=== PATIENT | male | born 1940 | race Caucasian/White ===

== ENCOUNTER 2017-12-05 13:15 | Inpatient (IN) | payer MEDICARE, SELFPAY ==
[2017-01-28 08:52] VITALS: BMI 18.7
[2017-12-05] VITALS (7 sets, daily range): BP systolic 113–159; BP diastolic 52–99; PULSE 77–111; RESP 16–20; TEMP 36.4–36.9; O2SAT 94–97; BMI 19.6; BMI 19.7; BMI 17.1
--- NOTE | 2017-12-05 14:01 | EKG12_ITS ---
Test Reason : Blood Pressure : / mmHG Vent. Rate : 090 BPM Atrial Rate : 090 BPM P-R Int : 130 ms QRS Dur : 104 ms QT Int : 394 ms P-R-T Axes : 081 083 084 degrees QTc Int : 481 ms Normal sinus rhythm ST & T wave abnormality, consider lateral ischemia Abnormal ECG Confirmed by INGA JOSHI, AARTI ([id number]), international editorial producer GINGER LINTON ([id number]) on 12/07/2017 3:29:33 PM Referred By: JASON Confirmed By:AARTI XIONG MD
--- NOTE | 2017-12-05 14:01 | RAD_ITS ---
STUDY: X-RAY CHEST REASON FOR EXAM: Male, 77 years old. Chest pain. TECHNIQUE: Single AP portable view of the chest. COMPARISON: Comparison is made with prior study dated January 26, 2017. FINDINGS: Hyperinflation. Decreased bilateral bronchovascular markings suggestive of emphysematous changes. There is no demonstrated pleural abnormality. Normal size heart. Normal mediastinum and esme. Normal visualized pulmonary arteries. There is atherosclerotic calcification of the aortic arch with tortuosity. There are diffuse degenerative changes of the visualized thoracic spine. Normal visualized ribs, clavicles, and shoulders. Hiatal hernia. RAD/Chest 1 View (Portable) IMPRESSION: Hyperinflation. Electronically Signed: Checo Shah MD at 14:26 EDT Tel [phone], Service support ,
--- NOTE | 2017-12-05 14:02 | CT_ITS ---
STUDY: CT ABDOMEN AND PELVIS WITHOUT CONTRAST REASON FOR EXAM: Male, 77 years old. Left flank pain. RADIATION DOSAGE (If Supplied By Facility): CTDIvol = ( 7.90 ) mGy, DLP = ( 340.20 ) mGycm TECHNIQUE: Transaxial images were obtained from the dome of the diaphragm to the symphysis pubis without oral contrast, and without intravenous contrast. Sagittal and coronal images were reconstructed. Individualized dose optimization techniques were used for this CT. COMPARISON: None. FINDINGS: Minimal linear scarring in the right middle lobe. Minimal increased markings in the posterior segment of the right lower lobe suggestive of a scarring. Coronary artery calcification. Normal liver. Normal gallbladder and extrahepatic biliary system. Normal spleen. Normal pancreas. Normal bilateral adrenal glands. Normal right kidney. Normal left kidney. There is a marked degree of fluid distention of the stomach. There is also evidence of fluid distention of the second and third portions of the duodenum. The transition point is seen in the third portion of duodenum as it crosses the superior mesenteric artery. Normal small intestine. Moderate amount of fecal material is seen in the colon. The appendix is visualized and appears normal. Normal abdominal aorta. Normal inferior vena cava. Normal retroperitoneum. Distended urinary bladder. There is enlargement of the prostate gland. It measures 5.2 cm x 3.8 cm. Right inguinal hernia containing a nondilated ileal bowel loop. There are diffuse degenerative changes of the visualized lumbar spine. CT/Abdomen/Pelvis without Cont IMPRESSION: Marked degree of fluid distention of the stomach as well as the second and third portion of the duodenum as it crosses the aorta and the superior mesenteric artery. Distended urinary bladder. Small right inguinal hernia containing a nondilated small bowel loop. Electronically Signed: Checo Shah MD at 15:10 EDT Tel [phone], Service support ,
[2017-12-05 14:15] LABS: Absolute Neutrophil Count 3.6 X10^3/uL (2.0-7.7); Basophil# 0.02 X10^3/uL; Basophil% 0.4 % (0-1); Eosinophil# 0.37 X10^3/uL; Hematocrit 44.4 % (40-54); Hemoglobin 14.6 g/dl (13.0-16.5); Mean Corp Hgb Conc 32.9 g/gl (32-36); Mean Corpuscular Hgb 30.7 pg (27.0-32.0); Mean Corpuscular Volume 93.3 fL (80-94); Mean Platelet Vol. 9.3 fl (6.2-12.0); Monocyte# 0.42 X10^3/uL; Monocyte% 7.9 % (0-10); Neutrophil # 3.58 X10^3/uL (2.7-7.7); Neutrophil % 67.5 % (47-70); POSITIVE COUNT NO; POSITIVE DIFFERENTIAL NO; POSITIVE MORPHOLOGY NO; Platelet Count 193 K/mm3 (150-450); RBC Distribution Width CV 13.5 % (11.6-14.6); RBC Distribution Width SD 46.1 fl (35.1-43.9); Red Blood Count 4.76 M/mm3 (4.6-6.2); White Blood Count 5.3 K/mm3 (4.4-11.0)
[2017-12-05] MEDS: Aspirin 81 MG TAB.CHEW 324 MG PO (14:22)
[2017-12-05] MEDS: Ondansetron 4 MG/2 ML Vial IV (14:22)
[2017-12-05] MEDS: 0.9% Normal Saline 1,000 ML 150 ML IV (14:22)
[2017-12-05 14:25] LABS: Bacteria 0 SEEN /hpf (None Seen); Mucous, Urine 0 SEEN /hpf (<or=2+); Red Blood Cells-Urine 0 SEEN /hpf (0-5)
[2017-12-05 14:29] LABS: Color, Urine Yellow (Yellow); Glucose, Dipstick Normal (Normal); Ketone-Dipstick 5 mg/dl (Negative); Leukocyte Esterase-Dipstick 25 /ul (Negative); Nitrite-Dipstick Negative (Negative); Occult Blood-Urine Negative /ul (Negative); Protein-Dipstick 30 mg/dl (Negative); Specific Gravity, Urine 1.015 (1.002-1.030); Urine Bilirubin Dipstick Negative (Negative); Urine Clarity Sl. Cloudy (Clear); Urine Urobilinogen Normal (Normal)
[2017-12-05 14:31] LABS: Anion Gap 6 (5-15); BUN 14 mg/dL (7-18); BUN/Creat Ratio 18.5 RATIO (10-20); Chloride 101 mmol/L (98-107); Creatinine, Serum 0.76 mg/dL (0.70-1.30); EST Glomerular Filtration Rate 106 mL/min (>60); Est Glom Filt Rate - Afr Amer 128 mL/min (>60); Estimated Creatinine Clearance 57.55 ml/min; Glucose 125 mg/dL (74-106); Potassium 3.7 mmol/L (3.5-5.1); Sodium Level 140 mmol/L (136-145)
[2017-12-05 14:36] LABS: White Blood Cells 0-5 SEEN /hpf (0-5)
[2017-12-05 14:37] LABS: Squamous Epithelial Cells - UA 0-5 SEEN /hpf (0-5)
[2017-12-05] MEDS: Lidocaine 4% 50 ML Bottle TOPICAL (16:23)
--- NOTE | 2017-12-05 17:25 | RAD_ITS ---
STUDY: X-RAY - ABDOMEN/PELVIS REASON FOR EXAM: Male, 77 years old. NG tube placement. TECHNIQUE: Single AP portable view of the abdomen / pelvis. COMPARISON: CT abdomen and pelvis 1436 hours frontal chest x-rays 1417 hours. FINDINGS: The lung bases are hyperexpanded, consistent with COPD. Nasogastric tube passes beneath the diaphragm and through the stomach, its tip projecting just beyond the pylorus in the bulb of the duodenum. There is an unremarkable bowel gas pattern. There is no demonstrated free abdominal air. The visualized liver, spleen and kidneys are grossly normal in size and morphology. There are calcified phleboliths in the pelvis. There are diffuse degenerative changes of the visualized lumbar spine. There is a compression fracture deformity of the T12 vertebra. Mild degenerative arthrosis of the bilateral sacroiliac joints. Sclerotic density in the third sacral segment is unchanged. RAD/Abdomen Single View (Portable) IMPRESSION: 1. Is gas tube appears to pass through the stomach with its tip just above the pylorus to the bulb of the duodenum. 2. Nonspecific bowel gas pattern with stool and numerous nondistended segments of colon. 3. Hyperexpansion of lungs, consistent with COPD. 4. Compression fracture deformity of the T12 vertebra. Electronically Signed: Cain Clinton MD at 18:02 EDT , Service support ,
--- NOTE | 2017-12-05 17:33 | ED.DCSUM_ITS ---
- ER Visit Summary Date of Service: 12/05/17 Chief Complaint: Abdominal pain History of Present Illness: The patient is a 77 M who states he has seen Dr. Fallon once in the past. He is a poor informant. He complains of left flank and abdominal pain that began at 10:00 this morning. Is an aching severe pain. He has had nausea without vomiting. His last bowel movement was yesterday. He has had no melena or hematochezia. No dysuria or frequency. On further questioning of the patient he reports that he has had similar pain since last April. He complains of early satiety and weight loss. States that he has severe reflux after he eats. This is much worse if he lays down. Physical Examination: Vitals: Stable. Afebrile. General: Cachectic, but well-developed. Head: Normocephalic atraumatic. Neck: Supple, no lymphadenopathy. No JVD. Nontender. Cardiovascular: Regular rate and rhythm. No murmurs. Respiratory: No respiratory distress. Clear to auscultation bilaterally. Abdominal: Soft, moderate tenderness palpation the epigastrium in the left upper quadrant, nondistended, normal bowel sounds. No guarding, rebound, or peritoneal signs. Back: Nontender. Extremities: Nontender, no edema. Skin: Normal color, no rash. Neurologic: Alert and oriented ?3. Cranial nerves II through XII are intact. Normal strength and sensation. Psych: Normal affect. Test Results: CBC is remarkable for lymphocytes of 17 eosinophils of 7. Chem-7 is more for CO2 33 and glucose 125. UA is negative. Troponin is negative. EKG is sinus at [address] changes. Chest x-ray shows chronic changes. CT flank shows marked fluid distention of the stomach as well as the second and third portion of the duodenum as it crosses the aorta and the SMA. Distended urinary bladder with small right inguinal hernia with a non-dilated small bowel loop. Emergency Department Course and Treatment: Patient was treated with morphine and Zofran IV. He had an NG tube placed. He feels much improved. Treatment Plan: The patient was discussed with Dr. Shah, Dr. Sorensen, and Dr. Harvey. At this time it appears only conservative measures are indicated. Patient will be admitted to the hospital for further relation and treatment. He was discussed with Dr. Marroquin. Disposition: Admitted in improved condition. Impression: 1. SMA syndrome. This note was generated with [employer] dictation software. It may contain incorrect words, spelling, and punctuation that were not noted in review of the chart prior to signing ED Disposition - Plan for ED Patient: Chief Complaint: Flank Pain Referrals: John Fallon DO [Primary Care Provider] -
--- NOTE | 2017-12-05 17:36 | PCM.HP.STD ---
Problem List (1) H/O heart artery stent Status: Chronic Comment: PCI-RICO-LAD and RICO-D1 (2) Atherosclerotic heart disease of [place] coronary artery without angina pectoris Status: Chronic (3) Dysphagia Status: Acute History of Present Illness Date of Admission: 12/05/17 Chief Complaint: Abdominal pain, flank pain. The patient is a 77 year old M with past medical history as mentioned above presented to the emergency room because of abdominal pain and flank pain. The patient was not good informant but he was able to give a reasonable history. His main presenting complaint today was abdominal pain, mainly on both flanks, more on the right flank, dull aching pain, 6 out of 10 in severity, sometimes radiates to left inguinal region, associated also with mild abdominal distention and fullness for stomach and without aggravating or relieving factors. He mentioned that those symptoms been going on for some time. Also, he complained of difficulty swallowing and mentioned that food stuck in the middle part of his throat and this has been going on for few months. This is associated with poor appetite as well as loss of weight. He mentioned that he has not been able to eat or drink properly for the last few months because of this problem in addition to occasional nausea and abdominal distention. He did mention that he lost about 20 pounds over the last few months. In the emergency room, he was afebrile, blood pressure was slightly elevated, other vital signs were stable. Routine blood work was unremarkable. Troponin was negative. EKG revealed normal sinus rhythm without acute ischemic changes. Urinalysis was negative. Chest x-ray showed signs of hyperinflation, no acute findings. CT abdomen and pelvis without contrast revealed marked degree of gastric and second anterior portion of the duodenum fluid distention as it crosses the aorta and the superior mesenteric artery. 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 Past Medical History Past Medical History (Chronic Problems): Chronic Problems (Last Updated 09/08/17 @ 10:09 by Adwoa Cyr) H/O heart artery stent (Chronic 01/27/17) PCI-RICO-LAD and RICO-D1 Atherosclerotic heart disease of [place] coronary artery without angina pectoris (Chronic) High risk medication use (Chronic) Allergies No Known Allergies Allergy (Verified 09/08/17 10:00) Home Medications: Ambulatory Orders Medication Instructions Recorded clopidogrel 75 mg tablet 75 mg PO DAILY 09/08/17 Aspirin E.C. [Ecotrin] 81 mg PO DAILY@0800 12/05/17 Surgical History: noncontributory Smoking Status: Former smoker Alcohol: Rare Drugs: None - *Family History Maternal History Items: - - mother lived to 84 pancreatic cancer Paternal History Items: - - young due to intestinal surgery, Review of Systems Constitutional: Reports: Anorexia, Weakness, Weight Change, Fatigue. Denies: Chills, Fever Eyes: Denies: Blurred vision, Double vision, Drainage, Vision Change HEENT: Denies: Difficulty Hearing, Ear Pain, Eye Pain, Nasal Congestion, Sore Throat Cardiovascular: Denies: Chest Pain, Chest Pressure, Chest Tightness, Heaviness, Light Headedness, Palpitations, Syncope Respiratory: Denies: Cough, Pleuritic Pain, Shortness of Breath, Sputum production, Wheezing Gastrointestinal: Reports: Abdominal Pain, Constipation, Nausea. Denies: Diarrhea, Vomiting Genitourinary: Denies: Dysuria, Frequency, Hematuria Musculoskeletal: Denies: Arm Pain, Back Pain, Foot Pain Skin: Denies: Dryness, Rash Neurological: Denies: Balance problems, Double vision, Change in Speech, Slurred speech, Confusion, Focal weakness, Headaches, Incoordination Psychiatric: Denies: Anxiety, Depression Endocrine: Denies: Change in Body Habitus, Polydipsia VTE Information - Inpt Only VTE Present on Admission: No VTE Mechan Device Prophylaxis: SCD's VTE Pharm Prophylaxis ordered?: No - Physical Exam General: Alert, Oriented x3, Cooperative, No apparent distress HEENT: Atraumatic, PERRLA, EOMI Oral: Moist Mucosa, No Gingival or Mucosal Lesions/ Ulcerations Neck: Supple, No JVD, Negative Carotid Bruits, Trachea Midline, Thyroid Normal Size and Texture Lungs: Clear to auscultation, No rhonchi, No wheeze, No rales, Diminished Cardiovascular: Regular rate, Regular Rhythm, Normal S1, Normal S2, PMI Normal Abdomen: Bowel Sounds Present, Soft, Non Tender, Non-Distended, No Hepato-splenomegaly, Obese Extremities: No clubbing, No cyanosis, No edema Skin: No rashes, No breakdown Lymphatic: No Cervical, Supraclavicular, or Inguinal Adenopathy Neurological: Cranial nerves II-XII grossly intact, Motor Exam 5/5 strength throughout Psych/Mental Status: Normal Affect, Appropriate, Alert and oriented to time, place, person, mood and affect Vital Signs Temp Pulse Resp BP Pulse Ox 98 F 87 16 136/74 H 94 12/05/17 13:15 12/05/17 17:10 12/05/17 17:10 12/05/17 17:10 12/05/17 17:10 Oxygen Flow Rate (L/min) 2 Oxygen Delivery Method Nasal Cannula Weight: 145 lb Body Mass Index (BMI) 19.6 Laboratory Tests Past 24 Hrs 12/05/17 12/05/17 12/05/17 14:06 14:06 14:20 WBC 5.3 RBC 4.76 Hgb 14.6 Hct 44.4 MCV 93.3 MCH 30.7 MCHC 32.9 RDW 13.5 RDW Differential 46.1 H Plt Count 193 MPV 9.3 Immature Gran % (Auto) 0.200 Neut % (Auto) 67.5 Lymph % (Auto) 17.0 L Mccreary % (Auto) 7.9 Eos % (Auto) 7.0 H Baso % (Auto) 0.4 Absolute Neuts (auto) 3.6 Absolute Lymphs (auto) 0.90 Total Counted Not Reportable Sodium 140 Potassium 3.7 Chloride 101 Carbon Dioxide 33.0 H Anion Gap 6 BUN 14 Creatinine 0.76 Estim Creat Clear Calc 57.55 Est GFR (MDRD) Af Amer 128 Est GFR (MDRD) Non-Af 106 BUN/Creatinine Ratio 18.5 Glucose 125 H Calcium 9.0 Troponin I < 0.02 Urine Color Yellow Urine Clarity Sl. Cloudy Urine pH 8.0 Ur Specific [place] 1.015 Urine Protein 30 H Urine Glucose (UA) Normal Urine Ketones 5 H Urine Occult Blood Negative Urine Nitrite Negative Urine Bilirubin Negative Urine Urobilinogen Normal Ur Leukocyte Esterase 25 H Urine RBC 0 SEEN Urine WBC 0-5 SEEN Ur Squamous Epith Cells 0-5 SEEN Urine Bacteria 0 SEEN Urine Mucus 0 SEEN Clinical Impression(s) from Imaging Studies Chest X-Ray 12/05/17 14:01 IMPRESSION: Hyperinflation. Electronically Signed: Checo Shah MD at 14:26 EDT Tel [phone], Service support , Abdomen/Pelvis CT 12/05/17 14:02 IMPRESSION: Marked degree of fluid distention of the stomach as well as the second and third portion of the duodenum as it crosses the aorta and the superior mesenteric artery. Distended urinary bladder. Small right inguinal hernia containing a nondilated small bowel loop. Electronically Signed: Checo Shah MD at 15:10 EDT Tel [phone], Service support , Assessment/Plan This is a 77 years old male patient presented to the medicine because of vague abdominal pain, bilateral flank pain more on the right side as well as nausea and dysphagia, found to have findings consistent with possible superior mesenteric artery syndrome on CT scan abdomen and pelvis without contrast. #1 abdominal pain/flank pain/suspected superior mesenteric artery syndrome: This is an incidental CT scan abdomen and pelvis finding. It does show stomach and second and third part of duodenum marker distention. Both kidneys are normal without stones or hydronephrosis, normal bilateral adrenal glands, normal abdominal aorta, normal retroperitoneum. Plan: Admit to MedSurg floor, cardiac monitoring, keep on clear liquids, IV fluids, continue NG tube, IV morphine as needed for pain, IV antiemetics, general surgery consult, repeat CBC and BMP tomorrow morning, PT OT evaluation and treatment. #2 dysphagia: It is painless dysphagia, it is significant because it is associated with weight loss. Malignancy of the upper GI tract is in the differential diagnosis. Plan: IV Pepcid twice daily, IV fluids, general surgery consult for possible upper EGD. #3 epistaxis: This is started after NG tube insertion. Hemoglobin and hematocrit are stable. Plan to check pro time and INR, repeat CBC tomorrow morning #4 protein calorie malnutrition: This is because of poor oral intake and poor appetite. Patient lost about 20 pounds over the last few months. Plan: Prealbumin, nutrition consult. #5 CAD: EKG reviewed, no acute ischemic changes. Troponin is negative. Continue aspirin and Plavix. #6 DVT prophylaxis: SCDs. No chemical prophylaxis because of epistaxis. This note was generated with [employer]ation software. It may contain incorrect words, spelling, and punctuation that were not noted in checking the note before signing. Code Visit Inpatient E&M: 16269 Init Hosp L3
--- NOTE | 2017-12-05 17:48 | HP.PCM_ITS ---
Problem List (1) H/O heart artery stent Status: Chronic Comment: PCI-RICO-LAD and RICO-D1 (2) Atherosclerotic heart disease of [place] coronary artery without angina pectoris Status: Chronic (3) Dysphagia Status: Acute History of Present Illness Date of Admission: 12/05/17 Chief Complaint: Abdominal pain, flank pain. The patient is a 77 year old M with past medical history as mentioned above presented to the emergency room because of abdominal pain and flank pain. The patient was not good informant but he was able to give a reasonable history. His main presenting complaint today was abdominal pain, mainly on both flanks, more on the right flank, dull aching pain, 6 out of 10 in severity, sometimes radiates to left inguinal region, associated also with mild abdominal distention and fullness for stomach and without aggravating or relieving factors. He mentioned that those symptoms been going on for some time. Also, he complained of difficulty swallowing and mentioned that food stuck in the middle part of his throat and this has been going on for few months. This is associated with poor appetite as well as loss of weight. He mentioned that he has not been able to eat or drink properly for the last few months because of this problem in addition to occasional nausea and abdominal distention. He did mention that he lost about 20 pounds over the last few months. In the emergency room, he was afebrile, blood pressure was slightly elevated, other vital signs were stable. Routine blood work was unremarkable. Troponin was negative. EKG revealed normal sinus rhythm without acute ischemic changes. Urinalysis was negative. Chest x-ray showed signs of hyperinflation, no acute findings. CT abdomen and pelvis without contrast revealed marked degree of gastric and second anterior portion of the duodenum fluid distention as it crosses the aorta and the superior mesenteric artery. 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 Past Medical History Past Medical History (Chronic Problems): Chronic Problems (Last Updated 09/08/17 @ 10:09 by Adwoa Cyr) H/O heart artery stent (Chronic 01/27/17) PCI-RICO-LAD and RICO-D1 Atherosclerotic heart disease of [place] coronary artery without angina pectoris (Chronic) High risk medication use (Chronic) Allergies No Known Allergies Allergy (Verified 09/08/17 10:00) Home Medications: Ambulatory Orders Medication Instructions Recorded clopidogrel 75 mg tablet 75 mg PO DAILY 09/08/17 Aspirin E.C. [Ecotrin] 81 mg PO DAILY@0800 12/05/17 Surgical History: noncontributory Smoking Status: Former smoker Alcohol: Rare Drugs: None - *Family History Maternal History Items: - - mother lived to 84 pancreatic cancer Paternal History Items: - - young due to intestinal surgery, Review of Systems Constitutional: Reports: Anorexia, Weakness, Weight Change, Fatigue. Denies: Chills, Fever Eyes: Denies: Blurred vision, Double vision, Drainage, Vision Change HEENT: Denies: Difficulty Hearing, Ear Pain, Eye Pain, Nasal Congestion, Sore Throat Cardiovascular: Denies: Chest Pain, Chest Pressure, Chest Tightness, Heaviness, Light Headedness, Palpitations, Syncope Respiratory: Denies: Cough, Pleuritic Pain, Shortness of Breath, Sputum production, Wheezing Gastrointestinal: Reports: Abdominal Pain, Constipation, Nausea. Denies: Diarrhea, Vomiting Genitourinary: Denies: Dysuria, Frequency, Hematuria Musculoskeletal: Denies: Arm Pain, Back Pain, Foot Pain Skin: Denies: Dryness, Rash Neurological: Denies: Balance problems, Double vision, Change in Speech, Slurred speech, Confusion, Focal weakness, Headaches, Incoordination Psychiatric: Denies: Anxiety, Depression Endocrine: Denies: Change in Body Habitus, Polydipsia VTE Information - Inpt Only VTE Present on Admission: No VTE Mechan Device Prophylaxis: SCD's VTE Pharm Prophylaxis ordered?: No - Physical Exam General: Alert, Oriented x3, Cooperative, No apparent distress HEENT: Atraumatic, PERRLA, EOMI Oral: Moist Mucosa, No Gingival or Mucosal Lesions/ Ulcerations Neck: Supple, No JVD, Negative Carotid Bruits, Trachea Midline, Thyroid Normal Size and Texture Lungs: Clear to auscultation, No rhonchi, No wheeze, No rales, Diminished Cardiovascular: Regular rate, Regular Rhythm, Normal S1, Normal S2, PMI Normal Abdomen: Bowel Sounds Present, Soft, Non Tender, Non-Distended, No Hepato- splenomegaly, Obese Extremities: No clubbing, No cyanosis, No edema Skin: No rashes, No breakdown Lymphatic: No Cervical, Supraclavicular, or Inguinal Adenopathy Neurological: Cranial nerves II-XII grossly intact, Motor Exam 5/5 strength throughout Psych/Mental Status: Normal Affect, Appropriate, Alert and oriented to time, place, person, mood and affect Vital Signs Temp Pulse Resp BP Pulse Ox 98 F 87 16 136/74 H 94 12/05/17 13:15 12/05/17 17:10 12/05/17 17:10 12/05/17 17:10 12/05/17 17:10 Oxygen Flow Rate (L/min) 2 Oxygen Delivery Method Nasal Cannula Weight: 145 lb Body Mass Index (BMI) 19.6 Laboratory Tests Past 24 Hrs 12/05/17 12/05/17 12/05/17 14:06 14:06 14:20 WBC 5.3 RBC 4.76 Hgb 14.6 Hct 44.4 MCV 93.3 MCH 30.7 MCHC 32.9 RDW 13.5 RDW Differential 46.1 H Plt Count 193 MPV 9.3 Immature Gran % (Auto) 0.200 Neut % (Auto) 67.5 Lymph % (Auto) 17.0 L [place] % (Auto) 7.9 Eos % (Auto) 7.0 H Baso % (Auto) 0.4 Absolute Neuts (auto) 3.6 Absolute Lymphs (auto) 0.90 Total Counted Not Reportable Sodium 140 Potassium 3.7 Chloride 101 Carbon Dioxide 33.0 H Anion Gap 6 BUN 14 Creatinine 0.76 Estim Creat Clear Calc 57.55 Est GFR (MDRD) Af Amer 128 Est GFR (MDRD) Non-Af 106 BUN/Creatinine Ratio 18.5 Glucose 125 H Calcium 9.0 Troponin I < 0.02 Urine Color Yellow Urine Clarity Sl. Cloudy Urine pH 8.0 Ur Specific [place] 1.015 Urine Protein 30 H Urine Glucose (UA) Normal Urine Ketones 5 H Urine Occult Blood Negative Urine Nitrite Negative Urine Bilirubin Negative Urine Urobilinogen Normal Ur Leukocyte Esterase 25 H Urine RBC 0 SEEN Urine WBC 0-5 SEEN Ur Squamous Epith Cells 0-5 SEEN Urine Bacteria 0 SEEN Urine Mucus 0 SEEN Clinical Impression(s) from Imaging Studies Chest X-Ray 12/05/17 14:01 IMPRESSION: Hyperinflation. Electronically Signed: Checo Shah MD at 14:26 EDT Tel [phone], Service support , Abdomen/Pelvis CT 12/05/17 14:02 IMPRESSION: Marked degree of fluid distention of the stomach as well as the second and third portion of the duodenum as it crosses the aorta and the superior mesenteric artery. Distended urinary bladder. Small right inguinal hernia containing a nondilated small bowel loop. Electronically Signed: Checo Shah MD at 15:10 EDT Tel [phone], Service support , Assessment/Plan This is a 77 years old male patient presented to the medicine because of vague abdominal pain, bilateral flank pain more on the right side as well as nausea and dysphagia, found to have findings consistent with possible superior mesenteric artery syndrome on CT scan abdomen and pelvis without contrast. #1 abdominal pain/flank pain/suspected superior mesenteric artery syndrome: This is an incidental CT scan abdomen and pelvis finding. It does show stomach and second and third part of duodenum marker distention. Both kidneys are normal without stones or hydronephrosis, normal bilateral adrenal glands, normal abdominal aorta, normal retroperitoneum. Plan: Admit to MedSurg floor, cardiac monitoring, keep on clear liquids, IV fluids, continue NG tube, IV morphine as needed for pain, IV antiemetics, general surgery consult, repeat CBC and BMP tomorrow morning, PT OT evaluation and treatment. #2 dysphagia: It is painless dysphagia, it is significant because it is associated with weight loss. Malignancy of the upper GI tract is in the differential diagnosis. Plan: IV Pepcid twice daily, IV fluids, general surgery consult for possible upper EGD. #3 epistaxis: This is started after NG tube insertion. Hemoglobin and hematocrit are stable. Plan to check pro time and INR, repeat CBC tomorrow morning #4 protein calorie malnutrition: This is because of poor oral intake and poor appetite. Patient lost about 20 pounds over the last few months. Plan: Prealbumin, nutrition consult. #5 CAD: EKG reviewed, no acute ischemic changes. Troponin is negative. Continue aspirin and Plavix. #6 DVT prophylaxis: SCDs. No chemical prophylaxis because of epistaxis. This note was generated with [employer]Q™ Medical[employer] software. It may contain incorrect words, spelling, and punctuation that were not noted in checking the note before signing. Code Visit Inpatient E&M: 51980 Init Hosp L3
[2017-12-05 20:02] LABS: International Normalized Ratio 1.1; Prothrombin Time (Protime)PT. 13.9 SECONDS (11.7-14.9)
[2017-12-05 20:57] LABS: Prealbumin 27.1 mg/dL (20.0-40.0)
[2017-12-05] MEDS: 0.9% Normal Saline 1,000 ML 100 ML IV ×2 (22:42→23:07)
[2017-12-06] VITALS (16 sets, daily range): BP systolic 97–133; BP diastolic 45–83; PULSE 61–88; RESP 16–18; TEMP 36.4–37.1; O2SAT 93–99; BMI 17.1
--- NOTE | 2017-12-06 | EGD_PTH ---
PATIENT: RENETTA HOBSON LOC: MS2 U#:[id number] AGE/SX: 77/M ROOM: [facility] [place] RE12/05/[address]: Dr. Ras Ziegler MD : 1940 BED: 1 DIS: 12/07/2017 SPEC #: [id number] RECD: 12/06/17 13:08 STATUS: [place] REQ #: [id number] RONALDO: 12/06/17 00:[address]: Matteo Winters DEPT: SURGICAL PATHOLOGY RECD BY: Herman Archer ENTERED: 12/06/17 14:20 SP TYPE: EGD BIOPSY OTHR DR: MD Dr. Mario Black MD Dr. Mark Stutzman, Tissues: Gastric mucous membrane Procedures: Surgery Specimen Level IV Comments: @ Ordering doctor for SUIV edited from to @ by TAISHA at 12/07/17 0843 @ Submitting doctor edited from to @ by RGOOD at 12/07/17 0843 HEADER OPERATION: EGD PRE-OP DIAGNOSIS: Weight loss, ? SMA syndrome TISSUE SUBMITTED: Gastric biopsy MICROSCOPIC DIAGNOSIS Gastric mucosa, biopsy: Mild chronic gastritis. AM:jarrett 12/07/17 COMMENT The results of immunohistochemistry for Helicobacter pylori will be reported separately ([id number]). MICROSCOPIC DESCRIPTION Slides are reviewed. GROSS DESCRIPTION Received in fixative is one container labeled with the patient's name and designated gastric biopsy. The specimen consists of one irregular fragment of light gregg soft tissue that measures 0.7 x 0.2 x 0.1 cm. The specimen is totally submitted in one cassette. / AM:jarrett 12/06/17 TC:3 CPT: 13434
--- NOTE | 2017-12-06 | IMM_PTH ---
PATIENT: RENETTA HOBSON LOC: MS2 U#:[id number] AGE/SX: 77/M ROOM: [facility] [id number] RE12/05/[address]: Dr. Ras Ziegler MD : 1940 BED: 1 DIS: 12/07/2017 SPEC #: [id number] RECD: 12/07/17 11:40 STATUS: SOUT REQ #: [id number] RONALDO: 12/06/17 00:[address]: Matteo Winters DEPT: IMMUNOHISTOCHEMISTRY RECD BY: Melvina Dumont ENTERED: 12/07/17 11:41 SP TYPE: IMMUNO OTHR DR: MD Dr. Mario Black MD Dr. Mark Stutzman, DO Tissues: Stomach, NOS Procedures: H Pylori (initial) Comments: @ Ordering doctor for H.PYLORI edited from to @ by TAISHA at 12/07/17 1150 @ Submitting doctor edited from to @ by RGOOD at 12/07/17 1150 PHYSICIAN & [place] [phone] SPECIMEN INFORMATION: Tissue Source: Gastric biopsy Clinical Info: Weight loss, ? SMA syndrome Specimen Number: [id number] CPT code: 84505 METHODOLOGY: Deparaffinized sections of prefer/formalin-fixed tissue or PAP/DQ stained slides are incubated with monoclonal/polyclonal antibodies/oligonucleotide probes. Localization is made via biotin free immunoperoxidase method. Appropriate controls are performed and reacted as expected. Results on target cell population are indicated in the following table: RESULTS: ANTIBODY / CLONE RESULT H Pylori (polyclonal) negative These tests were developed and their performance characteristics determined by [facility]. They may not have been cleared or approved by the U.S. Food and Drug Administration. The FDA has determined that such clearance or approval is not necessary. INTERPRETATION: Gastric biopsy: Negative for Helicobacter pylori organisms. ALYSE:jarrett 12/08/17
[2017-12-06 05:18] LABS: Absolute Lymphocyte Count 0.86 X10^3/ul (0.83-4.51); Absolute Neutrophil Count 5.2 X10^3/uL (2.0-7.7); Basophil# 0.02 X10^3/uL; Basophil% 0.3 % (0-1); Eosinophils% 6.9 % (0-5); Hematocrit 40.2 % (40-54); Hemoglobin 13.2 g/dl (13.0-16.5); Lymphocyte # 0.86 X10^3/ul (4.0); Lymphocyte % 11.8 % (19-41); Mean Corp Hgb Conc 32.8 g/gl (32-36); Mean Corpuscular Volume 94.4 fL (80-94); Mean Platelet Vol. 9.5 fl (6.2-12.0); Monocyte# 0.69 X10^3/uL; Monocyte% 9.5 % (0-10); Neutrophil # 5.19 X10^3/uL (2.7-7.7); Neutrophil % 71.4 % (47-70); Platelet Count 206 K/mm3 (150-450); RBC Distribution Width CV 13.4 % (11.6-14.6); RBC Distribution Width SD 44.9 fl (35.1-43.9); Red Blood Count 4.26 M/mm3 (4.6-6.2); White Blood Count 7.3 K/mm3 (4.4-11.0)
[2017-12-06 05:23] LABS: POSITIVE COUNT NO; POSITIVE DIFFERENTIAL NO; POSITIVE MORPHOLOGY NO
[2017-12-06 05:39] LABS: Anion Gap 8 (5-15); BUN 10 mg/dL (7-18); BUN/Creat Ratio 15.9 RATIO (10-20); Calcium,Total 8.2 mg/dL (8.5-10.1); Chloride 107 mmol/L (98-107); Creatinine, Serum 0.63 mg/dL (0.70-1.30); EST Glomerular Filtration Rate 132 mL/min (>60); Est Glom Filt Rate - Afr Amer 160 mL/min (>60); Estimated Creatinine Clearance 50.05 ml/min; Glucose 83 mg/dL (74-106); Sodium Level 141 mmol/L (136-145)
[2017-12-06] MEDS: Clopidogrel Bisulfate 75 MG Tablet PO (08:02)
[2017-12-06] MEDS: Aspirin E.C. 81 MG Tablet PO (08:02)
[2017-12-06] MEDS: 0.9% Normal Saline 1,000 ML 100 ML IV ×2 (08:04→15:38)
--- NOTE | 2017-12-06 09:30 | PCM.CONS.GEN ---
Reason for Consult Date of Consultation: 12/06/17 History of Present Illness: The patient is a 77 year old M who notes postprandial abdominal pain and 20 at 30 pound weight loss. The patient has a history of coronary disease. He had 3 stents placed in January 2017. Since that time. The patient has had progressive postprandial pain which she describes is consistent with these. He thinks his kidney pain. He will eat a meal mostly solids but also more recently liquids and after eating he will note abdominal distention, nausea without vomiting and unable note pain in his bilateral flank areas, more on the left than the right. As a result, the patient's appetite has been lessened. He states he is eating mostly soups and some milkshakes, but now has pain even after liquidy foods. Since last year. His weight has gone from approximately 157 pounds to 120 pounds. he presented to [facility] emergency department yesterday. A KUB followed by a CT scan demonstrated significant gastric distention and distention of the duodenum to the third, fourth portion felt to be consistent with her mesenteric artery syndrome. An nasogastric tube was placed. He was admitted to the medicine service and I was consulted. the patient does not note any improvement in his symptoms with positioning. Following eating, although he does not admit to trying either eating with leaning forward or eating laying on either side. Past Medical History Past Medical History (Chronic Problems): Chronic Problems (Last Updated 09/08/17 @ 10:09 by Adwoa Cyr) H/O heart artery stent (Chronic 01/27/17) PCI-RICO-LAD and RICO-D1 Atherosclerotic heart disease of [place] coronary artery without angina pectoris (Chronic) High risk medication use (Chronic) Allergies No Known Allergies Allergy (Verified 09/08/17 10:00) Home Medications: Ambulatory Orders Medication Instructions Recorded clopidogrel 75 mg tablet 75 mg PO DAILY 09/08/17 Aspirin E.C. [Ecotrin] 81 mg PO DAILY@0800 12/05/17 Surgical History: noncontributory Smoking Status: Former smoker Alcohol: Rare Drugs: None - *Family History Maternal History Items: - - mother lived to 84 pancreatic cancer Paternal History Items: - - young due to intestinal surgery, Review of Systems Constitutional: Reports: Malaise, Weight Change, Fatigue HEENT: Denies: Head Aches, Sinus Congestion, Sinus Drainage Cardiovascular: Denies: Chest Pain, Palpitations Respiratory: Denies: Cough, Shortness of breath at rest, Sputum production Gastrointestinal: Reports: Abdominal Pain, Nausea. Denies: Vomiting Genitourinary: Denies: Dysuria Musculoskeletal: Denies: Joint Pain, Joint Tenderness Skin: Denies: Rash, Wounds Neurological: Denies: Numbness, Tingling, Focal weakness Psychiatric: Denies: Anxiety, Depression, Homicidal Ideations, Suicidal Ideations Hematologic/ Lymphatic: Denies: Easy Bruising, Easy Bleeding - Physical Exam General: Alert, Oriented x3, - - thin and mildly malnourished appearing Lungs: Clear to auscultation, Normal air movement Cardiovascular: Regular rate, Regular Rhythm Abdomen: Bowel Sounds Present, Soft, Non Tender Vital Signs Temp Pulse Resp BP Pulse Ox 98.2 F 67 16 133/59 H 99 12/06/17 07:45 12/06/17 07:45 12/06/17 07:45 12/06/17 07:45 12/06/17 07:45 Oxygen Delivery Method Room Air Weight: 57.2 kg Body Mass Index (BMI) 17.1 Intake and Output for Last 24 Hours 12/04/17 12/05/17 12/06/17 23:59 23:59 23:59 Intake Total 1527 / 1527 Output Total 740 / 740 Balance 787 / 787 Laboratory Tests Past 24 Hrs 12/05/17 12/05/17 12/06/17 19:08 19:08 04:45 WBC 7.3 RBC 4.26 L Hgb 13.2 Hct 40.2 MCV 94.4 H MCH 31.0 MCHC 32.8 RDW 13.4 RDW Differential 44.9 H Plt Count 206 MPV 9.5 Immature Gran % (Auto) 0.100 Neut % (Auto) 71.4 H Lymph % (Auto) 11.8 L [place] % (Auto) 9.5 Eos % (Auto) 6.9 H Baso % (Auto) 0.3 Absolute Neuts (auto) 5.2 Absolute Lymphs (auto) 0.86 Total Counted Not Reportable PT 13.9 INR 1.1 Sodium Potassium Chloride Carbon Dioxide Anion Gap BUN Creatinine Estim Creat Clear Calc Est GFR (MDRD) Af Amer Est GFR (MDRD) Non-Af BUN/Creatinine Ratio Glucose Calcium Prealbumin 27.1 12/06/17 04:45 WBC RBC Hgb Hct MCV MCH MCHC RDW RDW Differential Plt Count MPV Immature Gran % (Auto) Neut % (Auto) Lymph % (Auto) [place] % (Auto) Eos % (Auto) Baso % (Auto) Absolute Neuts (auto) Absolute Lymphs (auto) Total Counted PT INR Sodium 141 Potassium 4.0 Chloride 107 Carbon Dioxide 26.0 Anion Gap 8 BUN 10 Creatinine 0.63 L Estim Creat Clear Calc 50.05 Est GFR (MDRD) Af Amer 160 Est GFR (MDRD) Non-Af 132 BUN/Creatinine Ratio 15.9 Glucose 83 Calcium 8.2 L Prealbumin Assessment/Plan weight loss, postprandial abdominal pain-findings consistent with superior mesenteric artery syndrome I plan to perform upper endoscopy to assure that there is no intrinsic abnormalities which would explain his symptoms. The patient understands the risks, benefits, possible complications and alternatives to upper endoscopy. Consents to the procedure. If this is unremarkable, would then start on a liquid diet versus a small diet/postgastrectomy type diet to see if this improves his symptoms. We can also try different positions following eating such as leaning forward or leaning off to the side. We can also try sips of nutritional supplements between meals. We could also consider getting an upper GI to assess the degree of narrowing, although on noncontrast CT scan. It certainly looks like he has a decreased SMA aortic angle.
--- NOTE | 2017-12-06 10:51 | NURSING ---
Patient being transported to EGD at this time.
--- NOTE | 2017-12-06 10:52 | NURSING ---
Layla here to transport patient to endo. called report to Tish in AC as they will check pt in. pt transported off unit at this time.
--- NOTE | 2017-12-06 11:48 | PCM.PN.HOSP ---
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 Consult was placed to general surgery for endoscopic evaluation in view of patient significant dysphagia and weight loss Objective: GENERAL: cooperative HEENT: Clear conjunctiva, NECK; supple, normal thyroid, . CHEST: Diminished to auscultation bilaterally HEART: Regular S1 S2, no audible murmurs ABDOMEN: soft, non-tender, normoactive bowel sounds, RECTAL: deferred EXTREMITIES: No edema, no clubbing, no cyanosis. PRESSURE DISPATCHER: Awake, no lateralizing signs. SKIN: No lesions no erythema, Vitals/I&O's: Vital Signs Temp Pulse Resp BP Pulse Ox 98.2 F 67 16 133/59 H 99 12/06/17 07:45 12/06/17 07:45 12/06/17 07:45 12/06/17 07:45 12/06/17 07:45 Oxygen Delivery Method Room Air Weight: 57.2 kg Body Mass Index (BMI) 17.1 Intake and Output for Last 24 Hours 12/04/17 12/05/17 12/06/17 23:59 23:59 23:59 Intake Total 1527 / 1527 Output Total 740 / 740 Balance 787 / 787 Laboratory Results 12/05/17 19:08: PT 13.9, INR 1.1 12/05/17 19:08: Prealbumin 27.1 12/06/17 04:45: WBC 7.3, RBC 4.26 L, Hgb 13.2, Hct 40.2, MCV 94.4 H, MCH 31.0, MCHC 32.8, RDW 13.4, RDW Differential 44.9 H, Plt Count 206, MPV 9.5, Immature Gran % (Auto) 0.100, Neut % (Auto) 71.4 H, Lymph % (Auto) 11.8 L, [place] % (Auto) 9.5, Eos % (Auto) 6.9 H, Baso % (Auto) 0.3, Absolute Neuts (auto) 5.2, Absolute Lymphs (auto) 0.86, Total Counted Not Reportable 12/06/17 04:45: Sodium 141, Potassium 4.0, Chloride 107, Carbon Dioxide 26.0, Anion Gap 8, BUN 10, Creatinine 0.63 L, Estim Creat Clear Calc 50.05, Est GFR (MDRD) Af Amer 160, Est GFR (MDRD) Non-Af 132, BUN/Creatinine Ratio 15.9, Glucose 83, Calcium 8.2 L Current Medications Aspirin (Ecotrin) 81 mg PO DAILY@0800 [facility] Last Admin: 12/06/17 08:02 Dose: 81 mg Clopidogrel Bisulfate (Plavix) 75 mg PO DAILY [facility] Last Admin: 12/06/17 08:02 Dose: 75 mg Sodium Chloride () 1,000 mls @ 100 mls/hr IV .Q10H [facility] Last Admin: 12/06/17 08:04 Dose: 100 mls/hr Famotidine (Pepcid 20mg) 20 mg in 50 mls @ 150 mls/hr IV Q12 [facility] Last Admin: 12/06/17 10:17 Dose: 150 mls/hr Morphine Sulfate (Morphine) 1 - 2 mg IV Q4H PRN PRN PRN Reason: SEVERE PAIN (6-10/10) Last Admin: 12/06/17 03:39 Dose: 1 mg Nutritional Formula (Lactose Free) (Ensure Clear) 120 ml PO 4X/DAY [facility] Last Admin: 12/06/17 07:53 Dose: Not Given Ondansetron HCl (Zofran) 4 mg IV Q8H PRN PRN PRN Reason: NAUSEA/VOMITING Sodium Chloride () 5 - 30 ml IV UD PRN PRN Reason: SALINE FLUSH Assessment/Plan Patient is a 77-year-old gentleman with past medical history significant for CAD who presented with vague abdominal symptoms associated with nausea and dysphagia and significant weight loss CT of the abdomen without contrast obtained demonstrated 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 Consult was placed to general surgery for endoscopic evaluation in view of patient significant dysphagia and weight loss 1. Abdominal pain suspected to be secondary to superior mesenteric artery syndrome; patient has been admitted to regular nursing floor for conservative management including NG tube to suction antinausea medication as well as pain management with consultation placed to general surgery 2. Dysphagia with significant weight loss patient scheduled to undergo endoscopic evaluation 3. Severe protein calorie malnutrition as evidenced by significant weight loss decreased energy level and poor oral intake consultation was placed to nutrition service 4. CAD EKG on admission did not reveal any acute changes patient is on dual antiplatelet therapy with aspirin and Plavix did continue 5. DVT prophylaxis SCDs for now Clinical Impression(s) from Imaging Studies Chest X-Ray 12/05/17 14:01 IMPRESSION: Hyperinflation. Electronically Signed: Checo Shah MD at 14:26 EDT Tel [phone], Service support , Abdomen/Pelvis CT 12/05/17 14:02 IMPRESSION: Marked degree of fluid distention of the stomach as well as the second and third portion of the duodenum as it crosses the aorta and the superior mesenteric artery. Distended urinary bladder. Small right inguinal hernia containing a nondilated small bowel loop. Electronically Signed: Checo Shah MD at 15:10 EDT Tel [phone], Service support , KUB X-Ray 12/05/17 17:25 IMPRESSION: 1. Is gas tube appears to pass through the stomach with its tip just above the pylorus to the bulb of the duodenum. 2. Nonspecific bowel gas pattern with stool and numerous nondistended segments of colon. 3. Hyperexpansion of lungs, consistent with COPD. 4. Compression fracture deformity of the T12 vertebra. Electronically Signed: Cain Clinton MD at 18:02 EDT , Service support , Code Visit Inpatient E&M: 77802 Subs Hosp L3
--- NOTE | 2017-12-06 11:55 | PN_ITS ---
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 Consult was placed to general surgery for endoscopic evaluation in view of patient significant dysphagia and weight loss Objective: GENERAL: cooperative HEENT: Clear conjunctiva, NECK; supple, normal thyroid, . CHEST: Diminished to auscultation bilaterally HEART: Regular S1 S2, no audible murmurs ABDOMEN: soft, non-tender, normoactive bowel sounds, RECTAL: deferred EXTREMITIES: No edema, no clubbing, no cyanosis. ANGLESMITH HELPER: Awake, no lateralizing signs. SKIN: No lesions no erythema, Vitals/I&O's: Vital Signs Temp Pulse Resp BP Pulse Ox 98.2 F 67 16 133/59 H 99 12/06/17 07:45 12/06/17 07:45 12/06/17 07:45 12/06/17 07:45 12/06/17 07:45 Oxygen Delivery Method Room Air Weight: 57.2 kg Body Mass Index (BMI) 17.1 Intake and Output for Last 24 Hours 12/04/17 12/05/17 12/06/17 23:59 23:59 23:59 Intake Total 1527 / 1527 Output Total 740 / 740 Balance 787 / 787 Laboratory Results 12/05/17 19:08: PT 13.9, INR 1.1 12/05/17 19:08: Prealbumin 27.1 12/06/17 04:45: WBC 7.3, RBC 4.26 L, Hgb 13.2, Hct 40.2, MCV 94.4 H, MCH 31.0, MCHC 32.8, RDW 13.4, RDW Differential 44.9 H, Plt Count 206, MPV 9.5, Immature Gran % (Auto) 0.100, Neut % (Auto) 71.4 H, Lymph % (Auto) 11.8 L, [place] % (Auto) 9.5, Eos % (Auto) 6.9 H, Baso % (Auto) 0.3, Absolute Neuts (auto) 5.2, Absolute Lymphs (auto) 0.86, Total Counted Not Reportable 12/06/17 04:45: Sodium 141, Potassium 4.0, Chloride 107, Carbon Dioxide 26.0, Anion Gap 8, BUN 10, Creatinine 0.63 L, Estim Creat Clear Calc 50.05, Est GFR ( MDRD) Af Amer 160, Est GFR (MDRD) Non-Af 132, BUN/Creatinine Ratio 15.9, Glucose 83, Calcium 8.2 L Current Medications Aspirin (Ecotrin) 81 mg PO DAILY@0800 [facility] Last Admin: 12/06/17 08:02 Dose: 81 mg Clopidogrel Bisulfate (Plavix) 75 mg PO DAILY [facility] Last Admin: 12/06/17 08:02 Dose: 75 mg Sodium Chloride () 1,000 mls @ 100 mls/hr IV .Q10H [facility] Last Admin: 12/06/17 08:04 Dose: 100 mls/hr Famotidine (Pepcid 20mg) 20 mg in 50 mls @ 150 mls/hr IV Q12 [facility] Last Admin: 12/06/17 10:17 Dose: 150 mls/hr Morphine Sulfate (Morphine) 1 - 2 mg IV Q4H PRN PRN PRN Reason: SEVERE PAIN (6-10/10) Last Admin: 12/06/17 03:39 Dose: 1 mg Nutritional Formula (Lactose Free) (Ensure Clear) 120 ml PO 4X/DAY [facility] Last Admin: 12/06/17 07:53 Dose: Not Given Ondansetron HCl (Zofran) 4 mg IV Q8H PRN PRN PRN Reason: NAUSEA/VOMITING Sodium Chloride () 5 - 30 ml IV UD PRN PRN Reason: SALINE FLUSH Assessment/Plan Patient is a 77-year-old gentleman with past medical history significant for CAD who presented with vague abdominal symptoms associated with nausea and dysphagia and significant weight loss CT of the abdomen without contrast obtained demonstrated 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 Consult was placed to general surgery for endoscopic evaluation in view of patient significant dysphagia and weight loss 1. Abdominal pain suspected to be secondary to superior mesenteric artery syndrome; patient has been admitted to regular nursing floor for conservative management including NG tube to suction antinausea medication as well as pain management with consultation placed to general surgery 2. Dysphagia with significant weight loss patient scheduled to undergo endoscopic evaluation 3. Severe protein calorie malnutrition as evidenced by significant weight loss decreased energy level and poor oral intake consultation was placed to nutrition service 4. CAD EKG on admission did not reveal any acute changes patient is on dual antiplatelet therapy with aspirin and Plavix did continue 5. DVT prophylaxis SCDs for now Clinical Impression(s) from Imaging Studies Chest X-Ray 12/05/17 14:01 IMPRESSION: Hyperinflation. Electronically Signed: Checo Shah MD at 14:26 EDT Tel [phone], Service support , Abdomen/Pelvis CT 12/05/17 14:02 IMPRESSION: Marked degree of fluid distention of the stomach as well as the second and third portion of the duodenum as it crosses the aorta and the superior mesenteric artery. Distended urinary bladder. Small right inguinal hernia containing a nondilated small bowel loop. Electronically Signed: Checo Shah MD at 15:10 EDT Tel [phone], Service support , KUB X-Ray 12/05/17 17:25 IMPRESSION: 1. Is gas tube appears to pass through the stomach with its tip just above the pylorus to the bulb of the duodenum. 2. Nonspecific bowel gas pattern with stool and numerous nondistended segments of colon. 3. Hyperexpansion of lungs, consistent with COPD. 4. Compression fracture deformity of the T12 vertebra. Electronically Signed: Cain Clinton MD at 18:02 EDT , Service support , Code Visit Inpatient E&M: 19137 Subs Hosp L3
--- NOTE | 2017-12-06 13:21 | PCM.OPRPT ---
Report of Operation Date of Procedure: 12/06/17 Pre-Operative Diagnosis: weight loss, ? SMA syndrome, - gastric and duodenal distention Post-Operative Diagnosis: no obvious internal abnormalities, ? external compression 3-4portion of duodenum, NG suction cesar in stomach, otherwise unremarkable, ? large type 1 hiatal hernia. distal esophagitis? from NG tube Surgery/Procedure Performed:: EGD with biopsy agricultural labor camp manager: None Type of Anesthesia:: MAC Anesthesiologist: Leonard Casillas - ASA3 Specimen's removed: gastric Description of Procedure: The patient was brought to the endoscopy suite. Sign in was performed verifying patient, site, planned procedure, critical nursing information, the patient was monitored with cardiac, pulse oximetric, and blood pressure monitoring devices. Monitored anesthetic care was provided for sedation. Following IV sedation and after the oropharynx was sprayed with Cetacaine spray, a video gastroscope was inserted in the oropharynx and advanced down the esophagus without difficulty. The scope was advanced through the stomach, through the pylorus through the duodenum to the proximal jejunum. there were no signs of intrinsic abnormalities. There was a suggestion of external compression in the third to fourth portion of duodenum, but the bowel did expand normally with insufflation. There did seem to be a degree of first through third portion of the duodenum distention with a slightly greater diameter than would normally be expected without other abnormalities. The stomach demonstrated no specific abnormalities other than irritation was felt to be due to nasogastric suctioning. An antral biopsy was obtained. The scope was retroflexed. There was a large hiatal hernia with the proximal half the volume of the stomach felt to be above the diaphragmatic hiatus. There was no marginal ulcerations. The distal esophagus is irritated but this was felt potentially to be due to irritation from the NG tube. As the patient is on Plavix, no esophageal biopsies were performed. The cystoscope was withdrawn, the remainder of the esophagus was unremarkable. plan to obtain an upper GI to assess if there is progression of the hiatal hernia from his previous upper GI and to assess for radiographic proof of SMA syndrome/compression of the third, fourth portions of duodenum The patient tolerated the procedure well and was brought to recovery in stable condition
--- NOTE | 2017-12-06 14:03 | NURSING ---
Ni, RN spoke with Dr. Winters who requested for patient to begin small frequent meals with no gastric stim. This RN called dietary and left message to see about getting 5 small meals a day rather than 3 for this patient. Awaiting return call.
--- NOTE | 2017-12-06 14:04 | CHAPLAIN ---
Type of Pastoral Visit _x__ Initial Visit ___ Follow-up Visit ___ On-call Visit ___ General Patient Visit ___ Spiritual Assessment ___ Family Conference ___ Bereavement ___ Rapid Response ___ Code Blue ___ Other (describe below) Pastoral Care Referral From _x__ Patient ___ Family ___ Nurse ___ Physician ___ Nursing Care Partner ___ Sales And Management Trainee ___ Other (describe below) Sacrament/Intervention _x__ Active listening ___ Anointing ___ Restorationism ___ Bereavement ___ Communion ___ Arlyn exploration ___ _x__ Life review ___ Prayer ___ Reconciliation ___ Sacrament of Sick _x__ Supportive presence ___ Wedding ___ Other (describe below) Pastoral Comments patient has opinions about life and money that he freely shares; pt says that he has not been to denominational for a very long time; pt describes his health situation and says he is just waiting for doctors report on his tests and going home; friends of pt enter room; this pigment and lacquer mixer offered to leave room so visitors could have time with pt; later one of the friends approached this pigment and lacquer mixer in the hallway; friend said that pt has no family but that he (friend) would be able to give pt transportation back home when discharged; friend said he was concerned that pt follows up on doctor order; gave this information (name and phone number) to MICHELLE
[2017-12-07] MEDS: 0.9% Normal Saline 1,000 ML 100 ML IV (02:08)
[2017-12-07 03:05] VITALS: BP 97/59; PULSE 68; RESP 16; TEMP 36.8; O2SAT 94
[2017-12-07 03:59] VITALS: PULSE 65
--- NOTE | 2017-12-07 05:15 | NURSING ---
Pt pacing in room, states he wishes to leave and there's nothing that the doctors can find wrong with him. Pt says he's been here long enough, and he's getting cooped up and restless. Pt comes out to the desk to speak with lópez Whittington RN and again, states that he needs to leave and is just going to walk down to [facility]. Pt states that if he leaves now, it will save his insurance a couple hours on his bill. Dr. Villalobos notified of pt's wishes to leave, and she states that the pt will have to wait until his attending comes in at 0700 to write his discharge order. Explained Dr. Villalobos's response to the pt, letting him know that he would have to leave AMA at this time if he cannot wait until the dayshift hospitalist gets here to see him. Pt frustrated, walks back into his room with a cup of coffee. Pt refusing barium swallow today, stating it's just his allergies and there's no allergy doctor here. Will continue to encourage pt to stay until dayshift arrives to speak with his attending hospitalist.
[2017-12-07 06:40] VITALS: O2SAT 95
--- NOTE | 2017-12-07 07:30 | NURSING ---
PT CONTINUES TO PACE IN FRONT OF NURSING STATION FULLY DRESSED IN STREET CLOTHES W/OUT TELE MONITOR OR IV IN PLACE. THIS NURSE INTRODUCED SELF TO PT DAYSHIFT NURSE. INFORMED PT THAT DAYSDRAKE BRAUN HAS BEEN NOTIFIED PT WOULD LIKE TO LEAVE AND THAT THE DR WILL BE DOWN TO SEE THE PT WHEN HE CAN. PT ASKED TO WAIT IN HIS ROOM FOR DOCTOR FOR PT PRIVACY REASONS. PT ASKING FOR THE PERSON IN CHARGE TO MAKE THE DECISION ABOUT HIS LEAVING. INFORMED THAT WOULD BE THE DAYSHIFT DR AND PREV STATED HE WILL BE HERE WHEN HE CAN. PT DOES RETURN TO HIS ROOM TO WAIT.
--- NOTE | 2017-12-07 07:59 | PCM.DC ---
You will use the following diet at home:: Cardiac Your food should be the consistency of: Soft (bite-sized & easy to chew/swallow) Allergies/Adverse Reactions: Allergies No Known Allergies Allergy (Verified 09/08/17 10:00) Medications to take at Discharge clopidogrel 75 mg tablet 75 mg PO DAILY 09/08/17 Aspirin E.C. [Ecotrin] 81 mg PO DAILY@0800 12/05/17 Ensure Clear 120 ml PO 4X/DAY #0 liquid 12/07/17 Pantoprazole Sodium [Protonix] 40 mg PO DAILY #90 tab 12/07/17 The following prescriptions were given: Pantoprazole Sodium [Protonix] 40 mg PO DAILY #90 tab Primary Care Physician: John Fallon DO [Primary Care Provider] - Please follow up with your Primary Care Physician in: in 1 week Please Follow Up With: Matteo Winters MD When: in 1 week Proposed Discharge Date: 12/07/17
--- NOTE | 2017-12-07 07:59 | NURSING ---
THIS NURSE PRESENT IN ROOM W/DR STONER. DR STONER INFORMED PT HE WILL BE D/C'D THIS AM. REITERATED DR KC'S RECOMMENDATIONS FOR SMALLER MORE FREQ MEALS, LEANING FORWARD WHEN EATING AND ENSURE BETWEEN MEALS. PT AGREEABLE
--- NOTE | 2017-12-07 08:02 | DS.PCM_ITS ---
Discharge Date and Diagnosis - Problem List Patient Problems: Active and Suspected Problems (Last Updated 09/08/17 @ 10:09 by Adwoa Cyr) Hiatal hernia with gastroesophageal reflux disease and esophagitis (Acute) Date of Admission: 12/05/17 Date of Discharge: 12/07/17 - Primary Discharge Diagnosis Active and Suspected Problems (Last Updated 09/08/17 @ 10:09 by Adwoa Cyr) Hiatal hernia with gastroesophageal reflux disease and esophagitis (Acute) - Secondary Discharge Diagnosis Chronic Problems (Last Updated 09/08/17 @ 10:09 by Adwoa Cyr) H/O heart artery stent (Chronic 01/27/17) PCI-RICO-LAD and RICO-D1 Atherosclerotic heart disease of [place] coronary artery without angina pectoris (Chronic) High risk medication use (Chronic) Hospital Course and Treatment Imaging Results: 12/07/17 08:30 Upper GI w/BA Swallow [RAD] Urgent Operations: None Procedures: EGD Summary of Care Provided: Patient is a 77-year-old gentleman with past medical history significant for CAD who presented with vague abdominal symptoms associated with nausea and dysphagia and significant weight loss CT of the abdomen without contrast obtained demonstrated 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 Consult was placed to general surgery for endoscopic evaluation in view of patient significant dysphagia and weight loss 1. Abdominal pain suspected to be secondary to superior mesenteric artery syndrome; patient has been admitted to regular nursing floor for conservative management including NG tube to suction antinausea medication as well as pain management with consultation placed to general surgery department did perform upper EGD on 12/06/2017 findings included large type 1 hiatal hernia with distal esophagitis patient was discharged home the day after his procedure on PPI with instructions to follow-up with Dr. Harvey as well as his PCP. 2. Dysphagia with significant weight loss patient scheduled to undergo endoscopic evaluation. Results as above 3. Severe protein calorie malnutrition as evidenced by significant weight loss decreased energy level and poor oral intake consultation was placed to nutrition service 4. CAD: EKG on admission did not reveal any acute changes patient is on dual antiplatelet therapy with aspirin and Plavix did continue 5. DVT prophylaxis SCDs for now Discharge Diet: Soft diet Home Medications: Medications to take at Discharge clopidogrel 75 mg tablet 75 mg PO DAILY 09/08/17 Aspirin E.C. [Ecotrin] 81 mg PO DAILY@0800 12/05/17 Ensure Clear 120 ml PO 4X/DAY #0 liquid 12/07/17 Pantoprazole Sodium [Protonix] 40 mg PO DAILY #90 tab 12/07/17 Following Prescrptions Were Given to Patient: Pantoprazole Sodium [Protonix] 40 mg PO DAILY #90 tab Primary Care Physician: John Fallon DO [Primary Care Provider] - Please follow up with your Primary Care Physician in: in 1 week Please Follow Up With: Matteo Winters MD When: in 1 week Disposition: Home Minutes spent on discharge:: 35 Patient Condition:: Stable Meaningful Use Info Meaningful Use Diagnoses (Choose all that apply): None applicable Code Visit Inpatient E&M: 74463 Disch Hosp
[2017-12-07 08:10] VITALS: BP 113/65; PULSE 78; RESP 16; TEMP 36.4; O2SAT 95
--- NOTE | 2017-12-07 09:02 | PCM.PN.SRG ---
Patient Problems: Active and Suspected Problems (Last Updated 09/08/17 @ 10:09 by Adwoa Cyr) Hiatal hernia with gastroesophageal reflux disease and esophagitis (Acute) Subjective: want to go home - Physical Exam General: Alert, Oriented x3, Cooperative, No apparent distress Lungs: Clear to auscultation, Normal air movement Cardiovascular: Regular rate, Regular Rhythm Abdomen: Bowel Sounds Present, Soft, Non Tender Vital Signs Temp Pulse Resp BP Pulse Ox 97.5 F L 78 16 113/65 95 12/07/17 08:10 12/07/17 08:10 12/07/17 08:10 12/07/17 08:10 12/07/17 08:10 Oxygen Delivery Method Room Air Weight: 57.2 kg Body Mass Index (BMI) 17.1 Intake and Output for Last 24 Hours 12/05/17 12/06/17 12/07/17 23:59 23:59 23:59 Intake Total 3271 / 3271 1536 / 1536 Output Total 2240 / 2240 575 / 575 Balance 1031 / 1031 961 / 961 Assessment/Plan Active and Suspected Problems (Last Updated 09/08/17 @ 10:09 by Adwoa Cyr) Hiatal hernia with gastroesophageal reflux disease and esophagitis (Acute) weight loss, postprandial abdominal pain-findings consistent with superior mesenteric artery syndrome Upper endoscopy demonstrated a moderately large hiatal hernia, distal esophagitis felt to be secondary to the NG tube and likely external compression at the 3-4 portion of the duodenum without intrinsic masses or abnormalities. I recommended follow up upper GI to demonstrate both the hiatal hernia and to assess the area of suspected SMA compression. The patient would like to be discharged and he is not currently interested in further testing. I recommended he follow up with me as an outpatient to review the EGD biopsies and consider further testing. I recommended smaller meals, between meal intake such as boost and a trail of leaning forward or to the side after eating to see if this improves gastric/duodenal emptying
== END 2017-12-07 08:09 | disposition home or self-care (01) | DRG 393 ==
LOC: ED 15:09 → MS2 18:00
PROVIDERS: Surgery; Admitting Provider Hospitalist; Emergency Provider Emergency Medicine; Family Provider Family Medicine; PCP Family Medicine; Visit Provider Internal Medicine
PROC: 0DJ08ZZ Inspection of Upper Intestinal Tract, Via Natural or Artificial Opening Endoscopic (ICD-10-PCS; CPT 43235; principal; 2017-12-06 11:25)
DX: K55.1 Chronic vascular disorders of intestine (principal); E43 Unspecified severe protein-calorie malnutrition; Z68.1 Body mass index [BMI] 19.9 or less, adult; K21.0 Gastro-esophageal reflux disease with esophagitis; K44.9 Diaphragmatic hernia without obstruction or gangrene; I25.10 Atherosclerotic heart disease of native coronary artery without angina pectoris; Z95.5 Presence of coronary angioplasty implant and graft; Z87.891 Personal history of nicotine dependence; Z79.02 Long term (current) use of antithrombotics/antiplatelets; Z79.82 Long term (current) use of aspirin
CPT/HCPCS: 36415; 71045; 74018; 74176; 80048; 81001; 84134; 84484; 85025; 85610; 88305; 88342; 93005; 97161; 97166; 97802; 99285; J7030; A4216; J2405; J3490

== ENCOUNTER 2017-12-20 11:07 | Inpatient (IN) | payer MEDICARE, SELFPAY ==
[2017-01-28 08:52] VITALS: BMI 18.7
[2017-12-20] VITALS (10 sets, daily range): BP systolic 121–143; BP diastolic 62–81; PULSE 80–120; RESP 16–22; TEMP 36.5–37.2; O2SAT 95–98; BMI 17.3; BMI 17.0
--- NOTE | 2017-12-20 11:28 | EKG12_ITS ---
Test Reason : N/V Blood Pressure : / mmHG Vent. Rate : 103 BPM Atrial Rate : 103 BPM P-R Int : 164 ms QRS Dur : 096 ms QT Int : 380 ms P-R-T Axes : 078 072 -78 degrees QTc Int : 497 ms Sinus tachycardia Nonspecific ST and T wave abnormality Abnormal ECG Confirmed by INGA JOSHI, AARTI ([id number]), clinical editor GINGER LINTON ([id number]) on 12/22/2017 2:56:59 PM Referred By: CANDELARIO Confirmed By:AARTI XIONG MD
--- NOTE | 2017-12-20 11:28 | CT_ITS ---
STUDY: CT ABDOMEN AND PELVIS WITH CONTRAST REASON FOR EXAM: Male, 77 years old. Abdominal and back pain, vomiting RADIATION DOSAGE (If Supplied By Facility): CTDIvol = ( 7.99 ) mGy, DLP = ( 288.68 ) mGycm TECHNIQUE: Transaxial images were obtained from the dome of the diaphragm to the symphysis pubis without oral contrast. 100 ml of Isovue 300 contrast was administered. Sagittal and coronal images were reconstructed. Individualized dose optimization techniques were used for this CT. COMPARISON: 12/05/2017 FINDINGS: The lung bases are hyperinflated. Coronary artery calcifications are present. Normal liver. Normal gallbladder and extrahepatic biliary system. Normal spleen. Normal pancreas. Normal bilateral adrenal glands. There is scarring of the right kidney. Normal left kidney. There is a large fluid-filled hiatal hernia. The stomach is significantly distended. I believe the pylorus is at the diaphragmatic hiatus. Normal small intestine. There is stool throughout the colon, in amounts suggesting constipation in the appropriate clinical setting. The appendix is visualized and appears normal. There is diffuse atherosclerotic calcification of the abdominal aorta, without a demonstrated aneurysm. Normal inferior vena cava. Normal retroperitoneum. The urinary bladder is distended. Normal abdominal wall. Degenerative changes are seen throughout the spine. Compression deformity at T12 is unchanged. CT/Abdomen/Pelvis WITH Contrast IMPRESSION: There is a large hiatal hernia, with significant fluid distention of the stomach. I believe the pylorus is at the level of the diaphragm. This patient may benefit from nasogastric decompression, as well as a contrast study through the gastric tube to better delineate anatomy. Additional nonacute findings, as detailed above. Electronically Signed: Gaston Singh DO at 13:32 EDT Tel , Service support ,
[2017-12-20] MEDS: 0.9% Normal Saline 1,000 ML 1000 ML IV (11:41)
[2017-12-20] MEDS: Ondansetron 4 MG/2 ML Vial IV ×2 (11:41→12:43)
[2017-12-20 12:05] LABS: Absolute Lymphocyte Count 0.28 X10^3/ul (0.83-4.51); Absolute Neutrophil Count 8.8 X10^3/uL (2.0-7.7); Basophil# 0.01 X10^3/uL; Basophil% 0.1 % (0-1); Hematocrit 44.8 % (40-54); Hemoglobin 15.1 g/dl (13.0-16.5); Lymphocyte # 0.28 X10^3/ul (4.0); Mean Corp Hgb Conc 33.7 g/gl (32-36); Mean Corpuscular Hgb 31.2 pg (27.0-32.0); Mean Corpuscular Volume 92.6 fL (80-94); Mean Platelet Vol. 9.8 fl (6.2-12.0); Monocyte% 3.2 % (0-10); Neutrophil # 8.83 X10^3/uL (2.7-7.7); Neutrophil % 93.6 % (47-70); Platelet Count 260 K/mm3 (150-450); RBC Distribution Width CV 13.4 % (11.6-14.6); RBC Distribution Width SD 44.2 fl (35.1-43.9); Red Blood Count 4.84 M/mm3 (4.6-6.2); White Blood Count 9.4 K/mm3 (4.4-11.0)
[2017-12-20 12:07] LABS: POSITIVE COUNT NO; POSITIVE DIFFERENTIAL YES; POSITIVE MORPHOLOGY NO
[2017-12-20 12:22] LABS: ALB/GLOB Ratio 0.9 RATIO (0.9-2.4); AST(SGOT) 19 U/L (15-37); Alanine Aminotransfer ALT/SGPT 16 U/L (16-61); Alkaline Phosphatase 80 U/L (45-117); Anion Gap 11 (5-15); BUN 19 mg/dL (7-18); BUN/Creat Ratio 19.9 RATIO (10-20); Calcium,Total 9.2 mg/dL (8.5-10.1); Chloride 102 mmol/L (98-107); Creatinine, Serum 0.96 mg/dL (0.70-1.30); EST Glomerular Filtration Rate 81 mL/min (>60); Est Glom Filt Rate - Afr Amer 98 mL/min (>60); Estimated Creatinine Clearance 52.92 ml/min; Globulin 4.3 g/dL (2.2-4.2); Glucose 185 mg/dL (74-106); Lipase 427 U/L (73-393); Potassium 3.9 mmol/L (3.5-5.1); Protein, Total 8.3 g/dL (6.4-8.2); Sodium Level 140 mmol/L (136-145)
[2017-12-20 12:31] LABS: Lactic Acid 3.8 mmol/L (0.4-2.0)
[2017-12-20] MEDS: Morphine 4 MG/ML Syringe IV (12:43)
[2017-12-20 12:56] LABS: Differential Indicated SCAN CRITERIA MET
[2017-12-20 13:25] LABS: Mucous, Urine 0 SEEN /hpf (<or=2+); Red Blood Cells-Urine 0 SEEN /hpf (0-5)
[2017-12-20 13:27] LABS: Color, Urine Yellow (Yellow); Glucose, Dipstick Normal (Normal); Ketone-Dipstick 5 mg/dl (Negative); Leukocyte Esterase-Dipstick 25 /ul (Negative); Nitrite-Dipstick Negative (Negative); Occult Blood-Urine Negative /ul (Negative); Protein-Dipstick 30 mg/dl (Negative); Urine Bilirubin Dipstick Negative (Negative); Urine Clarity Cloudy (Clear); Urine Urobilinogen Normal (Normal)
[2017-12-20 13:37] LABS: Amorphous Sediment 1+; Bacteria 1+ /hpf (None Seen); Squamous Epithelial Cells - UA 0-5 SEEN /hpf (0-5); White Blood Cells 0-5 SEEN /hpf (0-5)
--- NOTE | 2017-12-20 14:28 | ED.VISSUMM ---
- ER Visit Summary Date of Service: 12/20/17 Chief Complaint: [Abdominal pain] History of Present Illness: The patient is a 77 M [presents to the emergency department with complaint of abdominal pain that he has had for over a month. Patient describes nausea and inability to eat. Patient states he has been vomiting when trying to eat. Patient is lost about 40 pounds in the last 3-4 months. Patient unable to sleep. Last bowel movement 3 days ago. Patient also complains of pain in his lower back bilaterally. Patient denies any fever. Patient recently admitted to hospital with similar complaints and was seen by Dr. Harvey apparently for possible superior mesenteric syndrome. Patient also had EGD at that time. Patient states that he was told to gain weight but he cannot eat.] Physical Examination: HEENT-PERRLA, EOMI. Cranial nerves II through XII grossly intact. TMs clear. Mucous membranes dry. No adenopathy. Overall patient cachectic. Poor skin turgor. Cardiovascular-regular rate and rhythm without murmur or ectopy Lungs-clear to auscultation, chest wall stable without crepitus or subcu emphysema Abdomen-normoactive bowel sounds, soft. Mild diffuse tenderness. No rebound, rigidity, or perineal signs. Extremities-intact ?4, normal range of motion, normal pulses, atraumatic] Test Results: [CBC with differential showed a white count of 9.4, hemoglobin 15, hematocrit 45, platelets 260. Chemistries unremarkable. LFTs were normal. Lipase was slightly elevated 427. Urinalysis was normal. Troponin was less than 0.02. EKG shows sinus tachycardia with a rate of 103 bpm with some nonspecific ST changes. Lactate was elevated 3.8. CT scan of the abdomen and pelvis showed a distended stomach and large hiatal hernia with large amount of fluid and debris within the stomach. Radiology recommended NG tube and possible Gastrografin through NG to evaluate further. Patient also noted to have constipation with stool throughout the colon.] Emergency Department Course and Treatment: [Patient was medicated with morphine and Zofran. Patient was given normal saline.] Treatment Plan: [Patient to be admitted for further workup and hydration.] Disposition: [Admit] Impression: [Abdominal pain Dehydration] This note was generated with Chuj[employer] dictation software. It may contain incorrect words, spelling, and punctuation that were not noted in review of the chart prior to signing ED Disposition - Plan for ED Patient: Chief Complaint: Abd Pain Referrals: John Fallon DO [Primary Care Provider] -
--- NOTE | 2017-12-20 14:38 | RAD_ITS ---
STUDY: X-RAY - ABDOMEN/PELVIS REASON FOR EXAM: Male, 77 years old. NG PLACEMENT TECHNIQUE: Single AP view of the abdomen / pelvis. COMPARISON: None. FINDINGS: Normal visualized lung bases. There is a feeding tube/ nasogastric tube noted. The tip is in the region of the stomach. There is an unremarkable bowel gas pattern. There is no demonstrated free abdominal air. The visualized liver, spleen and kidneys are grossly normal in size and morphology. Normal soft tissue structures. There are diffuse degenerative changes of the visualized lumbar spine. RAD/Abdomen Single View (Portable) IMPRESSION: There is a feeding tube/ nasogastric tube noted. The tip is in the region of the stomach. Electronically Signed: Macario Gutierrez MD at 16:00 EDT , Service support ,
--- NOTE | 2017-12-20 15:15 | HP.PCM_ITS ---
Problem List (1) SMAS (superior mesenteric artery syndrome) Status: Acute (2) Hiatal hernia with gastroesophageal reflux disease and esophagitis Status: Acute (3) Atherosclerotic heart disease of [place] coronary artery without angina pectoris Status: Chronic Qualifiers: [place] vs. transplanted heart: unspecified whether [place] or transplanted heart Qualified Code(s): I25.10 - Atherosclerotic heart disease of [place] coronary artery without angina pectoris (4) Dysphagia Status: Chronic Qualifiers: Dysphagia type: unspecified Qualified Code(s): R13.10 - Dysphagia, unspecified History of Present Illness Date of Admission: 12/20/17 Chief Complaint: Weight loss, weakness/debility, nausea and emesis. The patient is a 77 y/o M w/ PMHx: GERD, Hiatal Hernia, CAD s/p PCI, Chronic Dysphagia who was recently discharged 12/07/17 secondary to similar presentation w/ evaluation per Surgery with evaluation felt consistent with superior mesenteric artery syndrome who left prior to completion of work-up secondary to feeling that he was not improving; however, he was only inpatient evening and demanded discharge 12/07/17 AM, who now re-presents to the [facility] ED on with recurrent similar symptoms of ongoing weight loss, post-prandial pain and intractable nausea and emesis primarily, event with attempted water intake. In the ED work-up included T 98, HR 107, BP 141/74, RR 16, 98% on RA, CBC w/ WBC 9.4, Hgb 15.1, Plts 260 with L shift, CMP with glucose 185, LA 3.8, lipase 427, UA not marked appearing, KUB not read but appearance notably distended stomach full off contents. Discussed with ED physician and requested placement of NGT in the ED. Past Medical History Past Medical History (Chronic Problems): Chronic Problems (Last Updated 09/08/17 @ 10:09 by Adwoa Cyr) H/O heart artery stent (Chronic 01/27/17) PCI-RICO-LAD and RICO-D1 Atherosclerotic heart disease of [place] coronary artery without angina pectoris (Chronic) High risk medication use (Chronic) Dysphagia (Chronic) Allergies No Known Allergies Allergy (Verified 12/20/17 11:10) Home Medications: Ambulatory Orders Medication Instructions Recorded clopidogrel 75 mg tablet 75 mg PO DAILY 09/08/17 Aspirin E.C. [Ecotrin] 81 mg PO DAILY@0800 12/05/17 Ensure Clear 120 ml PO 4X/DAY #0 liquid 12/07/17 Pantoprazole Sodium [Protonix] 40 mg PO DAILY 12/20/17 Surgical History: - - PCI. Psychiatric History: No pertinent psych hx Lives: Alone Smoking Status: Former smoker Tobacco Use: Non-smoker Alcohol: None Drugs: None - *Family History Maternal History Items: Cancer - Mother passed age 84 y/o secondary to pancreatic cancer. , - Paternal History Items: - - early, unclear specific etiology, noted recent intestinal surgery/intervention. Review of Systems Constitutional: Reports: Malaise, Fatigue. Denies: Chills, Fever, Weight Change HEENT: Reports: Dysphasia. Denies: Head Aches, Sinus Congestion, Sinus Drainage Cardiovascular: Denies: Chest Pain, Palpitations Respiratory: Denies: Cough, Shortness of breath at rest, Sputum production Gastrointestinal: Reports: Abdominal Pain, Constipation, Nausea, Vomiting Genitourinary: Denies: Dysuria Musculoskeletal: Reports: Back Pain. Denies: Joint Pain, Joint Tenderness Skin: Denies: Rash, Wounds Neurological: Denies: Numbness, Tingling, Focal weakness Psychiatric: Denies: Anxiety, Depression, Homicidal Ideations, Suicidal Ideations Hematologic/ Lymphatic: Denies: Easy Bruising, Easy Bleeding VTE Information - Inpt Only VTE Present on Admission: No VTE Mechan Device Prophylaxis: SCD's VTE Pharm Prophylaxis ordered?: Yes Patient Problems: Active and Suspected Problems (Last Updated 09/08/17 @ 10:09 by Adwoa Cyr) SMAS (superior mesenteric artery syndrome) (Acute) Subjective: Seated upright in the ED bed, fatigued appearance. Objective: Physical Examination: General: awake, alert, oriented x 3 and cooperative, seated upright in the ED bed in no apparent distress, fatigued appearance. Skin: mildly connelly hue, decreased skin turgor, no icterus, cyanosis. HEENT: AT/NC, EOMI, PERRLA, dry MM, no carotid bruits or JVD noted. Lungs: CTA bilaterally, moderate effort, moderate decrease BL bases, no rales, ronchi or wheezing. Heart: Tachycardic with regular rhythm; no gallop, rub audible. Abdomen: soft, cachetic appearance, mild TTP epigastrium and BL UQ, no rebound or guarding, ND, hypoactive BS, no HSM. Extremities: no cyanosis, clubbing, or edema, muscle loss evident. Neurological: patient awake, alert, oriented x 3; cognitive function intact; pupils equally reactive to light and accomodation; cranial nerves II-XII grossly normal, moving all 4 extremities, no focal deficits, strength severely globally decreased secondary to acute presentation. Psychiatric: affect appears flat, fatigued, no acute evidence of depressive or anxiety feelings. - Physical Exam Vital Signs Temp Pulse Resp BP Pulse Ox 97.7 F L 106 H 18 143/81 H 97 12/20/17 11:08 12/20/17 11:21 12/20/17 11:21 12/20/17 11:21 12/20/17 11:21 Oxygen Delivery Method Room Air Weight: 128 lb Body Mass Index (BMI) 17.3 Laboratory Tests Past 24 Hrs 12/20/17 12/20/17 12/20/17 11:50 11:50 11:50 WBC 9.4 RBC 4.84 Hgb 15.1 Hct 44.8 MCV 92.6 MCH 31.2 MCHC 33.7 RDW 13.4 RDW Differential 44.2 H Plt Count 260 MPV 9.8 Immature Gran % (Auto) 0.100 Neut % (Auto) 93.6 H Lymph % (Auto) 3.0 L [place] % (Auto) 3.2 Eos % (Auto) 0.0 Baso % (Auto) 0.1 Absolute Neuts (auto) 8.8 H Absolute Lymphs (auto) 0.28 L Total Counted Not Reportable Sodium 140 Potassium 3.9 Chloride 102 Carbon Dioxide 27.0 Anion Gap 11 BUN 19 H Creatinine 0.96 Estim Creat Clear Calc 52.92 Est GFR (MDRD) Af Amer 98 Est GFR (MDRD) Non-Af 81 BUN/Creatinine Ratio 19.9 Glucose 185 H Lactic Acid 3.8 H Calcium 9.2 Total Bilirubin 0.40 AST 19 ALT 16 Alkaline Phosphatase 80 Troponin I < 0.02 Total Protein 8.3 H Albumin 4.0 Globulin 4.3 H Albumin/Globulin Ratio 0.9 Lipase 427 H Urine Color Urine Clarity Urine pH Ur Specific [place] Urine Protein Urine Glucose (UA) Urine Ketones Urine Occult Blood Urine Nitrite Urine Bilirubin Urine Urobilinogen Ur Leukocyte Esterase Urine RBC Urine WBC Ur Squamous Epith Cells Amorphous Sediment Urine Bacteria Urine Mucus 03/27/18 13:20 WBC RBC Hgb Hct MCV MCH MCHC RDW RDW Differential Plt Count MPV Immature Gran % (Auto) Neut % (Auto) Lymph % (Auto) [place] % (Auto) Eos % (Auto) Baso % (Auto) Absolute Neuts (auto) Absolute Lymphs (auto) Total Counted Sodium Potassium Chloride Carbon Dioxide Anion Gap BUN Creatinine Estim Creat Clear Calc Est GFR (MDRD) Af Amer Est GFR (MDRD) Non-Af BUN/Creatinine Ratio Glucose Lactic Acid Calcium Total Bilirubin AST ALT Alkaline Phosphatase Troponin I Total Protein Albumin Globulin Albumin/Globulin Ratio Lipase Urine Color Yellow Urine Clarity Cloudy Urine pH 8.0 Ur Specific [place] 1.010 Urine Protein 30 H Urine Glucose (UA) Normal Urine Ketones 5 H Urine Occult Blood Negative Urine Nitrite Negative Urine Bilirubin Negative Urine Urobilinogen Normal Ur Leukocyte Esterase 25 H Urine RBC 0 SEEN Urine WBC 0-5 SEEN Ur Squamous Epith Cells 0-5 SEEN Amorphous Sediment 1+ Urine Bacteria 1+ Urine Mucus 0 SEEN Assessment/Plan Active and Suspected Problems (Last Updated 09/08/17 @ 10:09 by Adwoa yCr) SMAS (superior mesenteric artery syndrome) (Acute) The patient is a 77 y/o M w/ PMHx: GERD, Hiatal Hernia, CAD s/p PCI, Chronic Dysphagia who re-presents to the [facility] ED on 12/20/17 with recurrent similar symptoms of ongoing weight loss, post-prandial pain and intractable nausea and emesis primarily, event with attempted water intake. (1) Intractable Nausea, Emesis, Chronic OP Dysphagia, Post-prandial Pain, Weight loss, FTT secondary to Suspected Superior Mesenteric Artery Syndrome: Given severity of appearance, will admit to [facility], maintain on IVFs, place NGT in the ED to LIWS, repeat KUB in AM, continue PRN pain, antiemetic agents, discussed TPN start with pharmacy, consultation with Dr. Winters as prior admission w/ upper EGD w/ noted moderately large hiatal hernia, distal esophagitis felt to be secondary to the NG tube and likely external compression at the 3-4 portion of the duodenum without intrinsic masses or abnormalities with plan at that time for follow up upper GI to demonstrate both the hiatal hernia and to assess the area of suspected SMA compression. IV PPI. NPO status. PT, OT, CM consultation. Mag, phos pending. Nutrition consulted also. (2) GERD w/ Hiatal Hernia, Hx Esophagitis: PPI IV. (3) CAD: s/p PCI, 01/2017, continue [place] ASA, holding oral plavix given #1. (4) Severe Protein-Calorie Malnutrition: Secondary to #1, as noted nutrition consulted, plan pharmacy assist with TPN, mag and phos pending. (5) DVT Prophylaxis: SCDs, lovenox. Code Visit Inpatient E&M: 03991 Init Hosp L3
--- NOTE | 2017-12-20 15:24 | NURSING ---
209 FTT, INTRACTABLE N,V, SMA SYNDROME WHITE
[2017-12-20 15:58] LABS: Reflex Lactate? Y
--- NOTE | 2017-12-20 16:19 | RAD_ITS ---
CLINICAL HISTORY: Male, 77 years old. Abdominal and back pain with vomiting. Chest pain and dysphagia. Weight loss. PROCEDURE: Small bowel series, single contrast with Gastrografin technique. FLUOROSCOPY TIME (if supplied): (0) minutes/seconds TECHNIQUE: Personal Lines Advisor abdomen/pelvis KUB images first obtained then after the patient had approximately 50 cc Gastrografin injected via already placed feeding tube. Subsequent KUB abdomen imaging was obtained immediately after Gastrografin injection and 20/40/60/90 minutes postinjection. Findings: Personal Lines Advisor abdomen shows feeding tube with half loop noted at the side port of the superior tip directed superiorly and right laterally above the diaphragm within the previously described hiatal hernia. Personal Lines Advisor image also shows increase diffuse density within the lower pelvis, most likely representing distended bladder with IV contrast from prior CT abdomen/pelvis 12/20/2017. Subsequent Gastrografin immediate post injection shows contrast partially filling the hiatal hernia and contrast within nondilated small bowel loops left upper quadrant abdomen subdiaphragmatic region with small channel of Gastrografin connecting each area with a rounded air collection likely within the stomach. No Gastrografin filling of the subdiaphragmatic stomach or typical C-loop of the duodenum is seen. Subsequent imaging at 20/40/60/90 minutes post injection of Gastrografin via feeding tube shows filling of the small bowel proximal to distal with normal small bowel mucosal pattern, full-thickness and no mucosal lesion such as ulcer/polyp is identified in the small bowel visualized. RAD/Small Bowel Series Only IMPRESSION: Very narrow channel causing partial obstruction between the hiatal hernia and proximal small bowel seen in the left upper quadrant abdomen subdiaphragmatic region. Gastrografin within the stomach and duodenum is not definitively identified with this small bowel series. Cannot exclude gastric volvulus, paraesophageal hernia or intrinsic/extrinsic constricting gastric mass/neoplasm. Gastroenteric (stomach to jejunum) fistula possibility is far less likely. Recommend CT lower chest and abdomen for further evaluation. Findings discussed with patient's referring surgeon Dr. Gunter who acknowledged results 12/21/2017 at approximate 9:30 AM. Electronically Signed: Sunny Manzano, at 18:07 EDT Tel , Service support ,
[2017-12-20 16:55] LABS: Magnesium 2.2 mg/dL (1.6-2.6); Phosphorus 3.5 mg/dL (2.5-4.9)
[2017-12-20] MEDS: 0.9% NaCl Peripheral Flush Adult/Peds IV (17:02)
[2017-12-20] MEDS: 0.9% Normal Saline 1,000 ML 150 ML IV ×2 (17:03→23:21)
[2017-12-20 17:07] LABS: Hemoglobin A1c 5.7 % (4.2-6.3)
[2017-12-20 18:33] LABS: Lactic Acid 2.3 mmol/L (0.4-2.0)
[2017-12-21] VITALS (7 sets, daily range): BP systolic 137–141; BP diastolic 87–94; PULSE 76–83; RESP 16–18; TEMP 36.8–36.9; O2SAT 96–100
[2017-12-21] MEDS: 0.9% Normal Saline 1,000 ML 150 ML IV (05:54)
[2017-12-21 06:21] LABS: Absolute Lymphocyte Count 0.89 X10^3/ul (0.83-4.51); Absolute Neutrophil Count 9.3 X10^3/uL (2.0-7.7); Basophil# 0.01 X10^3/uL; Basophil% 0.1 % (0-1); Eosinophil# 0.07 X10^3/uL; Eosinophils% 0.6 % (0-5); Hematocrit 37.3 % (40-54); Hemoglobin 11.9 g/dl (13.0-16.5); Lymphocyte # 0.89 X10^3/ul (4.0); Lymphocyte % 7.8 % (19-41); Mean Corp Hgb Conc 31.9 g/gl (32-36); Mean Corpuscular Hgb 30.7 pg (27.0-32.0); Mean Corpuscular Volume 96.1 fL (80-94); Mean Platelet Vol. 9.6 fl (6.2-12.0); Monocyte% 9.7 % (0-10); Neutrophil # 9.25 X10^3/uL (2.7-7.7); Neutrophil % 81.6 % (47-70); Platelet Count 223 K/mm3 (150-450); RBC Distribution Width CV 13.6 % (11.6-14.6); Red Blood Count 3.88 M/mm3 (4.6-6.2); White Blood Count 11.3 K/mm3 (4.4-11.0)
[2017-12-21 06:22] LABS: POSITIVE COUNT NO; POSITIVE DIFFERENTIAL NO; POSITIVE MORPHOLOGY NO
[2017-12-21 06:41] LABS: AST(SGOT) 15 U/L (15-37); Alanine Aminotransfer ALT/SGPT 11 U/L (16-61); Alkaline Phosphatase 55 U/L (45-117); Anion Gap 5 (5-15); BUN 23 mg/dL (7-18); BUN/Creat Ratio 33.9 RATIO (10-20); Calcium,Total 8.1 mg/dL (8.5-10.1); Chloride 108 mmol/L (98-107); Creatinine, Serum 0.68 mg/dL (0.70-1.30); EST Glomerular Filtration Rate 120 mL/min (>60); Est Glom Filt Rate - Afr Amer 146 mL/min (>60); Estimated Creatinine Clearance 50.37 ml/min; Globulin 3.1 g/dL (2.2-4.2); Glucose 101 mg/dL (74-106); Potassium 3.9 mmol/L (3.5-5.1); Protein, Total 6.1 g/dL (6.4-8.2); Sodium Level 143 mmol/L (136-145)
--- NOTE | 2017-12-21 10:34 | CT_ITS ---
STUDY: CT ABDOMEN WITHOUT CONTRAST REASON FOR EXAM: Male, 77 years old. Dysphagia and weight loss. Patient complains of lower chest posterior pain extending into the posterior upper abdomen region and vomiting. RADIATION DOSAGE (If Supplied By Facility): CTDIvol = ( 6.04 ) mGy, DLP = ( 264.24 ) mGycm TECHNIQUE: Transaxial images were obtained without intravenous contrast. Gastrografin oral contrast given. Sagittal and coronal images were reconstructed. Individualized dose optimization techniques were used for this CT. COMPARISON: CT abdomen/pelvis with IV contrast 12/20/2017. Correlation small bowel series 12/21/2017. FINDINGS: The visualized lungs show hyperexpansion other findings consistent with centrilobular emphysema predominantly in the visualized upper lobes. Minimal groundglass and thin linear opacities are seen in the right greater left lung base is consistent minimal scarring/atelectasis. Heart size appears within normal limits. Severe triple vessel coronary artery calcifications noted. Upper limits of normal descending thoracic aortic caliber 3 cm diameter noted suggesting borderline aneurysm. No intrathoracic large gross bulky adenopathy identified. Feeding tube is noted within the esophagus whose proximal intrathoracic portion above the aortic arch shows mild dilatation with gaseous distention. More distal esophagus shows NG tube extending anteriorly to the margin of the stomach within the hiatal hernia. Hiatal hernia measures approximately 8.8 x 8.6 cm. Study is limited without IV contrast. GI contrast is seen within the rugal folds of the hiatal hernia. No CT finding of free intraperitoneal air noted. Small curvilinear air collection is seen within the lower hiatal hernia extending anteriorly and slightly medially, nonspecific. No GI contrast is noted within this subdiaphragmatic stomach. Normal appearing noncontrast liver. Gallbladder shows dependent homogeneous increased attenuation indicating vicarious excretion of IV contrast without filling defect identified. Normal appearing noncontrast extrahepatic biliary system. Normal noncontrast spleen. Normal noncontrast pancreas. Normal noncontrast bilateral adrenal glands. Normal right kidney. Nonobstructive left renal mid collecting system 0.3 cm diameter nephrolithiasis noted. Left kidney otherwise appears within normal limits. The subdiaphragmatic stomach is not confidently visualized. Normal visualized small intestine. Normal visualized colon with redundant splenic flexure colon noted. Moderate calcifications noted abdominal aorta without obvious aneurysm identified. Normal inferior vena cava. Normal appearing noncontrast retroperitoneum. Normal abdominal wall. No change anterior wedge compression fracture T12 noted. No change severe thoracic and lumbosacral spine. CT/Abdomen without IV Contrast IMPRESSION: Abnormal unenhanced CT of the abdomen with contrast filling hiatal hernia within the lower thorax right of the midline, cannot exclude paraesophageal hernia. Nonfilling of Gastrografin contrast of the subdiaphragmatic stomach or duodenum, cannot exclude mass or gastrojejunal fistula. Gastrografin is also noted within the abdominal colon. No CT finding of free intraperitoneal air noted. No complete obstruction is noted with Gastrografin noted within the distal esophagus, stomach, jejunum/ileum and visualized colon. Severe triple vessel coronary calcification. Nonobstructive tiny left nephrolithiasis as described. Electronically Signed: Sunny Manzano, at 11:52 EDT Tel , Service support ,
[2017-12-21] MEDS: Enoxaparin 30 MG/0.3 ML Syringe SC (10:58)
[2017-12-21] MEDS: 0.9% NaCl Peripheral Flush Adult/Peds IV ×3 (10:58→11:00)
--- NOTE | 2017-12-21 14:53 | CASEMGMT ---
Readmission Assessment: Prior Admission: 12/05 - 12/07 for suspected SMAS. Current Admission: SMAS, hiatal hernia. Patient was very agitated with case management interview, but did answer questions. PCP: John Fallon. Patient states he went once and will never go again. It was a waste of time. Specialists: Patient Denies. I inquired whether the patient followed up with Dr. Harvey after his last discharge and the patient states he was not able to get in for 10 days. Patient lives in a two story home, alone. Person to notify in EHR is Davian Otoole, who is a neighbor. Patient states he is not interested in living will or POA. Patient denies current use of DME, oxygen, and home health services. Patient states he drives a moped. Patient states these are stupid questions. I thanked the patient for his time. Plan: Transfer to [facility].
--- NOTE | 2017-12-21 19:01 | PCM.CONS.GEN ---
Problem List (1) Hiatal hernia with gastroesophageal reflux disease and esophagitis Status: Acute (2) SMAS (superior mesenteric artery syndrome) Status: Acute Reason for Consult Date of Consultation: 12/21/17 History of Present Illness: The patient is a 77 year old M with past medical history as mentioned above presented to the emergency room because of abdominal pain and flank pain. The patient was not good informant but he was able to give a reasonable history. His main presenting complaint today was abdominal pain, mainly on both flanks, more on the right flank, dull aching pain, 6 out of 10 in severity, sometimes radiates to left inguinal region, associated also with mild abdominal distention and fullness for stomach and without aggravating or relieving factors. He mentioned that those symptoms been going on for some time. Also, he complained of difficulty swallowing and mentioned that food stuck in the middle part of his throat and this has been going on for few months. This is associated with poor appetite as well as loss of weight. He mentioned that he has not been able to eat or drink properly for the last few months because of this problem in addition to occasional nausea and abdominal distention. He did mention that he lost about 20 pounds over the last few months. In the emergency room, he was afebrile, blood pressure was slightly elevated, other vital signs were stable. Routine blood work was unremarkable. Troponin was negative. EKG revealed normal sinus rhythm without acute ischemic changes. Urinalysis was negative. Chest x-ray showed signs of hyperinflation, no acute findings. CT abdomen and pelvis without contrast revealed marked degree of gastric and second anterior portion of the duodenum fluid distention as it crosses the aorta and the superior mesenteric artery. 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 he was admitted to the hospital 2 weeks previously for the above symptomatology. I performed upper endoscopy at that time which demonstrated what was felt to be a type I hiatal hernia with approximately half the stomach over the diaphragmatic hiatus. I was able to advance the scope through the pylorus and through the duodenum without difficulty. There was a question of external compression of the duodenum and the third to fourth portion, but whether that was true versus my impression given the above findings was difficult to prove. Biopsy demonstrated mild gastritis. I had recommended a small bowel follow-through be obtained to assess for extrinsic compression of the third to fourth portion of duodenum, but the patient wished to be discharged from the hospital. Prior to that procedure being completed. The patient states he been doing well for the past 2 weeks but then had some solid food. He came increasing distended and vomited. He presented to [facility] emergency department again, repeat CT scan demonstrated this time, a clearly demonstrated hiatal hernia with a distended stomach above the diaphragmatic hiatus and again a massively distended stomach below the diaphragm. I was again contacted for consultation.given the patient's distended stomach, a NG tube was placed, which demonstrated decent decompression of the stomach and the NG tube was noted to be below the diaphragm. I evaluated the patient this morning on rounds. He was symptomatically stable and had no abdominal peritoneal signs. I have asked that a small bowel series be obtained. I spoke with the radiologist and our plan was to perform Gastrografin study through the NG tube. Gastrografin study demonstrated the NG tube to be above the level of the diaphragm and field. The super diaphragmatic, stomach and what appeared to be a bird beaking type change of the stomach going through the diaphragmatic hiatus. Interestingly, the supradiaphragmatic stomach seemed to be more towards the right chest, then the left, but this had a suggestion of organoaxial rotation. There was poor visualization. The stomach and duodenum, but contrast rapidly seemed progressed to the distal small bowel.. Past Medical History Past Medical History (Chronic Problems): Chronic Problems (Last Updated 09/08/17 @ 10:09 by Adwoa Cyr) H/O heart artery stent (Chronic 01/27/17) PCI-RICO-LAD and RICO-D1 Atherosclerotic heart disease of [place] coronary artery without angina pectoris (Chronic) High risk medication use (Chronic) Dysphagia (Chronic) Allergies No Known Allergies Allergy (Verified 12/20/17 11:10) Home Medications: Ambulatory Orders Medication Instructions Recorded clopidogrel 75 mg tablet 75 mg PO DAILY 09/08/17 Aspirin E.C. [Ecotrin] 81 mg PO DAILY@0800 12/05/17 Ensure Clear 120 ml PO 4X/DAY #0 liquid 12/07/17 Pantoprazole Sodium [Protonix] 40 mg PO DAILY 12/20/17 Surgical History: - - PCI. Psychiatric History: No pertinent psych hx Lives: Alone Smoking Status: Former smoker Tobacco Use: Non-smoker Alcohol: None Drugs: None - *Family History Maternal History Items: Cancer - Mother passed age 84 y/o secondary to pancreatic cancer., - Paternal History Items: - - early, unclear specific etiology, noted recent intestinal surgery/intervention. - Physical Exam General: Alert, Oriented x3 Lungs: Clear to auscultation, Normal air movement Cardiovascular: Regular rate, Regular Rhythm Abdomen: Bowel Sounds Present, Soft, Non Tender Vital Signs Temp Pulse Resp BP Pulse Ox 98.3 F 76 18 141/94 H 96 12/21/17 11:00 12/21/17 13:12 12/21/17 11:00 12/21/17 11:00 12/21/17 11:00 Oxygen Delivery Method Room Air Weight: 57.561 kg Body Mass Index (BMI) 17.0 Intake and Output for Last 24 Hours 12/19/17 12/20/17 12/21/17 23:59 23:59 23:59 Intake Total 502 / 502 3286 / 3286 Output Total 1100 / 1100 2049 / 2049 Balance -598 / -598 1236 / 1236 Laboratory Tests Past 24 Hrs 12/21/17 12/21/17 06:04 06:04 WBC 11.3 H RBC 3.88 L Hgb 11.9 L Hct 37.3 L MCV 96.1 H MCH 30.7 MCHC 31.9 L RDW 13.6 RDW Differential 46.0 H Plt Count 223 MPV 9.6 Immature Gran % (Auto) 0.200 Neut % (Auto) 81.6 H Lymph % (Auto) 7.8 L [facility] % (Auto) 9.7 Eos % (Auto) 0.6 Baso % (Auto) 0.1 Absolute Neuts (auto) 9.3 H Absolute Lymphs (auto) 0.89 Total Counted Not Reportable Sodium 143 Potassium 3.9 Chloride 108 H Carbon Dioxide 30.0 Anion Gap 5 BUN 23 H Creatinine 0.68 L Estim Creat Clear Calc 50.37 Est GFR (MDRD) Af Amer 146 Est GFR (MDRD) Non-Af 120 BUN/Creatinine Ratio 33.9 H Glucose 101 Calcium 8.1 L Total Bilirubin 0.50 AST 15 ALT 11 L Alkaline Phosphatase 55 Total Protein 6.1 L Albumin 3.0 L Globulin 3.1 Albumin/Globulin Ratio 1.0 Assessment/Plan large hiatal hernia, still unable to truly diagnose or prove SMA syndrome. Concern for ORGANOAXIAL ROTATION AND ATYPICAL LOCATION. I spoke with both the radiologist and Dr. Araya. I am still unable to prove whether the patient truly has an SMA syndrome where the SMA. Due to loss of his fat pad is causing occlusion of the third to fourth portion of the duodenum. My upper endoscopy 3 weeks previously demonstrated was felt to be a type I hiatal hernia, but today's contrast imaging is concerning for an atypical type II rotation of his hiatal hernia. my concern is that this needs to be addressed more urgently and recommended transfer to a tertiary care center after discussions with our radiologist and hospitalist.
--- NOTE | 2017-12-24 20:29 | PCM.DC.SUM ---
Discharge Date and Diagnosis Date of Admission: 12/20/17 Date of Discharge: 12/21/17 - Primary Discharge Diagnosis #1 paraesophageal hernia #2 intractable nausea and vomiting secondary to #1 #3 severe protein and caloric malnutrition secondary to #1 #4 coronary artery disease - Secondary Discharge Diagnosis Chronic Problems (Last Updated 09/08/17 @ 10:09 by Adwoa Cyr) H/O heart artery stent (Chronic 01/27/17) PCI-RICO-LAD and RICO-D1 Atherosclerotic heart disease of [place] coronary artery without angina pectoris (Chronic) High risk medication use (Chronic) Dysphagia (Chronic) Hospital Course and Treatment Operations: None Procedures: None Summary of Care Provided: The patient is a 77 year old M who was seen in the emergency room at [facility] with a complaint of abdominal pain, nausea, and inability to eat. Patient had lost approximately 40 pounds of weight in the last 3-4 months. Evaluation in the emergency room included labs which showed an unremarkable CBC, chemistries were also unremarkable, LFTs were normal, lipase was slightly elevated at 427. Lactate was elevated at 3.8, CT scan of the abdomen and pelvis showed a distended stomach and a large hiatal hernia with a large amount of fluid and debris within stomach. Patient was admitted to the hospitalist service for abdominal pain, IV fluids were given, IV pain medicine was administered, patient was seen by general surgery. General surgery felt that the patient had a paraesophageal hernia that warranted surgical intervention at an acute care hospital. Arrangements were made for the patient be transferred to [facility], on 12/21/17, patient was seen and examined felt to be in stable condition for discharge to [facility] Home Medications: Medications to take at Discharge clopidogrel 75 mg tablet 75 mg PO DAILY 09/08/17 Aspirin E.C. [Ecotrin] 81 mg PO DAILY@0800 12/05/17 Ensure Clear 120 ml PO 4X/DAY #0 liquid 12/07/17 Pantoprazole Sodium [Protonix] 40 mg PO DAILY 12/20/17 Primary Care Physician: John Fallon DO [Primary Care Provider] - Disposition: Acute care Hospital Minutes spent on discharge:: 32 Patient Condition:: Stable Medical Necessity - Tobacco Use Smoking Status: Former smoker Tobacco Use: Non-smoker Meaningful Use Info Meaningful Use Diagnoses (Choose all that apply): None applicable Code Visit Inpatient E&M: 57853 Disch Hosp
--- NOTE | 2017-12-24 20:33 | DS.PCM_ITS ---
Discharge Date and Diagnosis Date of Admission: 12/20/17 Date of Discharge: 12/21/17 - Primary Discharge Diagnosis #1 paraesophageal hernia #2 intractable nausea and vomiting secondary to #1 #3 severe protein and caloric malnutrition secondary to #1 #4 coronary artery disease - Secondary Discharge Diagnosis Chronic Problems (Last Updated 09/08/17 @ 10:09 by Adwoa Cyr) H/O heart artery stent (Chronic 01/27/17) PCI-RICO-LAD and RICO-D1 Atherosclerotic heart disease of [place] coronary artery without angina pectoris (Chronic) High risk medication use (Chronic) Dysphagia (Chronic) Hospital Course and Treatment Operations: None Procedures: None Summary of Care Provided: The patient is a 77 year old M who was seen in the emergency room at [facility] with a complaint of abdominal pain, nausea, and inability to eat. Patient had lost approximately 40 pounds of weight in the last 3-4 months. Evaluation in the emergency room included labs which showed an unremarkable CBC, chemistries were also unremarkable, LFTs were normal, lipase was slightly elevated at 427. Lactate was elevated at 3.8, CT scan of the abdomen and pelvis showed a distended stomach and a large hiatal hernia with a large amount of fluid and debris within stomach. Patient was admitted to the hospitalist service for abdominal pain, IV fluids were given, IV pain medicine was administered, patient was seen by general surgery. General surgery felt that the patient had a paraesophageal hernia that warranted surgical intervention at an acute care hospital. Arrangements were made for the patient be transferred to [facility], on 12/21/17, patient was seen and examined felt to be in stable condition for discharge to [facility] Home Medications: Medications to take at Discharge clopidogrel 75 mg tablet 75 mg PO DAILY 09/08/17 Aspirin E.C. [Ecotrin] 81 mg PO DAILY@0800 12/05/17 Ensure Clear 120 ml PO 4X/DAY #0 liquid 12/07/17 Pantoprazole Sodium [Protonix] 40 mg PO DAILY 12/20/17 Primary Care Physician: John Fallon DO [Primary Care Provider] - Disposition: Acute care Hospital Minutes spent on discharge:: 32 Patient Condition:: Stable Medical Necessity - Tobacco Use Smoking Status: Former smoker Tobacco Use: Non-smoker Meaningful Use Info Meaningful Use Diagnoses (Choose all that apply): None applicable Code Visit Inpatient E&M: 92035 Disch Hosp
== END 2017-12-21 18:13 | disposition short-term general hospital (02) | DRG 391 ==
LOC: ED 12:27 → MS2 15:18
PROVIDERS: Admitting Provider Family Medicine; Emergency Provider Emergency Medicine; Family Provider Family Medicine; PCP Family Medicine; Visit Provider Internal Medicine
DX: K44.9 Diaphragmatic hernia without obstruction or gangrene (principal); E43 Unspecified severe protein-calorie malnutrition; Z68.1 Body mass index [BMI] 19.9 or less, adult; R11.2 Nausea with vomiting, unspecified; R13.10 Dysphagia, unspecified; K21.0 Gastro-esophageal reflux disease with esophagitis; I25.10 Atherosclerotic heart disease of native coronary artery without angina pectoris; Z79.02 Long term (current) use of antithrombotics/antiplatelets; Z79.82 Long term (current) use of aspirin; Z79.899 Other long term (current) drug therapy; Z95.5 Presence of coronary angioplasty implant and graft; Z87.891 Personal history of nicotine dependence
CPT/HCPCS: 36415; 74018; 74150; 74177; 74250; 80053; 81001; 83036; 83605; 83690; 83735; 84100; 84484; 85025; 93005; 99285; J7030; Q9967; A4216; J2405

== ENCOUNTER → 2019-03-06 07:12 | Outpatient (CLI) | payer MEDICARE, SELFPAY ==
[2017-01-28 08:52] VITALS: BMI 18.7
[2019-02-27 14:52] VITALS: BMI 15.3
[2019-03-06 08:04] LABS: AST(SGOT) 16 U/L (15-37); Alanine Aminotransfer ALT/SGPT 15 U/L (16-61); Albumin, Serum 3.6 g/dL (3.2-5.0); Alkaline Phosphatase 99 U/L (45-117); Bilirubin, Direct 0.09 mg/dL (0.00-0.30); Cholesterol 163 mg/dL (200); Globulin 4.7 g/dL (2.2-4.2); High Density Lipoprotein 43 mg/dL; Protein, Total 8.3 g/dL (6.4-8.2); Triglycerides 98 mg/dL; Very Low Density Lipoprotein 20 mg/dL (5-40)
== END ==
PROVIDERS: Family Provider Family Medicine; PCP Family Medicine; Referring Provider Internal Medicine Cardiovascular Disease; Visit Provider Internal Medicine Cardiovascular Disease
DX: E78.5 Hyperlipidemia, unspecified (principal); Z95.5 Presence of coronary angioplasty implant and graft
CPT/HCPCS: 36415; 80061; 80076

== ENCOUNTER 2019-03-09 06:50 | Emergency (ER) | payer MEDICARE, SELFPAY ==
[2017-01-28 08:52] VITALS: BMI 18.7
[2019-02-27 14:52] VITALS: BMI 15.3
[2019-03-09 06:51] VITALS: BP 142/83; PULSE 67; RESP 16; TEMP 36.5; O2SAT 96; BMI 14.5
--- NOTE | 2019-03-09 07:14 | EKG12_ITS ---
Test Reason : SOB Blood Pressure : / mmHG Vent. Rate : 069 BPM Atrial Rate : 069 BPM P-R Int : 122 ms QRS Dur : 096 ms QT Int : 438 ms P-R-T Axes : 081 081 072 degrees QTc Int : 469 ms Normal sinus rhythm Nonspecific ST abnormality Abnormal ECG Confirmed by INGA JOSHI, AARTI ([id number]), visual effects editor BRINDA CLAROS ([id number]) on 03/13/2019 9:25:12 AM Referred By: Zaheer Feldman Confirmed By:AARTI XIONG MD
--- NOTE | 2019-03-09 07:20 | CT_ITS ---
STUDY: CT ABDOMEN AND PELVIS WITH CONTRAST REASON FOR EXAM: Male, 78 years old. Weakness, vomiting, weight loss RADIATION DOSAGE (If Supplied By Facility): CTDIvol = ( 12.93 ) mGy, DLP = ( 254 ) mGycm TECHNIQUE: Transaxial images were obtained from the dome of the diaphragm to the symphysis pubis with oral contrast. 100 IV/Oral Isovue 300 was administered. Sagittal and coronal images were reconstructed. Individualized dose optimization techniques were used for this CT. COMPARISON: 12/13/2017 FINDINGS: The visualized lung bases are unremarkable. The visualized portions of the heart are within normal limits. Normal liver. Normal gallbladder and extrahepatic biliary system. Normal spleen. Normal pancreas. Normal bilateral adrenal glands. Normal right kidney. Normal left kidney. Normal visualized stomach. Normal small intestine. Normal colon. The appendix is visualized and appears normal. Normal abdominal aorta. Normal inferior vena cava. Normal retroperitoneum. Normal urinary bladder. There is enlargement of the prostate gland. Normal abdominal wall. There are diffuse degenerative changes of the visualized lumbar spine. CT/Abdomen/Pelvis WITH Contrast IMPRESSION: Normal enhanced CT of the abdomen and pelvis. Electronically Signed: Matteo Solis MD at 9:41 EDT Tel , Service support ,
[2019-03-09] MEDS: Metoclopramide 10 MG/2 ML Vial 5 MG IV (07:31)
[2019-03-09] MEDS: 0.9% Normal Saline 1,000 ML 1000 ML IV (07:31)
[2019-03-09 07:32] LABS: Absolute Lymphocyte Count 1.14 X10^3/ul (0.83-4.51); Absolute Neutrophil Count 6.5 X10^3/uL (2.0-7.7); Basophil# 0.02 X10^3/uL; Basophil% 0.2 % (0-1); Eosinophil# 0.42 X10^3/uL; Eosinophils% 4.8 % (0-5); Hematocrit 43.3 % (40-54); Lymphocyte # 1.14 X10^3/ul (4.0); Lymphocyte % 13.1 % (19-41); Mean Corp Hgb Conc 32.3 g/gl (32-36); Mean Corpuscular Hgb 29.4 pg (27.0-32.0); Mean Corpuscular Volume 90.8 fL (80-94); Mean Platelet Vol. 9.8 fl (6.2-12.0); Monocyte# 0.59 X10^3/uL; Monocyte% 6.8 % (0-10); Neutrophil # 6.51 X10^3/uL (2.7-7.7); Platelet Count 257 K/mm3 (150-450); RBC Distribution Width CV 13.6 % (11.6-14.6); RBC Distribution Width SD 45.1 fl (35.1-43.9); Red Blood Count 4.77 M/mm3 (4.6-6.2); White Blood Count 8.7 K/mm3 (4.4-11.0)
--- NOTE | 2019-03-09 07:35 | RAD_ITS ---
STUDY: X-RAY CHEST REASON FOR EXAM: Male, 78 years old. Nausea vomiting shortness of breath weight loss TECHNIQUE: Single AP portable view of the chest. COMPARISON: 12/05/2017 FINDINGS: The lungs are clear and expanded. There is no demonstrated pleural abnormality. Normal size heart. Normal mediastinum and esme. Normal visualized pulmonary arteries. Normal visualized aortic arch and descending thoracic aorta. Normal visualized thoracic spine. Normal visualized ribs, clavicles, and shoulders. There is no demonstrated abnormality of the visualized soft tissue structures of the upper abdomen. RAD/Chest 1 View (Portable) IMPRESSION: Normal x-ray examination of the chest. Electronically Signed: Matteo Solis MD at 8:20 EDT Tel , Service support ,
[2019-03-09 07:42] LABS: POSITIVE COUNT NO; POSITIVE DIFFERENTIAL NO; POSITIVE MORPHOLOGY NO
[2019-03-09 07:46] LABS: ALB/GLOB Ratio 0.7 RATIO (0.9-2.4); AST(SGOT) 19 U/L (15-37); Alanine Aminotransfer ALT/SGPT 21 U/L (16-61); Albumin, Serum 3.3 g/dL (3.2-5.0); Alkaline Phosphatase 96 U/L (45-117); Anion Gap 4 (5-15); BUN 28 mg/dL (7-18); BUN/Creat Ratio 27.5 RATIO (10-20); Calcium,Total 9.1 mg/dL (8.5-10.1); Chloride 108 mmol/L (98-107); Creatinine, Serum 1.02 mg/dL (0.70-1.30); EST Glomerular Filtration Rate 75 mL/min (>60); Est Glom Filt Rate - Afr Amer 91 mL/min (>60); Estimated Creatinine Clearance 42.13 ml/min; Globulin 4.7 g/dL (2.2-4.2); Glucose 131 mg/dL (74-106); Lipase 55 U/L (73-393); Potassium 3.7 mmol/L (3.5-5.1); Sodium Level 142 mmol/L (136-145)
[2019-03-09 07:53] LABS: Lactic Acid 1.8 mmol/L (0.4-2.0)
[2019-03-09 09:01] VITALS: BP 115/55; PULSE 59; RESP 17; O2SAT 93
--- NOTE | 2019-03-09 10:16 | ED.VISSUMM ---
- ER Visit Summary Date of Service: 03/09/19 Chief Complaint: [Shortness of breath and generalized weakness, difficulty swallowing] History of Present Illness: The patient is a 78 M [resents to the emergency department with multiple complaints this morning. Patient states that he has had worsening symptoms over the last 2 months. Patient states that he has a history of gastric outlet obstruction and SMA syndrome. Patient was seeing a Dr. Winn in [place] who was performing esophageal dilatations. Patient was told he would need multiple dilatations. 2 months ago patient was late for an appointment and was told he could be seen by the retail interior designer any longer. Patient states that he is having a hard time swallowing liquids or solids and is been losing weight. Patient states everything he tries to eat or drink comes back up. Patient also with history of coronary artery disease and GERD. After trying to eat patient states that he does not feel short of breath for an hour or 2. He denies any fever. Denies any cough. He denies any chest pain.] Physical Examination: [HEENT-PERRLA, EOMI. Cranial nerves II through XII grossly intact. TMs clear. Mucous membranes moist. No adenopathy. Cardiovascular-regular rate and rhythm without murmur or ectopy Lungs-clear to auscultation, chest wall stable without crepitus or subcu emphysema Abdomen-normoactive bowel sounds, soft, nontender, no rebound or rigidity, no peritoneal signs. Extremities-intact ?4, normal range of motion, normal pulses, atraumatic] Test Results: [EKG obtained arrival shows sinus rhythm with a ventricular rate of 69 bpm with some nonspecific ST changes. CBC with her showing of 8.7, hemoglobin 14, hematocrit 43, placed 257. Chemistries unremarkable. BUN was 28 g 1.02. LFTs were normal. Lipase was 55. Troponin is less than 0.015. Lactate was normal 1.8. Albumin was 3.3. Chest x-ray showed nothing acute. CT scan of the abdomen pelvis with IV and p.o. contrast was read essentially is unremarkable.] Emergency Department Course and Treatment: [Patient was given Reglan and attempt to allow him to take the p.o. contrast however he continued to gag and spit it up. Given a liter normal same fluid bolus. I did discuss case with Dr. Matteo Winters who does not perform esophageal dilatations and asked that we transfer patient to an appropriate facility. Patient would prefer to go to [facility] in [place].] Case was discussed with [facility] Dr. Jerome who accepted transfer patient. Treatment Plan: [Transfer to [facility]] Disposition: [Transfer] Impression: [Generalized weakness Dysphasia Failure to thrive] This note was generated with Melon #usemelon dictation software. It may contain incorrect words, spelling, and punctuation that were not noted in review of the chart prior to signing ED Disposition - Plan for ED Patient: Referrals: John Fallon DO [Primary Care Provider] -
--- NOTE | 2019-03-09 10:22 | ED.DCSUM_ITS ---
- ER Visit Summary Date of Service: 03/09/19 Chief Complaint: [Shortness of breath and generalized weakness, difficulty swallowing] History of Present Illness: The patient is a 78 M [resents to the emergency department with multiple complaints this morning. Patient states that he has had worsening symptoms over the last 2 months. Patient states that he has a history of gastric outlet obstruction and SMA syndrome. Patient was seeing a Dr. Winn in [place] who was performing esophageal dilatations. Patient was told he would need multiple dilatations. 2 months ago patient was late for an appointment and was told he could be seen by the mixing machine feeder any longer. Patient states that he is having a hard time swallowing liquids or solids and is been losing weight. Patient states everything he tries to eat or drink comes back up. Patient also with history of coronary artery disease and GERD. After trying to eat patient states that he does not feel short of breath for an hour or 2. He denies any fever. Denies any cough. He denies any chest pain.] Physical Examination: [HEENT-PERRLA, EOMI. Cranial nerves II through XII grossly intact. TMs clear. Mucous membranes moist. No adenopathy. Cardiovascular-regular rate and rhythm without murmur or ectopy Lungs-clear to auscultation, chest wall stable without crepitus or subcu emphysema Abdomen-normoactive bowel sounds, soft, nontender, no rebound or rigidity, no peritoneal signs. Extremities-intact ?4, normal range of motion, normal pulses, atraumatic] Test Results: [EKG obtained arrival shows sinus rhythm with a ventricular rate of 69 bpm with some nonspecific ST changes. CBC with her showing of 8.7, hemoglobin 14, hematocrit 43, placed 257. Chemistries unremarkable. BUN was 28 g 1.02. LFTs were normal. Lipase was 55. Troponin is less than 0.015. Lactate was normal 1.8. Albumin was 3.3. Chest x-ray showed nothing acute. CT scan of the abdomen pelvis with IV and p.o. contrast was read essentially is unremarkable.] Emergency Department Course and Treatment: [Patient was given Reglan and attempt to allow him to take the p.o. contrast however he continued to gag and spit it up. Given a liter normal same fluid bolus. I did discuss case with Dr. Matteo Winters who does not perform esophageal dilatations and asked that we transfer patient to an appropriate facility. Patient would prefer to go to [facility] in [place].] Case was discussed with [facility] Dr. Jerome who accepted transfer patient. Treatment Plan: [Transfer to [facility]] Disposition: [Transfer] Impression: [Generalized weakness Dysphasia Failure to thrive] This note was generated with [employer] dictation software. It may contain incorrect words, spelling, and punctuation that were not noted in review of the chart prior to signing ED Disposition - Plan for ED Patient: Referrals: John Fallon DO [Primary Care Provider] -
[2019-03-09 11:04] VITALS: BP 121/68; PULSE 62; RESP 16; TEMP 36.7; O2SAT 95
[2019-03-09 11:05] VITALS: BP 121/68; PULSE 62; RESP 16; O2SAT 95
[2019-03-09] MEDS: 0.9% Normal Saline 1,000 ML 150 ML IV (12:04)
== END 2019-03-09 12:09 | disposition short-term general hospital (02) ==
LOC: ED 07:15
PROVIDERS: Emergency Provider Emergency Medicine; Family Provider Family Medicine; PCP Family Medicine
DX: R53.1 Weakness (principal); R47.02 Dysphasia; R62.7 Adult failure to thrive; I25.10 Atherosclerotic heart disease of native coronary artery without angina pectoris; K21.9 Gastro-esophageal reflux disease without esophagitis; Z79.02 Long term (current) use of antithrombotics/antiplatelets; Z79.82 Long term (current) use of aspirin
CPT/HCPCS: 71045; 74177; 80053; 83605; 83690; 84484; 85025; 93005; 96361; 96374; 99285; J7030; Q9967; A4216

== ENCOUNTER 2019-03-27 06:42 | Emergency (ER) | payer MEDICARE, SELFPAY ==
[2017-01-28 08:52] VITALS: BMI 18.7
[2019-03-23 13:58] VITALS: BMI 14.5
[2019-03-27] VITALS (10 sets, daily range): BP systolic 102–163; BP diastolic 51–75; PULSE 54–82; RESP 16–22; TEMP 36.6; O2SAT 92–98; BMI 14.8
--- NOTE | 2019-03-27 07:12 | EKG12_ITS ---
Test Reason : SOB Blood Pressure : / mmHG Vent. Rate : 073 BPM Atrial Rate : 073 BPM P-R Int : 134 ms QRS Dur : 098 ms QT Int : 410 ms P-R-T Axes : 084 077 -87 degrees QTc Int : 451 ms Normal sinus rhythm ST & T wave abnormality, consider inferior lateral ischemia Abnormal ECG Confirmed by MASOOD JOSHI, HARLEY ([id number]), subeditor NAWAF NIAR ([id number]) on 03/28/2019 12:27:46 PM Referred By: Confirmed By:HARLEY CORREIA MD
--- NOTE | 2019-03-27 07:13 | RAD_ITS ---
STUDY: X-RAY - ACUTE ABDOMINAL SERIES REASON FOR EXAM: Male, 78 years old. Weight loss. Nausea and vomiting. TECHNIQUE: Single view of the chest. Supine, and erect view(s) of the abdomen were obtained. COMPARISON: Comparison is made with prior chest radiograph dated March 09, 2019. FINDINGS: EKG electrodes are seen. There is hyperinflation of the lungs consistent with chronic obstructive lung disease (COPD). Decreased bronchovascular markings in the lower lobes more prominent on the left side suggestive of emphysematous changes. Normal size heart. Normal mediastinum and esme. Normal visualized pulmonary arteries. There is atherosclerotic calcification of the aortic arch with tortuosity. There is a moderate amount of colonic fecal material. Residual barium within sigmoid diverticula. There are diffuse degenerative changes of the visualized lumbar spine. RAD/Acute Abdomen Inc Chest IMPRESSION: Hyperinflation. Findings suggestive of emphysema. Moderate amount of fecal material is seen in the colon. Electronically Signed: Checo Shah, at 8:22 EDT , Service support ,
--- NOTE | 2019-03-27 07:18 | ED.DCSUM_ITS ---
- ER Visit Summary Date of Service: 03/27/19 Chief Complaint: Reflux, shortness of breath History of Present Illness: The patient is a 78 M with several month history of difficulty eating and vomiting. He had a hernia repair at [facility] in November. He had multiple esophageal dilatations. He has been told local physicians as well as physicians in [place] and can have nothing further to offer him. He has been told he needs to be seen at the [facility]. Patient presents today stating he is only able to keep some liquids down. He is losing weight. He woke this morning with reflux and shortness of breath. Dyspnea is currently improving. Physical Examination: Vital signs include blood pressure 163/62. Patient is a cachectic appearing gentleman sitting upright in bed. Heart is regular rate and rhythm. Lung sounds are clear. Abdomen is soft with no focal tenderness. Hypoactive bowel sounds are present. Test Results: EKG is sinus at [address] depression. Acute abdominal series shows hyperinflation with moderate fecal material in the colon. CBC was a white count 11.1 with 85% neutrophils. Chemistry studies reveal glucose of 130 and BUN of 20. Troponin is less than 0.015. Emergency Department Course and Treatment: Patient is given IV fluids. He was noted to have bedbugs while here. His clothes were removed and bag. Patient has been to both [place] and [place] as well as seen by physicians in [place] and told he had nothing else to offer him and that he would require evaluation at [facility]. At this time patient is not able to keep his nutrition status up. I spoke with Dr. Fallon his primary care physician along with [facility]. Patient has been accepted in transfer. Treatment Plan: [] Disposition: Transfer Impression: 1. Esophageal stricture 2. Vomiting 3. Weight loss This note was generated with YoungCurrent dictation software. It may contain incorrect words, spelling, and punctuation that were not noted in review of the chart prior to signing ED Disposition - Plan for ED Patient: Referrals: John Fallon, [Primary Care Provider] -
[2019-03-27] MEDS: 0.9% Normal Saline 1,000 ML 150 ML IV (07:23)
[2019-03-27 07:29] LABS: Absolute Lymphocyte Count 0.88 X10^3/ul (0.83-4.51); Absolute Neutrophil Count 9.5 X10^3/uL (2.0-7.7); Eosinophil# 0.05 X10^3/uL; Eosinophils% 0.5 % (0-5); Hematocrit 45.2 % (40-54); Hemoglobin 14.8 g/dl (13.0-16.5); Lymphocyte # 0.88 X10^3/ul (4.0); Lymphocyte % 7.9 % (19-41); Mean Corp Hgb Conc 32.7 g/gl (32-36); Mean Corpuscular Hgb 29.4 pg (27.0-32.0); Mean Corpuscular Volume 89.9 fL (80-94); Mean Platelet Vol. 9.8 fl (6.2-12.0); Monocyte# 0.63 X10^3/uL; Monocyte% 5.7 % (0-10); Neutrophil % 85.6 % (47-70); Platelet Count 264 K/mm3 (150-450); RBC Distribution Width CV 13.7 % (11.6-14.6); RBC Distribution Width SD 44.6 fl (35.1-43.9); Red Blood Count 5.03 M/mm3 (4.6-6.2); White Blood Count 11.1 K/mm3 (4.4-11.0)
[2019-03-27 07:38] LABS: Anion Gap 9 (5-15); BUN 20 mg/dL (7-18); BUN/Creat Ratio 21.5 RATIO (10-20); Calcium,Total 9.4 mg/dL (8.5-10.1); Chloride 104 mmol/L (98-107); Creatinine, Serum 0.93 mg/dL (0.70-1.30); EST Glomerular Filtration Rate 83 mL/min (>60); Est Glom Filt Rate - Afr Amer 101 mL/min (>60); Estimated Creatinine Clearance 45.93 ml/min; Glucose 130 mg/dL (74-106); Potassium 3.9 mmol/L (3.5-5.1); Sodium Level 142 mmol/L (136-145)
[2019-03-27 07:40] LABS: POSITIVE COUNT NO; POSITIVE DIFFERENTIAL NO; POSITIVE MORPHOLOGY NO
--- NOTE | 2019-03-27 08:25 | ED.RN ---
Addendum entered by Ashley Valentino 03/27/19 17:29: THIS RN AND STUDENT VISUALIZED PT REMOVE LARGE AMOUNT OF FITZPATRICK AND CHANGE FROM POCKETS. BED BUGS NOTED TO BE CRAWLING IN THE BILLS. PT PLACED DIRECTLY IN ZIPLOC BAG. BAG DOUBLED. PT REQUESTS TO KEEP THIS ITEM AT HIS BEDSIDE. SENIOR QA TESTER AWARE. TALKED WITH PT REGARDING IF PT IS ADMITTED BELONGINGS SHOULD BE PLACED IN SAFE. FITZPATRICK WAS NOT PHYSICALLY COUNTED BY THIS RN NOR OTHER STAFF. Original Note: RADIOLOGY NOTIFIED THIS RN ABOUT THE PRESENCE OF BEDBUGS. THIS RN AND STUDENT ARRIVE IN ROOM. BEDBUGS NOTED CRAWLING ON PT AND ON BED. VARIOUS SIZES. ALL CLOTHING GOOSENECK BAGGED. PT STANDS UP BEDBUGS NOTED CRAWLING ON PT, ON PT SHORTS, PT EMPTIES POCKETS. BEDBUGS CRAWLING OUT OF POCKETS. PT HAS LARGE AMOUNT OF FITZPATRICK. STATES PROBABLY OVER A THOUSAND. ALL BAGGED AND REMAIN WITH PT.
--- NOTE | 2019-03-27 14:22 | ED.RN ---
[facility] WILL BE PICKING THE PATIENT UP AT 20:00. WE CANT GET A SQUAD ANY EARLIER
== END 2019-03-27 18:11 | disposition short-term general hospital (02) ==
LOC: ED 07:26
PROVIDERS: Emergency Provider Emergency Medicine; Family Provider Family Medicine; PCP Family Medicine
DX: K22.2 Esophageal obstruction (principal); R11.10 Vomiting, unspecified; R63.4 Abnormal weight loss; I25.10 Atherosclerotic heart disease of native coronary artery without angina pectoris; K21.9 Gastro-esophageal reflux disease without esophagitis; K44.9 Diaphragmatic hernia without obstruction or gangrene; Z95.5 Presence of coronary angioplasty implant and graft; Z79.82 Long term (current) use of aspirin
CPT/HCPCS: 74022; 80048; 84484; 85025; 93005; 96360; 96361; 99285; J7030; A4216

== ENCOUNTER 2019-04-06 16:34 | Emergency (ER) | payer MEDICARE, SELFPAY ==
[2017-01-28 08:52] VITALS: BMI 18.7
[2019-03-27 06:42] VITALS: BMI 14.8
[2019-04-06 16:35] VITALS: BP 100/76; PULSE 97; RESP 16; TEMP 36.7; O2SAT 93; BMI 15.4
--- NOTE | 2019-04-06 16:46 | ED.VISSUMM ---
- ER Visit Summary Date of Service: 04/06/19 Chief Complaint: [Concerned about location of feeding tube] History of Present Illness: The patient is a 78 M [since the emergency department from longterm where he states that they insisted patient come to the emergency department to check the placement of his feeding tube. Patient had a feeding tube placed in the right side of his nose at the [facility] and it has a suture through his nasal septum. Patient states that he does not believe that there is any issue with that as they have fed him through it x3 today already. Patient denies any abdominal pain. Patient denies any vomiting. Patient has esophageal stricture history. Patient states that he is intermittently had some bloody drainage from the right side of the nose where the tube is located but that has been an issue for him for years and believes it is just related to sinus drainage.] Physical Examination: [HEENT-PERRLA, EOMI. Cranial nerves II through XII grossly intact. TMs clear. Mucous membranes moist. No adenopathy. No active bleeding from the right side of the nose noted. There is a feeding tube in the right side of the nose that has a tube tie that wraps around the posterior nasopharynx to the opposite side and is tied to the tube. Cardiovascular-regular rate and rhythm without murmur or ectopy Lungs-clear to auscultation, chest wall stable without crepitus or subcu emphysema Abdomen-normoactive bowel sounds, soft, nontender, no rebound or rigidity, no peritoneal signs. Extremities-intact ?4, normal range of motion, normal pulses, atraumatic] Test Results: [KUB obtained showed the tube to be in good placement into the proximal small bowel on my interpretation.] Emergency Department Course and Treatment: [Patient left prior to treatment completion] Treatment Plan: [Patient left the department prior to x-ray results completed.] Disposition: [Patient left prior to treatment completion] Impression: [Feeding tube check-in good position] This note was generated with AlphaSights dictation software. It may contain incorrect words, spelling, and punctuation that were not noted in review of the chart prior to signing ED Disposition - Plan for ED Patient: Referrals: John Fallon DO [Primary Care Provider] -
--- NOTE | 2019-04-06 16:53 | ED.RN ---
THIS NURSE SPOKE WITH VITALIY HARRISON NP, AT [facility] IN REFERENCE TO PT. PT WAS SENT TO [facility] FOR AN X-RAY OF NG TUBE TO RIGHT NARES, IT WAS PULLED BACK AROUND 4-[address] CENTIMETERS [address] VITALIY HARRISON[address] DR. PALOMINO INFORMED OF SAME. DR. WREN REQUESTED X-RAY PER CHRISTY.
--- NOTE | 2019-04-06 17:06 | RAD_ITS ---
STUDY: X-RAY - ABDOMEN/PELVIS REASON FOR EXAM: Male, 78 years old. Feeding tube placement TECHNIQUE: COMPARISON: None. FINDINGS: NG tube is placed in the elongated stomach with the tip at the distal stomach or proximal duodenum. There is partially visualized moderate stool in the colon. There is postoperative change in the left upper quadrant. There is degenerative change in the thoracolumbar spine. At the level of T12 there is an age indeterminant visualized wedge compression fracture. RAD/Abdomen Single View (Portable) IMPRESSION: Feeding tube tip in the stomach. Age-indeterminate Wedge compression fracture T12. Electronically Signed: Alena Davila MD at 17:53 EDT Tel , Service support ,
--- NOTE | 2019-04-06 17:19 | ED.RN ---
Addendum entered by Swathi Holbrook 04/10/19 19:43: LATE ENTRY, THIS NURSE ALSO EXPLAINED THAT DR. PALOMINO PHYSICALLY EXAMINED PT AND LOOKED INSIDE PT'S NOSE TO FIND THE NG TUBE WAS SECURED WITH A LARGE SUTURE TO SECURE IT INTO PLACE. Addendum entered by Swathi Holbrook 04/10/19 19:05: LATE ENTRY, REPORT ON KUB WAS GIVEN TO VITALIY; FEEDING TUBE WAS INTACT. Original Note: RADIOLOGY DEPARTMENT INFORMED THIS NURSE AND SRINIVAS REYES RN, CHARGE NURSE, PT HAD ACTIVE BED BUGS ON THIS BODY. PT REFUSED TO REMOVE CLOTHING OR TO SHOWER. PT LEFT DEPARTMENT AND WALKED OUT OF [facility]. VITALIY HARRISON NP, WAS NOTIFIED OF PT HAVING ACTIVE BED BUGS AND TO CALL AN [employer] ATTENDANT. VITALIY STATED THAT THE COMPLAINT INVESTIGATOR WAS NOTIFIED AT [facility] OF THE BED BUGS AFTER SRINIVAS REYES RN, CALLED WITH THE SAME INFORMATION.
--- NOTE | 2019-04-06 17:21 | ED.RN ---
PT INFESTED WITH BED BUGS. PT AWARE THAT HE NEEDS A SHOWER AND CHANGE HIS CLOTHES. PT BECAME MAD AND LEFT THE DEPARTMENT. EVS CALLED TO CLEAN ROOM
== END 2019-04-06 17:35 | disposition home or self-care (01) ==
LOC: ED 17:02
PROVIDERS: Emergency Provider Emergency Medicine; Family Provider Family Medicine; PCP Family Medicine
DX: Z43.1 Encounter for attention to gastrostomy (principal); J45.909 Unspecified asthma, uncomplicated
CPT/HCPCS: 74018; 99282

== ENCOUNTER 2019-04-10 14:11 | Emergency (ER) | payer MEDICARE, SELFPAY ==
[2017-01-28 08:52] VITALS: BMI 18.7
[2019-04-10 14:12] VITALS: BP 116/79; PULSE 95; RESP 19; TEMP 36.6; O2SAT 93; BMI 15.5
--- NOTE | 2019-04-10 15:25 | ED.DCSUM_ITS ---
History of Present Illness Chief Complaint: General Illness Detail of Chief Complaint: Weakness, no tube feeds Informant: Patient, Friend Narrative: Patient was discharged from [facility] on the and was admitted to [facility]. While at [facility] he was found to have esophageal stricture and a feeding tube was placed and sutured into his nasal septum. Per patient report, Tomas insisted the patient come to the emergency room to have an x-ray to ensure the tube was a good placement. Patient states he had fed him 3 times that same day and he had no difficulty tolerating the tube feed. Patient came to the emergency room and had an x-ray, but before the x-rays were read the patient had a friend pick him up and taken back to the senior care. Patient states that because senior care did not receive a copy of the x-ray reports they would not feed him and kicked him out. Patient now has had no tube feeds for the last 2 days. He has tried going to a few local restaurants to eat soft food, but states is not going down. - Past Medical History (1) Esophageal stricture Status: Acute (2) Hiatal hernia with gastroesophageal reflux disease and esophagitis Status: Acute (3) Hyperlipidemia Status: Acute (4) Atherosclerotic heart disease of [place] coronary artery without angina pectoris Status: Chronic Comment: PCI-RICO-LAD (3.0 X 12 Promus) and RICO-D1 (2.25 X 12 Promus) 01/27/2017 (5) Dysphagia Status: Chronic (6) Stented coronary artery Status: Chronic Comment: PCI-RICO-LAD (3.0 X 12 Promus) and RICO-D1 (2.25 X 12 Promus) 01/27/2017 Past Medical History - Allergies and Home Meds Allergies/Adverse Reactions: Allergies No Known Allergies Allergy (Verified 04/10/19 14:15) Primary Care Physician: John Fallon DO [Primary Care Provider] - Prior records reviewed: Yes Past Medical History: - - Reviewed Surgical History: - - PCI. Smoking Status: Unknown if ever smoked - Family History Maternal Family History: Family History (Last Reviewed 03/23/19 @ 13:49 by Tere Paulino) Mother Cancer Family History: Reports: Cancer - Mother passed age 84 y/o secondary to pancreatic cancer., - Paternal Family History: Family History (Last Reviewed 03/23/19 @ 13:49 by Tere Paulino) Mother Cancer Family History: Reports: - - early, unclear specific etiology, noted recent intestinal surgery/intervention. Review of Systems General: Denies: Chills, Fever Cardiovascular: Denies: Chest pain Respiratory: Denies: Dyspnea, Cough Gastrointestinal: Reports: Nausea, Vomiting. Denies: Abdominal pain Physical Exam Vital Signs/Narrative: Vital Signs Temp Pulse Resp BP Pulse Ox 04/10/19 14:12 97.9 F 95 19 H 116/79 93 General: Cachectic ENT: Moist mucous membranes, - - Feeding tube sutured through right nare. Cardiovascular: Regular rate, Regular rhythm Respiratory: No distress, CTA bilaterally Abdomen: Soft, Nontender, Hypoactive bowel sounds Neurological: Alert, Oriented x3 Diagnostic/Tx/Re-eval 04/10/19 15:50 Abdomen Single View [RAD] Stat Laboratory Results 04/10/19 04/10/19 15:35 15:35 WBC 4.9 RBC 4.53 L Hgb 13.3 Hct 41.0 MCV 90.5 MCH 29.4 MCHC 32.4 RDW Std Deviation 44.3 H RDW Coeff of [place] 13.5 Plt Count 306 MPV 8.9 Immature Gran % (Auto) 0.200 Neut % (Auto) 64.4 Lymph % (Auto) 22.1 Ray % (Auto) 8.2 Eos % (Auto) 4.5 Baso % (Auto) 0.6 Absolute Neuts (auto) 3.2 Absolute Lymphs (auto) 1.08 Absolute Nucleated RBC 0.00 Nucleated RBC % 0 Sodium 139 Potassium 3.9 Chloride 104 Carbon Dioxide 31.0 Anion Gap 4 L BUN 20 H Creatinine 0.75 Estim Creat Clear Calc 44.92 Est GFR (MDRD) Af Amer 129 Est GFR (MDRD) Non-Af 106 BUN/Creatinine Ratio 26.6 H Glucose 111 H Calcium 9.3 Total Bilirubin 0.30 Direct Bilirubin 0.09 AST 24 ALT 31 Alkaline Phosphatase 84 Total Protein 7.9 Albumin 3.3 Globulin 4.6 H Lipase 67 L - Medical Decision Making Official report from [facility] x-ray has not yet done. Per my review NG tube in good position and not significantly changed when compared to prior study from April 06. Patient was seen by social work. Patient is willing to go back to [facility] and they are willing to accept him at this time. Friend at bedside will drive him back to the facility. Blood work is reviewed and does not indicate significant dehydration at this time. ED Disposition - Plan for ED Patient: Disposition: Home or Assisted Living Diagnosis: Esophageal stricture Referrals: John Fallon DO [Primary Care Provider] - Additional Instructions: Return to [facility] where your tube feeds can be resumed. You have an appointment with a director talent on . Your XRAY reveals good position of your NG tube.
[2019-04-10 15:43] LABS: Absolute Lymphocyte Count 1.08 X10^3/uL (0.83-4.51); Absolute Neutrophil Count 3.2 X10^3/uL (2.0-7.7); Basophil# 0.03 X10^3/uL; Basophil% 0.6 % (0-1); Eosinophil# 0.22 X10^3/uL; Eosinophils% 4.5 % (0-5); Hemoglobin 13.3 g/dL (13.0-16.5); Lymphocyte # 1.08 X10^3/ul (4.0); Lymphocyte % 22.1 % (19-41); Mean Corp Hgb Conc 32.4 g/dL (32-36); Mean Corpuscular Hgb 29.4 pg (27.0-32.0); Mean Corpuscular Volume 90.5 fL (80-94); Mean Platelet Vol. 8.9 fl (6.2-12.0); Monocyte% 8.2 % (0-10); NRBC Flagged by Analyzer 0 % (0-5); Neutrophil # 3.15 X10^3/uL (2.7-7.7); Neutrophil % 64.4 % (47-70); Platelet Count 306 K/mm3 (150-450); RBC Distribution Width CV 13.5 % (11.6-14.6); RBC Distribution Width SD 44.3 fl (35.1-43.9); Red Blood Count 4.53 M/mm3 (4.6-6.2); White Blood Count 4.9 K/mm3 (4.4-11.0)
[2019-04-10] MEDS: 0.9% Normal Saline 1,000 ML 150 ML IV (15:45)
--- NOTE | 2019-04-10 15:50 | RAD_ITS ---
STUDY: X-RAY - ABDOMEN/PELVIS REASON FOR EXAM: Male, 78 years old. Feeding tube TECHNIQUE: Single AP view of the abdomen / pelvis. COMPARISON: 04/06/2019 FINDINGS: Feeding tube with the tip in the right upper quadrant likely in the second portion the duodenum. There is an unremarkable bowel gas pattern. The visualized liver, spleen and kidneys are grossly normal in size and morphology. Normal soft tissue structures. Normal visualized osseous structures. RAD/Abdomen Single View IMPRESSION: Feeding tube in the right upper quadrant likely in the second portion the duodenum. Electronically Signed: Matteo Solis MD at 16:08 EDT Tel , Service support ,
[2019-04-10 16:02] LABS: AST(SGOT) 24 U/L (15-37); Alanine Aminotransfer ALT/SGPT 31 U/L (16-61); Albumin, Serum 3.3 g/dL (3.2-5.0); Alkaline Phosphatase 84 U/L (45-117); Anion Gap 4 (5-15); BUN 20 mg/dL (7-18); BUN/Creat Ratio 26.6 RATIO (10-20); Bilirubin, Direct 0.09 mg/dL (0.00-0.30); Calcium,Total 9.3 mg/dL (8.5-10.1); Chloride 104 mmol/L (98-107); Creatinine, Serum 0.75 mg/dL (0.70-1.30); EST Glomerular Filtration Rate 106 mL/min (>60); Est Glom Filt Rate - Afr Amer 129 mL/min (>60); Estimated Creatinine Clearance 44.92 ml/min; Globulin 4.6 g/dL (2.2-4.2); Glucose 111 mg/dL (74-106); Lipase 67 U/L (73-393); Potassium 3.9 mmol/L (3.5-5.1); Protein, Total 7.9 g/dL (6.4-8.2); Sodium Level 139 mmol/L (136-145)
--- NOTE | 2019-04-10 16:08 | CM.ED ---
Addendum entered by Belinda Gamez 04/10/19 19:39: Adult protective services, [place] called in to report that patient currently has an active case. This vp digital marketing social media and crm updated [place] on below information. Original Note: Social Work Consult: Discharge Planning Informant: Dr. Tamez Met with patient in room. Patient reporting to have left [facility] on 04/06/19 due to [facility] refusing to feed me. This vp digital marketing social media and crm noted that patient did leave prior to discharge from the emergency department on 04/06/19 and that could have lead to a break in communication with patient care as patient was coming into the ED to be checked for NG tube placement. Patient voicing understanding but frustrated that [facility] did not call into the emergency department to speak with staff. Again this vp digital marketing social media and crm reporting that a discharge report would have been sent with patient if patient would have been willing to stay the full course of treatment in the ED. Patient now wanting to return to [facility] and receive needed care. Telephone call to Dena [facility]. Dena reporting to be able to accept patient back on this day. Dena did state that patient discharged AMA from [facility] on 04/06/19. Patient friend reporting to be able to transport patient back to [facility]. This vp digital marketing social media and crm inquiring about care that patient is receiving at [facility]. Patient stating to be getting good care at [facility] other then mentioned above complaint. Patient has now been cleared for feedings through NG tube and this has been communicated to [facility] per Dr. quiles and this vp digital marketing social media and crm faxing documentation. Support provided. Vinicius Gamez MSW, JAYSON
[2019-04-10 16:42] VITALS: BP 137/76; PULSE 74; RESP 16; O2SAT 99
== END 2019-04-10 16:42 | disposition home or self-care (01) ==
PROVIDERS: Emergency Provider Emergency Medicine; Family Provider Family Medicine; PCP Family Medicine
DX: K22.2 Esophageal obstruction (principal); R13.10 Dysphagia, unspecified; R11.2 Nausea with vomiting, unspecified; K21.9 Gastro-esophageal reflux disease without esophagitis; K44.9 Diaphragmatic hernia without obstruction or gangrene; I25.10 Atherosclerotic heart disease of native coronary artery without angina pectoris; E78.5 Hyperlipidemia, unspecified; Z79.82 Long term (current) use of aspirin; Z79.899 Other long term (current) drug therapy; Z95.5 Presence of coronary angioplasty implant and graft
CPT/HCPCS: 74018; 80048; 80076; 83690; 85025; 99283; A4216

== ENCOUNTER 2019-04-22 20:02 | Emergency (ER) | payer MEDICARE, SELFPAY ==
[2017-01-28 08:52] VITALS: BMI 18.7
--- NOTE | 2019-04-22 20:05 | ED.DCSUM_ITS ---
History of Present Illness Chief Complaint: Other, Pain/Inj Informant: Patient Onset: Today Context: Gradual Onset Timing: Continuous Current Severity: Moderate Maximum Severity: Moderate Narrative: The patient presents to the emergency department due to concern for a clogged feeding tube. The patient had this placed at [facility]. The patient does have esophageal strictures that have not been amenable to dilation or stenting. He is now getting all of his nutrition through the tube. Apparently today, they were unable to flush it. He denies any pain. He denies any nausea or vomiting. He denies any recent manipulation of the tube. Prior similar symptoms: No Recent Illness/Hospitalization: No Past Medical History - Allergies and Home Meds Allergies/Adverse Reactions: Allergies No Known Allergies Allergy (Verified 04/10/19 14:15) Primary Care Physician: John Fallon DO [Primary Care Provider] - Prior records reviewed: Yes Past Medical History: - - Reviewed Surgical History: - - PCI. Smoking Status: Unknown if ever smoked - Family History Maternal Family History: Family History (Last Reviewed 03/23/19 @ 13:49 by Tere Paulino) Mother Cancer Family History: Reports: Cancer - Mother passed age 84 y/o secondary to pancreatic cancer., - Paternal Family History: Family History (Last Reviewed 03/23/19 @ 13:49 by Tere Paulino) Mother Cancer Family History: Reports: - - early, unclear specific etiology, noted recent intestinal surgery/intervention. Review of Systems General: Denies: Chills, Fever, Sweats Eyes: Denies: Visual changes - bilaterally, Diplopia ENT: Denies: Rhinorrhea, Sore throat Cardiovascular: Denies: Chest pain, Palpitations Respiratory: Denies: Dyspnea, Cough, Dyspnea on exertion Gastrointestinal: Denies: Abdominal pain, Nausea, Vomiting, Diarrhea, Melena, Hematochezia Genitourinary: Denies: Dysuria, Hematuria, Frequency Musculoskeletal: Denies: Back pain, Extremity Pain Skin: Denies: Rash, Wounds Neurological: Denies: Headache, Weakness, Numbness Physical Exam Inital Vital Signs reviewed: Yes General: Well nourished, Well developed, No Acute Distress Head: Normocephalic, Atraumatic Eyes: Perrl, EOMI ENT: Moist mucous membranes, No rhinorrhea Neck: Supple, Nontender Cardiovascular: Regular rate, Regular rhythm, No murmurs Respiratory: No distress, CTA bilaterally, Chest nontender Abdomen: Soft, Nontender, Nondistended, Normal bowel sounds Back: Nontender, Normal Inspection Extremities: Nontender, No edema Skin: Normal color, No rash Neurological: Alert, Oriented x3, Cranial nerves II-XII grossly intact, Normal Strength, Normal Sensation Psychological: Normal affect, Normal Mood Diagnostic/Tx/Re-eval - Medical Decision Making The patient presents with a clogged feeding tube. Soda was able to be flushed through the tube. There was no evidence of clogged. The patient has no pain. His abdomen is soft. At this point, he will be discharged back to his nursing facility. Impression 1. The clogged Dobbhoff tube-resolved ED Disposition - Plan for ED Patient: Instructions: Caring for Your Nasogastric Tube (NG Tube) Referrals: John Fallon DO [Primary Care Provider] -
[2019-04-22 20:07] VITALS: BP 130/71; PULSE 67; RESP 18; TEMP 36.8; O2SAT 95; BMI 16.0
[2019-04-22 20:18] VITALS: PULSE 81; RESP 22; O2SAT 97
--- NOTE | 2019-04-22 20:20 | ED.RN ---
PER DR VALENTIN, NG FLUSHED WITH 10 MG COKE. ALLOWED TO SIT FOR 5 MIN THEN FLUSHED WITH 30 ML WATER. NG FLUSHES EASILY WITH NO RESISTANCE. REPORT CALLED BACK TO [facility]. REPORT GIVEN TO [facility]. D/C PAPERS SENT WITH EMS CREW
== END 2019-04-22 20:21 | disposition home or self-care (01) ==
PROVIDERS: Emergency Provider Emergency Medicine; Family Provider Family Medicine; PCP Family Medicine
DX: K94.23 Gastrostomy malfunction (principal); K22.2 Esophageal obstruction; Z79.82 Long term (current) use of aspirin; Z79.899 Other long term (current) drug therapy
CPT/HCPCS: 99284

== ENCOUNTER 2019-05-11 10:54 | Emergency (ER) | payer MEDICARE, SELFPAY ==
[2017-01-28 08:52] VITALS: BMI 18.7
[2019-05-11 10:56] VITALS: BP 117/88; PULSE 83; RESP 16; TEMP 37.1; O2SAT 93; BMI 15.8
--- NOTE | 2019-05-11 11:34 | NURSING ---
PATIENT'S DOBHOFF FLUSHED WITH SPRITE AND NOW ABLE TO FLUSH WITHOUT ISSUE.
--- NOTE | 2019-05-11 11:39 | ED.DCSUM_ITS ---
- ER Visit Summary Date of Service: 05/11/19 Chief Complaint: Feeding tube clogged History of Present Illness: The patient is a 78 M who has a right nares Dobbhoff tube in place secondary to esophageal strictures. He sees [facility]. This particular Dobbhoff was placed 1 week ago. He states he is on a continuous tube feed all night did not have any malfunction. This morning staff was unable to get the flush and he was sent to the emergency room. Patient is not very pleased with this. Physical Examination: Afebrile vital signs are stable Gen: Well-nourished well-developed Head: Normocephalic atraumatic Eyes: Perrl EOMI ENT: TMs clear no rhinorrhea moist mucous membranes there is a tube in the right nares Neck: Supple no lymphadenopathy no JVD nontender CVS: Regular rate rhythm no murmurs normal S1-S2 Respiratory: No distress clear to auscultation bilaterally chest nontender Abdomen: Soft nontender nondistended normal bowel sounds no masses Back: Nontender Extremity: Nontender no edema Skin: Normal color no rash Neuro: alert orientated ?3 CN II-XII intact normal strength sensation Psych: Normal affect normal mood Emergency Department Course and Treatment: The Dobbhoff tube was flushed and is now open. He will be discharged back to [place]. Impression: 1. Dobbhoff tube malfunction This note was generated with [employer] dictation software. It may contain incorrect words, spelling, and punctuation that were not noted in review of the chart prior to signing ED Disposition - Plan for ED Patient: Disposition: Home or Assisted Living Diagnosis: Feeding tube blocked Referrals: John Fallon DO [Primary Care Provider] - As Needed
[2019-05-11 11:58] VITALS: BP 122/70; PULSE 80; RESP 14; O2SAT 98
== END 2019-05-11 11:59 | disposition home or self-care (01) ==
PROVIDERS: Emergency Provider Emergency Medicine; Family Provider Family Medicine; PCP Family Medicine
DX: K94.23 Gastrostomy malfunction (principal); K22.2 Esophageal obstruction; I25.10 Atherosclerotic heart disease of native coronary artery without angina pectoris; K21.9 Gastro-esophageal reflux disease without esophagitis; Z79.82 Long term (current) use of aspirin; Z79.899 Other long term (current) drug therapy
CPT/HCPCS: 99282

== ENCOUNTER 2019-05-17 09:50 | Emergency (ER) | payer MEDICARE, SELFPAY ==
[2017-01-28 08:52] VITALS: BMI 18.7
[2019-05-17 09:51] VITALS: BP 136/102; PULSE 77; RESP 18; TEMP 36.9; O2SAT 97; BMI 16.9
--- NOTE | 2019-05-17 10:01 | ED.VIS.GEN ---
History of Present Illness Chief Complaint: General Illness Detail of Chief Complaint: feeding tube problem Informant: Patient Onset: Today Narrative: Patient has an esophageal stricture for which he has a weighted Dobbhoff more swollen today that was placed in [facility]. He states this is the second one. He wants it out in general, but he was sent here from nursing facility because an adapter patient broke, and the tube seems clogged. Patient and they were not able to get tube feeds through it today even though the patient confirms it was working earlier this morning about 4 hours ago. He denies any physical symptoms right now. - Past Medical History (1) Esophageal stricture Status: Chronic (2) Hiatal hernia with gastroesophageal reflux disease and esophagitis Status: Chronic (3) Hyperlipidemia Status: Chronic (4) SMAS (superior mesenteric artery syndrome) Status: Chronic (5) Atherosclerotic heart disease of [place] coronary artery without angina pectoris Status: Chronic Comment: PCI-RICO-LAD (3.0 X 12 Promus) and RICO-D1 (2.25 X 12 Promus) 01/27/2017 Past Medical History - Allergies and Home Meds Allergies/Adverse Reactions: Allergies No Known Allergies Allergy (Verified 05/17/19 09:54) Primary Care Physician: John Fallon DO [STAFF PHYSICIAN] - Surgical History: - - PCI. Lives: [facility] Smoking Status: Former smoker - Family History Maternal Family History: Family History (Last Reviewed 03/23/19 @ 13:49 by Tere Paulino) Mother Cancer Family History: Reports: Cancer - Mother passed age 84 y/o secondary to pancreatic cancer., - Paternal Family History: Family History (Last Reviewed 03/23/19 @ 13:49 by Tere Paulino) Mother Cancer Family History: Reports: - - early, unclear specific etiology, noted recent intestinal surgery/intervention. Review of Systems General: Denies: Chills, Fever Cardiovascular: Denies: Chest pain, Palpitations Respiratory: Denies: Dyspnea, Cough Gastrointestinal: Denies: Abdominal pain, Nausea, Vomiting Physical Exam Vital Signs/Narrative: Vital Signs Temp Pulse Resp BP Pulse Ox 05/17/19 09:51 98.5 F 77 18 136/102 H 97 Inital Vital Signs reviewed: Yes General: Well nourished, Well developed, No Acute Distress - well-appearing, conversive Head: Normocephalic, Atraumatic ENT: - - dobhoff in place right naris, no bleeding/discharge from nose Cardiovascular: Regular rate, Regular rhythm, No murmurs Respiratory: No distress, CTA bilaterally, Chest nontender Abdomen: Soft, Nontender, Nondistended, Normal bowel sounds Skin: Normal color, No rash Neurological: Alert, Oriented x3, Cranial nerves II-XII grossly intact, Normal Strength, Normal Sensation Psychological: Normal affect, Normal Mood Diagnostic/Tx/Re-eval - Medical Decision Making We attempted to flush the feeding tube with carbonated beverage but it did not work and seemed occluded/clogged. We discussed with radiology to see if someone could replace it, however they do not have any of that equipment here. We attempted to get a wire to see if we could unclog it and the hospital does not have any of that equipment either. I discussed with Dr. Matos, the physician of record at the group home, who confirms that the patient does need a feeding tube and would likely not be able to take anything by mouth without one, so should be transferred to a facility where he could get a new Dobbhoff placed. Prior to transferring, we discussed with Dr. Winters who is on for surgery with [facility] here at the hospital, he came in using a syringe and some Coca[employer], was able to unclog the tube. It now works okay and therefore transferring is unnecessary. Will be discharged back to [facility]. ED Disposition - Plan for ED Patient: Disposition: Home or Assisted Living Diagnosis: Impaired nasogastric feeding tube Instructions: Flushing Your Feeding Tube Referrals: Angel Matos MD [STAFF PHYSICIAN] - As Needed
--- NOTE | 2019-05-17 12:30 | ED.RN ---
again tried to flush dubhoff but with no sucess. unable to get any amt of flush past flange. attempted to strip and milk tubing but still blocked. pt upset over cost of having to get a ride to [place] again. stated, this cant be happening over and over. why dont they put in a stomach tube here? they sent me over here ffor nothing.
--- NOTE | 2019-05-17 13:33 | ED.RN ---
1300-dr miller at bedside and able to get dobhoff flushed. pt happy over not having to be tranferred.
--- NOTE | 2019-05-17 13:34 | ED.RN ---
report called to yannick and packet sent with pt. pt set up to go via hospital van.
== END 2019-05-17 13:51 | disposition home or self-care (01) ==
PROVIDERS: Emergency Provider Emergency Medicine
DX: Z46.59 Encounter for fitting and adjustment of other gastrointestinal appliance and device (principal); K22.2 Esophageal obstruction; K21.0 Gastro-esophageal reflux disease with esophagitis; K44.9 Diaphragmatic hernia without obstruction or gangrene; I25.10 Atherosclerotic heart disease of native coronary artery without angina pectoris; K55.1 Chronic vascular disorders of intestine; E78.5 Hyperlipidemia, unspecified; Z87.891 Personal history of nicotine dependence
CPT/HCPCS: 99284

== ENCOUNTER 2019-06-07 05:21 | Day surgery (SDC) | payer MEDICARE, SELFPAY ==
[2017-01-28 08:52] VITALS: BMI 18.7
--- NOTE | 2019-06-06 18:25 | HP.PCM_ITS ---
History and Physical Date of Admission: 06/07/19 HISTORY AND PHYSICAL ? Tadeo Shelton 1940 ? REFERRING PHYSICIAN: ??John Fallon, DO ? CHIEF COMPLAINT: ??No chief complaint on file. ? HPI: The patient is a 78 year old male referred for endoscopy. ?Tadeo has a complex past medical history. ? I did initially see this?gentleman on February 05, 2018.??That time the patient presented with complaints of postprandial abdominal pain and 20-30 pound weight loss. ?Had a history of coronary disease and had 3 stents placed in January 2017. ?Following that time he noted pain after eating usually minutes to an hour following eating. ?He had become somewhat reverse. ?He was mostly taking soups and hope shake tasks but even noted liquid foods were a challenge. 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 ?The patient was admitted to the medicine service and I was consulted. ? I performed upper endoscopy on December 06, 2017. ?This demonstrated no obvious internal abnormalities. ?The patient had a significant hiatal hernia which is felt to be a large type I hiatal hernia and some mild distal esophagitis was felt to be secondary to the NG tube. ?He had no signs felt to be consistent with a paraesophageal hernia. ?There was a question of external compression third fourth portion of duodenum but was not prove of SMA syndrome.??I had recommended the patient have an upper GI following that study. ? He returned on December 21, 2017 with vomiting and nausea. ?He was seen in her spread and had a CT scan which demonstrated distended stomach above the diaphragmatic hiatus and a massively distended stomach below the diaphragm. ?An NG tube was placed which demonstrated reasonable decompression of the stomach. ?He had a benign abdominal exam on rounds the following morning. ?A small bowel series was obtained and this was felt to demonstrate a degree of bird beaking and a significant amount of the stomach again above the level of the diaphragm. ?Concern for a type II diaphragmatic hernia with organoaxial rotation was suggested. ?Given those findings, the patient was transferred to [facility] for possible urgent repair of potential organoaxial rotation. ? The patient underwent repair of a large paraesophageal hernia with Vinh fundoplication performed on December 23, 2017 the findings demonstrated a large paraesophageal hernia with gastric volvulus and a large hiatal defect. ?Surgidac sutures were used to reapproximate the diaphragmatic crura over a 50 [place]an bougie the wrap was performed and a bio mesh was used to reinforce the hiatal hernia repair. ? A CT scan of the abdomen and pelvis with contrast was obtained at [facility] on March 09, 2019. ? Patient is apparently required esophageal dilatation on 3 occasions since that time. ?He is also had follow-up imaging which demonstrates recurrence of the hiatal hernia. ?Most recently, the patient had upper endoscopy on March 28, 2019 which demonstrates narrowing of the distal esophagus but the scope passing without difficulty and a nasojejunal feeding tube was placed and secured. ?This had to be replaced on April 27, ? The patient has a difficulty with obstruction of the jejunostomy tube which has recurred him to travel up to [place] for replacement on different occasions. ?He presented to [facility] immersed department last week again with an obstructed catheter. ?I was contacted and was able to unclog the catheter with a high-pressure syringe with [employer]. ? The patient returns to my office today noting issues with dysphagia but has been eating some foods around the catheter. ?He is currently in a assisted and wishes to have a PEG tube placed given the challenges with his nasojejunal feeding tube. ? He was seen by Dr. Raji Kendrick at [facility] on March 30, 2019 for evaluation for consideration of reversal of his Vinh fundoplication. ? The patient is supposed to undergo esophageal motility studies to assess if that is partially related to his challenges. ? ? The patient is being seen by me today at the request of Dr.?John Fallon, DO?for my opinion and advice regarding weight loss and Dobbhoff tube malfunction.? ? ? PAST?MEDICAL?HISTORY PAST MEDICAL HISTORY Diagnosis Date ? Anxiety and depression 03/28/2019 ? Coronary artery disease involving [place] coronary artery of [place] heart without angina pectoris 03/28/2019 ? LUBIN (dyspnea on exertion) 03/28/2019 ? -complains of worsening dyspnea on exertion ?-? Orthopnea w/cough/mucus when lying flat-though describes this as reflux -no LE edema -CXR at OSH suggestive of emphysematous changes-denies hx of lung disease -known hx of coronary dz- questionable compliance to medications-denies associated chest pain ???Assessment: -2/2 deconditioning w/malnutrition vs. Untreated COPD vs. Heart failure less likely ? ? Dysphagia 03/28/2019 ? -denies difficulty swallowing but has reflux and regurgitation -known tight GE junction, s/p multiple dilations -does endorse early satiety and SOB after regurgitation in addition to dull abdominal pain with eating ??Assessment: - chronic dysphagia, likely 2/2 known stricture but consider functional component given early satiety and abdominal pain w/eating ?Plan: -EGD -consider Barium swallow ?-con ? Esophageal stricture 03/27/2019 ? -distal narrowing at area of fundoplication noted, s/p dilation X 4 -most recently last week per patient in [place] -Per Javed notes, serial dilations were recommended but patient has not showed up for appointments ?Assessment: - distal esophageal narrowing 2/2 Vinh fundoplication ??Plan: -repeat EGD -NPO after midnight ?-liquid diet as tolerated ? Failure to thrive in adult 03/28/2019 ? GERD without esophagitis 03/28/2019 ? S/p Vinh fundi plication 11/2017 ?Last EGD in system 11/2018 showed mild gastritis ?-on Protonix 40 BID -prescribed sucralfate but unable to take this due to large pill per patient ?Plan: -continue Protonix ?? ? Hypophosphatemia 03/30/2019 ? Infestation by bed bug ? ? Severe protein-calorie malnutrition (HCC) 03/28/2019 ? BMI 15 Per patient has lost over 50 pounds in past 2 years 2/2 inability to eat Cachetic in appearance ?Assessment: -severe malnutrition 2/2 inability to tolerate PO intake ?Plan: -liquid diet for now as tolerated-has trouble with solid food -nutrition consult -may need to consider [place] until able to improve PO intake-will need to monitor for re-feeding likely at that time ? Status post dilation of esophageal narrowing 04/15/2018 ? ? PAST?SURGICAL?HISTORY w PAST SURGICAL HISTORY Procedure Laterality Date ? EGD W/O OR W/BRUSH/WASH ? 12/06/2017 ? EGD w/biopsy [facility] ? PAST SURGICAL HISTORY OF ? ? ? Esophageal dilatation ? ? CURRENT?MEDICATIONS ? Current Outpatient Medications: lactose-reduced food (ISOSOURCE HN FEEDING TUBE) by FEEDING TUBE route. pantoprazole (PROTONIX) 40 mg/20 mL Take 20 mL by mouth twice daily before meals (0600/1600). aspirin 81 mg chewable tablet Take 1 tablet by mouth once daily. folic acid 1 mg tablet 1 tablet by ORAL/FEEDING TUBE route once daily. ipratropium-albuterol (DUONEB) 0.5 mg-3 mg(2.5 mg base)/3 mL nebu Inhale 3 mL as instructed every 4 hours as needed (shortness of breath). mirtazapine (REMERON) 15 mg tablet Take 1 tablet by mouth daily at bedtime. pyridoxine, vitamin B6, (VITAMIN B6) 50 mg tablet Take 1 tablet by mouth twice daily. COMPOUNDED PRESCRIPTION Nutren 1.5 250mL X6 day as tolerated (q3 hrs starting at 6am) Water flush 75mL pre and post bolus ondansetron, PF, (ZOFRAN) 4 mg/2 mL soln Inject 4 mg intravenously every 8 hours as needed (nausea). thiamine (VITAMIN B1) 100 mg tablet 1 tablet by ORAL/FEEDING TUBE route twice daily. zinc sulfate 220 (50) mg capsule Take 1 capsule by mouth once daily. ? No current facility-administered medications for this visit.? ? ALLERGIES:?Patient has no known allergies. ? PERSONAL HISTORY:? SOCIAL?HISTORY Social History ??Socioeconomic History ?Marital status: Single ?Spouse name: Not on file ?Number of children: Not on file ?Years of education: Not on file ?Highest education level: Not on file ??Occupational History ?Not on file ??Social Needs ?Financial resource strain: Not on file ?Food insecurity: ?Worry: Not on file ?Inability: Not on file ?Transportation needs: ?Medical: Not on file ?Non-medical: Not on file ??Tobacco Use ?Smoking status: Former Smoker ?Types: Cigarettes ?Quit date: 09/26/1989 ?Years since quittin.6 ?Smokeless tobacco: Never Used ??Substance and Sexual Activity ?Alcohol use: Never ?Frequency: Never ?Drug use: Never ?Sexual activity: Not Currently ?Partners: Female ??Lifestyle ?Physical activity: ?Days per week: Not on file ?Minutes per session: Not on file ?Stress: Not on file ??Relationships ?Social connections: ?Talks on phone: Not on file ?Gets together: Not on file ?Attends denominational service: Not on file ?Active member of club or organization: Not on file ?Attends meetings of clubs or organizations: Not on file ?Relationship status: Not on file ?Intimate partner violence: ?Fear of current or ex partner: Not on file ?Emotionally abused: Not on file ?Physically abused: Not on file ?Forced sexual activity: Not on file ??Other Topics ?Concerns: ?Not on file ??Social History Narrative ?Not on file ? FAMILY HISTORY:? FAMILY?HISTORY FAMILY HISTORY Problem Relation Age of Onset ? Cancer Mother ?Pancreas ? REVIEW OF SYMPTOMS: ??The review of systems data was entered by the nurse and reviewed by me ? There are no exam notes on file for this visit. ? ? PHYSICAL EXAMINATION: ? General: ?The patient is 78 year old male, poorly nourished, well hydrated in no acute distress. ?The patient is oriented to time, place, and person. ? VITALS:?Blood pressure 124/78, pulse 95, temperature 36.6 ?C (97.9 ?F), height 182.9 cm (6'), weight 57.7 kg (127 lb 3.2 oz), SpO2 94 %.?Body mass index is 17.25 kg/m?.? ? HEENT: ?Normal cephalic, ataumatic, pupils are equally round, sclera are anicteric, mucous membranes are moist, oropharynx is clear. ?Neck has no masses, asymmetry or lymphadenopathy. ?Thyroid is unremarkable. ? Respiratory: ?Clear to auscultation and percussion. ?Normal respiratory excursio n and pattern. ? Cardiac: ?Examination is regular rate and rhythm. ? Abdominal exam: ?Soft, nontender, ?with no palpable masses. ?No hepatosplenomegaly. ?No palpable hernias. ? Rectal exam:?exam deferred ? Extremities: ?no clubbing, cyanosis or edema. ?No adenopathy. ? Other: ? LABORATORY VALUES: As Noted ? RADIOLOGIC STUDIES: ?As Noted ? Assessment ? IMPRESSION:?Some degree of dysphagia following Vinh fundoplication,?challenges with Dobbhoff feeding tube ? PLAN:?? I will communicate to Nikki May and Reginaldo.??The patient?at?this point says he is frustrated by having to travel up to [place] multiple times and does not seem to understand what a future plan would be and is likely not wanting to have any future surgical procedures. ?He does state that he can eat some food and wishes to have the Dobbhoff tube was removed and a PEG tube placed. ? I discussed the logic of getting esophageal manometry to assess whether he has a motility problem that is made worse by the Vinh fundoplication. ?Placement of a PEG tube could complicate reoperative surgery but at this point with the patient's failure to thrive challenges with the Dobbhoff tube I feel that a reasonable alternative. ? I plan to perform?upper?with PEG tube placement. ??We discussed the risks and benefits of the planned endoscopy. ?I have informed the patient that complications can occur including failure to complete the endoscopy and perforation. ?The patient had the opportunity to ask questions concerning the planned endoscopy. ?My staff has also explained the procedure to the patient in understandable terms and has given the patient printed material concerning the procedure. ?The patient freely consents to surgery. ? ? ? The patient has medical comorbidities for which I plan to perform the procedure under monitored anesthetic care. ? Diagnoses:?(T85.598D) Feeding tube dysfunction, subsequent encounter ?(primary encounter diagnosis) (E43) Severe protein-calorie malnutrition (HCC) ? A letter was sent to ?John A Leeanne, DO?indicating the above finding for this patient. ?? Return to Clinic: The patient is instructed to follow-up with me?1 week post operatively. ? Matteo Winters MD
[2019-06-07] VITALS (10 sets, daily range): BP systolic 93–139; BP diastolic 52–70; PULSE 61–96; RESP 16; TEMP 36.4–36.9; O2SAT 93–99; BMI 15.7; BMI 16.0
[2019-06-07] MEDS: Lactated Ringers 1,000 ML 100 ML IV ×2 (06:34→09:52)
--- NOTE | 2019-06-07 07:15 | OP.ENDO_ITS ---
06/07/2019 John Fallon [address] [place] [address] Re : Upper GI endoscopy procedure for Tadeo Shelton Dear Dr. Fallon This procedure was performed on May. My impressions and recommendations are as follows: Impressions : - Normal examined jejunum. - Normal. - Normal gastric body. - A Vinh fundoplication was found. The wrap appears very tight. - Normal esophagus. - Normal gastric body. - An externally removable PEG placement was successfully completed. - No specimens collected. Recommendations : - Admit the patient to [facility] for [facility] care. - G tube feedings. - Continue present medications. My findings are described in the full procedure note, which is enclosed. If I can be of further assistance, please feel free to contact me at Doctor phone number(s): , Work: . Sincerely, Matteo Winters MD 06/07/2019 7:15:37 AM This report has been signed electronically.
[2019-06-07 09:00] LABS: Absolute Lymphocyte Count 1.05 X10^3/uL (0.83-4.51); Absolute Neutrophil Count 4.4 X10^3/uL (2.0-7.7); Basophil# 0.02 X10^3/uL; Basophil% 0.3 % (0-1); Eosinophil# 0.35 X10^3/uL; Eosinophils% 5.4 % (0-5); Hematocrit 39.8 % (40-54); Hemoglobin 12.4 g/dL (13.0-16.5); Lymphocyte # 1.05 X10^3/ul (4.0); Lymphocyte % 16.3 % (19-41); Mean Corp Hgb Conc 31.2 g/dL (32-36); Mean Corpuscular Hgb 29.2 pg (27.0-32.0); Mean Corpuscular Volume 93.9 fL (80-94); Mean Platelet Vol. 9.3 fl (6.2-12.0); Monocyte# 0.57 X10^3/uL; Monocyte% 8.9 % (0-10); NRBC Flagged by Analyzer 0 % (0-5); Neutrophil # 4.44 X10^3/uL (2.7-7.7); Neutrophil % 68.9 % (47-70); Platelet Count 171 K/mm3 (150-450); RBC Distribution Width CV 14.2 % (11.6-14.6); RBC Distribution Width SD 48.6 fl (35.1-43.9); Red Blood Count 4.24 M/mm3 (4.6-6.2); White Blood Count 6.4 K/mm3 (4.4-11.0)
[2019-06-07 09:35] LABS: ALB/GLOB Ratio 0.7 RATIO (0.9-2.4); AST(SGOT) 15 U/L (15-37); Alanine Aminotransfer ALT/SGPT 14 U/L (16-61); Albumin, Serum 2.9 g/dL (3.2-5.0); Alkaline Phosphatase 89 U/L (45-117); Anion Gap 3 (5-15); BUN 15 mg/dL (7-18); BUN/Creat Ratio 20.2 RATIO (10-20); Calcium,Total 8.8 mg/dL (8.5-10.1); Chloride 109 mmol/L (98-107); Creatinine, Serum 0.74 mg/dL (0.70-1.30); EST Glomerular Filtration Rate 108 mL/min (>60); Est Glom Filt Rate - Afr Amer 131 mL/min (>60); Estimated Creatinine Clearance 46.07 ml/min; Glucose 95 mg/dL (74-106); Potassium 4.3 mmol/L (3.5-5.1); Prealbumin 15.1 mg/dL (20.0-40.0); Protein, Total 6.9 g/dL (6.4-8.2); Sodium Level 141 mmol/L (136-145)
[2019-06-07] MEDS: Jevity 1.5 1,000 ML 20 ML GT (10:00)
[2019-06-07] MEDS: Folic Acid 1 MG Tablet PO (10:25)
[2019-06-07] MEDS: Pantoprazole Sodium 40 MG Tablet PO (10:25)
--- NOTE | 2019-06-07 11:09 | NS ---
Recommend provide enteral nutrition support via PEG tube to meet at least 75% of pt's estimated nutritional needs as it does not appear that adequate nutrition can be tolerated via PO diet. Recommend Jevity 1.5 at goal rate of 50 mL/hour to provide 1800 calories, 76 g protein per day. Would increase rate by 20 mL every 6-8 hours as pt tolerates until goal rate achieved. Recommend 150mL H2O flush every 4 hours to provide 1812mL total fluid/day. As pt tolerates continuous feeds, recommend transition to bolus feeds of Jevity 1.5. Recommend bolus feeds of 237mL (1 carton) 5 times per day to provide ~1800 calories, 76 g protein per day. Recommend 90mL H2O flush before and after each bolus to provide 1812mL total fluid/day. Pt would benefit from referral to [facility] outpatient Nutrition Services for ongoing medical nutrition therapy. Please call clinical dietitian w/ questions at [phone]. Mil Rai MS, RDN, LD
--- NOTE | 2019-06-07 11:45 | NURSING ---
PEG tube booklet taken to review with patient. patient currently sleeping. did not awaken at this time. JENNIFER Jaramillo states that patient will be here overnight. will try to review booklet and answer questions with patient prior to discharge home. nursing to assist with education as well.
[2019-06-07] MEDS: Ensure Clear 120 ML Liquid PO (13:22)
--- NOTE | 2019-06-07 14:30 | CASEMGMT ---
RN CM Face to Face with patient for initial transition planning/care coordination assessment. RN CM introduced self and role at [facility]. Patient lying in bed, alert and oriented. Patient willing to participate in assessment and is able to answer all questions appropriately. Care providers, pharmacy, and demographics verified. Patient wishes to discharge home, denies need for home health at this time. RN CM discuss need for HHC to follow for teaching and patient is adamant he does not someone coming into his home telling him what he is doing wrong. RN CM educated patient regarding HHC and asked patient to consider thinking about it. RN CM updated patient that she will assist patient with setting up tube feed and supplies. Patient states he has no further needs or concerns at this time. CM to follow for discharge planning needs that may arise. PCP: Leeanne Specialists: Singh Guzman Pharmacy: [facility] Insurance: [facility] Prescription Benefit: NONE Living Will/HPOA: none LNOK: friend Living Arrangements: Patient lives alone in 2 story home, states he has been managing but barely. As friend that helps some. Transportation: self/friend DME/HHC: Patient denies any DME or previous HHC. Patient states he was in [facility] March and April and just got home 05/27/19. Disposition Plan: Patient to discharge home with support from friend and follow-up plans in place. Shirin MCCRARY, RN, CM
[2019-06-07] MEDS: Morphine 2 MG/ML Syringe IV (14:52)
[2019-06-07] MEDS: 0.9% NaCl Peripheral Flush Adult/Peds IV (14:54)
--- NOTE | 2019-06-07 14:59 | NURSING ---
Addendum entered by Ella Ramirez 06/07/19 16:58: pt continued to state that he did not feel any benefit from IV pain meds. Denies needs for anything further at this time. Original Note: tube feeding rate increased to 40cc at 1415 per physician order. Pt tolerated 20cc/hr- however, is very painful to insertion site when moving. Pt becoming more irritable and depressed- requesting prn morphine. 1mg given first- pt reported that he didn't feel anything, remaining 1mg given.
[2019-06-07] MEDS: Mirtazapine 15 MG Tablet PO (22:25)
[2019-06-08 02:34] VITALS: BP 108/62; PULSE 73; RESP 16; TEMP 36.8; O2SAT 94
--- NOTE | 2019-06-08 06:34 | DCINST_ITS ---
You will use the following diet at home:: No restrictions Your food should be the consistency of: Soft (bite-sized & easy to chew/swallow) Discharge Activity: Return to Normal Activity, No Restrictions Call your doctor if your incision/area has: Continuous Slow Oozing, Sudden Increased Bleeding, Increased Redness Call your doctor if you observe: Fever of 101 or Higher Cleanse incision/area with: Soap & Water Additional Instructions: give bolus feedings as directed. Total calories should be 2000 jamari/day. each syringe is approximately 100 calories. If not eating any food, then 20 syringes of feedings per day. Allergies/Adverse Reactions: Allergies No Known Allergies Allergy (Verified 06/05/19 10:31) Medications to take at Discharge pantoprazole 40 mg tablet,delayed release 40 mg PO DAILY 03/23/19 Folic Acid 1 mg PO DAILY 05/17/19 Mirtazapine [Remeron] 15 mg PO QHS 05/17/19 Ondansetron HCl [Zofran] 4 mg PO Q6H PRN PRN 05/17/19 Aspirin 325 mg PO DAILY@0800 06/05/19 Ensure Clear 120 ml PO TIDCM liquid 06/08/19 Hydrocodone/Acetaminophen [Hydrocodone-Acetamin 5-217/10] 10 ml PO Q4H PRN PRN 4 Days #150 solution 06/08/19 Lactose-Reduced Food/Fiber [Jevity 1.5 Jamari Liquid] 200 ml GT Q2H PRN PRN 10 Days #100 liquid 06/08/19 The following prescriptions were given: Hydrocodone/Acetaminophen [Hydrocodone-Acetamin 5-217/10] 10 ml PO Q4H PRN PRN 4 Days #150 solution PRN Reason: Pain Prescription Printed Lactose-Reduced Food/Fiber [Jevity 1.5 Jamari Liquid] 200 ml GT Q2H PRN PRN 10 Days #100 liquid PRN Reason: Not Specified Prescription Printed Primary Care Physician: John Fallon DO [Primary Care Provider] - Test Results: Test results from this visit will be discussed in further detail at your follow- up appointment, if applicable.
--- NOTE | 2019-06-08 08:32 | NURSING ---
In to discuss PEG tube care with patient. patient states he does not plan to have home health to assist patient at home. states they always find a reason to bring me back to the hospital. removed PEG tube dressing. cleansed around tube with soap and water. dried thoroughly. applied a new split gauze dressing and 4x4. made a quarter turn with the tube and instructed pt this should be done daily. pt states understanding and denies further questions. pt states he had done bolus feeds in the past and denies questions about the feedings. reminded patient to flush well before and after.
--- NOTE | 2019-06-08 09:30 | CASEMGMT ---
RN CM received script for bolus tube feed for patient at discharge. RN CM in to discuss bolus feed setup and is agreeable to [facility] for setup. RN CM faxed referral to [facility] and awaiting benefits. RN CM updated patient regarding waiting for confirmation of setup. Patient is upset and want to discharge as soon as possible. Patient states just have them ship it to my house and bill me whatever the cost. RN CM asked patient to stay just a little bit longer to confirm setup. Patient is agreeable.
[2019-06-08] MEDS: Aspirin 325 MG Tablet PO (09:56)
[2019-06-08] MEDS: Pantoprazole Sodium 40 MG Tablet PO (09:57)
[2019-06-08] MEDS: Folic Acid 1 MG Tablet PO (09:57)
--- NOTE | 2019-06-08 11:15 | CASEMGMT ---
JENNIFER MARTINEZ received update from [facility] that they need a updated script. JENNIFER MARTINEZ updated Dr. Winters and new script for Jevity 1.5 cans received and faxed to [facility]. JENNIFER MARTINEZ awaiting confirmation. JENNIFER MARTINEZ updated the patient and he said he is leaving at 12 noon to get his mail and banking done and they can call him when it setup. JENNIFER MARTINEZ updated Elidia at [facility] and she will update patient when finalized.
--- NOTE | 2019-06-08 19:57 | PCM.DC.SUM ---
Discharge Date and Diagnosis Date of Admission: 06/07/19 Date of Discharge: 06/08/19 - Primary Discharge Diagnosis failure to thrive, distal esophageal stenosis, malnutrition, weight loss - Secondary Discharge Diagnosis Chronic Problems (Last Updated 03/23/19 @ 13:53 by Tere Paulino) Esophageal stricture (Chronic) Hyperlipidemia (Chronic) Stented coronary artery (Chronic 01/27/17) PCI-RICO-LAD (3.0 X 12 Promus) and RICO-D1 (2.25 X 12 Promus) 01/27/2017 SMAS (superior mesenteric artery syndrome) (Chronic) Hiatal hernia with gastroesophageal reflux disease and esophagitis (Chronic) Atherosclerotic heart disease of [place] coronary artery without angina pectoris (Chronic) PCI-RICO-LAD (3.0 X 12 Promus) and RICO-D1 (2.25 X 12 Promus) 01/27/2017 High risk medication use (Chronic) Dysphagia (Chronic) Hospital Course and Treatment Consultations 06/07/19 07:17 Consult: Onc/Wound/section gang worker Routine Comment: Reason for Consult:: PEG site care Operations: None Summary of Care Provided: The patient is a 78 year old male referred for endoscopy. ?Tadeo has a complex past medical history. ? I did initially see this?gentleman on February 05, 2018.??That time the patient presented with complaints of postprandial abdominal pain and 20-30 pound weight loss. ?Had a history of coronary disease and had 3 stents placed in January 2017. ?Following that time he noted pain after eating usually minutes to an hour following eating. ?He had become somewhat reverse. ?He was mostly taking soups and hope shake tasks but even noted liquid foods were a challenge. 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 ?The patient was admitted to the medicine service and I was consulted. ? I performed upper endoscopy on December 06, 2017. ?This demonstrated no obvious internal abnormalities. ?The patient had a significant hiatal hernia which is felt to be a large type I hiatal hernia and some mild distal esophagitis was felt to be secondary to the NG tube. ?He had no signs felt to be consistent with a paraesophageal hernia. ?There was a question of external compression third fourth portion of duodenum but was not prove of SMA syndrome.??I had recommended the patient have an upper GI following that study. ? He returned on December 21, 2017 with vomiting and nausea. ?He was seen in her spread and had a CT scan which demonstrated distended stomach above the diaphragmatic hiatus and a massively distended stomach below the diaphragm. ?An NG tube was placed which demonstrated reasonable decompression of the stomach. ?He had a benign abdominal exam on rounds the following morning. ?A small bowel series was obtained and this was felt to demonstrate a degree of bird beaking and a significant amount of the stomach again above the level of the diaphragm. ?Concern for a type II diaphragmatic hernia with organoaxial rotation was suggested. ?Given those findings, the patient was transferred to [facility] for possible urgent repair of potential organoaxial rotation. ? The patient underwent repair of a large paraesophageal hernia with Vinh fundoplication performed on December 23, 2017 the findings demonstrated a large paraesophageal hernia with gastric volvulus and a large hiatal defect. ?Surgidac sutures were used to reapproximate the diaphragmatic crura over a 50 Serbian bougie the wrap was performed and a bio mesh was used to reinforce the hiatal hernia repair. ? A CT scan of the abdomen and pelvis with contrast was obtained at [facility] on March 09, 2019. ? Patient is apparently required esophageal dilatation on 3 occasions since that time. ?He is also had follow-up imaging which demonstrates recurrence of the hiatal hernia. ?Most recently, the patient had upper endoscopy on March 28, 2019 which demonstrates narrowing of the distal esophagus but the scope passing without difficulty and a nasojejunal feeding tube was placed and secured. ?This had to be replaced on April 27, ? The patient has a difficulty with obstruction of the jejunostomy tube which has recurred him to travel up to [place] for replacement on different occasions. ?He presented to [facility] immersed department last week again with an obstructed catheter. ?I was contacted and was able to unclog the catheter with a high-pressure syringe with Coca[employer]. ? The patient returns to my office today noting issues with dysphagia but has been eating some foods around the catheter. ?He is currently in a usp and wishes to have a PEG tube placed given the challenges with his nasojejunal feeding tube. ? He was seen by Dr. Raji Kendrick at [facility] on March 30, 2019 for evaluation for consideration of reversal of his Vinh fundoplication. ? I performed EGD with PEG tube placement on June 07. The patient was started on continuous tube feeds with residuals being checked. He had low residuals with the highest residual being 20 cc. The patient was ready for discharge to home on postoperative day one he plans for bolus feeds at home. - Physical Exam General: Alert, Oriented x3, Cooperative Lungs: Clear to auscultation, Normal air movement Cardiovascular: Regular rate, No murmurs Abdomen: Bowel Sounds Present, Soft, Tender - at incision Vital Signs Temp Pulse Resp BP Pulse Ox 98.3 F 73 16 108/62 94 06/08/19 02:34 06/08/19 02:34 06/08/19 02:34 06/08/19 02:34 06/08/19 02:34 Oxygen Delivery Method Room Air Weight: 53.5 kg Body Mass Index (BMI) 16.0 Intake and Output for Last 24 Hours 06/06/19 06/07/19 06/08/19 23:59 23:59 23:59 Intake Total 2566 / 2566 1145 / 1145 Output Total 325 / 325 1250 / 1250 Balance 2241 / 2241 -105 / -105 Discharge Activity: Return to Normal Activity, No Restrictions Call your doctor if your incision/area has: Continuous Slow Oozing, Sudden Increased Bleeding, Increased Redness Call your doctor if you observe: Fever of 101 or Higher Cleanse incision/area with: Soap & Water Home Medications: Medications to take at Discharge pantoprazole 40 mg tablet,delayed release 40 mg PO DAILY 03/23/19 Folic Acid 1 mg PO DAILY 05/17/19 Mirtazapine [Remeron] 15 mg PO QHS 05/17/19 Ondansetron HCl [Zofran] 4 mg PO Q6H PRN PRN 05/17/19 Aspirin 325 mg PO DAILY@0800 06/05/19 Ensure Clear 120 ml PO TIDCM liquid 06/08/19 Hydrocodone/Acetaminophen [Hydrocodone-Acetamin 5-217/10] 10 ml PO Q4H PRN PRN 4 Days #150 solution 06/08/19 Lactose-Reduced Food/Fiber [Jevity 1.5 Jamari Liquid] 200 ml GT Q2H PRN PRN 10 Days #100 liquid 06/08/19 Following Prescrptions Were Given to Patient: Hydrocodone/Acetaminophen [Hydrocodone-Acetamin 5-217/10] 10 ml PO Q4H PRN PRN 4 Days #150 solution PRN Reason: Pain Prescription Printed Lactose-Reduced Food/Fiber [Jevity 1.5 Jamari Liquid] 200 ml GT Q2H PRN PRN 10 Days #100 liquid PRN Reason: Not Specified Prescription Printed Primary Care Physician: John Fallon DO [Primary Care Provider] - Please Follow Up With: Edvin Chappell MD When: Tuesday Medical Necessity - Tobacco Use Smoking Status: Former smoker Tobacco Use: Non-smoker Meaningful Use Info Meaningful Use Diagnoses (Choose all that apply): None applicable
== END 2019-06-08 12:27 | disposition home or self-care (01) ==
LOC: EN 05:23 → AC 05:23 → MS3 07:37
PROVIDERS: Family Provider Family Medicine; PCP Family Medicine; Referring Provider Surgery; Visit Provider Surgery
PROC: 0DJ08ZZ Inspection of Upper Intestinal Tract, Via Natural or Artificial Opening Endoscopic (ICD-10-PCS; CPT 43235; principal; 2019-06-07 06:25)
DX: T85.598A Other mechanical complication of other gastrointestinal prosthetic devices, implants and grafts, initial encounter (principal); K22.2 Esophageal obstruction; R13.10 Dysphagia, unspecified; R62.7 Adult failure to thrive; K21.0 Gastro-esophageal reflux disease with esophagitis; K44.9 Diaphragmatic hernia without obstruction or gangrene; I25.10 Atherosclerotic heart disease of native coronary artery without angina pectoris; E78.5 Hyperlipidemia, unspecified; F32.9 Major depressive disorder, single episode, unspecified; F41.9 Anxiety disorder, unspecified; E43 Unspecified severe protein-calorie malnutrition; Z68.1 Body mass index [BMI] 19.9 or less, adult; Z79.82 Long term (current) use of aspirin; Z79.899 Other long term (current) drug therapy; Z87.891 Personal history of nicotine dependence; Z95.5 Presence of coronary angioplasty implant and graft
CPT/HCPCS: 43246; 80053; 84134; 85025; 97802; J7120; A4216; J2405

== ENCOUNTER 2020-02-12 14:09 | Emergency (ER) | payer MEDICARE, SELFPAY ==
[2017-01-28 08:52] VITALS: BMI 18.7
[2019-06-07 09:10] VITALS: BMI 16.0
[2020-02-12 14:09] VITALS: BP 156/94; PULSE 87; PULSE 97; RESP 20; RESP 22; TEMP 36.3; O2SAT 91; O2SAT 93; BMI 15.7
--- NOTE | 2020-02-12 14:43 | EKG12_ITS ---
Test Reason : CP Blood Pressure : / mmHG Vent. Rate : 083 BPM Atrial Rate : 083 BPM P-R Int : 132 ms QRS Dur : 100 ms QT Int : 386 ms P-R-T Axes : 053 029 003 degrees QTc Int : 453 ms Normal sinus rhythm Nonspecific ST abnormality Abnormal ECG Confirmed by INGA JOSHI, AARTI ([id number]), cdl bulk driver GINGER LINTON ([id number]) on 02/19/2020 2:45:43 PM Referred By: Confirmed By:AARTI XIONG MD
--- NOTE | 2020-02-12 14:59 | ED.DCSUM_ITS ---
- ER Visit Summary Date of Service: 02/12/20 Chief Complaint: Chest pain History of Present Illness: The patient is a 79 M who presents with chest pain and shortness of breath that began today. Patient states he feels short of breath and this causes some disequilibrium. Patient states he feels like he is off balance. Patient states his breathing is worse with any exertion. Patient states the pain waxes and wanes. Patient states his pain is mild. Patient states he is more short of breath and having any chest pain. Patient does admit to some palpitations and slight cough. Patient denies any fevers or chills. Patient denies any nausea or vomiting. Patient denies any cardiac or PE risk factors. Physical Examination: Vital signs are stable. Patient is afebrile. Patient is in no acute distress. Oral mucosa is pink and moist. Neck is supple. Trachea is midline. There is no JVD. Heart was regular rate and rhythm. Lungs are clear and equal bilaterally. Abdomen is soft. Bowel sounds are normal. There is no tenderness. Cranial nerves II through XII are intact. There are no focal motor or sensory deficits noted. Extremities are intact. There is no calf tenderness or edema. Test Results: EKG shows a normal sinus rhythm with a rate of 83. There is some nonspecific T wave changes in V6 and III. This was unchanged compared to previous EKG dated 03/27/2019. Portable chest x-ray was obtained. There are chronic changes consistent with COPD but no acute cardiopulmonary process. CBC, comprehensive metabolic profile, and troponin were obtained were all within normal limits. Emergency Department Course and Treatment: Patient was given an albuterol inhaler. Patient was given a dose of Valium for his disequilibrium. Patient has a HEART score of 3, 2 for age, and 1 for EKG. Patient has a FABIOLA risk score of 1. Patient was advised that this is low risk for acute cardiac event. Patient will be discharged home. Social service was in to see the patient and will contact Adult Protective Services for follow-up. Patient was also instructed to follow-up with his primary care physician in 5 to 7 days. Patient understood and was agreeable with the plan. All questions were answered. Disposition: Discharge home Impression: Chest pain This note was generated with [employer] dictation software. It may contain incorrect words, spelling, and punctuation that were not noted in review of the chart prior to signing ED Disposition - Plan for ED Patient: Disposition: Home or Assisted Living Diagnosis: Chest pain, Dyspnea Instructions: ED Dyspnea Referrals: John Fallon DO [Primary Care Provider] - 5-7 Days
--- NOTE | 2020-02-12 15:03 | RAD_ITS ---
STUDY: X-RAY CHEST REASON FOR EXAM: Male, 79 years old. C/O CHEST PAIN AND IRREGULAR HEART RATE, C/O ALMOST PASSED OUT WHEN SHAVING, PER PT. TECHNIQUE: 2 AP portable view of the chest. COMPARISON: April 10, 2019 FINDINGS: There is hyperinflation of the lungs consistent with chronic obstructive lung disease (COPD). No consolidation is seen. Chronic interstitial scarring is seen in the bilateral upper lobes. There is no demonstrated pleural abnormality. Normal size heart. Stable visualized osseous and mediastinal structures. RAD/Chest 1 View (Portable) IMPRESSION: COPD Electronically Signed: Tae Duran MD at 15:42 EDT , Service support ,
[2020-02-12 15:18] LABS: Absolute Lymphocyte Count 1.03 X10^3/uL (0.83-4.51); Absolute Neutrophil Count 4.9 X10^3/uL (2.0-7.7); Basophil# 0.03 X10^3/uL; Basophil% 0.5 % (0-1); Hematocrit 44.1 % (40-54); Hemoglobin 14.4 g/dL (13.0-16.5); Lymphocyte # 1.03 X10^3/ul (4.0); Lymphocyte % 15.7 % (19-41); Mean Corp Hgb Conc 32.7 g/dL (32-36); Mean Corpuscular Hgb 30.2 pg (27.0-32.0); Mean Corpuscular Volume 92.5 fL (80-94); Mean Platelet Vol. 9.8 fl (6.2-12.0); Monocyte# 0.56 X10^3/uL; Monocyte% 8.5 % (0-10); NRBC Flagged by Analyzer 0 % (0-5); Neutrophil # 4.92 X10^3/uL (2.7-7.7); Platelet Count 230 K/mm3 (150-450); RBC Distribution Width CV 12.8 % (11.6-14.6); RBC Distribution Width SD 43.7 fl (35.1-43.9); Red Blood Count 4.77 M/mm3 (4.6-6.2); White Blood Count 6.6 K/mm3 (4.4-11.0)
[2020-02-12 15:22] LABS: ALB/GLOB Ratio 0.8 RATIO (0.9-2.4); AST(SGOT) 22 U/L (15-37); Alanine Aminotransfer ALT/SGPT 14 U/L (16-61); Albumin, Serum 3.5 g/dL (3.2-5.0); Alkaline Phosphatase 79 U/L (45-117); Anion Gap 4 (5-15); BUN 10 mg/dL (7-18); BUN/Creat Ratio 13.1 RATIO (10-20); Calcium,Total 9.1 mg/dL (8.5-10.1); Chloride 105 mmol/L (98-107); Creatinine, Serum 0.76 mg/dL (0.70-1.30); EST Glomerular Filtration Rate 104 mL/min (>60); Est Glom Filt Rate - Afr Amer 126 mL/min (>60); Estimated Creatinine Clearance 44.48 ml/min; Globulin 4.4 g/dL (2.2-4.2); Glucose 103 mg/dL (74-106); Potassium 4.4 mmol/L (3.5-5.1); Protein, Total 7.9 g/dL (6.4-8.2); Sodium Level 140 mmol/L (136-145)
--- NOTE | 2020-02-12 15:49 | CM.ED ---
Social Work Consult: Elder neglect/ability to care for self. Informant: Nursing staff Nursing reporting that patient is found to be unkept, appears to not have bathed for some time (medical tape would not stick to patient skin due to residue build up), and to have bed bugs. Met with patient in room. Introduced self as well as social media intern role. Patient is agreeable to speaking with this social media intern. Patient stating to have been hesitant to come to the hospital due to probably nothing they can do. Patient stating that patient equilibrium is off. Patient stating to have almost fallen today while shaving. Patient stating to have fallen twice in the last little while. Patient stating to ambulate without a device and to live in a 2-story private home. Patient bathroom is on the second floor, patient stating to be able to manage stairs on own. Patient stating no concerns with being able to care for self but that sometimes my equilibrium if off. Patient stating to have a neighbor that checks in with patient and no other support. Patient stating to manage own financial needs and grocery shopping. Patient stating that if there is nothing for them to do, I will just go home. Patient with history of SNF stay at [facility], patient is not interested in returning to care home and stating to be able to care for self. Patient continues to bring up patient equilibrium and chest pain concerns and talks in a circular pattern. Patient oriented x3. Patient stating I have been in 4 hospitals no one knows what is wrong with me. Patient denies any PASSPORT services or interest in any home health services. Patient stating I really don't want anyone in my home. Patient stating to have also taken some meds that help in the past but it was a friends and a doctor will not prescribe more for me. Patient educated on concerns and reasons to not take medications that are not prescribed to patient, patient stating oh it was nothing. Active support and listening provided. Patient aware of medical teams concerns of patient being able to care for self. Patient does not express any concern for self or ability to care for self. Updated Dr. Rae on Social Work assessment. Dr. Rae waiting on results to come back in order to make medical decision. Telephone call to [facility]ner provided with above information and concerns of bed bug infestation. Abner taking note of above and will wait to open the case until it is determined if patient is admitted to acute care setting. This social media intern to call Abner back with update. PLAN: Undetermined. Will continue to follow. Vinicius TIRADO, JAYSON
[2020-02-12] MEDS: diazePAM 5 MG Tablet 2.5 MG PO (16:02)
[2020-02-12 16:06] VITALS: BP 152/75; PULSE 79; RESP 17; O2SAT 98
--- NOTE | 2020-02-12 16:23 | CM.ED ---
Social Work Updated by Dr. Rae that plan is for patient to discharge to home. Patient is agreeable this plan and calling neighbor to provide transportation for patient. Patient voicing no concerns with discharge. Telephone call to [facility]. Updated Abner on above. Abner to see patient within 72 hours to see if patient will accept any support/resources in the community. Vinicius Gamez MSW, JAYSON
[2020-02-12] MEDS: Albuterol Sulfate 8 gm Inhaler 2 PUFF INHALATION (16:26)
[2020-02-12 16:30] VITALS: BP 147/80; PULSE 82; RESP 22; O2SAT 96
--- NOTE | 2020-02-12 16:30 | ED.RN ---
THIS NURSE REVIEWED D/C INSTRUCTIONS WITH PT. PT VERBALIZED UNDERSTANDING OF INSTRUCTIONS. IV D/C. IV CATHETER INTACT. PT TOLERATED WELL. PT INFORMED THAT ADULT PROTECTIVE SERVICES WILL BE CONTACTING HIM IN THE NEXT 48 HOURS. PT DENIES FURTHER NEEDS AT THIS TIME.
== END 2020-02-12 16:31 | disposition home or self-care (01) ==
PROVIDERS: Emergency Provider Emergency Medicine; PCP Family Medicine
DX: R07.9 Chest pain, unspecified (principal); R06.00 Dyspnea, unspecified; J44.9 Chronic obstructive pulmonary disease, unspecified; K21.9 Gastro-esophageal reflux disease without esophagitis; Z79.82 Long term (current) use of aspirin
CPT/HCPCS: 71045; 80053; 84484; 85025; 93005; 99285; A4216

== ENCOUNTER 2020-03-25 15:20 | Inpatient (IN) | payer MEDICARE, SELFPAY ==
[2017-01-28 08:52] VITALS: BMI 18.7
[2020-03-11 09:18] VITALS: BMI 15.8
[2020-03-25] VITALS (16 sets, daily range): BP systolic 92–169; BP diastolic 45–90; PULSE 63–117; RESP 15–27; TEMP 36.2–36.8; O2SAT 77–100; BMI 14.2; BMI 14.9
--- NOTE | 2020-03-25 15:24 | EKG12_ITS ---
Test Reason : SOB Blood Pressure : / mmHG Vent. Rate : 113 BPM Atrial Rate : 113 BPM P-R Int : 170 ms QRS Dur : 094 ms QT Int : 338 ms P-R-T Axes : 083 075 -53 degrees QTc Int : 463 ms Sinus tachycardia Right atrial enlargement ST & T wave abnormality, consider inferior ischemia Abnormal ECG Confirmed by OPAL ARCOS ([id number]), editor producer BRINDA CLAROS ([id number]) on 03/27/2020 11:47:11 AM Referred By: BARBIE Confirmed By:OPAL ARCOS
--- NOTE | 2020-03-25 15:29 | ED.DCSUM_ITS ---
History of Present Illness Chief Complaint: Shortness of Breath Informant: Patient, Family Onset: Days Context: Gradual Onset Timing: Continuous Current Severity: Severe Maximum Severity: Severe Narrative: The patient is a 79-year-old male with history of coronary vascular disease, esophageal stricture, hiatal hernia that is been repaired, with swallowing difficulty and PEG tube that presents to the emergency department with shortness of breath. Patient states he is had gradually progressive shortness of breath. He was seen as an outpatient by cardiology about 2 weeks ago. He states over the past 2 days, he is had cough with worsening dyspnea. He said generalized malaise and left-sided chest pain. History is limited because the patient is a poor informant and is rather significantly hypoxic. He is unsure if he is had fever. He has been nauseated, but states that this is chronic for him. Prior similar symptoms: No Recent Illness/Hospitalization: No Past Medical History - Allergies and Home Meds Allergies/Adverse Reactions: Allergies No Known Allergies Allergy (Verified 03/11/20 10:49) Primary Care Physician: John Fallon DO [Primary Care Provider] - Prior records reviewed: Yes Past Medical History: - - Coronary vascular disease, prior MO, esophageal stricture with hiatal hernia, former smoker Surgical History: - - PCI. Smoking Status: Former smoker - Family History Maternal Family History: Family History (Last Reviewed 03/11/20 @ 11:28 by TOMMY Upton) Mother Cancer Family History: Reports: Cancer - Mother passed age 84 y/o secondary to pancreatic cancer., - Paternal Family History: Family History (Last Reviewed 03/11/20 @ 11:28 by TOMMY Upton) Mother Cancer Family History: Reports: - - early, unclear specific etiology, noted recent intestinal surgery/intervention. Review of Systems General: Reports: Chills, Malaise. Denies: Fever, Sweats Eyes: Denies: Visual changes - bilaterally, Diplopia ENT: Denies: Rhinorrhea, Sore throat Cardiovascular: Reports: Chest pain. Denies: Palpitations Respiratory: Reports: Dyspnea, Cough. Denies: Dyspnea on exertion Gastrointestinal: Reports: Nausea. Denies: Abdominal pain, Vomiting, Diarrhea, Melena, Hematochezia Genitourinary: Denies: Dysuria, Hematuria, Frequency Musculoskeletal: Denies: Back pain, Extremity Pain Skin: Denies: Rash, Wounds Neurological: Denies: Headache, Weakness, Numbness Physical Exam Vital Signs/Narrative: Vital Signs Temp Pulse Resp BP Pulse Ox 03/25/20 15:25 115 H 24 H 89 03/25/20 15:21 98.3 F 117 H 27 H 169/85 H 77 Inital Vital Signs reviewed: Yes General: Well nourished, Well developed, No Acute Distress Head: Normocephalic, Atraumatic Eyes: Perrl, EOMI ENT: Moist mucous membranes, No rhinorrhea Neck: Supple, Nontender Cardiovascular: Regular rate, Regular rhythm, No murmurs Respiratory: Chest nontender, Diminished, Decreased Air Movement Abdomen: Soft, Nontender, Nondistended, Normal bowel sounds Back: Nontender, Normal Inspection Extremities: Nontender, No edema Skin: Normal color, No rash Neurological: Alert, Oriented x3, Cranial nerves II-XII grossly intact, Normal Strength, Normal Sensation Psychological: Normal affect, Normal Mood Diagnostic/Tx/Re-eval Clinical Impression(s) from Imaging Studies Chest X-Ray 03/25/20 15:36 IMPRESSION: COPD Electronically Signed: Raji Chapin MD at 16:36 EDT , Service support , Chest CTA 03/25/20 16:16 IMPRESSION: COPD. Possible mild edema or pneumonitis or interstitial lung disease. Coronary artery disease. Compression fracture T12, age indeterminate. Electronically Signed: Raji Chapin MD at 17:34 EDT , Service support , Abnormal Lab Results 03/25/20 03/25/20 03/25/20 15:25 15:25 15:25 WBC 10.2 RBC 4.39 L Hgb 12.8 L Hct 41.2 MCV 93.8 MCH 29.2 MCHC 31.1 L RDW Std Deviation 43.6 RDW Coeff of [place] 12.6 Plt Count 325 MPV 9.4 Immature Gran % (Auto) 0.300 Neut % (Auto) 65.4 Lymph % (Auto) 20.7 [place] % (Auto) 9.6 Eos % (Auto) 3.6 Baso % (Auto) 0.4 Absolute Neuts (auto) 6.7 Absolute Lymphs (auto) 2.11 Nucleated RBC % 0 Sodium 137 Potassium 4.0 Chloride 100 Carbon Dioxide 28.0 Anion Gap 9 BUN 15 Creatinine 0.86 Estim Creat Clear Calc 44.23 Est GFR (MDRD) Af Amer 110 Est GFR (MDRD) Non-Af 91 BUN/Creatinine Ratio 17.5 Glucose 143 H Lactic Acid 2.9 H* Calcium 9.1 Total Bilirubin 0.50 AST 25 ALT 17 Alkaline Phosphatase 84 Troponin I < 0.015 B-Natriuretic Peptide Total Protein 8.6 H Albumin 3.6 Globulin 5.0 H Albumin/Globulin Ratio 0.7 L COVID-19 ([place]) 03/25/20 03/25/20 15:25 15:40 WBC RBC Hgb Hct MCV MCH MCHC RDW Std Deviation RDW Coeff of [place] Plt Count MPV Immature Gran % (Auto) Neut % (Auto) Lymph % (Auto) [place] % (Auto) Eos % (Auto) Baso % (Auto) Absolute Neuts (auto) Absolute Lymphs (auto) Nucleated RBC % Sodium Potassium Chloride Carbon Dioxide Anion Gap BUN Creatinine Estim Creat Clear Calc Est GFR (MDRD) Af Amer Est GFR (MDRD) Non-Af BUN/Creatinine Ratio Glucose Lactic Acid Calcium Total Bilirubin AST ALT Alkaline Phosphatase Troponin I B-Natriuretic Peptide 100.0 Total Protein Albumin Globulin Albumin/Globulin Ratio COVID-19 ([place]) Negative - Rhythm Strip Rhythm Strip: Sinus Tach Rate: 110 Ectopy: None - EKG Initial EKG Interpretation: Sinus Tachycardia, S-T Depression, Non-Specific ST Changes Prior: Unchanged - Medical Decision Making The patient is a 79-year-old male who presents to the emergency department cough, shortness of breath, and hypoxia. He was 77% on room air. He was transitioned to nasal cannula, but did have tachycardia and resting tachypnea. Sepsis work-up was pursued. Patient did have a large mucous producing cough and his oxygen did improve. He has no known exposure to COVID-19. This was obtained was negative. With his tachycardia and dyspnea, CTA was obtained. There is no evidence of acute pulmonary embolus. There was patchy upper lobe infiltrates that were scant and groundglass. His EKG did show some lateral ST depression, unchanged from prior. His lactic acid was elevated, but in light of his global hypoxia I do feel this is likely the cause. Once his COVID was negative, the patient was treated with broad-spectrum antibiotics to cover aspiration as he does have history of GI dysfunction. He was given steroids. He will be admitted. Impression 1. Acute hypoxia with respiratory failure 2. COPD exacerbation 3. Sepsis ED Disposition - Plan for ED Patient: Referrals: John Fallon DO [Primary Care Provider] -
--- NOTE | 2020-03-25 15:36 | RAD_ITS ---
STUDY: X-RAY CHEST REASON FOR EXAM: Male, 79 years old. sob increased today, Hx of CAD, heart cath, COPD TECHNIQUE: Single frontal view of the chest. COMPARISON: February 12, 2020 FINDINGS: Lungs are hyperaerated. The lungs are clear and expanded. There is no demonstrated pleural abnormality. Normal size heart. Normal mediastinum and esme. Normal visualized pulmonary arteries. Normal visualized aortic arch and descending thoracic aorta. Normal visualized thoracic spine. Old rib fractures on the left. There is no demonstrated abnormality of the visualized soft tissue structures of the upper abdomen. RAD/Chest 1 View (Portable) IMPRESSION: COPD Electronically Signed: Raji Chapin MD at 16:36 EDT , Service support ,
[2020-03-25 15:45] LABS: Absolute Lymphocyte Count 2.11 X10^3/uL (0.83-4.51); Absolute Neutrophil Count 6.7 X10^3/uL (2.0-7.7); Basophil# 0.04 X10^3/uL; Basophil% 0.4 % (0-1); Eosinophil# 0.37 X10^3/uL; Eosinophils% 3.6 % (0-5); Hematocrit 41.2 % (40-54); Hemoglobin 12.8 g/dL (13.0-16.5); Lymphocyte # 2.11 X10^3/ul (4.0); Lymphocyte % 20.7 % (19-41); Mean Corp Hgb Conc 31.1 g/dL (32-36); Mean Corpuscular Hgb 29.2 pg (27.0-32.0); Mean Corpuscular Volume 93.8 fL (80-94); Mean Platelet Vol. 9.4 fl (6.2-12.0); Monocyte# 0.98 X10^3/uL; Monocyte% 9.6 % (0-10); NRBC Flagged by Analyzer 0 % (0-5); Neutrophil # 6.68 X10^3/uL (2.7-7.7); Neutrophil % 65.4 % (47-70); Platelet Count 325 K/mm3 (150-450); RBC Distribution Width CV 12.6 % (11.6-14.6); RBC Distribution Width SD 43.6 fl (35.1-43.9); Red Blood Count 4.39 M/mm3 (4.6-6.2); White Blood Count 10.2 K/mm3 (4.4-11.0)
[2020-03-25 16:14] LABS: ALB/GLOB Ratio 0.7 RATIO (0.9-2.4); AST(SGOT) 25 U/L (15-37); Alanine Aminotransfer ALT/SGPT 17 U/L (16-61); Albumin, Serum 3.6 g/dL (3.2-5.0); Alkaline Phosphatase 84 U/L (45-117); Anion Gap 9 (5-15); BUN 15 mg/dL (7-18); BUN/Creat Ratio 17.5 RATIO (10-20); Calcium,Total 9.1 mg/dL (8.5-10.1); Chloride 100 mmol/L (98-107); Creatinine, Serum 0.86 mg/dL (0.70-1.30); EST Glomerular Filtration Rate 91 mL/min (>60); Est Glom Filt Rate - Afr Amer 110 mL/min (>60); Estimated Creatinine Clearance 44.23 ml/min; Glucose 143 mg/dL (74-106); Protein, Total 8.6 g/dL (6.4-8.2); Sodium Level 137 mmol/L (136-145)
--- NOTE | 2020-03-25 16:16 | CT_ITS ---
STUDY: CTA CHEST REASON FOR EXAM: Male, 79 years old. HYPOXIA, INCREASED SOB, HX-COPD, EMPHYSEMA, HLD, CORONARY STENTS RADIATION DOSAGE (If Supplied By Facility): CTDIvol = ( 4.57 ) mGy, DLP = ( 154.44 ) mGycm TECHNIQUE: The examination was performed with the intravenous administration of IV 75mL [id number]-370. Post-processing of the angiographic images was performed, with multiplanar reformation and 3D reconstruction. Individualized dose optimization techniques were used for this CT. COMPARISON: March 25, 2020 chest x-ray FINDINGS: Normal enhancement of the main pulmonary artery and right and left pulmonary arteries. Normal enhancement of the bilateral peripheral pulmonary arteries. There is no demonstrated pulmonary embolism. Normal thoracic aorta and visualized great vessels. There is no demonstrated aortic dissection. Normal heart and pericardium. Calcific coronary artery disease. Normal mediastinum. Normal hilar regions. Normal visualized trachea and bronchi. The lungs are hyperaerated. There is ill-defined patchy increase in groundglass opacities in the upper lung hinds. Normal pulmonary parenchyma. Normal pleura. Normal chest wall structures. Compression fracture T12. PEG tube appears to be within the gastric lumen. CT/CTA Chest W/WO Contrast IMPRESSION: COPD. Possible mild edema or pneumonitis or interstitial lung disease. Coronary artery disease. Compression fracture T12, age indeterminate. Electronically Signed: Raji Chapin MD at 17:34 EDT , Service support ,
[2020-03-25 16:24] LABS: Lactic Acid 2.9 mmol/L (0.4-1.9)
--- NOTE | 2020-03-25 16:25 | NURSING ---
Dr. Duggan notified of Sepsis Alert, feels this is related more to COPD exacerbation w/ mucous plug
[2020-03-25 17:24] LABS: Probe Check PASS; Specimen Processing Control PASS
--- NOTE | 2020-03-25 17:51 | NURSING ---
ICU [facility] ACUTE RESPIRATORY FAILURE, SEPSIS
--- NOTE | 2020-03-25 17:53 | NURSING ---
ICU 5
--- NOTE | 2020-03-25 18:04 | HP.PCM_ITS ---
<Adan Sheppard - Last Filed: 03/25/20 18:32> Problem List (1) Aspiration into airway Status: Acute (2) Severe sepsis Status: Acute (3) CAD (coronary artery disease) Status: Chronic (4) Severe protein-calorie malnutrition Status: Chronic (5) COPD (chronic obstructive pulmonary disease) Status: Chronic (6) Esophageal stricture Status: Chronic (7) Hyperlipidemia Status: Chronic (8) Stented coronary artery Status: Chronic Comment: PCI-RICO-LAD (3.0 X 12 Promus) and RICO-D1 (2.25 X 12 Promus) 01/27/2017 (9) Dysphagia Status: Chronic Qualifiers: Dysphagia type: unspecified Qualified Code(s): R13.10 - Dysphagia, unspecified History of Present Illness Date of Admission: 03/25/20 Chief Complaint: SOB The patient is a 79 year old M with pmhx of severe esophageal strictures and associated dysphagia with a PEG tube in place for tube feedings in place per Dr. Winters, hx CAD with prior stents pt of Dr. Feldman, who presented to the ER with c/o SOB. The patient states that he has been at 6 different hospitals in 6 months and that nobody has helped him at all and he has not gotten any better. All of his symptoms he states are ongoing for six months. He has been cough with mucus in his throat that he cannot clear and severe SOB. He has ongoing intermittent chills. He denies sick contacts. He admits he does not use his PEG tube at all because he thinks it is too burdensome to be required to use every 6 hours, and feels like he can eat so he eats orally instead. He frequently has food stuck in his throat and vomits it back out. He admits his breathing becomes worse after this and he sometimes becomes lightheaded. He does not normally use o2 however was hypoxic in the 70s on room air at one point, notably his oxygenation after he coughed out what appeared to be a mucus plug in the ER. A CTA chest was obtained which showed that he has underlying COPD tho this has not been previously diagnosed and possible bronchiectasis, pneumonitis and interstitial lung dz, as well as a compression fracture. The patient continues to be SOB at the time of exam.[] Past Medical History Past Medical History (Chronic Problems): Chronic Problems (Last Reviewed 03/11/20 @ 11:28 by TOMMY Upton) CAD (coronary artery disease) (Chronic) Severe protein-calorie malnutrition (Chronic) COPD (chronic obstructive pulmonary disease) (Chronic) Esophageal stricture (Chronic) Hyperlipidemia (Chronic) Stented coronary artery (Chronic 01/27/17) PCI-RICO-LAD (3.0 X 12 Promus) and RICO-D1 (2.25 X 12 Promus) 01/27/2017 SMAS (superior mesenteric artery syndrome) (Chronic) Hiatal hernia with gastroesophageal reflux disease and esophagitis (Chronic) Atherosclerotic heart disease of [place] coronary artery without angina pectoris (Chronic) PCI-RICO-LAD (3.0 X 12 Promus) and RICO-D1 (2.25 X 12 Promus) 01/27/2017 High risk medication use (Chronic) Dysphagia (Chronic) Medical History: Medical History (Last Reviewed 03/11/20 @ 11:28 by TOMMY Upton) Esophageal stricture (Chronic) K22.2 Tachycardia (Acute) R00.0 Hyperlipidemia (Chronic) E78.5 SMAS (superior mesenteric artery syndrome) (Chronic) K55.1 Hiatal hernia with gastroesophageal reflux disease and esophagitis (Chronic) K44.9, K21.0 Atherosclerotic heart disease of [place] coronary artery without angina pectoris (Chronic) I25.10 PCI-RICO-LAD (3.0 X 12 Promus) and RICO-D1 (2.25 X 12 Promus) 01/27/2017 High risk medication use (Chronic) Z79.899 Dysphagia (Chronic) R13.10 Asthma J45.909 Depression with anxiety F41.8 Fatigue R53.83 Weight loss R63.4 Allergies No Known Allergies Allergy (Verified 03/11/20 10:49) Home Medications: Ambulatory Orders Medication Instructions Recorded Aspirin 325 mg PO DAILY@0800 06/05/19 Surgical History: Surgical History (Last Reviewed 03/11/20 @ 11:28 by TOMMY Upton) Stented coronary artery (Chronic) Onset Date: 01/27/17 Z95.5 PCI-RICO-LAD (3.0 X 12 Promus) and RICO-D1 (2.25 X 12 Promus) 01/27/2017 history Laparoscopy twisted stomach/bowel History of esophageal dilatation Onset Date: 12/20/18 Z98.890 History of esophagogastroduodenoscopy (EGD) Onset Date: 12/20/18 Z98.890 Surgical History: - - PCI. Psychiatric History: No pertinent psych hx Lives: Alone Smoking Status: Former smoker Tobacco Use: Non-smoker Alcohol: None Drugs: None - *Family History Maternal Family History: Family History (Last Reviewed 03/25/20 @ 18:12 by TOMMY Perez) Mother Cancer History Items: Cancer - Mother passed age 84 y/o secondary to pancreatic cancer., - Paternal Family History: Family History (Last Reviewed 03/25/20 @ 18:12 by TOMMY Perez) Mother Cancer History Items: - - early of bowel obstruction, Review of Systems Constitutional: Reports: Chills, - - frail, cachectic. Denies: Fever, Weakness, Weight Change, Fatigue HEENT: Denies: Head Aches, Sinus Congestion, Sinus Drainage Cardiovascular: Reports: Light Headedness. Denies: Chest Pain, Chest Tightness, Edema, Heaviness, Palpitations Respiratory: Reports: Cough, Shortness of Breath, Shortness of breath at rest, Shortness of breath upon exertion, Sputum production. Denies: Hemoptysis, Pleuritic Pain, Wheezing Gastrointestinal: Reports: Vomiting. Denies: Abdominal Pain, Constipation, Nausea Genitourinary: Denies: Dysuria, Hesitancy, Urgency Musculoskeletal: Denies: Joint Pain, Joint Tenderness Skin: Denies: Rash, Wounds Neurological: Denies: Numbness, Tingling, Focal weakness Psychiatric: Denies: Anxiety, Depression, Homicidal Ideations, Suicidal Ideations Hematologic/ Lymphatic: Denies: Easy Bruising, Easy Bleeding VTE Information - Inpt Only VTE Present on Admission: No VTE Mechan Device Prophylaxis: None VTE Pharm Prophylaxis ordered?: Yes Patient Problems: Active and Suspected Problems (Last Reviewed 03/11/20 @ 11:28 by TOMMY Upton) Aspiration into airway (Acute) Severe sepsis (Acute) - Physical Exam Vitals/I&O's: Vital Signs Temp Pulse Resp BP Pulse Ox 97.5 F L 98 20 H 139/80 H 94 03/25/20 17:00 03/25/20 17:00 03/25/20 17:00 03/25/20 17:00 03/25/20 17:00 Oxygen Flow Rate (L/min) 4 Oxygen Delivery Method Nasal Cannula Weight: 98 lb 15.801 oz Body Mass Index (BMI) 14.2 Intake and Output for Last 24 Hours 03/23/20 03/24/20 03/25/20 23:59 23:59 23:59 Intake Total 500 / 500 Balance 500 / 500 General: Alert, Oriented x3, Cooperative HEENT: Atraumatic, PERRLA, EOMI, Normocephalic Neck: Supple, No JVD, Negative Carotid Bruits Lungs: Clear to auscultation, Normal air movement Cardiovascular: Regular rate, No murmurs Abdomen: Bowel Sounds Present, Soft, Non Tender Extremities: No edema, Capillary Refill Less than 3 Seconds Skin: No rashes, No breakdown Musculoskeletal: No Tenderness to Palpation of Joints or Extremities Neurological: Cranial nerves II-XII grossly intact Psych/Mental Status: Normal Affect, Appropriate, Alert and oriented to time, place, person, mood and affect Laboratory Results 03/25/20 15:25: WBC 10.2, RBC 4.39 L, Hgb 12.8 L, Hct 41.2, MCV 93.8, MCH 29.2, MCHC 31.1 L, RDW Std Deviation 43.6, RDW Coeff of [place] 12.6, Plt Count 325, MPV 9.4, Immature Gran % (Auto) 0.300, Neut % (Auto) 65.4, Lymph % (Auto) 20.7, [place] % (Auto) 9.6, Eos % (Auto) 3.6, Baso % (Auto) 0.4, Absolute Neuts (auto) 6.7, Absolute Lymphs (auto) 2.11, Nucleated RBC % 0 03/25/20 15:25: Sodium 137, Potassium 4.0, Chloride 100, Carbon Dioxide 28.0, Anion Gap 9, BUN 15, Creatinine 0.86, Estim Creat Clear Calc 44.23, Est GFR (MDRD) Af Amer 110, Est GFR (MDRD) Non-Af 91, BUN/Creatinine Ratio 17.5, Glucose 143 H, Calcium 9.1, Total Bilirubin 0.50, AST 25, ALT 17, Alkaline Phosphatase 84, Troponin I < 0.015, Total Protein 8.6 H, Albumin 3.6, Globulin 5.0 H, Albumin/Globulin Ratio 0.7 L 03/25/20 15:25: Lactic Acid 2.9 H* 03/25/20 15:25: B-Natriuretic Peptide 100.0 03/25/20 15:40: COVID-19 ([place]) Negative Current Medications Piperacillin Sod/Tazobactam (Sod 4.5 gm/ Sodium Chloride) 100 mls @ 200 mls/hr IV X1 ONE Stop: 03/25/20 18:12 Azithromycin 500 mg/ Dextrose 255 mls @ 250 mls/hr IV X1 ONE Stop: 03/25/20 18:44 Assessment/Plan All Active Problems (Last Reviewed 03/11/20 @ 11:28 by TOMMY Upton) Aspiration into airway (Acute) Severe sepsis (Acute) Tachycardia (Acute) 1. Acute hypoxic respiratory failure with acute severe sepsis 2/2 recurrent aspiration events, due to esophageal strictures and noncompliance with PEG tube therapy - The patient was hypoxic at 77% on room air and required up to 5 lpm o2 to maintain adequate sats - baseline is no o2. The patient admits that he does not use his PEG tube at all and that he eats normally, however he frequently has food stuck, vomits it back out, and has worsening SOB after these events. He is not running a fever at this time and has a normal WBC count, however he meets severe sepsis criteria with tachycardia, tachypnea, and lactic acidosis with aspiration and acute bronchitis as the source. No obvious infiltrate on CTA however CTA however he has evidence of COPD and bronchiectasis as well as pnuemonitis. He will be treated with Azithromycin and Zosyn, bronchodilators, PEP therapy, and incentive spirometer. He will go to the ICU tonight with critical care consult. Obtain sputum cx, blood cx, urine antigen testing. -trop and bnp neg, EKG with sinus tachy and nonspecific ST changes that do not appear new. 2. Suspected COPD - no formal dx. see CTA. former smoker. Pulm/Crit care to see the patient. Continue bronchodilators. Needs o/p PFTs 3. Dysphagia 2/2 esophageal strictures - frequent aspirations. pt is noncompliant with PEG feedings at home. Pt will be made NPO with speech and nutrition therapy. Suspect chronic aspiration. PEG tube in place per Dr. Winters. 4. Severe protein calorie malnutrition 2/2 #3. nutrition consult 5. Debility with falls - PTOT evals 6. hx CAD - stent. pt of Dr. Feldman. continue home aspirin, no other home meds listed. DVT ppx: lovenox This patient was seen by Adan Sheppard PA-C under the supervision of Dr. Arce. <Linnea Arce - Last Filed: 03/25/20 19:21> History of Present Illness Date of Admission: 03/25/20 I agree with the above base on my own history and physical exam. Additional information below The patient is a 79 year old M Pt was most recently admitted to [facility] about 1 yr ago (pt is poor historian and very angry) and then went to SNF. Was getting feed via NGT and then PEG was placed by Dr. Winters 05/2019. Per his visitor he was getting TF at that time but pt states that it has been too hard for him to give himself TF every 6 hrs at home and doesn't remember the last time he flushed or used his line. He states that since he left the SNF his breathing has been worse and he had been to 6 different ED (with no admissions) since his SOB started and no once can tell me what is wrong. CTA was done and shows COPD changes and mild edema vs pneumonitis of ILD but no infiltrate. His lactate was 2.9 and his sats were 77% on RA but now is at 95% on 4 L. Past Medical History Medical History: Medical History (Last Reviewed 03/25/20 @ 19:[address] Linnea Arce, DO) Esophageal stricture (Chronic) K22.2 Tachycardia (Acute) R00.0 Hyperlipidemia (Chronic) E78.5 SMAS (superior mesenteric artery syndrome) (Chronic) K55.1 Hiatal hernia with gastroesophageal reflux disease and esophagitis (Chronic) K44.9, K21.0 Atherosclerotic heart disease of [place] coronary artery without angina pectoris (Chronic) I25.10 PCI-RICO-LAD (3.0 X 12 Promus) and RICO-D1 (2.25 X 12 Promus) 01/27/2017 High risk medication use (Chronic) Z79.899 Dysphagia (Chronic) R13.10 Asthma J45.909 Depression with anxiety F41.8 Fatigue R53.83 Weight loss R63.4 Allergies No Known Allergies Allergy (Verified 03/11/20 10:49) Surgical History: Surgical History (Last Reviewed 03/25/20 @ 19:[address] Linnea Arce, DO) Stented coronary artery (Chronic) Onset Date: 01/27/17 Z95.5 PCI-RICO-LAD (3.0 X 12 Promus) and RICO-D1 (2.25 X 12 Promus) 01/27/2017 history Laparoscopy twisted stomach/bowel History of esophageal dilatation Onset Date: 12/20/18 Z98.890 History of esophagogastroduodenoscopy (EGD) Onset Date: 12/20/18 Z98.890 - *Family History Maternal Family History: Family History (Last Reviewed 03/25/20 @ 18:12 by TOMMY Perez) Mother Cancer Paternal Family History: Family History (Last Reviewed 03/25/20 @ 18:12 by TOMMY Perez) Mother Cancer Review of Systems Constitutional: Reports: Chills, Malaise, Weight Change - loss, -. Denies: Anorexia, Fever, Night Sweats, Weakness, Fatigue Eyes: Denies: Blurred vision, Conjunctivae Inflammation, Drainage, Pain, Redness HEENT: Reports: Difficulty Swallowing, Dysphasia. Denies: Ear Pain, Eye Pain, Head Aches, Nasal bleeding, Nasal Congestion, Post Nasal Drip, Sinus Congestion, Sinus Drainage, Sore Throat, Visual Changes Cardiovascular: Reports: Light Headedness. Denies: Chest Pain, Chest Pressure, Chest Tightness, Edema, Heaviness, Orthopnea, Palpitations, Paroxysmal Noc. Dyspnea, Syncope Respiratory: Reports: Cough, Shortness of Breath, Shortness of breath at rest, Shortness of breath upon exertion, Sputum production. Denies: Hemoptysis, Pleuritic Pain, Wheezing Gastrointestinal: Denies: Abdominal Pain, Constipation, Diarrhea, Dyspepsia, Hematemesis, Hematochezia, Nausea, Melena, Vomiting Genitourinary: Denies: Dysuria, Frequency, Hematuria, Hesitancy, Incontinence, Nocturia, Retention, Urgency Musculoskeletal: Denies: Back Pain, Joint Pain, Joint stiffness, Joint swelling, Joint Tenderness, Neck Pain Skin: Denies: Dryness, Jaundice, Lesions, Pruritis, Rash, Skin Changes Neurological: Denies: Balance problems, Blurred vision, Double vision, Change in Speech, Slurred speech, Confusion, Difficulty swallowing, Focal weakness, Headaches, Incoordination, Numbness, Tingling, Tremor, Seizures Psychiatric: Denies: Anxiety, Depression Endocrine: Reports: Change in Body Habitus. Denies: Heat/ Cold Intolerance, Polydipsia, Polyuria Hematologic/ Lymphatic: Denies: Adenopathy, Anemia, Petechiae, Purpura - Physical Exam Vitals/I&O's: Vital Signs Temp Pulse Resp BP Pulse Ox 97.2 F L 96 25 H 158/84 H 94 03/25/20 18:00 03/25/20 18:00 03/25/20 18:00 03/25/20 18:00 03/25/20 18:00 Oxygen Flow Rate (L/min) 4 Oxygen Delivery Method Nasal Cannula Weight: 44.9 kg Body Mass Index (BMI) 14.2 Intake and Output for Last 24 Hours 03/23/20 03/24/20 03/25/20 23:59 23:59 23:59 Intake Total 500 / 500 Balance 500 / 500 General: Alert, Oriented x3, Cooperative, No apparent distress, - - cachexia WM, sitting up in bed HEENT: Atraumatic, PERRLA, EOMI, Normocephalic, EAC Clear, - - temporal wasting Oral: Moist Mucosa, No Gingival or Mucosal Lesions/ Ulcerations, - - poor dentition Neck: Supple, No JVD, Negative Carotid Bruits, Negative Hepatojugular Reflux, No Nodes, No Nuchal Rigidity, Trachea Midline, Thyroid Normal Size and Texture Lungs: Clear to auscultation, No rhonchi, No wheeze, No rales, Diminished - diffusely, Short of Breath Cardiovascular: Regular rate, Regular Rhythm, Normal S1, Normal S2, No murmurs, No Ectopic Activity, No rub noted, No Gallop Abdomen: Bowel Sounds Present, Soft, Non Tender, Non-Distended, No Hepato- splenomegaly, Passing Flatus, No hernias noted, - - PEG R UQ tubing appears caked with debris Extremities: No clubbing, No cyanosis, No edema, Capillary Refill Less than 3 Seconds, No Calf Tenderness, Peripheral Pulses Normal Skin: No rashes, No breakdown Musculoskeletal: No Tenderness to Palpation of Joints or Extremities, No Muscle Wasting, Arthritic Changes Lymphatic: No Cervical, Supraclavicular, or Inguinal Adenopathy Neurological: Cranial nerves II-XII grossly intact Psych/Mental Status: Normal Affect, Agitated - very argumentative Laboratory Results 03/25/20 15:25: WBC 10.2, RBC 4.39 L, Hgb 12.8 L, Hct 41.2, MCV 93.8, MCH 29.2, MCHC 31.1 L, RDW Std Deviation 43.6, RDW Coeff of [place] 12.6, Plt Count 325, MPV 9.4, Immature Gran % (Auto) 0.300, Neut % (Auto) 65.4, Lymph % (Auto) 20.7, [place] % (Auto) 9.6, Eos % (Auto) 3.6, Baso % (Auto) 0.4, Absolute Neuts (auto) 6.7, Absolute Lymphs (auto) 2.11, Nucleated RBC % 0 03/25/20 15:25: Sodium 137, Potassium 4.0, Chloride 100, Carbon Dioxide 28.0, Anion Gap 9, BUN 15, Creatinine 0.86, Estim Creat Clear Calc 44.23, Est GFR (MDRD) Af Amer 110, Est GFR (MDRD) Non-Af 91, BUN/Creatinine Ratio 17.5, Glucose 143 H, Calcium 9.1, Total Bilirubin 0.50, AST 25, ALT 17, Alkaline Phosphatase 84, Troponin I < 0.015, Total Protein 8.6 H, Albumin 3.6, Globulin 5.0 H, Albumin/Globulin Ratio 0.7 L 03/25/20 15:25: Lactic Acid 2.9 H* 03/25/20 15:25: B-Natriuretic Peptide 100.0 03/25/20 15:40: COVID-19 ([place]) Negative Assessment/Plan I agree with the above base upon my own history and physical exam see addendum below Severe Sepsis (hypoxia/tachycardia/lactic acidosis) Acute Respiratory Failure 2/2 suspected Aspiration (? chronic) pneumonitis Dysphagia with PEG COPD Severe Malnutrition (based on [facility]EN guidelines) H/O Esophageal Strictures CAD H/O SMAS Hiatal Hernia with GERD HPL -admit to ICU with sepsis criteria -highly suspect chronic aspiration as pt not using PEG at all -Gastrografin with PEG for placement and to see if works - if works would start TF -if not will need surgery to see for replacement -MBS with esophagram--> if esophagram is abnormal will need EGD -cover for CAP with aspiration coverage as well -pulm toilet -NPO -dietitian consultation -TRANSPLANTER [facility]CH[facility] consultation -may need placement at d/c -request records Inpatient E&M: [id number] Init Hosp L3
[2020-03-25] MEDS: MethylPREDNISolone 125 MG/2 ML Vial IV (18:11)
--- NOTE | 2020-03-25 18:45 | RAD_ITS ---
STUDY: X-RAY - ABDOMEN/PELVIS REASON FOR EXAM: Male, 79 years old. Gastrograffin PEG study. 30ml gastrograffin mixed with 30ml water injected into PEG tube. TECHNIQUE: Single AP view of the abdomen / pelvis. COMPARISON: April 10, 2019 FINDINGS: PEG tube projects over the stomach which is opacified partially with oral contrast. There is intravenous contrast in the right renal collecting system which appears dysmorphic and possibly hydronephrotic. This could also represent biliary contrast. No contrast is noted in the left renal collecting system. There is also contrast within the bladder which appears trabeculated. Normal visualized lung bases. There is an unremarkable bowel gas pattern. There is no demonstrated free abdominal air. The visualized liver, spleen and kidneys are grossly normal in size and morphology. Normal soft tissue structures. Normal visualized osseous structures. RAD/Abdomen Single View IMPRESSION: Feeding tube in the stomach. Residual intravenous contrast in the right upper quadrant and bladder makes it difficult to exclude extravasation from the stomach. Biliary contrast or Right hydronephrosis is not excluded. Follow-up abdominal ultrasound or CT abdomen/pelvis would be helpful. Electronically Signed: Raji Chapin MD at 19:38 EDT , Service support ,
[2020-03-25 19:40] LABS: Reflex Lactate? Y
[2020-03-25] MEDS: Ipratropium/Albuterol Sulfate 3 ML AMPUL.NEB INHALATION (20:30)
[2020-03-25 20:47] LABS: Lactic Acid 2.2 mmol/L (0.4-1.9)
[2020-03-26] VITALS (21 sets, daily range): BP systolic 89–137; BP diastolic 41–84; PULSE 62–83; RESP 12–23; TEMP 36.7–37.2; O2SAT 94–100; BMI 15.0
[2020-03-26 03:59] LABS: Bacteria 0 SEEN /hpf (None Seen); Mucous, Urine 0 SEEN /hpf (<or=2+); Red Blood Cells-Urine 0 SEEN /hpf (0-5); Squamous Epithelial Cells - UA 0 SEEN /hpf (0-5); White Blood Cells 0 SEEN /hpf (0-5)
[2020-03-26 04:04] LABS: Color, Urine Yellow (Yellow); Glucose, Dipstick Normal (Normal); Ketone-Dipstick 50 mg/dl (Negative); Leukocyte Esterase-Dipstick Negative /ul (Negative); Nitrite-Dipstick Negative (Negative); Occult Blood-Urine Negative /ul (Negative); Protein-Dipstick 15 mg/dl (Negative); Specific Gravity, Urine 1.015 (1.002-1.030); Urine Bilirubin Dipstick Negative (Negative); Urine Clarity Clear (Clear); Urine Urobilinogen Normal (Normal)
[2020-03-26 04:11] LABS: Absolute Lymphocyte Count 0.36 X10^3/uL (0.83-4.51); Absolute Neutrophil Count 13.4 X10^3/uL (2.0-7.7); Basophil# 0.02 X10^3/uL; Basophil% 0.1 % (0-1); Hemoglobin 11.6 g/dL (13.0-16.5); Lymphocyte # 0.36 X10^3/ul (4.0); Lymphocyte % 2.6 % (19-41); Mean Corp Hgb Conc 31.4 g/dL (32-36); Mean Corpuscular Hgb 29.3 pg (27.0-32.0); Mean Corpuscular Volume 93.4 fL (80-94); Mean Platelet Vol. 9.5 fl (6.2-12.0); Monocyte# 0.29 X10^3/uL; Monocyte% 2.1 % (0-10); NRBC Flagged by Analyzer 0 % (0-5); Neutrophil # 13.37 X10^3/uL (2.7-7.7); Neutrophil % 94.9 % (47-70); POSITIVE DIFFERENTIAL YES; Platelet Count 277 K/mm3 (150-450); RBC Distribution Width CV 12.5 % (11.6-14.6); RBC Distribution Width SD 43.5 fl (35.1-43.9); Red Blood Count 3.96 M/mm3 (4.6-6.2); White Blood Count 14.1 K/mm3 (4.4-11.0)
[2020-03-26 04:20] LABS: Differential Indicated SCAN CRITERIA MET
[2020-03-26 04:24] LABS: Anion Gap 6 (5-15); BUN 17 mg/dL (7-18); BUN/Creat Ratio 20.1 RATIO (10-20); Calcium,Total 8.3 mg/dL (8.5-10.1); Chloride 103 mmol/L (98-107); Creatinine, Serum 0.85 mg/dL (0.70-1.30); EST Glomerular Filtration Rate 93 mL/min (>60); Est Glom Filt Rate - Afr Amer 112 mL/min (>60); Estimated Creatinine Clearance 49.84 ml/min; Glucose 148 mg/dL (74-106); Potassium 4.2 mmol/L (3.5-5.1); Sodium Level 139 mmol/L (136-145); Thyroid Stim Hormone (TSH) 0.15 uIU/mL (0.358-3.74)
[2020-03-26 04:47] LABS: Amorphous Sediment R
[2020-03-26 05:00] LABS: Differential Comment SCANNED; Hypochromasia RARE
[2020-03-26 05:01] LABS: Microcytosis RARE
[2020-03-26] MEDS: Enoxaparin 40 MG/0.4 ML Syringe SC (05:20)
[2020-03-26] MEDS: 0.9% Saline Lock 10 ML Syringe IV (05:22)
--- NOTE | 2020-03-26 06:47 | CON.PCM_ITS ---
Reason for Consult Date of Consultation: 03/26/20 Reason for Consultation: Severe Sepsis History of Present Illness: The patient is a 79-year-old male, with a history as outlined below, who presented to the emergency department on March 25 with complaints of shortness of breath. The patient underwent repair of a large paraesophageal hernia with Vinh fundoplication performed on December 23, 2017. Since that time the patient has required sequential esophageal dilations and now suffers from retained food substances in his esophagus with recurrent aspiration and dysphasia. He was seen by Dr. Raji Kendrick at [facility] on March 30, 2019 for evaluation for consideration of reversal of his Vinh fundoplication. The patient was subsequently evaluated by Dr. Harvey here and underwent EGD with PEG tube placement in May 2019 He also has a known history of coronary artery disease requiring PCI to his LAD and diagonal in 2016. The patient has a longstanding history of noncompliance and routinely does not follow-up with specialist. He takes in his nutrition entirely by mouth. He does not utilize his PEG tube. He states that he frequently has episodes of shortness of breath along with baseline anxiety and frequent panic attacks. Despite all of this, the patient has refused to follow-up with a primary care physician. He is a lifelong non-smoker, but does report having childhood asthma. On presentation to the emergency department, the patient was noted to be afebrile but was tachycardic and tachypneic. He was initially documented to be saturating 77% on room air. Laboratory evaluation revealed a normal white blood cell count. Chemistry profile was unrevealing. Lactate was elevated to 2.9. Troponin was negative. BNP was negative. TSH was low at 0.15. Urine analysis was unremarkable. Coronavirus PCR was negative. CTA chest revealed no evidence for pulmonary emboli. There was some very subtle groundglass changes in the upper lungs. The patient was subsequently placed on antimicrobials and scheduled bronchodilators. He was admitted to the medical intensive care unit for further management. Past Medical History Past Medical History (Chronic Problems): Chronic Problems (Last Reviewed 03/25/20 @ 19:[address] Linnea Arce DO) CAD (coronary artery disease) (Chronic) Severe protein-calorie malnutrition (Chronic) COPD (chronic obstructive pulmonary disease) (Chronic) Esophageal stricture (Chronic) Hyperlipidemia (Chronic) Stented coronary artery (Chronic 01/27/17) PCI-RICO-LAD (3.0 X 12 Promus) and RICO-D1 (2.25 X 12 Promus) 01/27/2017 SMAS (superior mesenteric artery syndrome) (Chronic) Hiatal hernia with gastroesophageal reflux disease and esophagitis (Chronic) Atherosclerotic heart disease of [place] coronary artery without angina pectoris (Chronic) PCI-RICO-LAD (3.0 X 12 Promus) and RICO-D1 (2.25 X 12 Promus) 01/27/2017 High risk medication use (Chronic) Dysphagia (Chronic) Medical History: Medical History (Last Reviewed 03/25/20 @ 19:[address] Linnea Arce DO) Esophageal stricture (Chronic) K22.2 Tachycardia (Acute) R00.0 Hyperlipidemia (Chronic) E78.5 SMAS (superior mesenteric artery syndrome) (Chronic) K55.1 Hiatal hernia with gastroesophageal reflux disease and esophagitis (Chronic) K44.9, K21.0 Atherosclerotic heart disease of [place] coronary artery without angina pectoris (Chronic) I25.10 PCI-RICO-LAD (3.0 X 12 Promus) and RICO-D1 (2.25 X 12 Promus) 01/27/2017 High risk medication use (Chronic) Z79.899 Dysphagia (Chronic) R13.10 Asthma J45.909 Depression with anxiety F41.8 Fatigue R53.83 Weight loss R63.4 Allergies No Known Allergies Allergy (Verified 03/11/20 10:49) Home Medications: Ambulatory Orders Medication Instructions Recorded Aspirin 325 mg PO DAILY@0800 06/05/19 Surgical History: Surgical History (Last Reviewed 03/25/20 @ 19:[address] Linnea Arce DO) Stented coronary artery (Chronic) Onset Date: 01/27/17 Z95.5 PCI-RICO-LAD (3.0 X 12 Promus) and RICO-D1 (2.25 X 12 Promus) 01/27/2017 history Laparoscopy twisted stomach/bowel History of esophageal dilatation Onset Date: 12/20/18 Z98.890 History of esophagogastroduodenoscopy (EGD) Onset Date: 12/20/18 Z98.890 Surgical History: - - PCI. Psychiatric History: No pertinent psych hx Lives: Alone Smoking Status: Former smoker Tobacco Use: Non-smoker Alcohol: None Drugs: None - *Family History Maternal Family History: Family History (Last Reviewed 03/25/20 @ 18:12 by TOMMY Perez) Mother Cancer History Items: Cancer - Mother passed age 84 y/o secondary to pancreatic cancer., - Paternal Family History: Family History (Last Reviewed 03/25/20 @ 18:12 by TOMMY Perez) Mother Cancer History Items: - - early of bowel obstruction, Review of Systems Constitutional: Reports: Weakness, Weight Change, Fatigue. Denies: Chills, Fever Eyes: Denies: Blurred vision, Double vision HEENT: Reports: Difficulty Swallowing, Dysphasia, Post Nasal Drip Cardiovascular: Denies: Chest Pain, Palpitations Respiratory: Denies: Cough, Shortness of breath at rest, Sputum production Gastrointestinal: Reports: Vomiting. Denies: Abdominal Pain, Nausea Genitourinary: Denies: Dysuria Musculoskeletal: Denies: Joint Pain, Joint Tenderness Skin: Denies: Rash, Wounds Neurological: Denies: Numbness, Tingling, Focal weakness Psychiatric: Reports: Anxiety Hematologic/ Lymphatic: Denies: Easy Bruising, Easy Bleeding Patient Problems: Active and Suspected Problems (Last Reviewed 03/25/20 @ 19:[address] Linnea Arce, DO) Aspiration into airway (Acute) Severe sepsis (Acute) Objective: The patient's most recent lab work, culture data and imaging studies have all been personally reviewed. Strep and urine Legionella antigens were negative. Blood cultures are pending. - Physical Exam Vitals/I&O's: Vital Signs Temp Pulse Resp BP Pulse Ox 98.9 F 63 16 92/50 L 99 03/26/20 04:00 03/26/20 06:00 03/26/20 06:00 03/26/20 06:00 03/26/20 06:00 Oxygen Flow Rate (L/min) 2 Oxygen Delivery Method Nasal Cannula Weight: 110 lb 7.225 oz Body Mass Index (BMI) 14.9 Intake and Output for Last 24 Hours 03/24/20 03/25/20 03/26/20 23:59 23:59 23:59 Intake Total 1365 / 1365 50 / 50 Output Total 240 / 240 200 / 200 Balance 1125 / 1125 -150 / -150 General: Alert, Cooperative, No apparent distress HEENT: Atraumatic, Normocephalic Oral: Dry Mucosa Neck: Supple, No Nodes, Trachea Midline Lungs: No rhonchi, No wheeze, No rales Cardiovascular: Regular rate, Regular Rhythm Abdomen: Bowel Sounds Present, Soft, Non Tender, - - + G tube Extremities: No clubbing, No cyanosis, No edema Skin: No breakdown Musculoskeletal: Cachexia, Muscle Wasting Lymphatic: No Cervical, Supraclavicular, or Inguinal Adenopathy Neurological: Neuro grossly intact Psych/Mental Status: - - Argumentative at times. Flat affect. Labs (Last 48 Hours) 03/25/20 03/25/20 03/25/20 15:25 15:25 15:25 WBC 10.2 RBC 4.39 L Hgb 12.8 L Hct 41.2 MCV 93.8 MCH 29.2 MCHC 31.1 L RDW Std Deviation 43.6 RDW Coeff of [place] 12.6 Plt Count 325 MPV 9.4 Immature Gran % (Auto) 0.300 Neut % (Auto) 65.4 Lymph % (Auto) 20.7 Orange % (Auto) 9.6 Eos % (Auto) 3.6 Baso % (Auto) 0.4 Absolute Neuts (auto) 6.7 Absolute Lymphs (auto) 2.11 Nucleated RBC % 0 Differential Comment Hypochromasia Microcytosis Sodium 137 Potassium 4.0 Chloride 100 Carbon Dioxide 28.0 Anion Gap 9 BUN 15 Creatinine 0.86 Estim Creat Clear Calc 44.23 Est GFR (MDRD) Af Amer 110 Est GFR (MDRD) Non-Af 91 BUN/Creatinine Ratio 17.5 Glucose 143 H Lactic Acid 2.9 H* Calcium 9.1 Total Bilirubin 0.50 AST 25 ALT 17 Alkaline Phosphatase 84 Troponin I < 0.015 B-Natriuretic Peptide Total Protein 8.6 H Albumin 3.6 Globulin 5.0 H Albumin/Globulin Ratio 0.7 L Vit D 1,25-Dihydroxy TSH Urine Color Urine Clarity Urine pH Ur Specific Danese Urine Protein Urine Glucose (UA) Urine Ketones Urine Occult Blood Urine Nitrite Urine Bilirubin Urine Urobilinogen Ur Leukocyte Esterase Urine RBC Urine WBC Ur Squamous Epith Cells Amorphous Sediment Urine Bacteria Urine Mucus COVID-19 ([place]) 03/25/20 03/25/20 03/25/20 15:25 15:40 20:05 WBC RBC Hgb Hct MCV MCH MCHC RDW Std Deviation RDW Coeff of [place] Plt Count MPV Immature Gran % (Auto) Neut % (Auto) Lymph % (Auto) Orange % (Auto) Eos % (Auto) Baso % (Auto) Absolute Neuts (auto) Absolute Lymphs (auto) Nucleated RBC % Differential Comment Hypochromasia Microcytosis Sodium Potassium Chloride Carbon Dioxide Anion Gap BUN Creatinine Estim Creat Clear Calc Est GFR (MDRD) Af Amer Est GFR (MDRD) Non-Af BUN/Creatinine Ratio Glucose Lactic Acid 2.2 H* Calcium Total Bilirubin AST ALT Alkaline Phosphatase Troponin I B-Natriuretic Peptide 100.0 Total Protein Albumin Globulin Albumin/Globulin Ratio Vit D 1,25-Dihydroxy TSH Urine Color Urine Clarity Urine pH Ur Specific Danese Urine Protein Urine Glucose (UA) Urine Ketones Urine Occult Blood Urine Nitrite Urine Bilirubin Urine Urobilinogen Ur Leukocyte Esterase Urine RBC Urine WBC Ur Squamous Epith Cells Amorphous Sediment Urine Bacteria Urine Mucus COVID-19 ([place]) Negative 03/26/20 03/26/20 03/26/20 03:30 03:45 03:45 WBC RBC Hgb Hct MCV MCH MCHC RDW Std Deviation RDW Coeff of [place] Plt Count MPV Immature Gran % (Auto) Neut % (Auto) Lymph % (Auto) Orange % (Auto) Eos % (Auto) Baso % (Auto) Absolute Neuts (auto) Absolute Lymphs (auto) Nucleated RBC % Differential Comment Hypochromasia Microcytosis Sodium 139 Potassium 4.2 Chloride 103 Carbon Dioxide 30.0 Anion Gap 6 BUN 17 Creatinine 0.85 Estim Creat Clear Calc 49.84 Est GFR (MDRD) Af Amer 112 Est GFR (MDRD) Non-Af 93 BUN/Creatinine Ratio 20.1 H Glucose 148 H Lactic Acid Calcium 8.3 L Total Bilirubin AST ALT Alkaline Phosphatase Troponin I B-Natriuretic Peptide Total Protein Albumin Globulin Albumin/Globulin Ratio Vit D 1,25-Dihydroxy Pending TSH 0.15 L Urine Color Yellow Urine Clarity Clear Urine pH 6.0 Ur Specific [place] 1.015 Urine Protein 15 H Urine Glucose (UA) Normal Urine Ketones 50 H Urine Occult Blood Negative Urine Nitrite Negative Urine Bilirubin Negative Urine Urobilinogen Normal Ur Leukocyte Esterase Negative Urine RBC 0 SEEN Urine WBC 0 SEEN Ur Squamous Epith Cells 0 SEEN Amorphous Sediment R Urine Bacteria 0 SEEN Urine Mucus 0 SEEN COVID-19 ([place]) 03/26/20 03:45 WBC 14.1 H RBC 3.96 L Hgb 11.6 L Hct 37.0 L MCV 93.4 MCH 29.3 MCHC 31.4 L RDW Std Deviation 43.5 RDW Coeff of [place] 12.5 Plt Count 277 MPV 9.5 Immature Gran % (Auto) 0.300 Neut % (Auto) 94.9 H Lymph % (Auto) 2.6 L Orange % (Auto) 2.1 Eos % (Auto) 0.0 Baso % (Auto) 0.1 Absolute Neuts (auto) 13.4 H Absolute Lymphs (auto) 0.36 L Nucleated RBC % 0 Differential Comment SCANNED Hypochromasia RARE Microcytosis RARE Sodium Potassium Chloride Carbon Dioxide Anion Gap BUN Creatinine Estim Creat Clear Calc Est GFR (MDRD) Af Amer Est GFR (MDRD) Non-Af BUN/Creatinine Ratio Glucose Lactic Acid Calcium Total Bilirubin AST ALT Alkaline Phosphatase Troponin I B-Natriuretic Peptide Total Protein Albumin Globulin Albumin/Globulin Ratio Vit D 1,25-Dihydroxy TSH Urine Color Urine Clarity Urine pH Ur Specific [place] Urine Protein Urine Glucose (UA) Urine Ketones Urine Occult Blood Urine Nitrite Urine Bilirubin Urine Urobilinogen Ur Leukocyte Esterase Urine RBC Urine WBC Ur Squamous Epith Cells Amorphous Sediment Urine Bacteria Urine Mucus COVID-19 ([place]) Microbiology 03/26/20 03:30 Urine, Clean Catch Legionella Antigen - Final 03/26/20 03:30 Urine, Clean Catch Streptococcus pneumoniae Antigen (M - Final Clinical Impression(s) from Imaging Studies Chest X-Ray 03/25/20 15:36 IMPRESSION: COPD Electronically Signed: Raji Chapin MD at 16:36 EDT , Service support , Chest CTA 03/25/20 16:16 IMPRESSION: COPD. Possible mild edema or pneumonitis or interstitial lung disease. Coronary artery disease. Compression fracture T12, age indeterminate. Electronically Signed: Raji Chapin MD at 17:34 EDT , Service support , KUB X-Ray 03/25/20 18:45 IMPRESSION: Feeding tube in the stomach. Residual intravenous contrast in the right upper quadrant and bladder makes it difficult to exclude extravasation from the stomach. Biliary contrast or Right hydronephrosis is not excluded. Follow-up abdominal ultrasound or CT abdomen/pelvis would be helpful. Electronically Signed: Raji Chapin MD at 19:38 EDT , Service support , Current Medications Acetaminophen (Tylenol) 650 mg PO Q6H PRN PRN PRN Reason: Pain 1-10 or Fever Albuterol/Ipratropium (Duoneb) 3 ml INHALATION Q4HWA.RT [facility] Last Admin: 03/25/20 20:30 Dose: 3 ml Documented by: Enoxaparin Sodium (Lovenox) 40 mg SC DAILY@0600 [facility] Last Admin: 03/26/20 05:20 Dose: 40 mg Documented by: Guaifenesin (Mucinex) 1,200 mg PO BID [facility] Last Admin: 03/25/20 21:13 Dose: Not Given Documented by: Azithromycin 500 mg/ Dextrose 255 mls @ 250 mls/hr IV Q24 [facility] Piperacillin Sod/Tazobactam (Sod 3.375 gm/ Sodium Chloride) 50 mls @ 12.5 mls/hr IV Q8 [facility] Last Admin: 03/26/20 05:20 Dose: 12.5 mls/hr Documented by: Sodium Chloride () 250 mls @ 15 mls/hr IV .[id number] PRN PRN Reason: Saline Flush Sodium Chloride () 250 mls @ 15 mls/hr IV .[id number] PRN PRN Reason: Additional IVPB Infusion Ondansetron HCl (Zofran) 4 mg IV Q6H PRN PRN PRN Reason: NAUSEA Sodium Chloride () 10 - 40 ml IV UD PRN PRN Reason: SALINE FLUSH Last Admin: 03/26/20 05:22 Dose: 20 ml Documented by: Assessment/Plan Active and Suspected Problems (Last Reviewed 03/25/20 @ 19:[address] Linnea Arce DO) Aspiration into airway (Acute) Severe sepsis (Acute) RECOMMENDATIONS: 1. Wean supplemental oxygen to maintain saturations at or above 90%. 2. Encourage incentive spirometer use and mobilize patient as tolerated. 3. Okay to discontinue antibiotics from my perspective. 4. Maintain aspiration precautions and n.p.o. status. 5. Swallow function study currently pending. 6. Obtain nutrition and physical therapy evaluations. 7. Recommend that the patient establish with a primary care doctor upon discharge from the hospital to address his underlying anxiety/panic attacks. 8. Given low TSH level, check free T4. 9. Given the patient's lack of ICU needs, will sign off. Please call with any additional questions. IMPRESSIONS: 1. Acute hypoxemic respiratory failure The patient initially presented with symptoms including shortness of breath and hypoxemia noted in the emergency department. The patient reported to me that he is a lifelong non-smoker without significant secondhand exposure. Therefore, I do doubt that he has underlying COPD. However, he does report that he experienced asthma-like symptoms as a child. Despite all of this, the patient has never been seen by a wet process technician in the past. He has a history of recurrent aspiration and continues to take in food by mouth, despite having a PEG tube which was previously placed. The patient's overall CT chest did not reveal evidence for pulmonary embolism, nor did it show any findings concerning for an underlying pulmonary infectious process. Therefore, antibiotics can be discontinued from my perspective. As needed bronchodilators can be offered to the patient. The patient supplemental oxygen has been weaned down to 2 L/min via nasal cannula. Recommend encouraging incentive spirometer use and mobilizing patient as tolerated. Patient is to remain n.p.o. pending further swallow/GI work-up. In addition to the aforementioned, the patient has significant anxiety and self-reported panic attacks, which are likely contributing to his perceived dyspnea. However, the patient has refused to establish with a primary care physician to have these issues further addressed. 2. History of recurrent aspiration/dysphagia/esophageal strictures/significant malnutrition Recommended the patient be maintained n.p.o. with nutrition via PEG tube. Nutrition services to evaluate the patient. Swallow function studies are currently pending. 3. Generalized deconditioning/history of coronary artery disease/CODE STATUS Complicates care, management, recovery and prognosis. CODE status: Discussed CODE status at length including difference between FULL code, DNR-CCA and DNR-CC status. Following discussions about the differences in these status, patient requested full CODE STATUS. Advanced Care Planning Face to Face Time: 12 minutes This note was generated with Shippteration software. It may contain incorrect words, spelling, and punctuation that were not noted in checking the note before signing. Inpatient E&M: 70686 Init Hosp L3 Procedures: 95258 Advncd Care Plan 30 Min
--- NOTE | 2020-03-26 06:53 | ECHOD_ITS ---
Reason For Study: DYSPNEA/SOB Procedure This was a 2D Doppler, Color Flow transthoracic echocardiogram. The study was technically difficult. Due to body habitus and COPD. Exam performed portable in patient room. Left Ventricle Normal size and thickness. The estimated ejection fraction is 75 %. No regional wall motion abnormalities noted. Right Ventricle Normal size and thickness. Normal systolic function. Atria Normal left atrium. Normal right atrium. Normal atrial septum. Mitral Valve Mild diffuse mitral valve thickening. Tricuspid Valve Normal tricuspid valve. Mild (1+) tricuspid valve insufficiency. Right ventricular systolic pressure estimated to be 37 mmHg. Mild pulmonary hypertension. Aortic Valve Trisinus/trileaflet aortic valve. Moderate diffuse aortic valve thickening. Mild restriction of the aortic valve. Pulmonic Valve Normal pulmonic valve. Great Vessels Normal aortic root. Normal arch. The inferior vena cava is dilated. No collapse of the inferior vena cava. Pericardium/Pleural No pericardial effusion. MMode/2D Measurements & Calculations LVIDd: 4.5 cm IVSd: 0.96 cm Ao root diam: 3.7 cm LVIDs: 2.9 cm LVPWd: 0.97 cm RVDd: 3.4 cm FS: 35.4 % LAV(MOD-bp): 44.3 ml LA A4 area: 18.2 cm2 LA dimension(2D): 3.5 cm LAV(MOD-bp) Indexed: 26.8 ml/m2 LAV(MOD-sp2): 28.7 ml LAV(MOD-sp4): 51.3 ml Doppler Measurements & Calculations MV E max rick: 46.5 cm/sec Lat Peak E' Rick: 7.6 cm/sec Med Peak E' Rick: 7.4 cm/sec MV A max rick: 69.7 cm/sec E/E' lat: 6.1 E/E' med: 6.3 MV E/A: 0.67 PA V2 max: 74.9 cm/sec TR max rick: 282.3 cm/sec TR max P.9 mmHg Interpretation Summary The estimated ejection fraction is 75 %. Mild (1+) tricuspid valve insufficiency. Right ventricular systolic pressure estimated to be 37 mmHg. Mild pulmonary hypertension; may be underestimated. The inferior vena cava is dilated Compared to echo report dated 01/27/2017, no appreciable changes noted. Ordering Physician: Regan Barker Referring Physician: John Fallon Performed By: Tere Camacho, NELIDA, RVT
[2020-03-26] MEDS: Ipratropium/Albuterol Sulfate 3 ML AMPUL.NEB INHALATION ×3 (07:20→15:03)
[2020-03-26 10:08] LABS: T4 Free Direct 1.02 ng/dL (0.76-1.46)
--- NOTE | 2020-03-26 11:09 | PCM.NTREPORT ---
Nutrition Therapy Report - History Nutrition Services has been consulted to:: Manage nutrient details of diet order, Manage enteral nutrition, Conduct nutrition education Current diet / nutrition support order:: NPO - Anthropometric Measurements Height:: 6 ft Weight:: 50.1 kg Body Mass Index (BMI):: 15.0 - Relevant Labs Relevant Labs:: WBC 14.1 K/mm3 (4.4-11.0) H 03/26/20 03:45 RBC 3.96 M/mm3 (4.6-6.2) L 03/26/20 03:45 Hgb 11.6 g/dL (13.0-16.5) L 03/26/20 03:45 Hct 37.0 % (40-54) L 03/26/20 03:45 MCHC 31.4 g/dL (32-36) L 03/26/20 03:45 Neut % (Auto) 94.9 % (47-70) H 03/26/20 03:45 Lymph % (Auto) 2.6 % (19-41) L 03/26/20 03:45 Absolute Neuts (auto) 13.4 X10^3/uL (2.0-7.7) H 03/26/20 03:45 Absolute Lymphs (auto) 0.36 X10^3/uL (0.83-4.51) L 03/26/20 03:45 BUN/Creatinine Ratio 20.1 RATIO (10-20) H 03/26/20 03:45 Glucose 148 mg/dL (74-106) H 03/26/20 03:45 Lactic Acid 2.2 mmol/L (0.4-1.9) H* 03/25/20 20:05 Calcium 8.3 mg/dL (8.5-10.1) L 03/26/20 03:45 Total Protein 8.6 g/dL (6.4-8.2) H 03/25/20 15:25 Globulin 5.0 g/dL (2.2-4.2) H 03/25/20 15:25 Albumin/Globulin Ratio 0.7 RATIO (0.9-2.4) L 03/25/20 15:25 TSH 0.15 uIU/mL (0.358-3.74) L 03/26/20 03:45 - Assessment Food / Nutrition-Related History:: Pt familiar to this RDN from PEG tube placement in 2018. After PEG placement, pt returned home but did not want home health services to assist w/ care. Pt states he was hungry and was able to eat by mouth despite chronic inadequate oral intake d/t emesis after eating, likely r/t esophageal stricture. Pt complains of shortness of breath over past 2-3 days; states food is heavy in his chest and just sits there after eating. Pt believes nutritional intake is adequate though, because he is having regular bowel movements. Pt reports that he frequently vomits after eating. Pt states he does not sleep well d/t heaviness in his chest and anxiety r/t shortness of breath. In May, pt was discharged w/ orders for Jevity 1.5. Pt states he has not used PEG recently. Expresses frustration w/ feeding self every 6 hours and feedings via PEG taking too long w/ gravity bags. It is unclear when the last time pt used PEG tube at home was. Pt states his diet mostly consisted of cream of wheat, mashed potatoes, and 1-2 Naked Smoothie drinks per day (~340 calories each per pt). Pt says he does not like Boost or Ensure products. Per EMR, pt weighed 117.9# on 06/07/19, CBW 110.5#- 7.4#/6.2% wt loss x 10 months, not a significant change. However, it is not entirely clear if wt loss occured gradually over last 10 months or sooner. Full NPFA not completed, as pt was less than cooperative w/ interview and current plan of care. But obvious severe muscle wasting/fat loss is evident in upper extremities, clavicle bones, temporalis muscle, and orbital region. Pt admits to weakness and lack of strength. - Nutrition Diagnosis Problem / Etiology / Signs & Symptoms (PES):: Severe, chronic malnutrition related to esophageal dysfunction as evidenced by severe muscle wasting/fat loss is evident in upper extremities, clavicle bones, temporalis muscle, and orbital region; reported PO intake estimated to meet <75% of estimated calorie needs for greater than 3 months; no reported use of PEG tube for enteral nutrition support for greater than 3 months Evidence of Malnutrition Exists:: Yes Severe PCM:: Acute Illness - Nutrition Intervention Nutrition Prescription:: [id number] calories, 70-80 g protein. However, pt has significant risk factors for refeeding syndrome (BMI <16, severe loss of muscle/fat, malnutrition, esophageal dysmotility). As feeding initiated, will provide 15 calories/kg/day (~750 calories) to prevent refeeding. - Food / Nutrient Delivery Interventions Summary of nutrition intervention:: Lengthy discussion w/ pt and RN Balta regarding plan of care. PEG appears to be functional; will start nutrition support as tolerated. Pt expressing desire to eat this AM; explained NPO status. Explained multiple times relationship to emesis and lung problems. Pt expresses frustration w/ care at other hospitals; appears adamant that care at [facility] will not solve my problems. Discussed plans for swallow study/[employer] evaluation today. Pt less than agreeable to plan of care. Discussed w/ pt starting enteral support, also less than agreeable. Nutrition support ordered as / adjusted to:: Recommend the initiation of enteral nutrition support via PEG tube- Jevity 1.5 at 20mL/hour w/ 100mL flush every 4 hours to provide 720 calories, 30.6 g protein, and 964mL total fluid per day. RDN will monitor for electrolyte abnormalities and other clinical symptoms of refeeding syndrome and adjust tube feeds as indicated. Will monitor results of speech therapy assessment and provide oral nutrition supplements if appropriate and if pt accepting of supplements. Nutrition education provided?: Yes - MNT Monitoring Further MNT monitoring and evaluation required?: Yes MNT Follow-up in:: 1-2 days
--- NOTE | 2020-03-26 13:04 | PN_ITS ---
<Adan Sheppard - Last Filed: 03/26/20 13:04> Patient Problems: Active and Suspected Problems (Last Reviewed 03/25/20 @ 19:[address] Linnea Arce DO) Aspiration into airway (Acute) Severe sepsis (Acute) Reason for Visit: SOB Subjective: SOB has resolved. No fever/chills. Minimal cough. No CP. Pt has remained NPO overnight. PEG was successfully accessed. The patient has no interest in only utilizing the PEG and completely discontinuing O2 use. The patient met with myself, speech therapy, nutrition, nursing, and social work to discuss what his goals of care were. After thorough discussion he is interested in continuing pleasure feeds with the understanding that he will continue to aspirate and potentially will , and and is interested in pursuing hospice care. Vitals/I&O's: Vital Signs Temp Pulse Resp BP Pulse Ox 98.0 F 69 16 104/51 L 96 03/26/20 12:00 03/26/20 12:00 03/26/20 12:00 03/26/20 12:00 03/26/20 12:00 Oxygen Flow Rate (L/min) 1 Oxygen Delivery Method Room Air Weight: 110 lb 7.225 oz Body Mass Index (BMI) 15.0 Intake and Output for Last 24 Hours 03/24/20 03/25/20 03/26/20 23:59 23:59 23:59 Intake Total 1365 / 1365 415 / 415 Output Total 240 / 240 200 / 200 Balance 1125 / 1125 215 / 215 General: Alert, Oriented x3, Cooperative HEENT: Atraumatic, PERRLA, EOMI, Normocephalic Neck: Supple, No JVD, Negative Carotid Bruits Lungs: Clear to auscultation, Diminished Cardiovascular: Regular rate, No murmurs Abdomen: Bowel Sounds Present, Soft, Non Tender Extremities: No edema, Capillary Refill Less than 3 Seconds Skin: No rashes, No breakdown Musculoskeletal: No Tenderness to Palpation of Joints or Extremities Neurological: Cranial nerves II-XII grossly intact Psych/Mental Status: Agitated, Anxious, Alert and oriented to time, place, person, mood and affect Microbiology Past 72 Hours 03/26/20 03:30 Urine, Clean Catch Legionella Antigen - Final 03/26/20 03:30 Urine, Clean Catch Streptococcus pneumoniae Antigen (M - Final Laboratory Results 03/25/20 15:25: WBC 10.2, RBC 4.39 L, Hgb 12.8 L, Hct 41.2, MCV 93.8, MCH 29.2, MCHC 31.1 L, RDW Std Deviation 43.6, RDW Coeff of [place] 12.6, Plt Count 325, MPV 9.4, Immature Gran % (Auto) 0.300, Neut % (Auto) 65.4, Lymph % (Auto) 20.7, [place] % (Auto) 9.6, Eos % (Auto) 3.6, Baso % (Auto) 0.4, Absolute Neuts (auto) 6.7, Absolute Lymphs (auto) 2.11, Nucleated RBC % 0 03/25/20 15:25: Sodium 137, Potassium 4.0, Chloride 100, Carbon Dioxide 28.0, Anion Gap 9, BUN 15, Creatinine 0.86, Estim Creat Clear Calc 44.23, Est GFR (MDRD) Af Amer 110, Est GFR (MDRD) Non-Af 91, BUN/Creatinine Ratio 17.5, Glucose 143 H, Calcium 9.1, Total Bilirubin 0.50, AST 25, ALT 17, Alkaline Phosphatase 84, Troponin I < 0.015, Total Protein 8.6 H, Albumin 3.6, Globulin 5.0 H, Albumin/Globulin Ratio 0.7 L 03/25/20 15:25: Lactic Acid 2.9 H* 03/25/20 15:25: B-Natriuretic Peptide 100.0 03/25/20 15:40: COVID-19 ([place]) Negative 03/25/20 20:05: Lactic Acid 2.2 H* 03/26/20 03:30: Urine Color Yellow, Urine Clarity Clear, Urine pH 6.0, Ur Specific [place] 1.015, Urine Protein 15 H, Urine Glucose (UA) Normal, Urine Ketones 50 H, Urine Occult Blood Negative, Urine Nitrite Negative, Urine Bilirubin Negative, Urine Urobilinogen Normal, Ur Leukocyte Esterase Negative, Urine RBC 0 SEEN, Urine WBC 0 SEEN, Ur Squamous Epith Cells 0 SEEN, Amorphous Sediment R, Urine Bacteria 0 SEEN, Urine Mucus 0 SEEN 03/26/20 03:45: Sodium 139, Potassium 4.2, Chloride 103, Carbon Dioxide 30.0, Anion Gap 6, BUN 17, Creatinine 0.85, Estim Creat Clear Calc 49.84, Est GFR (MDRD) Af Amer 112, Est GFR (MDRD) Non-Af 93, BUN/Creatinine Ratio 20.1 H, Glucose 148 H, Calcium 8.3 L, TSH 0.15 L 03/26/20 03:45: Vit D 1,25-Dihydroxy Pending 03/26/20 03:45: WBC 14.1 H, RBC 3.96 L, Hgb 11.6 L, Hct 37.0 L, MCV 93.4, MCH 29.3, MCHC 31.4 L, RDW Std Deviation 43.5, RDW Coeff of [place] 12.5, Plt Count 277, MPV 9.5, Immature Gran % (Auto) 0.300, Neut % (Auto) 94.9 H, Lymph % (Auto) 2.6 L, [place] % (Auto) 2.1, Eos % (Auto) 0.0, Baso % (Auto) 0.1, Absolute Neuts (auto) 13.4 H, Absolute Lymphs (auto) 0.36 L, Nucleated RBC % 0, Differential Comment SCANNED, Hypochromasia RARE, Microcytosis RARE 03/26/20 03:45: Free T4 1.02 Current Medications Acetaminophen (Tylenol) 650 mg PO Q6H PRN PRN PRN Reason: Pain 1-10 or Fever Albuterol/Ipratropium (Duoneb) 3 ml INHALATION Q4HWA.RT [facility] Last Admin: 03/26/20 10:51 Dose: 3 ml Documented by: Enoxaparin Sodium (Lovenox) 40 mg SC DAILY@0600 [facility] Last Admin: 03/26/20 05:20 Dose: 40 mg Documented by: Guaifenesin (Mucinex) 1,200 mg PO BID [facility] Last Admin: 03/26/20 07:39 Dose: Not Given Documented by: Azithromycin 500 mg/ Dextrose 255 mls @ 250 mls/hr IV Q24 [facility] Last Infusion: 03/26/20 10:32 Dose: Infused Documented by: Piperacillin Sod/Tazobactam (Sod 3.375 gm/ Sodium Chloride) 50 mls @ 12.5 mls/hr IV Q8 [facility] Last Infusion: 03/26/20 09:39 Dose: Infused Documented by: Sodium Chloride () 250 mls @ 15 mls/hr IV .[id number] PRN PRN Reason: Saline Flush Sodium Chloride () 250 mls @ 15 mls/hr IV .[id number] PRN PRN Reason: Additional IVPB Infusion Enteral Nutritional Formula (Jevity 1.5) 1,000 mls @ 20 mls/hr GT .Q48H ENE Ondansetron HCl (Zofran) 4 mg IV Q6H PRN PRN PRN Reason: NAUSEA Sodium Chloride () 10 - 40 ml IV UD PRN PRN Reason: SALINE FLUSH Last Admin: 03/26/20 05:22 Dose: 20 ml Documented by: STROKE Vital Signs/Narrative: Vital Signs Temp Pulse Resp BP BP Pulse Ox 03/26/20 12:00 98.0 F 69 16 104/51 L 96 03/26/20 10:51 66 16 03/26/20 10:00 82 20 H 106/53 L 97 Medical Necessity - Tobacco Use Smoking Status: Former smoker Tobacco Use: Non-smoker Assessment/Plan All Active Problems (Last Reviewed 03/25/20 @ 19:[address] Linnea Arce, DO) Aspiration into airway (Acute) Severe sepsis (Acute) Tachycardia (Acute) 1. Acute hypoxic respiratory failure with acute severe sepsis 2/2 recurrent aspiration events, due to esophageal strictures and noncompliance with PEG tube therapy. NPO. Zosyn. Aerosols. Inc WBCs likely 2/2 steroids. Afebrile. Pulm following. 2. Suspected COPD - no formal dx. continue bronchodilators. No acute exacerbation warranting steroids. 3. Dysphagia 2/2 esophageal strictures - frequent aspirations. pt is noncompliant with PEG feedings at home. Continue Speech therapy/Nutrition conult 4. Severe protein calorie malnutrition 2/2 #3. nutrition consult 5. Debility with falls - PTOT evals 6. hx CAD - stent. pt of Dr. Feldman. continue home aspirin, no other home meds listed. DC planning significant time spent as per subjective, pt not interested in NPO/PEG feedings, interested in pleasure feeds and hospice care. Hospice r eferral made. DVT ppx: lovenox This patient was seen by Adan Sheppard PA-C under the supervision of Dr. Acevedo <Owen Acevedo - Last Filed: 03/26/20 15:57> Reason for Visit: Patient has chronic dysphagia for about 5 years and had esophageal dilatation 3 times in different hospitals, [facility] and [facility]. Was admitted with shortness of breath and found lactic acidosis suggestive of severe sepsis in ICU. Vitals/I&O's: Vital Signs Temp Pulse Resp BP Pulse Ox 98.3 F 65 12 99/47 L 94 03/26/20 15:31 03/26/20 15:31 03/26/20 15:31 03/26/20 15:31 03/26/20 15:31 Oxygen Flow Rate (L/min) 1 Oxygen Delivery Method Room Air Weight: 110 lb 7.225 oz Body Mass Index (BMI) 15.0 Intake and Output for Last 24 Hours 03/24/20 03/25/20 03/26/20 23:59 23:59 23:59 Intake Total 1365 / 1365 415 / 415 Output Total 240 / 240 200 / 200 Balance 1125 / 1125 215 / 215 General: Alert, Oriented x3, Cooperative, - - Patient looks cachectic, malnourished HEENT: Atraumatic, PERRLA, EOMI, Normocephalic Neck: Supple, No JVD, Negative Carotid Bruits Lungs: Clear to auscultation, Diminished - Air entry diminished severely in all lung hinds., Rhonchi Cardiovascular: Regular rate, Regular Rhythm, Normal S1, Normal S2, No murmurs Abdomen: Bowel Sounds Present, Soft, Non Tender, Non-Distended Extremities: No edema, Capillary Refill Less than 3 Seconds Skin: No rashes, No breakdown Musculoskeletal: No Tenderness to Palpation of Joints or Extremities, Arthritic Changes, Muscle Wasting Neurological: Cranial nerves II-XII grossly intact, Deep Tendon Reflexes 2+/4 and Symmetrical, Neuro grossly intact Psych/Mental Status: Normal Affect, Appropriate Microbiology Past 72 Hours 03/26/20 03:30 Urine, Clean Catch Legionella Antigen - Final 03/26/20 03:30 Urine, Clean Catch Streptococcus pneumoniae Antigen (M - Final Laboratory Results 03/25/20 15:25: Sodium 137, Potassium 4.0, Chloride 100, Carbon Dioxide 28.0, Anion Gap 9, BUN 15, Creatinine 0.86, Estim Creat Clear Calc 44.23, Est GFR (MDRD) Af Amer 110, Est GFR (MDRD) Non-Af 91, BUN/Creatinine Ratio 17.5, Glucose 143 H, Calcium 9.1, Total Bilirubin 0.50, AST 25, ALT 17, Alkaline Phosphatase 84, Troponin I < 0.015, Total Protein 8.6 H, Albumin 3.6, Globulin 5.0 H, Albumin/Globulin Ratio 0.7 L 03/25/20 15:25: Lactic Acid 2.9 H* 03/25/20 15:25: B-Natriuretic Peptide 100.0 03/25/20 15:40: COVID-19 ([place]) Negative 03/25/20 20:05: Lactic Acid 2.2 H* 03/26/20 03:30: Urine Color Yellow, Urine Clarity Clear, Urine pH 6.0, Ur Specific [place] 1.015, Urine Protein 15 H, Urine Glucose (UA) Normal, Urine Ketones 50 H, Urine Occult Blood Negative, Urine Nitrite Negative, Urine Bilirubin Negative, Urine Urobilinogen Normal, Ur Leukocyte Esterase Negative, Urine RBC 0 SEEN, Urine WBC 0 SEEN, Ur Squamous Epith Cells 0 SEEN, Amorphous Sediment R, Urine Bacteria 0 SEEN, Urine Mucus 0 SEEN 03/26/20 03:45: Sodium 139, Potassium 4.2, Chloride 103, Carbon Dioxide 30.0, Anion Gap 6, BUN 17, Creatinine 0.85, Estim Creat Clear Calc 49.84, Est GFR (MDRD) Af Amer 112, Est GFR (MDRD) Non-Af 93, BUN/Creatinine Ratio 20.1 H, Glucose 148 H, Calcium 8.3 L, TSH 0.15 L 03/26/20 03:45: Vit D 1,25-Dihydroxy Pending 03/26/20 03:45: WBC 14.1 H, RBC 3.96 L, Hgb 11.6 L, Hct 37.0 L, MCV 93.4, MCH 29.3, MCHC 31.4 L, RDW Std Deviation 43.5, RDW Coeff of [place] 12.5, Plt Count 277, MPV 9.5, Immature Gran % (Auto) 0.300, Neut % (Auto) 94.9 H, Lymph % (Auto) 2.6 L, [place] % (Auto) 2.1, Eos % (Auto) 0.0, Baso % (Auto) 0.1, Absolute Neuts (auto) 13.4 H, Absolute Lymphs (auto) 0.36 L, Nucleated RBC % 0, Differential Comment SCANNED, Hypochromasia RARE, Microcytosis RARE 03/26/20 03:45: Free T4 1.02 Current Medications Acetaminophen (Tylenol) 650 mg PO Q6H PRN PRN PRN Reason: Pain 1-10 or Fever Albuterol/Ipratropium (Duoneb) 3 ml INHALATION Q4HWA.RT [facility] Last Admin: 03/26/20 15:03 Dose: 3 ml Documented by: Enoxaparin Sodium (Lovenox) 40 mg SC DAILY@0600 [facility] Last Admin: 03/26/20 05:20 Dose: 40 mg Documented by: Guaifenesin (Mucinex) 1,200 mg PO BID [facility] Last Admin: 03/26/20 07:39 Dose: Not Given Documented by: Azithromycin 500 mg/ Dextrose 255 mls @ 250 mls/hr IV Q24 [facility] Last Infusion: 03/26/20 10:32 Dose: Infused Documented by: Piperacillin Sod/Tazobactam (Sod 3.375 gm/ Sodium Chloride) 50 mls @ 12.5 mls/hr IV Q8 [facility] Last Admin: 03/26/20 14:43 Dose: 12.5 mls/hr Documented by: Sodium Chloride () 250 mls @ 15 mls/hr IV .[id number] PRN PRN Reason: Saline Flush Sodium Chloride () 250 mls @ 15 mls/hr IV .[id number] PRN PRN Reason: Additional IVPB Infusion Enteral Nutritional Formula (Jevity 1.5) 1,000 mls @ 20 mls/hr GT .Q48H [facility] Last Admin: 03/26/20 15:18 Dose: Not Given Documented by: Ondansetron HCl (Zofran) 4 mg IV Q6H PRN PRN PRN Reason: NAUSEA Promethazine HCl (Phenergan) 6.25 mg IV Q6H PRN PRN PRN Reason: NAUSEA/VOMITING Sodium Chloride () 10 - 40 ml IV UD PRN PRN Reason: SALINE FLUSH Last Admin: 03/26/20 05:22 Dose: 20 ml Documented by: STROKE Vital Signs/Narrative: Vital Signs Temp Pulse Resp BP Pulse Ox 03/26/20 15:31 98.3 F 65 12 99/47 L 94 03/26/20 15:04 69 16 03/26/20 15:00 64 07/01/20 12:00 98.0 F 69 16 104/51 L 96 Assessment/Plan This patient was seen in conjunction with Adan SANDERS. I have independently interviewed and examined the patient and reviewed pertinent history, examination findings, laboratory and plan of management. I have reviewed the note and agree with the documented findings with the few additional points. In brief, patient is admitted for acute hypoxic respiratory failure with severe sepsis secondary to possible recurrent aspiration with history of esophageal stricture required multiple esophageal dilatations in the past. Patient has PEG tube. Patient does not follow primary care and goes to ER directly from one hospital to another. Chest x-ray and CT angiogram was done in ER. Lungs are hyperinflated suggestive of COPD. There is ill-defined patchy increase in groundglass opacity in upper lung hinds suggestive of possible mild edema or pneumonitis or interstitial lung disease. Patient has history of smoking but has quit exact time of quitting unclear as patient history is patchy and superficial. Incentive spirometry. Speech therapist evaluation Dysphagia secondary to esophageal stricture with frequent aspiration: With shortness of breath, hypoxia and leukocytosis, patient is on IV Zosyn. Severe protein calorie malnutrition mainly secondary dysphagia. As mentioned above. Senior Clerk consult. Patient has PEG tube but seems noncompliant with tube feed. Patient still needs soft food by mouth. TSH low at 0.15. Free T4 normal. Coronary artery status post stents: Patient follows Dr. Feldman on aspirin. Debility with recurrent fall. I have discussed my assessment with Adan SANDERS and orders have been reviewed. Total time of the visit including total time spent in counseling or coordination of care, (more than 50% of the total time, spent in obtaining medical information from nurses and other ancillary care providers), discussion with application development consultant, review of labs and imaging is 30 minutes Inpatient E&M: [id number] [facility] L3
--- NOTE | 2020-03-26 13:39 | CASEMGMT ---
SW along Speech Therapy, PA, Accountant Helper all spoke with patient about his plan of care. Hospice was explained to patient as an option since he wants to eat by mouth despite being NPO. He agreed to talk with Hospice. SW called Hospice with referral and also faxed information. Jaimee at Hospice said it is highly unlikely they would get to this referral today. Tara TYLER [employer] NUTRITIONIST
--- NOTE | 2020-03-26 15:53 | CASEMGMT ---
AGATA received a message from Natalie at Hospice. She did pre-admit papers for Hospice with patient over the phone. Hospice just asks that [facility] let them know when patient is being discharged, fax d/c summary, and RN call report to texture artist. AGATA notified admission discharge rn of this information via phone. Plan: Home with [facility]. Tara TYLER MSW
[2020-03-27 03:00] VITALS: PULSE 62
[2020-03-27 03:10] VITALS: BP 96/57; PULSE 72; RESP 16; TEMP 36.9; O2SAT 95
[2020-03-27 06:55] LABS: Magnesium 2.2 mg/dL (1.6-2.6); Phosphorus 2.4 mg/dL (2.5-4.9)
[2020-03-27 07:33] VITALS: PULSE 58
[2020-03-27 09:10] VITALS: BP 105/55; PULSE 76; RESP 18; TEMP 36.7; O2SAT 96
--- NOTE | 2020-03-27 11:15 | DCINST_ITS ---
- Discharge Diagnoses Current Active Problems: Current Active and Chronic Problems (Last Reviewed 03/25/20 @ 19:[address] Linnea Arce DO) Aspiration into airway (Acute) Severe sepsis (Acute) CAD (coronary artery disease) (Chronic) Severe protein-calorie malnutrition (Chronic) COPD (chronic obstructive pulmonary disease) (Chronic) You will use the following diet at home:: No restrictions Discharge Activity: Return to Normal Activity Allergies/Adverse Reactions: Allergies No Known Allergies Allergy (Verified 03/11/20 10:49) Medications to take at Discharge Aspirin 325 mg PO DAILY@0800 06/05/19 Amoxicillin/Potassium Clav [Augmentin 250 Suspension] 10 ml GT Q12H 5 Days #100 ml 03/27/20 The following prescriptions were given: Amoxicillin/Potassium Clav [Augmentin 250 Suspension] 10 ml GT Q12H 5 Days #100 ml Transmission Status: Pending to [id number] Primary Care Physician: John Fallon DO [Primary Care Provider] - Test Results: Test results from this visit will be discussed in further detail at your follow- up appointment, if applicable. Please Follow Up With: Ras Feliciano DO When: Home with Hospice at [place] Proposed Discharge Date: 03/27/20
--- NOTE | 2020-03-27 11:19 | PCM.DC.SUM ---
<Veronica Singh - Last Filed: 03/27/20 11:33> Discharge Date and Diagnosis Date of Admission: 03/25/20 Date of Discharge: 03/27/20 - Primary Discharge Diagnosis Acute Problems: Active Problems (Last Reviewed 03/25/20 @ 19:[address] Linnea Arce, ) 1. Acute hypoxic respiratory failure secondary to recurrent aspiration as a result of esophageal strictures, noncompliance with n.p.o./PEG tube 2. Severe sepsis secondary to recurrent aspiration/#1 3. Suspected COPD 4. Chronic dysphagia secondary to esophageal strictures, PEG tube in place with noncompliance 5. Severe protein calorie malnutrition 6. Debility with recurrent falls 7. History of CAD - Secondary Discharge Diagnosis Chronic Problems: Chronic Problems (Last Reviewed 03/25/20 @ 19:[address] Linnea Arce, DO) CAD (coronary artery disease) (Chronic) Severe protein-calorie malnutrition (Chronic) COPD (chronic obstructive pulmonary disease) (Chronic) Esophageal stricture (Chronic) Hyperlipidemia (Chronic) Stented coronary artery (Chronic 01/27/17) PCI-RICO-LAD (3.0 X 12 Promus) and RICO-D1 (2.25 X 12 Promus) 01/27/2017 SMAS (superior mesenteric artery syndrome) (Chronic) Hiatal hernia with gastroesophageal reflux disease and esophagitis (Chronic) Atherosclerotic heart disease of [place] coronary artery without angina pectoris (Chronic) PCI-RICO-LAD (3.0 X 12 Promus) and RICO-D1 (2.25 X 12 Promus) 01/27/2017 High risk medication use (Chronic) Dysphagia (Chronic) Hospital Course and Treatment Imaging Results: Diagnostic Data Chest X-Ray 03/25/20 15:36 IMPRESSION: COPD Electronically Signed: Raji Chapin MD at 16:36 EDT , Service support , Chest CTA 03/25/20 16:16 IMPRESSION: COPD. Possible mild edema or pneumonitis or interstitial lung disease. Coronary artery disease. Compression fracture T12, age indeterminate. Electronically Signed: Raji Chapin MD at 17:34 EDT , Service support , KUB X-Ray 03/25/20 18:45 IMPRESSION: Feeding tube in the stomach. Residual intravenous contrast in the right upper quadrant and bladder makes it difficult to exclude extravasation from the stomach. Biliary contrast or Right hydronephrosis is not excluded. Follow-up abdominal ultrasound or CT abdomen/pelvis would be helpful. Electronically Signed: Raji Chapin MD at 19:38 EDT , Service support , Dr. Barker- Pulmonary Medicine Operations: None Procedures: 2-D Echocardiogram Summary of Care Provided: The patient is a 79 year old M admitted 03/25/2020 due to shortness of breath. 1. Acute hypoxic respiratory failure secondary to recurrent aspiration as a result of esophageal strictures, noncompliance with n.p.o./PEG tube-IV azithromycin and IV Zosyn during admission. Transition to Augmentin via PEG tube at discharge. Oxygen now stable on room air. Following lengthy discussion with patient, he reports no interest in using PEG tube only and would like to continue pleasure feeds. He understands he is at risk for continued aspiration. Patient agreeable to hospice care at discharge and will be discharged home with hospice care. 2. Severe sepsis secondary to recurrent aspiration/#1- Improved. Treatment per above. 3. Suspected COPD 4. Chronic dysphagia secondary to esophageal strictures, PEG tube in place with noncompliance 5. Severe protein calorie malnutrition 6. Debility with recurrent falls 7. History of CAD General: Alert, Oriented x3, Cooperative HEENT: Atraumatic, PERRLA, EOMI, Normocephalic Neck: Supple, No JVD, Negative Carotid Bruits Lungs: Clear to auscultation, Diminished Cardiovascular: Regular rate, No murmurs Abdomen: Bowel Sounds Present, Soft, Non Tender Extremities: No edema, Capillary Refill Less than 3 Seconds Skin: No rashes, No breakdown Musculoskeletal: No Tenderness to Palpation of Joints or Extremities Neurological: Cranial nerves II-XII grossly intact Psych/Mental Status: Appropriate, normal affect Patient seen and examined prior to discharge. Physical assessment as noted above. Patient is stable for discharge with follow up recommendations as noted above. This patient was seen by TESHA Avina under the supervision of Dr. Acevedo. - Physical Exam Vitals/I&O's: Vital Signs Temp Pulse Resp BP Pulse Ox 98.1 F 76 18 105/55 L 96 03/27/20 09:10 03/27/20 09:10 03/27/20 09:10 03/27/20 09:10 03/27/20 09:10 Oxygen Flow Rate (L/min) 1 Oxygen Delivery Method Room Air Weight: 113 lb 5.082 oz Body Mass Index (BMI) 15.0 Intake and Output for Last 24 Hours 03/25/20 03/26/20 03/27/20 23:59 23:59 23:59 Intake Total 1365 / 1365 925 / 1385 850 / 850 Output Total 240 / 240 200 / 200 600 / 600 Balance 1125 / 1125 725 / 1185 250 / 250 Microbiology Past 72 Hours 03/25/20 15:25 Blood Culture (Wb) - Anticubital Left Blood Culture - Preliminary No growth in 48 hours. 03/25/20 15:40 Blood Culture (Wb) - Anticubital Right Blood Culture - Preliminary No growth in 48 hours. 03/26/20 03:30 Urine, Clean Catch Legionella Antigen - Final 03/26/20 03:30 Urine, Clean Catch Streptococcus pneumoniae Antigen (M - Final Laboratory Results 03/27/20 06:10: Phosphorus 2.4 L, Magnesium 2.2 Current Medications Acetaminophen (Tylenol) 650 mg PO Q6H PRN PRN PRN Reason: Pain 1-10 or Fever Albuterol/Ipratropium (Duoneb) 3 ml INHALATION Q4HWA.RT [facility] Last Admin: 03/26/20 20:56 Dose: Not Given Documented by: Enoxaparin Sodium (Lovenox) 40 mg SC DAILY@0600 [facility] Last Admin: 03/27/20 06:13 Dose: Not Given Documented by: Guaifenesin (Mucinex) 1,200 mg PO BID [facility] Last Admin: 03/27/20 09:32 Dose: Not Given Documented by: Azithromycin 500 mg/ Dextrose 255 mls @ 250 mls/hr IV Q24 [facility] Last Admin: 03/27/20 09:45 Dose: 250 mls/hr Documented by: Piperacillin Sod/Tazobactam (Sod 3.375 gm/ Sodium Chloride) 50 mls @ 12.5 mls/hr IV Q8 [facility] Last Admin: 03/27/20 06:13 Dose: 12.5 mls/hr Documented by: Sodium Chloride () 250 mls @ 15 mls/hr IV .[id number] PRN PRN Reason: Saline Flush Sodium Chloride () 250 mls @ 15 mls/hr IV .[id number] PRN PRN Reason: Additional IVPB Infusion Enteral Nutritional Formula (Jevity 1.5) 1,000 mls @ 20 mls/hr GT .Q48H [facility] Last Admin: 03/26/20 15:18 Dose: Not Given Documented by: Ondansetron HCl (Zofran) 4 mg IV Q6H PRN PRN PRN Reason: NAUSEA Promethazine HCl (Phenergan) 6.25 mg IV Q6H PRN PRN PRN Reason: NAUSEA/VOMITING Sodium Chloride () 10 - 40 ml IV UD PRN PRN Reason: SALINE FLUSH Last Admin: 03/26/20 05:22 Dose: 20 ml Documented by: Discharge Diet: No Restrictions Discharge Activity: Return to Normal Activity Home Medications: Medications to take at Discharge Aspirin 325 mg PO DAILY@0800 06/05/19 Amoxicillin/Potassium Clav [Augmentin 250 Suspension] 10 ml GT Q12H 5 Days #100 ml 03/27/20 Following Prescrptions Were Given to Patient: Amoxicillin/Potassium Clav [Augmentin 250 Suspension] 10 ml GT Q12H 5 Days #100 ml Transmission Status: Received by [id number] Primary Care Physician: John Fallon DO [Primary Care Provider] - Please Follow Up With: Ras Feliciano DO When: [facility] Disposition: Home with Hospice Minutes spent on discharge:: 35 Patient Condition:: Fair Medical Necessity - Tobacco Use Smoking Status: Former smoker Tobacco Use: Non-smoker Meaningful Use Info Meaningful Use Diagnoses (Choose all that apply): None applicable <Owen Acevedo - Last Filed: 03/27/20 15:57> Discharge Date and Diagnosis - Secondary Discharge Diagnosis Chronic Problems: Chronic Problems (Last Reviewed 03/25/20 @ 19:[address] Linnea Arce DO) CAD (coronary artery disease) (Chronic) Severe protein-calorie malnutrition (Chronic) COPD (chronic obstructive pulmonary disease) (Chronic) Esophageal stricture (Chronic) Hyperlipidemia (Chronic) Stented coronary artery (Chronic 01/27/17) PCI-RICO-LAD (3.0 X 12 Promus) and RICO-D1 (2.25 X 12 Promus) 01/27/2017 SMAS (superior mesenteric artery syndrome) (Chronic) Hiatal hernia with gastroesophageal reflux disease and esophagitis (Chronic) Atherosclerotic heart disease of [place] coronary artery without angina pectoris (Chronic) PCI-RICO-LAD (3.0 X 12 Promus) and RICO-D1 (2.25 X 12 Promus) 01/27/2017 High risk medication use (Chronic) Dysphagia (Chronic) Hospital Course and Treatment Summary of Care Provided: This patient was seen in conjunction with Veronica MASON. I have independently interviewed and examined the patient and reviewed pertinent history, examination findings, laboratory and plan of management. I have reviewed the note and agree with the documented findings with the few additional points. In brief, patient is admitted for acute hypoxic respiratory failure with severe sepsis secondary to possible recurrent aspiration with history of esophageal stricture required multiple esophageal dilatations in the past. Patient has PEG tube still eats orally. Patient does not follow primary care and goes to ER directly from one hospital to another. Chest x-ray and CT angiogram was done in ER. Lungs are hyperinflated suggestive of COPD. There is ill-defined patchy increase in groundglass opacity in upper lung hinds suggestive of possible mild edema or pneumonitis or interstitial lung disease. Patient has history of smoking but has quit exact time of quitting unclear as patient history is patchy and superficial. Incentive spirometry. Speech therapist evaluation Dysphagia secondary to esophageal stricture with frequent aspiration: With shortness of breath, hypoxia and leukocytosis, patient is on IV Zosyn. Discharged on Augmentin through PEG tube. Severe protein calorie malnutrition mainly secondary dysphagia. As mentioned above. [employer] consult. Patient has PEG tube but seems noncompliant with tube feed. Patient still needs soft food by mouth. TSH low at 0.15. Free T4 normal. Coronary artery status post stents: Patient follows Dr. Feldman on aspirin. Debility with recurrent fall. Patient agreed for hospice care at discharge and will be discharged with home with hospice care. I have discussed my assessment with Veronica MASON and orders have been reviewed. [] Objective: Seen and examined. Patient opted for home with hospice care. Patient is tired of ER and hospital visit. Blood pressure is acceptable. No hypoxia or tachypnea. Patient has significant risk of aspiration but wants pleasure feeding. General: Alert, Oriented x3, Cooperative, - - Patient looks cachectic, malnourished HEENT: Atraumatic, PERRLA, EOMI, Normocephalic Neck: Supple, No JVD, Negative Carotid Bruits Lungs: Air entry diminished severely in all lung hinds, coarse rales and rhonchi Cardiovascular: Regular rate, Regular Rhythm, Normal S1, Normal S2, No murmurs Abdomen: Bowel Sounds Present, Soft, Non Tender, Non-Distended Extremities: No edema, Capillary Refill Less than 3 Seconds Skin: No rashes, No breakdown Musculoskeletal: No Tenderness to Palpation of Joints or Extremities, Arthritic Changes, Muscle Wasting Neurological: Cranial nerves II-XII grossly intact, Deep Tendon Reflexes 2+/4 and Symmetrical, Neuro grossly intact Psych/Mental Status: Normal Affect, Appropriate - Physical Exam Vitals/I&O's: Vital Signs Temp Pulse Resp BP Pulse Ox 98.1 F 77 18 127/56 H 93 03/27/20 13:27 03/27/20 13:27 03/27/20 13:27 03/27/20 13:27 03/27/20 13:27 Oxygen Flow Rate (L/min) 1 Oxygen Delivery Method Room Air Weight: 113 lb 5.082 oz Body Mass Index (BMI) 15.0 Intake and Output for Last 24 Hours 03/25/20 03/26/20 03/27/20 23:59 23:59 23:59 Intake Total 1365 / 1365 925 / 1385 1155 / 1155 Output Total 240 / 240 200 / 200 600 / 600 Balance 1125 / 1125 725 / 1185 555 / 555 Microbiology Past 72 Hours 03/25/20 15:25 Blood Culture (Wb) - Anticubital Left Blood Culture - Preliminary No growth in 48 hours. 03/25/20 15:40 Blood Culture (Wb) - Anticubital Right Blood Culture - Preliminary No growth in 48 hours. 03/26/20 03:30 Urine, Clean Catch Legionella Antigen - Final 03/26/20 03:30 Urine, Clean Catch Streptococcus pneumoniae Antigen (M - Final Laboratory Results 03/27/20 06:10: Phosphorus 2.4 L, Magnesium 2.2 Inpatient E&M: 26122 Disch Hosp
--- NOTE | 2020-03-27 11:24 | PHA.DC.MR ---
Pharmacy Service has performed discharge medication reconciliation for this patient. The patient's discharge medication list was reviewed for discrepancies and discrepancies were resolved. Home Medications Aspirin 325 mg PO DAILY@0800 06/05/19 Amoxicillin/Potassium Clav [Augmentin 250 Suspension] 10 ml GT Q12H 5 Days #100 ml 03/27/20
--- NOTE | 2020-03-27 12:08 | CASEMGMT ---
Pt is ready for discharge home w/hospice. [facility] faxed discharge instructions and summary to [facility]. SW spoke w/pt, he feels he can go home via wheelchair, can get up and into his home. Pt had asked about information regarding bed bugs, SW provided information to pt on local exterminators. [facility] set up 1:30pm ambulette w[facility], SW let pt, Natalie at Hospice and pt's RN know time of pickup. Pt now stating he is nervous to go home and is worried if he can care for himself. SW spoke w/pt about going to a senior care. Pt states spent two months at [facility] but he needed to leave to take care of things at home. Pt states has no family and it's difficult getting older. Supportive listening given. Pt still plans to return home and do the best he can. [facility] called [facility] back and let Natalie know pt will definitely need assist from their social worker palliative care as soon as possible. She will let their social media assistant know. Plan: Home w/hospice today. HEATHER Saldivar
[2020-03-27 13:27] VITALS: BP 127/56; PULSE 77; RESP 18; TEMP 36.7; O2SAT 93
[2020-03-28 14:41] LABS: Vitamin D 1,25-Dihydroxy 40.7 pg/mL (19.9-79.3)
== END 2020-03-27 13:29 | disposition hospice, home (50) | DRG 871 ==
LOC: ED 16:22 → ICU 18:35 → PCU 03-26 11:19
PROVIDERS: Internal Medicine Critical Care Medicine; Physician Assistant; Admitting Provider Internal Medicine; Emergency Provider Emergency Medicine; PCP Family Medicine; Visit Provider Internal Medicine
DX: A41.9 Sepsis, unspecified organism (principal); J96.01 Acute respiratory failure with hypoxia; E43 Unspecified severe protein-calorie malnutrition; J69.0 Pneumonitis due to inhalation of food and vomit; K55.1 Chronic vascular disorders of intestine; E87.2 Acidosis; Z68.1 Body mass index [BMI] 19.9 or less, adult; J44.0 Chronic obstructive pulmonary disease with (acute) lower respiratory infection; J44.1 Chronic obstructive pulmonary disease with (acute) exacerbation; J20.9 Acute bronchitis, unspecified; K21.0 Gastro-esophageal reflux disease with esophagitis; K44.9 Diaphragmatic hernia without obstruction or gangrene; R65.20 Severe sepsis without septic shock; K22.2 Esophageal obstruction; I25.10 Atherosclerotic heart disease of native coronary artery without angina pectoris; F41.0 Panic disorder [episodic paroxysmal anxiety]; E78.5 Hyperlipidemia, unspecified; T17.228A Food in pharynx causing other injury, initial encounter; X58.XXXA Exposure to other specified factors, initial encounter; R29.6 Repeated falls; R53.81 Other malaise; R13.10 Dysphagia, unspecified; I25.2 Old myocardial infarction; Z93.1 Gastrostomy status; Z51.5 Encounter for palliative care; Z91.19 Patient's noncompliance with other medical treatment and regimen; Z95.5 Presence of coronary angioplasty implant and graft; Z79.82 Long term (current) use of aspirin; Z79.899 Other long term (current) drug therapy; Z87.891 Personal history of nicotine dependence
CPT/HCPCS: 36415; 71045; 71275; 74018; 80048; 80053; 81001; 82652; 83605; 83735; 83880; 84100; 84439; 84443; 84484; 85025; 87040; 87449; 87635; 92526; 93005; 93306; 94640; 94667; 94668; 97802; 99251; 99285; G2023; J7040; J7050; Q9967; A4216; G0463; U0003

== ENCOUNTER 2022-01-15 18:59 | Inpatient (IN) | payer MEDICARE, SELFPAY ==
[2017-01-28 08:52] VITALS: BMI 18.7
[2022-01-15] VITALS (8 sets, daily range): BP systolic 127–145; BP diastolic 53–111; PULSE 74–88; RESP 17–18; TEMP 36.3–36.7; O2SAT 92–99; BMI 33.7; BMI 14.5
--- NOTE | 2022-01-15 19:22 | EKG12_ITS ---
Test Reason : FALL Blood Pressure : / mmHG Vent. Rate : 075 BPM Atrial Rate : 075 BPM P-R Int : 134 ms QRS Dur : 100 ms QT Int : 548 ms P-R-T Axes : 088 080 087 degrees QTc Int : 611 ms Normal sinus rhythm Nonspecific T wave abnormality Abnormal ECG Confirmed by MASOOD JOSHI, HARLEY ([id number]), deputy editor in chief BRINDA CLAROS ([id number]) on 01/19/2022 9:08:54 AM Referred By: Confirmed By:HARLEY CORREIA MD
--- NOTE | 2022-01-15 19:23 | RAD_ITS ---
STUDY: X-RAY - PELVIS AND RIGHT HIP REASON FOR EXAM: Male, 81 years old. Injury/Pain TECHNIQUE: 4 views of the pelvis and hip. COMPARISON: None. FINDINGS: There is a fracture of the right femoral neck subcapital with cephalad migration of the distal femur and mild medial rotation of the femoral head. Femoral head is normal contour. No dislocation at the hips. Mild degenerative changes of both hips greater on the left. Stool obscures the sacrum. Bones are osteopenic. RAD/HIP, UNI W/ Pelvis 2-3 Views IMPRESSION: Acute displaced right femoral neck fracture. Electronically Signed: Arlen Castillo MD at 20:21 EDT ,
[2022-01-15 19:40] LABS: Absolute Lymphocyte Count 2.01 X10^3/uL (0.83-4.51); Absolute Neutrophil Count 3.5 X10^3/uL (2.0-7.7); Basophil# 0.03 X10^3/uL; Basophil% 0.5 % (0-1); Eosinophil# 0.17 X10^3/uL; Eosinophils% 2.7 % (0-5); Hematocrit 38.8 % (40-54); Hemoglobin 12.1 g/dL (13.0-16.5); Lymphocyte # 2.01 X10^3/ul (0.83-4.51); Lymphocyte % 31.6 % (19-41); Mean Corp Hgb Conc 31.2 g/dL (32-36); Mean Corpuscular Hgb 29.3 pg (27.0-32.0); Mean Corpuscular Volume 93.9 fL (80-94); Mean Platelet Vol. 9.8 fl (6.2-12.0); Monocyte# 0.63 X10^3/uL; Monocyte% 9.9 % (0-10); NRBC Flagged by Analyzer 0 % (0-5); Neutrophil # 3.51 X10^3/uL (2.7-7.7); Platelet Count 165 K/mm3 (150-450); RBC Distribution Width CV 13.5 % (11.6-14.6); RBC Distribution Width SD 46.7 fl (35.1-43.9); Red Blood Count 4.13 M/mm3 (4.6-6.2); White Blood Count 6.4 K/mm3 (4.4-11.0)
[2022-01-15] MEDS: Morphine 4 MG/ML Syringe IV ×2 (19:41→22:45)
[2022-01-15] MEDS: Diphth,Pertuss(Acell),Tet Vac 0.5 ML Vial IM (19:41)
[2022-01-15] MEDS: Ondansetron 4 MG/2 ML Vial IV (19:41)
[2022-01-15] MEDS: 0.9% Normal Saline 1,000 ML 150 ML IV (19:41)
--- NOTE | 2022-01-15 19:42 | EDS_ITS ---
HPI HPI - Fall History of Present Illness Chief Complaint: Fall Detail of Chief Complaint: Fall because of shortness of breath and unable to ambulate afterwards Informant: patient Occured/Mechanism Occurred: Days Mechanism/Context: Yes same level fall Narrative: Patient fell because he was short of breath Fall from Height (ft): Standing position Usually ambulates: Without assistance Pain/Injury Pain Location: lower extremity (Right hip region) Quality of Pain: Dull and Aching Current Severity: Mild Maximum Severity: Severe Worsened by: Movement Relieved by: Nothing Associated Symptoms Associated Symptoms: Positive for Inability to ambulate; Negative for Parasthesias, Weakness, Loss of function, Loss of consciousness and Amnesia Narrative Narrative: Patient is a 81-year-old male who was walking. Became short of breath. He lives alone. He is on chronic O2 at 3 to 4 L. He states this is his third fall in the past week. He states he was unable to get up and crawle d/[place] himself to the phone to call for help. He complains of pain in the hip area. He denies head trauma. [place] loss of conscious. Denies neck pain. Denies paresthesia, anesthesia motors upper extremity. He denies any symptoms in the left lower extremity. His only complaint in the right lower extremity is pain. He states he is unable to lift the leg. He denies nausea, vomiting diarrhea. He denies black or maroon-colored stool. He denies urologic symptoms. He was noted to have what appeared to be something brown on his foot. He states it is blood. He is uncertain when his last tetanus shot was. Tetanus Immunization: Unknown Prior similar symptoms: No Recent Illness/Hospitalization: No [facility] Medical History (Updated 01/15/22 @ 20:[address] Milad Orellana MD) Asthma Atherosclerotic heart disease of [place] coronary artery without angina pectoris Depression with anxiety Dysphagia Esophageal stricture Fatigue Hiatal hernia with gastroesophageal reflux disease and esophagitis High risk medication use Hyperlipidemia SMAS (superior mesenteric artery syndrome) Tachycardia Weight loss Home Medications haloperidol 1 mg Q4H PRN PRN 01/15/22 [History Last Taken Unknown] lorazepam 0.5 mg PO TID PRN 01/15/22 [History Last Taken Unknown] morphine concentrate 5 mg Q4H PRN PRN 01/15/22 [History Last Taken Unknown] Allergy/AdvReac Type Severity Reaction Status Date / Time No Known Allergies Allergy Verified 01/15/22 19:06 Family History Mother Cancer Surgical History history Laparoscopy twisted stomach/bowel History of esophageal dilatation (12/20/18) History of esophagogastroduodenoscopy (EGD) (12/20/18) Stented coronary artery (01/27/17) Social History (Updated 01/15/22 @ 19:[address] Milad Orellana MD) household members: none Smoking Status: Former smoker alcohol intake: current substance use type: does not use ROS ROS ED Constitutional Constitutional ED: Reports weight loss; Denies chills, fever(s), subjective or sweats Eyes Eyes: Denies blurry vision, change in vision or diplopia ENT ENT ED: Denies ear pain, rhinorrhea or sore throat Cardiovascular Cardiovascular: Denies chest pain, orthopnea, palpitations, paroxysmal nocturnal dyspnea or racing heartbeat Respiratory/Chest Respiratory/Chest: Reports cough, dyspnea, dyspnea on exertion and other Details: Respiratory symptoms are chronic ; Denies orthopnea, paroxysmal nocturnal dyspnea or sputum Gastrointestinal Gastrointestinal: Denies abdominal pain, diarrhea, nausea or vomiting Genitourinary Genitourinary ED: Denies dysuria, hematuria or urinary frequency Musculoskeletal Musculoskeletal: Reports other Details: Right lower extremity/hip pain ; Denies arthralgias, back pain, myalgias or neck pain Integumentary Reports Abrasions Neurologic Neurologic: Reports weakness; Denies headache(s) Hematologic/Lymphatic Hematologic/Lymphatic: Denies easy bleeding or easy bruising EXAM Physical Exam Const Vital Signs: 01/15/22 19:01 01/15/22 19:03 01/15/22 19:08 Temperature 97.3 F L 97.8 F Temperature Source Temporal Oral Pulse Rate 76 Respiratory Rate 17 Respiratory Effort Normal Non-Labored Blood Pressure 134/54 H Blood Pressure Mean 80 Pulse Ox 93 99 Oxygen Delivery Method Nasal Cannula Nasal Cannula Nasal Cannula Oxygen Flow Rate (L/min) 3 3 3 01/15/22 19:34 Temperature Temperature Source Pulse Rate Respiratory Rate Respiratory Effort Blood Pressure Blood Pressure Mean Pulse Ox 99 Oxygen Delivery Method Nasal Cannula Oxygen Flow Rate (L/min) 3 Positive well developed, cachectic and unkempt General Appearance ED: unkempt, well developed and cachectic; Negative for NAD Nutritional Appearance: cachectic HEENT Reports normocephalic and TM's clear HEENT Narrative: Nares patent. Posterior pharynx not erythema exudate. Mucosa is dry. atraumatic Tympanic Membrane ED: Yes TM's clear Eyes PERRL and EOMs intact bilaterally General Eye ED: Negative for pale conjunctiva or scleral icterus Neck full ROM, no lymphadenopathy and supple General: Negative for tenderness Chest Wall inspection of chest normal and palpation of chest normal Resp normal respiratory effort and clear to auscultation bilaterally Auscultation: diminished lung sounds diffuse Cardio regular rate, regular rhythm, S1 normal heart sound, S2 normal heart sound and no murmurs GI non-tender, non-distended and no masses Auscultation: normoactive bowel sounds Palpation: soft Back/Spine no CVA tenderness Cervical Spine: Negative for cervical spine tenderness Thoracic Spine / Upper Back: Negative for thoracic spinal tenderness Lumbar Spine / Lower Back: Negative for lumbar spinal tenderness Extremity normal capillary refill, no joint enlargement, no clubbing, cyanosis or edema, no calf tenderness and no pedal edema; Negative for normal to inspection or full ROM Extremity Narrative: There is pain with logrolling and there is crepitus which is consistent with fracture. Neuro oriented x3, CN's II-XII intact bilaterally and no sensory deficits noted [place] Coma Scale: document GCS findings Spontaneous Obeys Commands Oriented 15 Sensorium / Orientation: alert Psych mental status grossly normal and thought process normal Appearance: unkempt Skin Lesions: no lesions Rashes: no rashes MDM MDM MDM Narrative Medical decision making narrative: Patient with frequent falls most likely due to his COPD. Concerned that he fractured his hip. Baseline blood work was obtained, chest x-ray, hip x-ray. Patient was informed he has a fractured hip. He wishes to have it fixed. He is presently on palliative/hospice care. Since his life expectancy is more than 6 weeks it is not unreasonable to have it fixed. We will contact the hospitalist, orthopedist and hospitalist. Lab Data Attestation: I reviewed the patient's lab results. Labs: Laboratory Results - last 24 hr 01/15/22 01/15/22 01/15/22 19:32 19:32 19:32 WBC 6.4 RBC 4.13 L Hgb 12.1 L Hct 38.8 L MCV 93.9 MCH 29.3 MCHC 31.2 L RDW Std Deviation 46.7 H RDW Coeff of [place] 13.5 Plt Count 165 MPV 9.8 Immature Gran % (Auto) 0.300 Neut % (Auto) 55.0 Lymph % (Auto) 31.6 Mckean % (Auto) 9.9 Eos % (Auto) 2.7 Baso % (Auto) 0.5 Absolute Neuts (auto) 3.5 Absolute Lymphs (auto) 2.01 Nucleated RBC % 0 PT 13.5 INR 1.1 APTT 30.6 Sodium 141 Potassium 4.3 Chloride 107 Carbon Dioxide 34.0 H Anion Gap 0 L BUN 7 Creatinine 0.57 L Estim Creat Clear Calc 61.70 Est GFR (MDRD) Af Amer 177 Est GFR (MDRD) Non-Af 146 BUN/Creatinine Ratio 12.3 Glucose 135 H Calcium 8.6 Total Bilirubin 0.30 AST 24 ALT 29 Alkaline Phosphatase 62 Total Protein 5.7 L Albumin 2.6 L Globulin 3.1 Albumin/Globulin Ratio 0.8 L Radiography Diagnostic Testing: Clinical Impression(s) from Imaging Studies Hip/Pelvis X-Ray 01/15/22 19:23 IMPRESSION: Acute displaced right femoral neck fracture. Electronically Signed: Arlen Castillo MD at 20:21 EDT Reading Location ID and State: [facility] / [place] Tel , Service support , Chest X-Ray 01/15/22 19:50 IMPRESSION: Hyperexpanded lungs probable COPD. No infiltrates. Electronically Signed: Arlen Castillo MD at 20:19 EDT , Single view portable chest x-ray reveals hyperaeration. Cardiac silhouette and size normal. Perihilar regions unremarkable. Osseous structures unremarkable. There is no evidence of infiltrate, hemothorax or pleural effusion. Three-view x-ray of the right hip reveals a impacted femoral neck fracture on the right. The trabecular lines still lined up. EKG Initial EKG: Attestation: I personally reviewed and interpreted this EKG as follows: Interpretation: Sinus Rhythm (Ventricular 5. MO interval 134 ms. QS duration 100 ms. QT duration 548 ms with a QTC of 611 ms. [place] is normal. There is no ossific ST-T wave changes. QT interval is prolonged.) Discharge Plan Dx/Rx/DC Orders Clinical Impression: Fracture of femoral neck, right, closed, High risk medication use, Atherosclerotic heart disease of [place] coronary artery without angina pectoris, Severe protein-calorie malnutrition, End stage COPD Disposition Disposition: Acute Care Hospital [facility]
[2022-01-15 19:49] LABS: International Normalized Ratio 1.1; Prothrombin Time (Protime)PT. 13.5 SECONDS (11.7-14.9)
[2022-01-15 19:50] LABS: Partial Thromboplast Time 30.6 Seconds (24.1-36.2)
--- NOTE | 2022-01-15 19:50 | RAD_ITS ---
STUDY: X-RAY CHEST REASON FOR EXAM: Male, 81 years old. Preop and shortness of breath TECHNIQUE: AP portable. Supine. 2 images. 8:04 PM. COMPARISON: 03/25/2020. FINDINGS: LUNGS: The lungs are hyperexpanded. No consolidation. No pneumothorax. MEDIASTINUM: Aorta tortuous and atherosclerotic. CARDIAC SILHOUETTE: Not enlarged. BONES AND SOFT TISSUES: No acute abnormalities. RAD/Chest 1 View (Portable) IMPRESSION: Hyperexpanded lungs probable COPD. No infiltrates. Electronically Signed: Arlen Castillo MD at 20:19 EDT ,
[2022-01-15 20:00] LABS: BUN 7 mg/dL (7-18); Creatinine, Serum 0.57 mg/dL (0.70-1.30); Glucose 135 mg/dL (74-106)
[2022-01-15 20:01] LABS: ALB/GLOB Ratio 0.8 RATIO (0.9-2.4); AST(SGOT) 24 U/L (15-37); Alanine Aminotransfer ALT/SGPT 29 U/L (16-61); Albumin, Serum 2.6 g/dL (3.2-5.0); Alkaline Phosphatase 62 U/L (45-117); Anion Gap 0 (5-15); BUN/Creat Ratio 12.3 RATIO (10-20); Calcium,Total 8.6 mg/dL (8.5-10.1); Chloride 107 mmol/L (98-107); EST Glomerular Filtration Rate 146 mL/min (>60); Est Glom Filt Rate - Afr Amer 177 mL/min (>60); Globulin 3.1 g/dL (2.2-4.2); Potassium 4.3 mmol/L (3.5-5.1); Protein, Total 5.7 g/dL (6.4-8.2); Sodium Level 141 mmol/L (136-145)
--- NOTE | 2022-01-15 20:30 | ED.RN ---
HOSPICE NURSE PAGED TO CALL SO THEY KNOW PATIENT IS BEING ADMITTED FOR DR TORRES - SURGERY
--- NOTE | 2022-01-15 20:35 | ED.RN ---
HOSPICE IS AWARE OF ADMIT AND BROKEN FEMORAL NECK
--- NOTE | 2022-01-15 20:49 | HP.PCM.HOS_ITS ---
HPI - General General Date of Admission: 01/15/22 HPI Narrative RENETTA HOBSON, is a 81 M who presents to the hospital after a mechanical fall. According to the family and to himself he has been very wobbly, he does have end-stage COPD as well as significant dysphagia with esophageal strictures. He is currently on hospice however given the nature of the hip fracture that was found on the ER, he has revoked hospice to get this repaired. In discussion with hospice once the fractures repair they are able to take him back on hospice and do some therapy at the inpatient unit. [facility] Medical History (Updated 01/15/22 @ 20:[address] Milad Orellana MD) Asthma Atherosclerotic heart disease of [place] coronary artery without angina pectoris Depression with anxiety Dysphagia Esophageal stricture Fatigue Hiatal hernia with gastroesophageal reflux disease and esophagitis High risk medication use Hyperlipidemia SMAS (superior mesenteric artery syndrome) Tachycardia Weight loss Home Medications haloperidol 1 mg Q4H PRN PRN 01/15/22 [History Last Taken Unknown] lorazepam 0.5 mg PO TID PRN 01/15/22 [History Last Taken Unknown] morphine concentrate 5 mg Q4H PRN PRN 01/15/22 [History Last Taken Unknown] Allergy/AdvReac Type Severity Reaction Status Date / Time No Known Allergies Allergy Verified 01/15/22 19:06 Family History Mother Cancer Surgical History history Laparoscopy twisted stomach/bowel History of esophageal dilatation (12/20/18) History of esophagogastroduodenoscopy (EGD) (12/20/18) Stented coronary artery (01/27/17) Social History (Updated 01/15/22 @ 19:[address] Milad Orellana MD) household members: none Smoking Status: Former smoker alcohol intake: current substance use type: does not use ROS Constitutional Constitutional: Denies chills, fatigue, fever(s) or malaise Eyes Eyes: Denies blurry vision ENT HEENT: Denies headache(s) or nasal discharge Cardiovascular Cardiovascular: Denies chest pain, dyspnea on exertion or syncope Respiratory/Chest Respiratory/Chest: Denies cough, shortness of breath at rest or shortness of breath with exertion Gastrointestinal Gastrointestinal: Denies constipation, diarrhea, nausea or vomiting Genitourinary Genitourinary: Denies dysuria Musculoskeletal Musculoskeletal: Reports joint pain Neurologic Neurologic: Denies focal weakness, numbness or tremor(s) Psychiatric Psychiatric: Denies anxiety or depression Vital Signs Vital Signs Vital Signs: 01/15/22 19:01 01/15/22 19:03 01/15/22 19:08 Temperature 97.3 F L 97.8 F Temperature Source Temporal Oral Pulse Rate 76 Respiratory Rate 17 Respiratory Effort Normal Non-Labored Blood Pressure 134/54 H Blood Pressure Mean 80 Pulse Ox 93 99 Oxygen Delivery Method Nasal Cannula Nasal Cannula Nasal Cannula Oxygen Flow Rate (L/min) 3 3 3 01/15/22 19:34 Temperature Temperature Source Pulse Rate Respiratory Rate Respiratory Effort Blood Pressure Blood Pressure Mean Pulse Ox 99 Oxygen Delivery Method Nasal Cannula Oxygen Flow Rate (L/min) 3 Weight Weight: 242 lb 4.608 oz Body Mass Index (BMI) 33.7 Physical Exam Const alert and oriented x3 General Appearance: cooperative HEENT normocephalic and moist oral mucous membranes Eyes PERRL, EOMs intact bilaterally and conjunctivae normal Neck supple and no JVD Resp normal respiratory effort, no retractions and no use of accessory muscles Auscultation: diminished lung sounds; Negative for crackles, rales, rhonchi or wheezes Cardio regular rate, regular rhythm, S1 normal heart sound, S2 normal heart sound and no murmurs GI soft to palpation, non-tender and non-distended; Negative for hepatosplenomegaly Extremity no clubbing, cyanosis or edema Extremity Narrative: Right hip pain to palpation Skin no rashes or lesions noted Neuro no focal motor deficits and no sensory deficits noted Psych affect normal Appearance: appropriate Results Lab / Micro Data Result Diagrams: 01/15/22 19:32 01/15/22 19:32 Labs: Laboratory Results - last 24 hr 01/15/22 19:32: WBC 6.4, RBC 4.13 L, Hgb 12.1 L, Hct 38.8 L, MCV 93.9, MCH 29.3, MCHC 31.2 L, RDW Std Deviation 46.7 H, RDW Coeff of [place] 13.5, Plt Count 165, MPV 9.8, Immature Gran % (Auto) 0.300, Neut % (Auto) 55.0, Lymph % (Auto) 31.6, [place] % (Auto) 9.9, Eos % (Auto) 2.7, Baso % (Auto) 0.5, Absolute Neuts (auto) 3.5, Absolute Lymphs (auto) 2.01, Nucleated RBC % 0 01/15/22 19:32: PT 13.5, INR 1.1, APTT 30.6 01/15/22 19:32: Sodium 141, Potassium 4.3, Chloride 107, Carbon Dioxide 34.0 H, Anion Gap 0 L, BUN 7, Creatinine 0.57 L, Estim Creat Clear Calc 61.70, Est GFR (MDRD) Af Amer 177, Est GFR (MDRD) Non-Af 146, BUN/Creatinine Ratio 12.3, Glucose 135 H, Calcium 8.6, Total Bilirubin 0.30, AST 24, ALT 29, Alkaline Phosphatase 62, Total Protein 5.7 L, Albumin 2.6 L, Globulin 3.1, Albumin/Globulin Ratio 0.8 L Radiology Impression Hip/Pelvis X-Ray 01/15/22 19:23 IMPRESSION: Acute displaced right femoral neck fracture. Electronically Signed: Arlen Castillo MD at 20:21 EDT , Chest X-Ray 01/15/22 19:50 IMPRESSION: Hyperexpanded lungs probable COPD. No infiltrates. Electronically Signed: Arlen Castillo MD at 20:19 EDT , Assessment & Plan Assessment/Plan (1) Fracture of femoral neck, right, closed: PLAN: 1. Right femoral neck fracture ? We will revoke hospice to have this repaired ? We will reinitiate hospice after surgery and hospice has assured me that they can take him to the [facility] for therapy ? Continue with pain medications ? Fall was mechanical 2. End stage COPD/CAD status post stents/HTN/HLD are all chronic medical conditions, he is on hospice secondary to his end-stage COPD as well as his significant dysphagia and esophageal strictures. He is on generally a liquid and pur?ed diet. He does not take any medications for his chronic issues he is on chronic oxygen but otherwise is mostly on comfort care medications which we will continue while here in the hospital as the goal is to resume hospice services after his fracture is repaired. DVT: SCDs Charges/Coding Visit Charges Inpatient E&M: 80206 Init Hosp L2
[2022-01-15] MEDS: 0.9% Saline Lock 10 ML Syringe IV (22:45)
[2022-01-15] MEDS: 0.9% Normal Saline 1,000 ML 75 ML IV (23:26)
[2022-01-16] VITALS (11 sets, daily range): BP systolic 102–151; BP diastolic 51–96; PULSE 79–109; RESP 16–20; TEMP 36.3–37.6; O2SAT 92–100; BMI 14.5
[2022-01-16] MEDS: Morphine 4 MG/ML Syringe IV ×3 (06:11→17:30)
[2022-01-16] MEDS: 0.9% Normal Saline 1,000 ML 75 ML IV (06:11)
[2022-01-16 06:32] LABS: Absolute Lymphocyte Count 0.82 X10^3/uL (0.83-4.51); Absolute Neutrophil Count 7.4 X10^3/uL (2.0-7.7); Basophil# 0.04 X10^3/uL; Basophil% 0.4 % (0-1); Eosinophil# 0.16 X10^3/uL; Eosinophils% 1.8 % (0-5); Hematocrit 38.9 % (40-54); Hemoglobin 12.3 g/dL (13.0-16.5); Lymphocyte # 0.82 X10^3/ul (0.83-4.51); Mean Corp Hgb Conc 31.6 g/dL (32-36); Mean Corpuscular Hgb 29.1 pg (27.0-32.0); Mean Platelet Vol. 9.6 fl (6.2-12.0); Monocyte# 0.68 X10^3/uL; Monocyte% 7.5 % (0-10); NRBC Flagged by Analyzer 0 % (0-5); Neutrophil # 7.37 X10^3/uL (2.7-7.7); Neutrophil % 81.1 % (47-70); Platelet Count 151 K/mm3 (150-450); RBC Distribution Width CV 13.6 % (11.6-14.6); RBC Distribution Width SD 46.1 fl (35.1-43.9); Red Blood Count 4.23 M/mm3 (4.6-6.2); White Blood Count 9.1 K/mm3 (4.4-11.0)
[2022-01-16 07:11] LABS: Anion Gap 3 (5-15); BUN 6 mg/dL (7-18); BUN/Creat Ratio 14.5 RATIO (10-20); Calcium,Total 8.5 mg/dL (8.5-10.1); Chloride 106 mmol/L (98-107); Creatinine, Serum 0.42 mg/dL (0.70-1.30); EST Glomerular Filtration Rate 210 mL/min (>60); Est Glom Filt Rate - Afr Amer 254 mL/min (>60); Glucose 145 mg/dL (74-106); Potassium 3.7 mmol/L (3.5-5.1); Sodium Level 139 mmol/L (136-145)
--- NOTE | 2022-01-16 09:05 | PN.HOSP_ITS ---
Subjective Subjective Patient seen and examined. He was admitted after he sustained a mechanical fall which resulted in a fracture of the left hip. He complains of pain with movement. He is quite frustrated and dejected abou the fall and resultant fracture. He was on hospice but revoked hospice to get care for the left hip fracture. Review of systems otherwise negative. Objective Data Objective Data Vital Signs: Vital Signs Temp Pulse Resp BP Pulse Ox 97.9 F 90 20 H 107/51 L 92 01/16/22 04:40 01/16/22 04:40 01/16/22 04:40 01/16/22 04:40 01/16/22 07:28 Oxygen Flow Rate (L/min) 4 Oxygen Delivery Method Nasal Cannula Weight: 103 lb 13.404 oz Body Mass Index (BMI) 14.5 Intake & Output: Intake and Output for Last 24 Hours 01/14/22 01/15/22 01/16/22 23:59 23:59 23:59 Intake Total 1506.25 / 1506.25 Output Total 400 / 400 Balance 1106.25 / 1106.25 Lab / Micro Data Result Diagrams: 01/16/22 06:10 01/16/22 06:10 Labs: Laboratory Results - last 24 hr 01/15/22 19:32: WBC 6.4, RBC 4.13 L, Hgb 12.1 L, Hct 38.8 L, MCV 93.9, MCH 29.3, MCHC 31.2 L, RDW Std Deviation 46.7 H, RDW Coeff of [place] 13.5, Plt Count 165, MPV 9.8, Immature Gran % (Auto) 0.300, Neut % (Auto) 55.0, Lymph % (Auto) 31.6, [place] % (Auto) 9.9, Eos % (Auto) 2.7, Baso % (Auto) 0.5, Absolute Neuts (auto) 3.5, Absolute Lymphs (auto) 2.01, Nucleated RBC % 0 01/15/22 19:32: PT 13.5, INR 1.1, APTT 30.6 01/15/22 19:32: Sodium 141, Potassium 4.3, Chloride 107, Carbon Dioxide 34.0 H, Anion Gap 0 L, BUN 7, Creatinine 0.57 L, Estim Creat Clear Calc 61.70, Est GFR (MDRD) Af Amer 177, Est GFR (MDRD) Non-Af 146, BUN/Creatinine Ratio 12.3, Glucose 135 H, Calcium 8.6, Total Bilirubin 0.30, AST 24, ALT 29, Alkaline Phosphatase 62, Total Protein 5.7 L, Albumin 2.6 L, Globulin 3.1, Albumin/Globulin Ratio 0.8 L 01/16/22 06:10: WBC 9.1, RBC 4.23 L, Hgb 12.3 L, Hct 38.9 L, MCV 92.0, MCH 29.1, MCHC 31.6 L, RDW Std Deviation 46.1 H, RDW Coeff of [place] 13.6, Plt Count 151, MPV 9.6, Immature Gran % (Auto) 0.200, Neut % (Auto) 81.1 H, Lymph % (Auto) 9.0 L, [place] % (Auto) 7.5, Eos % (Auto) 1.8, Baso % (Auto) 0.4, Absolute Neuts (auto) 7.4, Absolute Lymphs (auto) 0.82 L, Nucleated RBC % 0 01/16/22 06:10: Sodium 139, Potassium 3.7, Chloride 106, Carbon Dioxide 30.0, Anion Gap 3 L, BUN 6 L, Creatinine 0.42 L, Estim Creat Clear Calc 38.60, Est GFR (MDRD) Af Amer 254, Est GFR (MDRD) Non-Af 210, BUN/Creatinine Ratio 14.5, Glucose 145 H, Calcium 8.5 01/16/22 06:10: Blood Type O POSITIVE, Antibody Screen NEGATIVE Micro: Microbiology 01/16/22 06:15 Nasal Secretion SARS-CoV-2 Antigen (Rapid) - Final Radiography Diagnostic Testing: Radiology Impression Hip/Pelvis X-Ray 01/15/22 19:23 IMPRESSION: Acute displaced right femoral neck fracture. Electronically Signed: Arlen Castillo MD at 20:21 EDT , Chest X-Ray 01/15/22 19:50 IMPRESSION: Hyperexpanded lungs probable COPD. No infiltrates. Electronically Signed: Arlen Castillo MD at 20:19 EDT , Physical Exam Const alert and oriented x3 Constitutional Narrative: frail Orientation / Consciousness: lethargic Exam Limitations: no limitations Nutritional Appearance: cachectic HEENT head/scalp atraumatic Head and Scalp: normocephalic Mouth: dry mucous membranes Eyes PERRL, EOMs intact bilaterally and conjunctivae normal Neck no lymphadenopathy and supple Resp normal respiratory effort, no retractions, no use of accessory muscles and clear to auscultation bilaterally Cardio regular rate, regular rhythm, S1 normal heart sound, S2 normal heart sound and no murmurs GI normal to inspection, nondistended, normoactive bowel sounds, soft to palpation, non-tender and non-distended Extremity Extremity Narrative: RLE mildly shortened and externally rotated, left hip tender to touch Peripheral Pulses: Yes pulses 2+ throughout Skin no rashes or lesions noted Neuro oriented x3 and CN's II-XII intact bilaterally Neuro Narrative: frail Sensorium / Orientation: awake and alert Psych affect normal Assessment & Plan Assessment/Plan (1) Fracture of femoral neck, right, closed: PLAN: #Right hip fracture due to mechanical fall * pain not very well controlled * on IV morphine for pain * PT/OT on board. Fall precautions * orthopedic surgery consulted; await rec's * #Chronic hypoxic respiratory failure due to end stage COPD * was on hospice care at home, but revoked this due to the right hip fracture. Plans on going back to hospice once the surgery is over * Titrate oxygen to maintain saturation above 90%. * #Hypertension; * he had not been on any chronic medication for hypertension hyperlipidemia as he was in hospice. Blood pressure fairly well controlled. Will monitor. #Hyperlipidemia: had not been on any meds as he was in hospice. #History of dysphagia due to esophageal strictures * Liquid pur?ed diet. * Currently stable * #CAD s/p stents * Again not on any meds as patient had been in hospice care. Will monitor. * #DVT prophylaxis: Start Lovenox Charges/Coding Visit Charges Inpatient E&M: 17885 Subs Hosp L2
--- NOTE | 2022-01-16 11:20 | FEM_PTH ---
PATIENT: RENETTA HOBSON LOC: [facility] U#:[id number] AGE/SX: 81/M ROOM: [facility] RE01/15/[address]: Dr. Linnea Arce DO : 1940 BED: 1 DIS: 01/18/2022 SPEC #: [id number] RECD: 01/18/22 07:46 STATUS: [place] REQ #: [id number] RONALDO: 01/16/22 11:[address]: Gus Hui DEPT: SURGICAL PATHOLOGY RECD BY: Amparo Roa ENTERED: 01/18/22 08:39 SP TYPE: FEM HEAD OTHR DR: DO Dr. Linnea Turner DO Dr. Mark Stutzman, DO Dr. Bebeto Hebert MD Tissues: Femoral region, NOS Procedures: Decalcification bone/plaque Surgery Specimen Level V Comments: @ Ordering doctor for DEC edited from to DR.JBORRU Deepti SUMNER at 01/18/22 1429 @ Ordering doctor for SUV edited from to DR.JBORRU Tatum by TAISHA at 01/18/22 1429 @ Submitting doctor edited from to DR.JBORRU Deepti SUMNER at 01/18/22 1429 HEADER OPERATION: Right hip hemiarthroplasty PRE-OP DIAGNOSIS: Fracture of right femoral neck, closed TISSUE SUBMITTED: Right femoral head MICROSCOPIC DIAGNOSIS Right femoral head, total hip resection: Consistent with organizing fracture callus. AM/am 01/25/22 MICROSCOPIC DESCRIPTION Slides are reviewed. GROSS DESCRIPTION Received is one container labeled with the patient's name and designated right femoral head. The specimen consists of a gregg femoral head measuring 5 x 5 x 4 cm. The articular surface is smooth. Resection margin is irregular and hemorrhagic. Also present in the specimen container are two detached pieces of bone measuring in aggregate 7 x 5 x 3 cm. One of the pieces is consistent with femora neck. [employer] sections are submitted in two cassettes after decalcification as follows: 1 ? detached pieces of bone, 2 ? femoral head. / ALYSE:jarrett 01/18/2022 TC:5 CPT: 69696, 16723
--- NOTE | 2022-01-16 12:15 | NURSING ---
pt left floor for procedure
--- NOTE | 2022-01-16 13:07 | CON.PCM_ITS ---
Assessment & Plan Assessment/Plan (1) Fracture of femoral neck, right, closed: QUALIFIERS: Encounter type: initial encounter Qualified Code(s): S72.001A - Fracture of unspecified part of neck of right femur, initial encounter for closed fracture PLAN: Patient wishes to proceed with surgical fixation risk-benefit alternatives of the procedure reviewed including risk of bleeding infection nerve artery tissue damage need for further surgery continued pain ligament discrepancy dislocation intraoperative fracture soft tissue injury including nerve vessel and muscle damage anesthesia risks. She does wish to proceed and informed consent was signed we will proceed with right hip hemiarthroplasty medically cleared. Plan for spinal anesthesia. Antibiotics on-call to the OR. HPI Consult Data Date of Consult: 01/16/22 HPI Narrative HPI Narrative: RENETTA HOBSON, is a 81 M who presents after ground-level fall sustaining a right femoral neck displaced fracture patient is on hospice end- stage COPD lives alone denies assistive ambulatory device. Denies any other complaints besides right hip pain PFSH Medical History (Updated 01/16/22 @ 13:[address] Gus Hui DO) Asthma Atherosclerotic heart disease of [place] coronary artery without angina pectoris Depression with anxiety Difficulty chewing Dysphagia Esophageal stricture Fatigue Hiatal hernia with gastroesophageal reflux disease and esophagitis High risk medication use Hyperlipidemia On home oxygen therapy SMAS (superior mesenteric artery syndrome) Tachycardia Weight loss Home Medications haloperidol 1 mg Q4H PRN PRN 01/15/22 [History Last Taken Unknown] lorazepam 0.5 mg PO Q4H PRN 01/15/22 [History Last Taken Unknown] morphine concentrate 5 mg Q4H PRN PRN 01/15/22 [History Last Taken Unknown] sennosides-docusate sodium [Senna Plus] 1 - 2 tab PO DAILY PRN 01/15/22 [History Last Taken Unknown] Allergy/AdvReac Type Severity Reaction Status Date / Time No Known Allergies Allergy Verified 01/15/22 19:06 Family History Mother Cancer Surgical History history Laparoscopy twisted stomach/bowel History of esophageal dilatation (12/20/18) History of esophagogastroduodenoscopy (EGD) (12/20/18) Stented coronary artery (01/27/17) Social History (Updated 01/15/22 @ 19:[address] Milad Orellana MD) household members: none Smoking Status: Former smoker alcohol intake: current substance use type: does not use Physical Exam Narrative Frail thin skin no open wounds right lower extremity shortened and internally rotated palpable but faint symmetrical pedal pulses able to extend toes and dorsiflex ankle compartment soft Medical Records Data Medical Nutrition Assessment Dietitian: Malnutrition Criteria Met Start: 01/16/22 09:46 Freq: Status: Active Protocol: Document 01/16/22 09:46 (Rec: 01/16/22 09:46 [id number]) Nutrition Malnutrition Evidence of Malnutrition Exists Yes Malnutrition (severe): Chronic Evidenced By Suboptimal Energy Intake ( Severe),Physical Changes ( Severe) Clinical Problem Chronic Disease or Condition Related Malnutrition Etiology severe, chronic malnutrition r /t inadequate energy intake d/ t dysphagia, esophageal stricture w/ increased energy needs d/t end-stage COPD Signs/Symptoms as evidenced by estimated PO intake meeting <75% of estimated energy needs >3 months; Severe muscle wasting/ fat loss per physical exam in orbital, temporal areas; promient protusion of acromion , clavices, scapula; noted severe muscle wasting in lower extremities; BMI 14.5 Status Active Problem Recommendation Dietitian Recommendations/Changes recommend regular diet- pureed when PO diet resumed after surgery. Will provide fortified milkshakes TID at meals when diet resumed. Lab / Micro Data Result Diagrams: 01/16/22 06:10 01/16/22 06:10 Labs: Laboratory Results - last 24 hr 01/15/22 19:32: WBC 6.4, RBC 4.13 L, Hgb 12.1 L, Hct 38.8 L, MCV 93.9, MCH 29.3, MCHC 31.2 L, RDW Std Deviation 46.7 H, RDW Coeff of [place] 13.5, Plt Count 165, MPV 9.8, Immature Gran % (Auto) 0.300, Neut % (Auto) 55.0, Lymph % (Auto) 31.6, [place] % (Auto) 9.9, Eos % (Auto) 2.7, Baso % (Auto) 0.5, Absolute Neuts (auto) 3.5, Absolute Lymphs (auto) 2.01, Nucleated RBC % 0 01/15/22 19:32: PT 13.5, INR 1.1, APTT 30.6 01/15/22 19:32: Sodium 141, Potassium 4.3, Chloride 107, Carbon Dioxide 34.0 H, Anion Gap 0 L, BUN 7, Creatinine 0.57 L, Estim Creat Clear Calc 61.70, Est GFR (MDRD) Af Amer 177, Est GFR (MDRD) Non-Af 146, BUN/Creatinine Ratio 12.3, Glucose 135 H, Calcium 8.6, Total Bilirubin 0.30, AST 24, ALT 29, Alkaline Phosphatase 62, Total Protein 5.7 L, Albumin 2.6 L, Globulin 3.1, Albumin/Globulin Ratio 0.8 L 01/16/22 06:10: WBC 9.1, RBC 4.23 L, Hgb 12.3 L, Hct 38.9 L, MCV 92.0, MCH 29.1, MCHC 31.6 L, RDW Std Deviation 46.1 H, RDW Coeff of [place] 13.6, Plt Count 151, MPV 9.6, Immature Gran % (Auto) 0.200, Neut % (Auto) 81.1 H, Lymph % (Auto) 9.0 L, [place] % (Auto) 7.5, Eos % (Auto) 1.8, Baso % (Auto) 0.4, Absolute Neuts (auto) 7 .4, Absolute Lymphs (auto) 0.82 L, Nucleated RBC % 0 01/16/22 06:10: Sodium 139, Potassium 3.7, Chloride 106, Carbon Dioxide 30.0, Anion Gap 3 L, BUN 6 L, Creatinine 0.42 L, Estim Creat Clear Calc 38.60, Est GFR (MDRD) Af Amer 254, Est GFR (MDRD) Non-Af 210, BUN/Creatinine Ratio 14.5, Glucose 145 H, Calcium 8.5 01/16/22 06:10: Blood Type O POSITIVE, Antibody Screen NEGATIVE Micro: Microbiology 01/16/22 06:15 Nasal Secretion SARS-CoV-2 Antigen (Rapid) - Final Radiology Impression Hip/Pelvis X-Ray 01/15/22 19:23 IMPRESSION: Acute displaced right femoral neck fracture. Electronically Signed: Arlen Castillo MD at 20:21 EDT , Chest X-Ray 01/15/22 19:50 IMPRESSION: Hyperexpanded lungs probable COPD. No infiltrates. Electronically Signed: Arlen Castillo MD at 20:19 EDT ,
--- NOTE | 2022-01-16 13:13 | CM.ED ---
Addendum entered by More Tabares 01/16/22 16:17: Before leaving the [facility] Unit outreach and education social worker again went to patient's room to see if he was back. He continued to remain in OR. Original Note: [facility] Note : SW went into patient's room to discuss SNF placement. Patient is in OR. [facility] will follow up later. More WEBBER
[2022-01-16] MEDS: Cefazolin 2 GM in 0.9% Normal Saline 100 ML IV (13:21)
[2022-01-16] MEDS: Lactated Ringers 1,000 ML 125 ML IV ×2 (14:00→17:09)
--- NOTE | 2022-01-16 14:37 | RAD_ITS ---
STUDY: X-RAY - PELVIS AND RIGHT HIP REASON FOR EXAM: Male, 81 years old. Post Op -- AP both hips on single keagan/lateral of op hip PACU TECHNIQUE: 2 views of the pelvis and hip. COMPARISON: 01/15/2022 FINDINGS: There is a non-specific bowel gas pattern. Normal visualized soft tissue structures. Normal bilateral iliac wings, sacroiliac joints and visualized sacrum. Normal bilateral superior and inferior pubic rami. Normal pubic symphysis. Normal bilateral ischial tuberosities. Hip replacement in radiographic alignment with surgical jaspreet and soft tissue swelling/air compatible with recent surgery. RAD/Hip 1 view with Pelvis IMPRESSION: Radiographic alignment of right hip replacement Electronically Signed: Piyush Melvin MD ([place]) at 15:10 EDT ,
--- NOTE | 2022-01-16 14:42 | OP.PCM_ITS ---
Report of Operation Date of Procedure: 01/16/22 Description of Surgical Findings:: Preoperative diagnosis: Right hip femoral neck fracture displaced Postoperative diagnosis: Same Procedure: Right hip hemiarthroplasty Implants: Catia Accolade II stem size 6 127 degree neck angle 0 neck length 52 mm outer diameter bipolar head Anesthesia: Spinal EBL: 75 cc Complications: None Condition: Stable to PACU Indication for procedure: This is a 81-year-old male patient status post ground- level fall at home sustaining displaced right hip femoral neck fracture patient was ambulatory without assistive device prior to fall. plans for definitive hemiarthroplasty were discussed including risks benefits and alternatives of the procedure were reviewed with the patient including risk of bleeding infection nerve artery tissue damage need for further surgery continue pain postoperative hip precaution restrictions leg length discrepancy and dislocation. Upon transferring the patient to the operating table it was noticed that he had already sustained devious injury to his right lower leg superficial skin wound approximately 4 inches x 2 inches this was dressed at the end of the case with Xeroform and a Curlex no alcohol was used over the open wound instead Betadine scrub and paint was used for prep. Procedure: Patient was met in the preoperative holding area once again the operative extremity was identified by both patient and physician and was marked. Patient was met by anesthesia and brought to the operating room where anesthesia was started . The patient was then positioned in the lateral decubitus position on a well-padded pegboard with an axillary roll. All bony prominences were checked and padded. The patient was prepped and draped in the usual sterile fashion. A timeout was called to ensure the proper patient procedure and extremity were being contemplated. Anatomic landmarks were palpated and marked for a standard posterior lateral approach. A timeout was called to ensure the proper patient procedure and extremity were being contemplated. A 10 blade scalpel was used to make a posterior incision through the skin and subcutaneous tissue. In retractors were used and electrocautery was used to maintain meticulous hemostasis and dissect full-thickness flaps until the gluteal fascia was reached. The gluteal fascia was incised in line with the gluteal fibers. The bursal tissue was then freed from the underside and a Charnley retractor was placed. The fatpad was elevated off of the external rotators with electrocautery and the external rotators were dissected off of the greater trochanter including the piriformis and were tagged with #1 Ethibond for later repair. The joint capsule opened with posterior trapdoor technique. A femoral neck cutting guide was used to teri the neck with a Bovie and an oscillating saw was used to complete the femoral neck cut. the fracture was visualized and with the use of a corkscrew and a skid the femoral head was removed and sized. We then trialed with the matching sizes . Hohmann was placed around the lesser trochanter. A femoral elevator was used. As well as a pointed wide Hohmann around the lesser trochanter and a Hohmann to help retract the gluteus medius. A box chisel was used to remove excess lateral neck followed by a canal finder and a lateralizing reamer. This was followed by sequential broaches. Attention was made of the version within the canal. Once the final broach was seated we then trialed and reduced the hip it was determined that a 127 degree neck angle with a 0 neck length was the appropriate size. We then checked stability with shuck testing as well as flexion and interminal rotation then proceeded with hip extension and checked leg lengths at the knees and heels. At this point trials were removed. The femoral stem was inserted. We re-trialed and then proceeded to impact the femoral head onto the [place] taper. We then surgically reduce the hip check stability again and leg lengths and were satisfied. irricept rinse was allowed to sit for 1 minutes while everyone changed their gloves. Thorough irrigation was performed. Followed by closure of the external rotators with #2 FiberWire followed by closure of gluteal fascia with #1 Ethibond. 0 Vicryl fat stitches and 2-0 Vicryl subcutaneous stitches and jaspreet in the skin. Dressing was applied in the form of Mepilex dressing and an abduction pillow was placed. Patient tolerated the procedure well there was no intraoperative complications all counts were correct and the patient was brought back to the PACU in stable condition
--- NOTE | 2022-01-16 16:18 | CM.ED ---
Addendum entered by More Tabares 01/16/22 18:28: Patient's POA is Geo Otoole and Abena Hay. Geo cares for patient at night and Abena during the day. The POA paperwork was copied and put on the chart. Original Note: AGATA Note SW met with patient's POA, Geo Otoole. He reports that he is a business management manager, at night, for patient. Patient has another business management manager, Abena. Geo said that patient has been at [facility] in the past and did not enjoy it. Patient said that he and the other POA Abena have discussed it and feel like patient would do better in [facility] at [facility]. Geo said ultimately it will be his decision and this business writer agreed in referencing patient's decision regarding rehab facility. Patient was asleep and unable to answer questions when this business writer met with POA, Geo. AGATA also provided Geo with list of [facility]. Since Geo and the other POHolly Kraft have indicated an interest in patient going to TCU at discharge this business writer will make referral to TCU at [facility]. AGATA sent email to [facility] in TCU inquiring about patient being appropriate for admission to TCU and requesting his chart be reviewed for admission. Plan: [facility] TCU More WEBBER
[2022-01-16] MEDS: oxyCODONE 5 MG Tablet PO (20:04)
[2022-01-16] MEDS: Cefazolin 1 GM/50 ML BAG IV (21:35)
[2022-01-16] MEDS: Acetaminophen 500 MG Tablet 1000 MG PO (21:37)
[2022-01-16] MEDS: Senna/Docusate Sodium 1 Tablet 2 TABLET PO (21:37)
[2022-01-16] MEDS: MELATONIN 3 MG TABLET PO (21:38)
[2022-01-17 00:03] VITALS: BP 145/78; PULSE 91; RESP 20; TEMP 36.9; O2SAT 94
[2022-01-17] MEDS: oxyCODONE 5 MG Tablet PO ×2 (05:55→21:52)
[2022-01-17] MEDS: Acetaminophen 500 MG Tablet 1000 MG PO ×2 (05:55→14:21)
[2022-01-17] MEDS: Cefazolin 1 GM/50 ML BAG IV ×3 (05:56→21:48)
[2022-01-17 06:01] VITALS: BP 103/83; PULSE 90; RESP 18; TEMP 36.7; O2SAT 95
[2022-01-17 06:16] LABS: Absolute Lymphocyte Count 0.84 X10^3/uL (0.83-4.51); Absolute Neutrophil Count 10.6 X10^3/uL (2.0-7.7); Basophil# 0.03 X10^3/uL; Basophil% 0.2 % (0-1); Eosinophil# 0.04 X10^3/uL; Eosinophils% 0.3 % (0-5); Hematocrit 37.8 % (40-54); Hemoglobin 11.9 g/dL (13.0-16.5); Lymphocyte # 0.84 X10^3/ul (0.83-4.51); Lymphocyte % 6.8 % (19-41); Mean Corp Hgb Conc 31.5 g/dL (32-36); Mean Corpuscular Volume 92.2 fL (80-94); Mean Platelet Vol. 10.2 fl (6.2-12.0); Monocyte% 7.3 % (0-10); NRBC Flagged by Analyzer 0 % (0-5); Neutrophil # 10.55 X10^3/uL (2.7-7.7); Neutrophil % 85.1 % (47-70); Platelet Count 156 K/mm3 (150-450); RBC Distribution Width CV 13.5 % (11.6-14.6); RBC Distribution Width SD 46.2 fl (35.1-43.9); White Blood Count 12.4 K/mm3 (4.4-11.0)
[2022-01-17 06:43] LABS: Anion Gap 5 (5-15); BUN 7 mg/dL (7-18); BUN/Creat Ratio 16.2 RATIO (10-20); Calcium,Total 8.3 mg/dL (8.5-10.1); Chloride 103 mmol/L (98-107); Creatinine, Serum 0.43 mg/dL (0.70-1.30); EST Glomerular Filtration Rate 201 mL/min (>60); Est Glom Filt Rate - Afr Amer 243 mL/min (>60); Glucose 111 mg/dL (74-106); Potassium 4.3 mmol/L (3.5-5.1); Sodium Level 138 mmol/L (136-145)
[2022-01-17] MEDS: APIXABAN 2.5 MG TABLET PO (07:47)
[2022-01-17 08:14] VITALS: O2SAT 94
--- NOTE | 2022-01-17 09:41 | PN.HOSP_ITS ---
Subjective Subjective Patient seen and examined. He is postop day 1 for right hip hemiarthroplasty on account of right hip fracture due to mechanical fall. Pain is well controlled and he has no active complaints. Review of systems otherwise negative. Objective Data Objective Data Vital Signs: Vital Signs Temp Pulse Resp BP Pulse Ox 98.1 F 90 18 103/83 H 94 01/17/22 06:01 01/17/22 06:01 01/17/22 06:01 01/17/22 06:01 01/17/22 08:14 Oxygen Flow Rate (L/min) 2 Oxygen Delivery Method Nasal Cannula Weight: 103 lb 13.404 oz Body Mass Index (BMI) 14.5 Intake & Output: Intake and Output for Last 24 Hours 01/15/22 01/16/22 01/17/22 23:59 23:59 23:59 Intake Total 3784.17 / 3784.17 613.33 / 613.33 Output Total 400 / 400 1500 / 1500 Balance 3384.17 / 3384.17 -886.67 / -886.67 Medical Nutrition Assessment Dietitian: Malnutrition Criteria Met Start: 01/16/22 09:46 Freq: Status: Active Protocol: Document 01/16/22 09:46 AG (Rec: 01/16/22 09:46 AG [id number]) Nutrition Malnutrition Evidence of Malnutrition Exists Yes Malnutrition (severe): Chronic Evidenced By Suboptimal Energy Intake ( Severe),Physical Changes ( Severe) Clinical Problem Chronic Disease or Condition Related Malnutrition Etiology severe, chronic malnutrition r /t inadequate energy intake d/ t dysphagia, esophageal stricture w/ increased energy needs d/t end-stage COPD Signs/Symptoms as evidenced by estimated PO intake meeting <75% of estimated energy needs >3 months; Severe muscle wasting/ fat loss per physical exam in orbital, temporal areas; promient protusion of acromion , clavices, scapula; noted severe muscle wasting in lower extremities; BMI 14.5 Status Active Problem Recommendation Dietitian Recommendations/Changes recommend regular diet- pureed when PO diet resumed after surgery. Will provide fortified milkshakes TID at meals when diet resumed. Lab / Micro Data Result Diagrams: 01/17/22 05:00 01/17/22 05:00 Labs: Laboratory Results - last 24 hr 01/17/22 05:00: WBC 12.4 H, RBC 4.10 L, Hgb 11.9 L, Hct 37.8 L, MCV 92.2, MCH 29.0, MCHC 31.5 L, RDW Std Deviation 46.2 H, RDW Coeff of Edelmira 13.5, Plt Count 1 56, MPV 10.2, Immature Gran % (Auto) 0.300, Neut % (Auto) 85.1 H, Lymph % (Auto) 6.8 L, [place] % (Auto) 7.3, Eos % (Auto) 0.3, Baso % (Auto) 0.2, Absolute Neuts (auto) 10.6 H, Absolute Lymphs (auto) 0.84, Nucleated RBC % 0 01/17/22 05:00: Sodium 138, Potassium 4.3, Chloride 103, Carbon Dioxide 30.0, Anion Gap 5, BUN 7, Creatinine 0.43 L, Estim Creat Clear Calc 38.60, Est GFR (MDRD) Af Amer 243, Est GFR (MDRD) Non-Af 201, BUN/Creatinine Ratio 16.2, Glucose 111 H, Calcium 8.3 L Micro: Microbiology 01/16/22 06:15 Nasal Secretion SARS-CoV-2 Antigen (Rapid) - Final Radiography Diagnostic Testing: Radiology Impression Hip/Pelvis X-Ray 01/16/22 14:37 IMPRESSION: Radiographic alignment of right hip replacement Electronically Signed: Piyush Melvin MD ([facility]) at 15:10 EDT Reading Location ID and State: [address] [place] [address] , Service support , Physical Exam Const alert, oriented x3 and no apparent distress Constitutional Narrative: frail General Appearance: cooperative Exam Limitations: no limitations Nutritional Appearance: cachectic HEENT normocephalic, head/scalp atraumatic, moist oral mucous membranes and oropharynx normal Head and Scalp: normocephalic Eyes PERRL, EOMs intact bilaterally and conjunctivae normal Neck no lymphadenopathy, supple and no JVD Resp normal respiratory effort, no retractions, no use of accessory muscles and clear to auscultation bilaterally Auscultation: diminished lung sounds; Negative for crackles, rales, rhonchi or wheezes Cardio regular rate, regular rhythm, S1 normal heart sound, S2 normal heart sound and no murmurs GI normal to inspection, nondistended, normoactive bowel sounds, soft to palpation, non-tender and non-distended; Negative for hepatosplenomegaly Extremity no clubbing, cyanosis or edema Extremity Narrative: intact dressing over right hip Peripheral Pulses: Yes pulses 2+ throughout Skin no rashes or lesions noted Neuro oriented x3, CN's II-XII intact bilaterally, no focal motor deficits and no sensory deficits noted Neuro Narrative: frail Sensorium / Orientation: awake and alert Psych affect normal Appearance: appropriate Assessment & Plan Assessment/Plan (1) Fracture of femoral neck, right, closed: QUALIFIERS: Encounter type: initial encounter Qualified Code(s): S72.001A - Fracture of unspecified part of neck of right femur, initial encounter for closed fracture PLAN: #Right hip fracture due to mechanical fall * s/p right hemiarthroplasty * on IV morphine, PO oxycodone and PO tylenol for pain * PT/OT On board. * Fall precautions * #Chronic hypoxic respiratory failure due to end stage COPD * was on hospice care at home, but revoked this due to the right hip fracture. Plans on going back to hospice once the surgery is over * Titrate oxygen to maintain saturation above 90%. * #Hypertension; * he had not been on any chronic medication for hypertension hyperlipidemia as he was in hospice. Blood pressure fairly well controlled. Will monitor. #Hyperlipidemia: had not been on any meds as he was in hospice. #History of dysphagia due to esophageal strictures * Liquid pur?ed diet. * Currently stable * #CAD s/p stents * Again not on any meds as patient had been in hospice care. Will monitor. * #DVT prophylaxis: eliquis 2.5mg bid Disposition: to be evaluated by PT/OT today to help with discharge planning. Charges/Coding Visit Charges Inpatient E&M: 27642 Subs Hosp L2
[2022-01-17 10:00] VITALS: BP 121/57; PULSE 75; RESP 18; TEMP 36.7; O2SAT 97
[2022-01-17] MEDS: Senna/Docusate Sodium 1 Tablet 2 TABLET PO (10:14)
--- NOTE | 2022-01-17 11:26 | NURSING ---
Pt had not voided since he was last straight cath in pm. Bladder scanned him for 536. Pt refused to be straight cath or even try to stand up and void in urinal. He said to try again late and maybe he will try and void for the RN.
[2022-01-17 14:50] VITALS: BP 104/60; PULSE 80; RESP 18; TEMP 36.7; O2SAT 95
[2022-01-17 21:44] VITALS: BP 117/58; PULSE 100; RESP 18; TEMP 37.1; O2SAT 97
[2022-01-17] MEDS: 0.9% Saline Lock 10 ML Syringe IV (21:47)
[2022-01-17] MEDS: MELATONIN 3 MG TABLET PO (21:52)
[2022-01-18 05:32] VITALS: BP 134/62; PULSE 82; RESP 18; TEMP 36.4; O2SAT 96
[2022-01-18] MEDS: Cefazolin 1 GM/50 ML BAG IV (05:34)
[2022-01-18] MEDS: 0.9% Saline Lock 10 ML Syringe IV (05:34)
[2022-01-18] MEDS: Acetaminophen 500 MG Tablet 1000 MG PO ×2 (05:36→14:31)
[2022-01-18 05:53] LABS: Absolute Lymphocyte Count 0.82 X10^3/uL (0.83-4.51); Absolute Neutrophil Count 9.4 X10^3/uL (2.0-7.7); Basophil# 0.02 X10^3/uL; Basophil% 0.2 % (0-1); Hematocrit 34.4 % (40-54); Hemoglobin 10.8 g/dL (13.0-16.5); Lymphocyte # 0.82 X10^3/ul (0.83-4.51); Lymphocyte % 7.3 % (19-41); Mean Corp Hgb Conc 31.4 g/dL (32-36); Mean Corpuscular Volume 92.5 fL (80-94); Mean Platelet Vol. 9.7 fl (6.2-12.0); Monocyte# 0.88 X10^3/uL; Monocyte% 7.9 % (0-10); NRBC Flagged by Analyzer 0 % (0-5); Neutrophil # 9.38 X10^3/uL (2.7-7.7); Neutrophil % 84.1 % (47-70); Platelet Count 162 K/mm3 (150-450); RBC Distribution Width CV 13.8 % (11.6-14.6); RBC Distribution Width SD 47.1 fl (35.1-43.9); Red Blood Count 3.72 M/mm3 (4.6-6.2); White Blood Count 11.2 K/mm3 (4.4-11.0)
[2022-01-18 06:18] LABS: Anion Gap 2 (5-15); BUN 13 mg/dL (7-18); BUN/Creat Ratio 28.6 RATIO (10-20); Calcium,Total 8.5 mg/dL (8.5-10.1); Chloride 102 mmol/L (98-107); Creatinine, Serum 0.46 mg/dL (0.70-1.30); EST Glomerular Filtration Rate 189 mL/min (>60); Est Glom Filt Rate - Afr Amer 229 mL/min (>60); Glucose 96 mg/dL (74-106); Potassium 3.6 mmol/L (3.5-5.1); Sodium Level 136 mmol/L (136-145)
--- NOTE | 2022-01-18 07:25 | PN.ORTHO_ITS ---
Subjective Subjective Patient seen and examined. Patient seems comfortable in bed. Says he has pain in hip when attempts to ambulate. No other complaints. Objective Data Objective Data Vital Signs: Vital Signs Temp Pulse Resp BP Pulse Ox 97.5 F L 82 18 134/62 H 96 01/18/22 05:32 01/18/22 05:32 01/18/22 05:32 01/18/22 05:32 01/18/22 05:32 Oxygen Flow Rate (L/min) 2 Oxygen Delivery Method Nasal Cannula Weight: 103 lb 13.404 oz Body Mass Index (BMI) 14.5 Intake & Output: Intake and Output for Last 24 Hours 01/16/22 01/17/22 01/18/22 23:59 23:59 23:59 Intake Total 3784.17 / 3784.17 883.33 / 883.33 50 / 50 Output Total 400 / 400 2400 / 2400 Balance 3384.17 / 3384.17 -1516.67 / -1516.67 50 / 50 Medical Nutrition Assessment Dietitian: Malnutrition Criteria Met Start: 01/16/22 09:46 Freq: Status: Active Protocol: Document 01/16/22 09:46 AG (Rec: 01/16/22 09:46 [id number]) Nutrition Malnutrition Evidence of Malnutrition Exists Yes Malnutrition (severe): Chronic Evidenced By Suboptimal Energy Intake ( Severe),Physical Changes ( Severe) Clinical Problem Chronic Disease or Condition Related Malnutrition Etiology severe, chronic malnutrition r /t inadequate energy intake d/ t dysphagia, esophageal stricture w/ increased energy needs d/t end-stage COPD Signs/Symptoms as evidenced by estimated PO intake meeting <75% of estimated energy needs >3 months; Severe muscle wasting/ fat loss per physical exam in orbital, temporal areas; promient protusion of acromion , clavices, scapula; noted severe muscle wasting in lower extremities; BMI 14.5 Status Active Problem Recommendation Dietitian Recommendations/Changes recommend regular diet- pureed when PO diet resumed after surgery. Will provide fortified milkshakes TID at meals when diet resumed. Lab / Micro Data Result Diagrams: 01/18/22 05:44 01/18/22 05:44 Labs: Laboratory Results - last 24 hr 01/18/22 05:44: WBC 11.2 H, RBC 3.72 L, Hgb 10.8 L, Hct 34.4 L, MCV 92.5, MCH 29.0, MCHC 31.4 L, RDW Std Deviation 47.1 H, RDW Coeff of Edelmira 13.8, Plt Count 162, MPV 9.7, Immature Gran % (Auto) 0.500, Neut % (Auto) 84.1 H, Lymph % (Auto) 7.3 L, [place] % (Auto) 7.9, Eos % (Auto) 0.0, Baso % (Auto) 0.2, Absolute Neuts (auto) 9.4 H, Absolute Lymphs (auto) 0.82 L, Nucleated RBC % 0 01/18/22 05:44: Sodium 136, Potassium 3.6, Chloride 102, Carbon Dioxide 32.0, Anion Gap 2 L, BUN 13, Creatinine 0.46 L, Estim Creat Clear Calc 38.60, Est GFR (MDRD) Af Amer 229, Est GFR (MDRD) Non-Af 189, BUN/Creatinine Ratio 28.6 H, Glucose 96, Calcium 8.5 Micro: Microbiology 01/16/22 06:15 Nasal Secretion SARS-CoV-2 Antigen (Rapid) - Final Physical Exam Const no apparent distress General Appearance: cooperative Extremity Extremity Narrative: Right hip dressing clean dry and intact compartments soft neurovascular intact EHL tibialis anterior gastrocsoleus intact pedal pulses. Right leg dressing clean dry and intact Assessment & Plan Assessment/Plan (1) Fracture of femoral neck, right, closed: QUALIFIERS: Encounter type: initial encounter Qualified Code(s): S72.001A - Fracture of unspecified part of neck of right femur, initial encounter for closed fracture PLAN: Postop day #2 right hip hemiarthroplasty for fracture. PT OT weightbearing as tolerated with postoperative hip precautions. Eliquis 2.5 mg twice daily for 3 weeks postoperatively. Right hip dressing leave in place for 1 week then remove and clean daily with antibacterial soap and water and replace with dry dressing. Right leg dressing from preoperative skin tear, leave on 72 hours then remove and clean daily with antibacterial soap and warm water and change dressing daily at that point. Eliu should be removed around 14 to 17 days postoperatively at which time he can follow-up with me or if he is still in a rehab or transitional care unit at the hospital I can see him there. Call with any questions or concerns
[2022-01-18 08:23] VITALS: BP 131/60; PULSE 87; RESP 18; TEMP 36.6; O2SAT 98
[2022-01-18] MEDS: APIXABAN 2.5 MG TABLET PO (08:38)
[2022-01-18] MEDS: Senna/Docusate Sodium 1 Tablet 2 TABLET PO (08:38)
[2022-01-18 10:53] VITALS: O2SAT 95
--- NOTE | 2022-01-18 11:09 | CASEMGMT ---
Social Work Per physician note, pt to discharge to [facility] and will receive therapy. Phone call placed to Gaston at [facility] who states that pt Cannot go to [facility] AND receive therapy while there. AGATA met with pt and HCPOA Abena Murray in room and introduced self and role of SW. Pt lives at home alone in a two story home with 2 steps to enter. Pt has services through [facility] since 2019. Abena reports that someone from hospice visits pt twice daily, once in the morning and once in the evening. Both Abena and Geo Otoole (co HCPOA) visit pt once a day to assist. Pt has been staying alone during the night and when one of the four caregivers are not present during the day. Pt goes to the [facility] for 5 days each month for respite stay. Abena states pt has been in SNF's previously but has left and refuses to return. Abena feels pt may be agreeable to go to TCU for short term rehab prior to returning home with hospice services. AGATA spoke with pt regarding discharge options including TCU, SNF, Home with hospice. Pt expresses understanding but is deferring decision making to Abena. Abena requesting pt go to TCU for rehab to regain strength and then will return home to prior level of functioning with hospice services in place. Referral to [facility] in TCU. AGATA will await determination of acceptance. MARJORIE Santacruz
[2022-01-18 11:44] VITALS: O2SAT 95
--- NOTE | 2022-01-18 12:34 | PCM.DC.SUM ---
Providers Date of Admission: 01/15/22 Date of Discharge: 01/18/22 Primary Care Physician: Dr. John Fallon, Consultations 01/15/22 22:16 Consult: Orthopedics Routine Consulting Provider: Gus Hui Reason for Consult: Hip fracture EMERGENT Consult: No MD Notified: Yes Date Notified: 01/15/22 Time Notified: 20:48 Method of Notification: Verbal Reason For Visit: HIP FRACTURE Diagnosis Discharge Diagnosis (1) Fracture of femoral neck, right, closed: Status: Acute Code(s): S72.001A - Fracture of unspecified part of neck of right femur, initial encounter for closed fracture Qualifiers: Encounter type: initial encounter Qualified Code(s): S72.001A - Fracture of unspecified part of neck of right femur, initial encounter for closed fracture Medications at Discharge Home Medications haloperidol 1 mg Q4H PRN PRN 01/15/22 lorazepam 0.5 mg PO Q4H PRN 01/15/22 sennosides-docusate sodium [Senna Plus] 1 - 2 tab PO DAILY PRN 01/15/22 apixaban [Eliquis] 2.5 mg PO BID #42 tab 01/18/22 oxycodone 5 - 10 mg PO Q6H PRN 1 Days #8 tab 01/18/22 sennosides-docusate sodium [Stool Softener-Stimulant Laxat] 2 tab PO BID #0 tab 01/18/22 Hospital Course Operations total hip replacement (Right hemiarthroplasty) Procedures None Summary of Care Provided Minutes Spent on Discharge: 42 Hospital Course: Mr. Shelton is an 81-year-old white male who presented to the emergency department at [facility] on 01/15/2022 after suffering a mechanical fall and complaining of right hip pain. In the emergency department he was found to have an acute displaced right femoral neck fracture. According to his caregiver and to himself he had been suffering from some lightheadedness and had been very wobbly at home with transfers and ambulation. He has a history of end-stage COPD as well as significant dysphagia with esophageal strictures and has been enrolled in hospice since 2019 however he revoked hospice in order to get his hip repaired for palliative purposes. He was evaluated by orthopedic surgery on 01/16/2022 and taken for a right total hip arthroplasty on 01/17/2022. It was initially thought that he would be able to be admitted to the inpatient unit hospice however the this was an error interpretation and the patient decided to enroll in 2 TCU for continued rehab and try to get him to his functional baseline. After he is discharged in TCU the intent is for him to reenter on hospice. Postoperative instructions from orthopedic surgery include continued physical and occupational therapy with weightbearing as tolerated on his right lower extremity, Postoperative hip precautions, Eliquis 2.5 mg twice daily for 3 weeks postoperatively, removal of hip dressing in 1 week to clean daily with antibacterial soap and water and replace with a dry dressing, staple removal around 14 to 17 days postoperatively with postoperative follow-up with Dr. Hui at that time either in the TCU or as an outpatient. He was discharged with a prescription for 24 hours worth of pain medication if needed as well as instructed to continue his Eliquis as noted above. His laboratory data after surgery has remained stable and clinically he remained stable for discharge on 01/18/2022 at which time he was discharged to the TCU again with intent to follow-up with hospice after discharge. Discharge diagnoses: Mechanical fall Right femoral neck fracture Right total hip arthroplasty Chronic hypoxic respiratory failure End-stage COPD Hypertension Hyperlipidemia Dysphagia Esophageal strictures CAD Anxiety Physical Exam Const alert and oriented x3 Constitutional Narrative: Cachectic, older white male who appears much older than stated age sitting up in bed, watching television, appears comfortable however very grumpy and argumentative at this time General Appearance: appears older than stated age Orientation / Consciousness: awake Exam Limitations: other limitations Nutritional Appearance: cachectic HEENT normocephalic, head/scalp atraumatic and moist oral mucous membranes HEENT Narrative: Moderately hard of hearing, dentition is poor, Mallampati is 1-2 Eyes PERRL and EOMs intact bilaterally Eyes Narrative: Mildly pale conjunctiva bilaterally, no scleral icterus Neck no lymphadenopathy, supple and no JVD Neck Narrative: Trachea midline, no thyroid enlargement Resp normal respiratory effort, no retractions and no use of accessory muscles Resp Narrative: Markedly diminished diffusely with no adventitious sounds Cardio regular rate, regular rhythm, S1 normal heart sound, S2 normal heart sound, no murmurs, no rub, no gallops, no clicks and no JVD GI normal to inspection, nondistended, normoactive bowel sounds, soft to palpation, non-tender and non-distended; Negative for hepatosplenomegaly GI Narrative: Scaphoid abdomen Extremity no clubbing, cyanosis or edema Extremity Narrative: MARIANELA hose bilateral lower extremity, polar ice in place right hip, right hip dressing intact without any significant drainage, mild surrounding tenderness Skin no rashes or lesions noted, skin turgor normal and no jaundice Neuro oriented x3, CN's II-XII intact bilaterally, moves all extremities and no focal motor deficits Neuro Narrative: Significant generalized weakness with decreased strength in the right lower extremity secondary to pain Sensorium / Orientation: awake and alert Speech: speech normal Psych Psych Narrative: Agitated and argumentative Medical Records Data Medical Nutrition Assessment Dietitian: Malnutrition Criteria Met Start: 01/16/22 09:46 Freq: Status: Active Protocol: Document 01/18/22 10:23 RMA (Rec: 01/18/22 10:24 RMA [id number]) Nutrition Malnutrition Evidence of Malnutrition Exists Yes Malnutrition (severe): Chronic Evidenced By Suboptimal Energy Intake ( Severe),Physical Changes ( Severe) Clinical Problem Chronic Disease or Condition Related Malnutrition Etiology severe, chronic malnutrition r /t inadequate energy intake d/ t dysphagia, esophageal stricture w/ increased energy needs d/t end-stage COPD Signs/Symptoms as evidenced by estimated PO intake meeting <75% of estimated energy needs >3 months; Severe muscle wasting/ fat loss per physical exam in orbital, temporal areas; promient protusion of acromion , clavices, scapula; noted severe muscle wasting in lower extremities; BMI 14.5 Status Active Problem Recommendation Dietitian Recommendations/Changes Continue regular diet/pureed food as ordered with fortified /whole-milk shakes + 1 scoop beneprotein TID at meals. Pt dislikes ensure and other commercial medical-nutrition supplements, will continue fortified shakes for now. Will add mash pot with gravy and butter at lunch and dinner per pt preference at home and caregivers request. Weight / BMI Weight Weight: 47.1 kg Body Mass Index (BMI) 14.5 ABG / Lab / Microbiology Data Result Diagrams: 01/18/22 05:44 01/18/22 05:44 Laboratory: Laboratory Results - last 24 hr 01/18/22 05:44: WBC 11.2 H, RBC 3.72 L, Hgb 10.8 L, Hct 34.4 L, MCV 92.5, MCH 29.0, MCHC 31.4 L, RDW Std Deviation 47.1 H, RDW Coeff of [place] 13.8, Plt Count 162, MPV 9.7, Immature Gran % (Auto) 0.500, Neut % (Auto) 84.1 H, Lymph % (Auto) 7.3 L, [place] % (Auto) 7.9, Eos % (Auto) 0.0, Baso % (Auto) 0.2, Absolute Neuts (auto) 9.4 H, Absolute Lymphs (auto) 0.82 L, Nucleated RBC % 0 01/18/22 05:44: Sodium 136, Potassium 3.6, Chloride 102, Carbon Dioxide 32.0, Anion Gap 2 L, BUN 13, Creatinine 0.46 L, Estim Creat Clear Calc 38.60, Est GFR (MDRD) Af Amer 229, Est GFR (MDRD) Non-Af 189, BUN/Creatinine Ratio 28.6 H, Glucose 96, Calcium 8.5 Microbiology: Microbiology 01/16/22 06:15 Nasal Secretion SARS-CoV-2 Antigen (Rapid) - Final Meaningful Use Info Meaningful Use Diagnoses (Choose all that apply): None applicable Discharge Plan Admission Admit Date/Time: 01/15/22 20:46 Primary Reason for Your Visit: Fall with R Hip fracture Attending Provider: Linnea Arce Primary Care Provider: John Fallon Consulting Providers: Gus Hui Discharge Orders/Prescriptions Prescriptions: New sennosides-docusate sodium [Stool Softener-Stimulant Laxat] 8.6-50 mg Tablet 2 tab PO BID Qty: 0 RF: 0 oxycodone 5 mg Tablet 5 - 10 mg PO Q6H PRN (Reason: pain) 1 Days Qty: 8 RF: 0 Eliquis 2.5 mg Tablet 2.5 mg PO BID Qty: 42 RF: 0 Continued haloperidol 1 mg tablet 1 mg Q4H PRN PRN (Reason: Nausea) RF: 0 lorazepam 0.5 mg Tablet 0.5 mg PO Q4H PRN (Reason: Anxiety) RF: 0 sennosides-docusate sodium [Senna Plus] 8.6-50 mg Tablet 1 - 2 tab PO DAILY PRN (Reason: Constipation) RF: 0 Discontinued morphine concentrate 100 mg/5 mL (20 mg/mL) solution 5 mg Q4H PRN PRN (Reason: Pain) RF: 0 Referrals / Follow Up: John Fallon DO [Primary Care Provider] - Disposition Disposition (needs filled in before D/C Order can be placed): Care Home Facility Charges/Coding Visit Charges Inpatient E&M: 37703 SNF Disch >30 Min
--- NOTE | 2022-01-18 12:41 | TREXTCAR_ITS ---
Diet 01/17/22 07:44 Diet: Regular - General Food consistency:: Pureed Is pt able to select menu?: Yes Diet Comments: 12oz milkshake:whole milk+1sc benepro TID;mash pot w/gravy&butter Q L/D Routine Orders/Code Status O2 Frequency: PRN Keep PO Greater than or Equal to (%): 92 Routine Lab Work: CBC (weekly) and BMP (weekly) Code Status: DNRCC-A Wound(s) RIGHT HIP: Wound Type: Surgical Incision RIGHT LEG: Wound Type: Surgical Incision Therapies Weight Bearing: Weight bearing as tolerated Extremity Affected:: Right Lower Physical Therapy: Eval and Treat Occupational Therapy: Eval and Treat Problem/Diagnosis (1) Fracture of femoral neck, right, closed: Status: Acute Allergies/Procedures Done in Hospital Allergies No Known Allergies Allergy (Verified 01/15/22 19:06) Procedures: None Type of Care/Length of Stay Estimated LOS: Convalescent Care Less Than 30 days Type of Care Needed: Skilled Rehab Potential: Fair Prognosis: Poor Additional Orders/Day of Discharge Additional Orders: will need hospice upon discharge Day of Discharge: 01/18/22 Dietary and Speech Recommendations Dietitian Recommendations/Changes: Continue regular diet/pureed food as ordered with fortified/whole-milk shakes + 1 scoop beneprotein TID at meals. Pt dislikes ensure and other commercial medical-nutrition supplements, will continue fortified shakes for now. Will add mash pot with gravy and butter at lunch and dinner per pt preference at home and caregivers request. Discharge Plan Admission Admit Date/Time: 01/15/22 20:46 Primary Reason for Your Visit: Fall with R Hip fracture Attending Provider: Linnea Arce Primary Care Provider: John Fallon Consulting Providers: Gus Hui Discharge Orders/Prescriptions Prescriptions: New sennosides-docusate sodium [Stool Softener-Stimulant Laxat] 8.6-50 mg Tablet 2 tab PO BID Qty: 0 RF: 0 oxycodone 5 mg Tablet 5 - 10 mg PO Q6H PRN (Reason: pain) 1 Days Qty: 8 RF: 0 Eliquis 2.5 mg Tablet 2.5 mg PO BID Qty: 42 RF: 0 Continued haloperidol 1 mg tablet 1 mg Q4H PRN PRN (Reason: Nausea) RF: 0 lorazepam 0.5 mg Tablet 0.5 mg PO Q4H PRN (Reason: Anxiety) RF: 0 sennosides-docusate sodium [Senna Plus] 8.6-50 mg Tablet 1 - 2 tab PO DAILY PRN (Reason: Constipation) RF: 0 Discontinued morphine concentrate 100 mg/5 mL (20 mg/mL) solution 5 mg Q4H PRN PRN (Reason: Pain) RF: 0 Referrals / Follow Up: John Fallon DO [Primary Care Provider] - Disposition Disposition (needs filled in before D/C Order can be placed): Penitentiary Facility
--- NOTE | 2022-01-18 13:01 | CASEMGMT ---
Social work Return call from [facility] in TCU and they are able to accept pt today. Physician notified and plans to discharge pt today. Phone call to pt HCPOA Abena and updated and she is appreciative of d/c plan. SW attempted to tell pt but he is sleeping soundly at this time. Nursing aware pt will need a negative covid test prior to discharge. SW will fax orders once obtained. Plan: TCU skilled level of care. MARJORIE Santacruz
--- NOTE | 2022-01-18 14:06 | CHAPLAIN ---
Type of Pastoral Visit _x__ Initial Visit ___ Follow-up Visit ___ On-call Visit ___ General Patient Visit ___ Spiritual Assessment ___ Family Conference ___ Bereavement ___ Rapid Response ___ Code Blue ___ Other (describe below) Pastoral Care Referral From _x__ Patient ___ Family ___ Nurse ___ Physician ___ Gastroenterology Manager ___ Sales Representative [employer] ___ Other (describe below) Sacrament/Intervention _x__ Active listening ___ Anointing ___ Scientology ___ Bereavement ___ Communion ___ Arlyn exploration ___ ___ Life review _x__ Prayer ___ Reconciliation ___ Sacrament of Sick _x__ Supportive presence ___ Wedding ___ Other (describe below) Pastoral Comments patient was awake but kept his eyes closed almost the entire visit; pt admits to not feeling well and I have no appetite; pt has been in several different churches over the years; pt states people have been trying to help me but they just can't do what I need;
[2022-01-18 14:25] VITALS: BP 111/87; PULSE 93; RESP 16; TEMP 36.7; O2SAT 97
--- NOTE | 2022-01-18 15:04 | PHA.DC.MR ---
Pharmacy Service has performed discharge medication reconciliation for this patient. The patient's discharge medication list was reviewed for discrepancies and discrepancies were resolved. Home Medications haloperidol 1 mg Q4H PRN PRN 01/15/22 lorazepam 0.5 mg PO Q4H PRN 01/15/22 sennosides-docusate sodium [Senna Plus] 1 - 2 tab PO DAILY PRN 01/15/22 apixaban [Eliquis] 2.5 mg PO BID #42 tab 01/18/22 oxycodone 5 - 10 mg PO Q6H PRN 1 Days #8 tab 01/18/22 sennosides-docusate sodium [Stool Softener-Stimulant Laxat] 2 tab PO BID #0 tab 01/18/22
--- NOTE | 2022-01-22 11:01 | NURSING ---
FAMILY, MERYL MARTINE PICKED UP HOME MEDS & SIGNED VALUABLE ENVELOPE FORM. FORM SENT TO MEDICAL RECORDS,
== END 2022-01-18 15:08 | DRG 521 ==
LOC: ED 20:20 → MS3 20:50
PROVIDERS: Orthopaedic Surgery; Student in an Organized Health Care Education/Training Program; Admitting Provider Family Medicine; Emergency Provider Emergency Medicine; PCP Family Medicine; Visit Provider Internal Medicine
PROC: (CPT 27125; principal; 2022-01-16 11:00)
DX: S72.001A Fracture of unspecified part of neck of right femur, initial encounter for closed fracture (principal); E43 Unspecified severe protein-calorie malnutrition; J96.11 Chronic respiratory failure with hypoxia; Z68.1 Body mass index [BMI] 19.9 or less, adult; I27.20 Pulmonary hypertension, unspecified; Z99.81 Dependence on supplemental oxygen; J44.9 Chronic obstructive pulmonary disease, unspecified; K22.2 Esophageal obstruction; I25.10 Atherosclerotic heart disease of native coronary artery without angina pectoris; I10 Essential (primary) hypertension; W18.30XA Fall on same level, unspecified, initial encounter; E87.5 Hyperkalemia; R29.6 Repeated falls; Z95.5 Presence of coronary angioplasty implant and graft; Z66 Do not resuscitate; Z51.5 Encounter for palliative care; Z79.899 Other long term (current) drug therapy; Z28.310 Unvaccinated for COVID-19; Z28.9 Immunization not carried out for unspecified reason; Z87.891 Personal history of nicotine dependence; Z23 Encounter for immunization
CPT/HCPCS: 36415; 71045; 73501; 73502; 80048; 80053; 85025; 85610; 85730; 86850; 86900; 86901; 87426; 88307; 88311; 90471; 90715; 93005; 97110; 97116; 97162; 97166; 97530; 97535; 97802; 99285; C1776; J7030; J7120; A4216; J2405

== ENCOUNTER 2022-01-18 15:19 | Inpatient (IN) | payer MEDICARE, SELFPAY ==
[2017-01-28 08:52] VITALS: BMI 18.7
[2022-01-18 15:35] VITALS: BMI 13.9
[2022-01-18 15:38] VITALS: PULSE 93; RESP 16
--- NOTE | 2022-01-18 15:53 | NURSING ---
Addendum entered by Swathi Ozuna 01/18/22 17:27: Dr. Faye updated on pt's intentions of killing himself and has plan. Nursing mains and service supervisor updated and dry dip worker up to see pt. Sitter in room at this time. Original Note: When asking pt admission questions, pt was asked if he had any thoughts of killing himself, he stated yes. When asked if he feels like harming himself right now he states yes he does. When asked if he had a plan to harm himself he said yes, I would take a bunch of pills. Staff stayed with pt and Charge nurse immediately notified. Staff remains with patient at this time.
[2022-01-18 16:01] VITALS: BP 131/63; PULSE 92; RESP 16; TEMP 36.5; O2SAT 95
[2022-01-18] MEDS: Senna/Docusate Sodium 1 Tablet 2 TABLET PO (18:09)
--- NOTE | 2022-01-18 18:41 | CASEMGMT ---
Addendum entered by More Tabares 01/18/22 18:41: Plan: Continue on TCU for rehab Original Note: Social Work Psychiatric Assessment: Patient: aTdeo Shelton Reason for Consult: Mental Health Chief Complaint: SW met with patient in his room on TCU. Patient said that he is not feeling ?any success here... it is getting worse... not better and there is nothing anything to do? pain and nothing seems to get it down.? Patient said ?it?s gonna get worse not better.? SW asked patient if he wanted to hurt himself and he said ?yes.? SW asked patient if he wanted to , and he said ?yes? and then continued ?we all got to go sometime.? Patient said that his plan regarding suicide is to ?OD on something and just fall asleep.? Marital History- Single Identified Gender: Male Living Situation: Patient lives by himself in a house. He has two caregivers. Support: Davian and Abena his caretakers History: None Education and Employment History: Patient reports that he graduated high school. 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 Mental Health Treatment: Patient reports no previous psych hospitalization or mental health treatment. Patient said that he has never attempted suicide in the past. SW asked patient how long he has been thinking of suicide. Patient said ?well, when I got here, they are asking me the same thing over and over? it is like time and temperature? ? it?s not getting better, so I have to get out of it.? Triggers/Stressors: Patient said ?no.? Coping Skills: Patient said, ?I can cope on the outside world but not since I got sick.? Abuse Issues: Denied Substance Abuse Issues: Denied Risk to Others: Suicidal: - Patient reports current SI with plans to overdose. SW asked about intent and stated that on scale of 1-10 ?I would have access. I would be careful about how I do it. it makes a lot of sense now.? SW asked patient if he has a reason to live and he said, ?nothing I know of? and ?I don?t know what it is now.? Patient said, ?I would feel better if I had progress.? SW asked patient if he would act on his thoughts regarding suicide and he said ?hard to answer? I have no idea.? SW asked patient if he is safe in the hospital and patient said, ?apparently not because you?re in here? it?s not your fault.? SW asked patient about his donita views about suicide and patient said his donita says that suicide is wrong. SW asked patient what would happen if he committed suicide and patient said, ?it?s too much pain which I can?t cope with.? Patient said, ?I thought my pain would help me out of this.? Patient then stated, ?I am not getting better.? Homicidal: Denied Violence: Denied Orientation: x4 Memory: Good Appearance: Wearing Hospital Gown Mood and Affect: Depressed and Flat affect Communication Pattern: Responds to Questions Thought Process: Logical and Linear, focused on pain General Intellectual Functioning: Average Judgement: Impaired Insight: Impaired AGATA updated MD Faye as patient is on the TCU Unit. MD Faye indicated he does not feel that patient meets criteria Application for Emergency Hospital Admission (pink slip). MD spoke to patient, and he reported that he wants to remain in TCU for rehab and is not suicidal now. AGATA updated Delbert Draper regard this case. AGATA also left voice mail for Ana Luisa Moise on her voice mail. RN for patient was present when this medical writer spoke to MD Faye, so she was updated. More WEBBER
--- NOTE | 2022-01-18 20:34 | HP.PCM_ITS ---
HPI - General General Date of Admission: 01/18/22 HPI Narrative 01/15/2022 RENETTA HOBSON, is a 81 Male who presents to [facility] Emergency Department with fall. Walking, short of breath, fell, chronic oxygen 3 to 4 liters per nasal cannula. 3 falls in 1 week, unable to get up, crawled to phone. Right hip pain, unable to lift right leg. X-ray showed right hip fracture, hold hospice to have right hip fracture fixed. 01/15/2022 Admit to Hospital. Revoke hospice. Prepare for surgery. 01/16/2022 Right hip pain. Morphine IV for pain. PT/OT for nursing home facility. Liquid pureed diet for dysphagia. 01/16/2022 Dr. Hui performed right hip hemiarthroplasty. 01/17/2022 Pain well controlled. Morphine IV, Oxycodone PO, Tylenol for pain. Eliquis 2.5mg bid for DVT prophylaxis. 01/18/2022 Admit to TCU with debility, here for rehabilitation, strengthening, prior to discharge home alone with hospice. Upon arrival, resident told nursing staff he had suicidal thoughts with plan. When I asked him again, he stated he is not suicidal at this minute, and wou ld like to do therapy prior to going home with hospice. [facility] Medical History Asthma Atherosclerotic heart disease of [place] coronary artery without angina pectoris Depression with anxiety Difficulty chewing Dysphagia Esophageal stricture Fatigue Hiatal hernia with gastroesophageal reflux disease and esophagitis High risk medication use Hyperlipidemia On home oxygen therapy SMAS (superior mesenteric artery syndrome) Tachycardia Weight loss Home Medications haloperidol 1 mg Q4H PRN PRN 01/15/22 [History Last Taken Unknown] lorazepam 0.5 mg PO Q4H PRN 01/15/22 [History Last Taken Unknown] sennosides-docusate sodium [Senna Plus] 1 - 2 tab PO DAILY PRN 01/15/22 [History Last Taken Unknown] apixaban [Eliquis] 2.5 mg PO BID 01/18/22 [History Last Taken Unknown] oxycodone 5 - 10 mg PO Q6H PRN 1 Days #8 tab 01/18/22 [Rx Last Taken Unknown] sennosides-docusate sodium [Stool Softener-Stimulant Laxat] 2 tab PO BID 01/18/22 [History Last Taken Unknown] Allergy/AdvReac Type Severity Reaction Status Date / Time No Known Allergies Allergy Verified 01/15/22 19:06 Family History Mother Cancer Surgical History history Laparoscopy twisted stomach/bowel History of esophageal dilatation (12/20/18) History of esophagogastroduodenoscopy (EGD) (12/20/18) Stented coronary artery (01/27/17) Social History household members: none Smoking Status: Former smoker alcohol intake: current substance use type: does not use ROS Constitutional Constitutional: Denies chills, fever(s) or weight gain ENT HEENT: Denies headache(s), nasal congestion or nasal discharge Cardiovascular Cardiovascular: Denies chest pain or palpitations Respiratory/Chest Respiratory/Chest: Denies cough, excessive phlegm production or shortness of breath with exertion Gastrointestinal Gastrointestinal: Denies abdominal pain, nausea or vomiting Genitourinary Genitourinary: Denies dysuria Musculoskeletal Musculoskeletal: Denies joint pain or joint swelling Integumentary Integumentary: Denies rash or wounds Neurologic Neurologic: Denies focal weakness, numbness or tingling Psychiatric Psychiatric: Denies anxiety, auditory hallucinations, depression, homicidal ideation or suicidal ideation Vital Signs Vital Signs Vital Signs: 01/18/22 15:38 01/18/22 16:01 01/18/22 17:55 Temperature 97.7 F L Temperature Source Temporal Pulse Rate 93 92 Pulse Rhythm Regular Pulse Strength Normal (2+) Respiratory Rate 16 16 Respiratory Effort Normal Respiratory Depth Normal Respiratory Pattern Normal Blood Pressure 131/63 H Blood Pressure Mean 85 Blood Pressure Source Monitor Pulse Ox 95 Oxygen Delivery Method Nasal Cannula Nasal Cannula Nasal Cannula Oxygen Flow Rate (L/min) 2 2 2 Weight Weight: 47.99 kg Body Mass Index (BMI) 13.9 Physical Exam Const alert General Appearance: cooperative HEENT normocephalic Eyes PERRL and EOMs intact bilaterally Neck supple, no JVD and no carotid bruits Resp normal respiratory effort, normal air movement and clear to auscultation bilaterally Cardio regular rate and regular rhythm GI normal to inspection, nondistended, normoactive bowel sounds, non-tender and non-distended Extremity normal capillary refill General Extremity: Negative for edema Skin no rashes or lesions noted General Skin Exam: no breakdown Psych affect normal Appearance: appropriate Assessment & Plan Assessment/Plan (1) Debility: (2) Fall: (3) Closed right hip fracture: (4) Coronary artery disease: (5) Chronic obstructive pulmonary disease: (6) Dysphagia: (7) Esophageal stricture: PLAN: 81 year old male with below past medical history hospitalized for right hip fracture, underwent right hip hemiarthroplasty 01/16/[address] Hui, admitted to TCU with debility, here for rehabilitation, strengtening, prior to discharge home with hospice. * Debility - PT/OT. * Dysphagia - ST. * Pain - Oxycodone 5-10mg q6h prn pain. * Bowel - Miralax 17gm daily, senna/colace 2 tablets bid, Dulcolax 10mg daily prn. * Adult immunization - Administer pneumonia vaccine, flu vaccine, covid19 vaccine as appropriate. * DVT prophylaxis - Eliquis 2.5mg bid thru 02/20/2022. * Nausea - Haldol 1mg q4h prn, stable chronic assisted use by hospice, GDR not recommended. * Anxiety - Ativan 0.5mg q4h prn. * Suicidal ideation - Sitter overnight, resident not suicidal when I interviewed him, stated he wanted to do rehab.
[2022-01-18] MEDS: APIXABAN 2.5 MG TABLET PO (21:04)
[2022-01-19] MEDS: Polyethylene Glycol 3350 17 GM PACKET PO (05:03)
[2022-01-19] MEDS: Senna/Docusate Sodium 1 Tablet 2 TABLET PO ×2 (05:04→17:07)
[2022-01-19] MEDS: APIXABAN 2.5 MG TABLET PO ×2 (05:04→17:07)
[2022-01-19 05:41] LABS: Absolute Lymphocyte Count 0.94 X10^3/uL (0.83-4.51); Basophil# 0.01 X10^3/uL; Basophil% 0.1 % (0-1); Hematocrit 30.8 % (40-54); Lymphocyte # 0.94 X10^3/ul (0.83-4.51); Lymphocyte % 9.6 % (19-41); Mean Corp Hgb Conc 32.5 g/dL (32-36); Mean Corpuscular Hgb 29.1 pg (27.0-32.0); Mean Corpuscular Volume 89.5 fL (80-94); Mean Platelet Vol. 9.9 fl (6.2-12.0); Monocyte# 0.78 X10^3/uL; NRBC Flagged by Analyzer 0 % (0-5); Neutrophil # 8.04 X10^3/uL (2.7-7.7); Neutrophil % 81.9 % (47-70); Platelet Count 204 K/mm3 (150-450); RBC Distribution Width SD 45.8 fl (35.1-43.9); Red Blood Count 3.44 M/mm3 (4.6-6.2); White Blood Count 9.8 K/mm3 (4.4-11.0)
[2022-01-19 06:24] LABS: Anion Gap 5 (5-15); BUN 16 mg/dL (7-18); BUN/Creat Ratio 43.4 RATIO (10-20); Calcium,Total 8.5 mg/dL (8.5-10.1); Chloride 102 mmol/L (98-107); Creatinine, Serum 0.37 mg/dL (0.70-1.30); EST Glomerular Filtration Rate 241 mL/min (>60); Est Glom Filt Rate - Afr Amer 291 mL/min (>60); Estimated Creatinine Clearance 39.33 ml/min; Glucose 96 mg/dL (74-106); Potassium 3.5 mmol/L (3.5-5.1); Sodium Level 139 mmol/L (136-145)
[2022-01-19 06:34] VITALS: O2SAT 100
[2022-01-19] MEDS: Haloperidol 1 MG Tablet PO (07:29)
--- NOTE | 2022-01-19 07:44 | NURSING ---
dr song made decision to dc sitter for pt. pt was not pink slipped and will let unit manager rn know
[2022-01-19] MEDS: Tuberculin,Purif.prot.deriv. 50 TU/ML Vial 0.1 ML ID (10:00)
--- NOTE | 2022-01-19 12:27 | CHAPLAIN ---
Type of Pastoral Visit ___ Initial Visit _x__ Follow-up Visit ___ On-call Visit ___ General Patient Visit ___ Spiritual Assessment ___ Family Conference ___ Bereavement ___ Rapid Response ___ Code Blue ___ Other (describe below) Pastoral Care Referral From _x__ Patient ___ Family ___ Nurse ___ Physician ___ Slicing Machine Feeder ___ Chlorine Cells Operator ___ Other (describe below) Sacrament/Intervention x Active listening ___ Anointing ___ Adventism ___ Bereavement ___ Communion ___ Arlyn exploration ___ _x__ Life review _x__ Prayer ___ Reconciliation ___ Sacrament of Sick _x__ Supportive presence ___ Wedding ___ Other (describe below) Pastoral Comments introduced self to patient who was seen previously in [facility] by this air brake adjuster; pt starts by saying I want to have nice weather for even though Easter is past by 9 days; pt has TV on and he complains about the speaker who is a senator and doesn't know what he is talking about although the person on TV was the [place] [employer] that was answering questions about war in [facility]; patient makes comments about the people in [facility] who are working so hard for the [employer] but getting no money for their work because their currency means nothing; patient spoke about needing the barf bag because everything comes up and that I got a catheter now because I can't urinate; pt admits that he wonders if he can get better although the people here are nice and doing a good job; asked about his life when he was younger the 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
--- NOTE | 2022-01-19 14:55 | CASEMGMT ---
Social Work Met with patient to complete initial assessment. Introduced self and role. Pt has two HCPOA that work jointly, Davian and Abena, are both listed as contacts. The goal is for pt to return home alone, with caregivers and POA assistance, readmitting to [facility]. requesting Palliative referral to manage during pt stay. Referral sent via email. Discussed code status and MOLST form. Pt confirmed DNR-CC and no artificial nutrition. MOLST communicated to , placed in chart. Nursing notified. SW to continue to follow for DC planning. Ana Luisa Castro, GRANT MANAGER CLIENT SOLUTIONS MANAGER
--- NOTE | 2022-01-19 15:23 | PCM.PN.RX ---
Progress Note - Pharmacy Subjective: TCU ADMISSION Objective: Allergies No Known Allergies Allergy (Verified 01/15/22 19:06) Current Medications Generic Name Dose Route Start Last Admin Trade Name Freq PRN Reason Stop Dose Admin Apixaban 2.5 mg 01/18/22 18:00 01/19/22 05:04 Apixaban 2.5 Mg Tablet PO 02/20/22 23:55 2.5 mg BID ENE Administration Bisacodyl 10 mg 01/18/22 20:48 Bisacodyl 5 Mg Tablet PO DAILY PRN Constipation Haloperidol 1 mg 01/18/22 15:44 01/19/22 07:29 Haloperidol 1 Mg Tablet PO 1 mg Q4H PRN PRN Administration Nausea Lorazepam 0.5 mg 01/18/22 15:44 Lorazepam 0.5 Mg Tablet PO Q4H PRN ANXIETY Oxycodone HCl 5 - 10 mg 01/18/22 15:44 Oxycodone 5 Mg Tablet PO Q6H PRN pain 1-10 Polyethylene Glycol 17 gm 01/19/22 06:00 01/19/22 05:03 Polyethylene Glycol 3350 17 Gm Packet PO 17 gm DAILY ENE Administration Senna/Docusate Sodium 2 tablet 01/18/22 18:00 01/19/22 05:04 Senna/Docusate Sodium 1 Tablet PO 2 tablet BID ENE Administration Tuberculin PPD 0.1 ml 01/26/22 10:00 Tuberculin,Purif.Prot.Deriv. 50 Tu/Ml Vial ID 01/26/22 10:01 X1 ONE Problem List (Last Reviewed 01/18/22 @ 20:[address] Albert Faye MD) Esophageal stricture (Acute) Dysphagia (Acute) Chronic obstructive pulmonary disease (Chronic) Coronary artery disease (Acute) Closed right hip fracture (Acute) Fall (Acute) Debility (Acute) Vital Signs Temp Pulse Resp BP Pulse Ox 97.7 F L 92 16 131/63 H 100 01/18/22 16:01 01/18/22 16:01 01/18/22 16:01 01/18/22 16:01 01/19/22 06:34 Oxygen Flow Rate (L/min) 2 Oxygen Delivery Method Nasal Cannula Weight: 47.99 kg Body Mass Index (BMI) 13.9 Sodium 139 mmol/L (136-145) 01/19/22 05:10 Potassium 3.5 mmol/L (3.5-5.1) 01/19/22 05:10 Chloride 102 mmol/L (98-107) 01/19/22 05:10 Carbon Dioxide 32.0 mmol/L (21.0-32.0) 01/19/22 05:10 Anion Gap 5 (5-15) 01/19/22 05:10 BUN 16 mg/dL (7-18) 01/19/22 05:10 Creatinine 0.37 mg/dL (0.70-1.30) L 01/19/22 05:10 Est GFR (MDRD) Af Amer 291 mL/min (>60) 01/19/22 05:10 Est GFR (MDRD) Non-Af 241 mL/min (>60) 01/19/22 05:10 BUN/Creatinine Ratio 43.4 RATIO (10-20) H 01/19/22 05:10 Glucose 96 mg/dL (74-106) 01/19/22 05:10 Assessment/Plan: 1. Pain: oxycodone 5-10mg PO Q6H PRN pain 1-10. Please continue to monitor for increased pain and PRN usage. 2. DVT prophylaxis: apixaban 2.5mg PO BID thru 02/20/22. Please continue to monitor for S/S of bleeding/DVT and hemoglobin (last 10g/dL). Psychotropic Medications: 1. Nausea: haloperidol 1mg PO Q4H PRN nausea. Please see physician note regarding GDR. Thanks. Please continue to monitor for nausea and PRN usage. *2. Anxiety: lorazepam 0.5mg PO Q4H PRN anxiety. Resident has not required a dose yet. Please continue to monitor for anxiety and PRN usage. Please consider GDR by 06/2022 if clinically appropriate and resident does not require doses while admitted. Unnecessary Medications: None Bowel Regimen: Miralax 17gm PO daily, senna/docusate 2T PO BID and bisacodyl 10mg PO daily PRN constipation. Please continue to monitor for S/S of constipation and PRN usage. Date of Note:: 01/19/22
[2022-01-19 15:37] VITALS: BP 117/67; PULSE 102; RESP 20; TEMP 36.3; O2SAT 98
[2022-01-20 05:01] VITALS: BP 122/67; PULSE 89; RESP 22; TEMP 36.8; O2SAT 98
[2022-01-20] MEDS: APIXABAN 2.5 MG TABLET PO ×2 (05:13→17:49)
[2022-01-20] MEDS: Senna/Docusate Sodium 1 Tablet 2 TABLET PO ×2 (05:14→17:50)
[2022-01-20 06:35] VITALS: O2SAT 98
[2022-01-20] MEDS: oxyCODONE 5 MG Tablet PO (09:44)
--- NOTE | 2022-01-20 10:21 | NURSING ---
DRESSING FEEL OFF PT RIGHT LOWER LEG. THIS NURSE REDID DRESSING.PT TOLERATED WELL.
--- NOTE | 2022-01-20 11:22 | NS ---
Provided first choice/daily specials menu w/ instructions on how to order. Res would like small portions - will include in diet order.
--- NOTE | 2022-01-20 14:03 | ST.MBS ---
Modified Barium Swallow - Patient Information Study Date: 01/20/22 Study Time: 12:00 Direct Billable Minutes: 120 Total Minutes procedure & reportin Diagnosis: Dysphagia (R13.10) Referring Physician: Albert Faye Chi Reason for Referral: Objectively assess swallow function, risk for aspiration, and determine recommendations for least restrictive diet textures and compensatory strategies to improve safety of swallow. Medical History: Tadeo Shelton is an 81 year old male who presented to [facility] with fall on 01/15/22. He had 3 falls in 1 week and was unable to get up, crawled to the phone to call for help. He was admitted to the hospital for management of R hip fracture. He revoked hospice and had R hip hemiarthroplasty on 01/16/2022. 01/18/2022 he was admitted to TCU with debility, here for rehabilitation, strengthening, prior to discharge home alone with hospice. PMHx is significant for: Asthma, Atherosclerotic heart disease of samish coronary artery without angina pectoris, Depression with anxiety, Difficulty chewing, Dysphagia, Esophageal stricture, Fatigue, Hiatal hernia with gastroesophageal reflux disease and esophagitis, High risk medication use, Hyperlipidemia, On home oxygen therapy, SMAS (superior mesenteric artery syndrome), Tachycardia, Weight loss. The patient was evaluated at bedside by ST on 01/19/2022 with recommendation for puree textures / thin liquids and MBS study to further elucidate cause of limited PO intake w/ discomfort and emesis, as well as to clarify strategies to compensate and allow for improved nutritional intake w/ reduced risk for aspiration. The patient reported he had a PEG tube placed by loom fixer helper, Dr. Winters, after 3 esophageal dilations. The patient stated his loom fixer helper did not want to proceed with any additional dilations, so PEG tube was placed to supplement his nutrition/hydration. The PEG tube was removed ~1 year ago after 3 months of use as it was not helping anything per the patient. Current Diet Ordered: Puree Textures / Thin Liquids Dentition: Edentulous - Pt has dentures but reported they do not fit. Mental Status: Impaired - Would consider cognitive-linguistic evaluation. Pt lives alone and had difficulty reporting details of esophageal history. Needed repetition of instructions to perform strategies during assessment. Respiratory Status: Oxygenating on 3L/M nasal cannula - Penetration-Aspiration Scale Penetration-Aspiration Scale: OBJECTIVE ASSESSMENT OF SWALLOW FUNCTION (QUANTITATIVE ? PER TRIAL): PENETRATION / ASPIRATION SCALE (SAAB): 1 = does not enter airway 2 = enters airway/above vocal folds/ejected 3 = enters airway/above vocal folds/not ejected 4 = enters airway/contacts vocal folds/ejected 5 = enters airway/contacts vocal folds/not ejected 6 = enters airway/below vocal folds/ejected 7 = enters airway/below vocal folds/not ejected despite effort 8 = enters airway/below vocal folds/no effort VIDEOFLOROSCOPIC SCALE SCORE (SAAB): Grade I = aspiration of material that has penetrated into the laryngeal vestibule, intact cough reflex Grade II = aspiration < 10 % of the bolus, intact cough reflex Grade III = aspiration of < 10 % of the bolus, reduced cough reflex or aspiration of > 10 % of the bolus, intact cough reflex Grade IV = aspiration of > 10 % of the bolus, reduced cough reflex - Penetration-Aspiration Scale Score Thin Liquid via teaspoon Result: 1= does not enter airway Thin Liquid via teaspoon Trial 2 Result: 1= does not enter airway Thin Liquid via small single sip from cup Result: 8= enters airway/below vocal folds/no effort Comment: Grade III = SILENT aspiration of < 10 % of the bolus Thin Liquid via small single sip from cup Effortful swallow Result: 3= enters airways/above vocal folds/not ejected [place] Thick Liquid via small single sip from cup Result: 1= does not enter airway [place] Thick Liquid via small single sip from cup Double swallow Result: 1= does not enter airway Comment: Required repetition of instructions to cue double swallow. [place] Thick Liquid via small single sip from cup Effortful swallow Result: 2= enter airway/above vocal folds/ejected [place] Thick Liquid via small single sip from cup Result: 1= does not enter airway Pudding via teaspoon with esophageal screen Result: 1= does not enter airway 1/4 Cookie with esophageal screen Result: 1= does not enter airway [place] Thick Liquid via single sip from straw Result: 1= does not enter airway - Oral Phase Labial Seal: No Labial Escape Tongue Control During Bolus Hold: Posterior escape of greater than half of bolus Bolus Preparation/Mastication: Disorganized chewing/mashing with solid pieces of bolus unchewed Bolus Transport/Lingual Motion: Repetitive/disorganized tongue motion Oral Residue: Residue collection on oral structures - Pharyngeal Phase Initiation of Pharyngeal Swallow: Bolus head in pyriforms Soft Palate Elevation: No bolus between soft palate and pharyngeal wall Anterior Hyoid Excursion: Partial anterior movement Epiglottic Movement: Complete inversion Laryngeal Vestibule Closure at Height of Swallow: Incomplete; narrow column of air/contrast in laryngeal vestibule Pharyngeal Stripping Wave: Present - diminished Pharyngoesophageal Segment Opening: Parital distension and partial duration; parital obstruction of flow Tongue Base Retraction: Wide column of contrast between tongue base & post. pharyngeal wall Pharyngeal Residue: Collection of residue within or on pharyngeal structures - Esophageal Phase Esophageal Clearance: Esophageal retention w/ retrograde flow below pharyngoesophageal seg. - Treatment Strategies Effects of treatment strategies attemped:: Effortful swallow = somewhat effective. Double swallow = somewhat effective. - Diagnosis/Impression Diagnosis: oral phase dysphagia (R13.11), pharyngoesophageal dysphagia (R13.14) Impression: The oral phase is marked by decreased mastication abilities, lingual pumping, and decreased bolus control with resulting premature posterior loss of greater than half of the bolus. This premature posterior loss was especially noted with liquid trials. The pharyngeal phase is marked be decreased airway closure during the swallow, as well as moderate-severe pharyngeal residue after the swallow. He presents with decreased anterior hyoid excursion and laryngeal elevation. He has significantly decreased tongue base retraction and pharyngeal contraction with resulting moderate-severe residue in the vallecula after the swallow. The patient presented with SILENT aspiration of single sip of thin liquids via cup. He aspirated pharyngeal residue of the thin liquid sip spilling from the vallecula into the laryngeal vestibule as he initiated multiple swallows to clear the sip. He demonstrated laryngeal penetration just above the vocal folds of thin liquids via cup with effortful swallow, which did not fully eject from the airway. He also demonstrated laryngeal penetration of nectar thick contrast above the vocal folds with full ejection. SEE PAS scores above for further details regarding laryngeal penetration and aspiration. The esophageal phase is marked by slow esophageal motility, retrograde flow of contrast from distal to mid esophagus. He appears to have a very narrow and tortuous distal esophagus. - Recommendations Diet: Puree Textures, [place]-thick Liquids Comment: Would consider 4-5 smaller meals per day. Compensatory Strategies: Small Bites, Small Sips, Slow Rate, Multiple Swallows - Encourage use of at least 2 swallows on each bite/sip, Sitting upright, Remain sitting upright for 30 minutes after PO intake Supervision: 1:1 Close Supervision Recommend Repeat Modified Barium Swallow: Yes - 4-6 weeks after implementation of oropharyngeal strengthening exercise program Need for Skilled Speech Therapy Services: Yes Comment: Will recommend the patient for continued dysphagia therapy at current level of care to address deficits in oropharyngeal swallow function. Would consider the patient for oropharyngeal strengthening to improve lingual coordination, hyolaryngeal elevation and excursion, tongue base retraction, and pharyngeal contraction. The patient would benefit from thorough education regarding diet recommendations and recommended compensatory strategies. Would strongly consider the patient for implementation of Liu Free Water Protocol (FFWP) to encourage hydration and promote increased opportunities for swallowing throughout the patient?s day. Will recommend skilled dietary analysis with AERONAUTICAL PRODUCTS SALES ENGINEER to determine appropriateness for diet advancement to minced and moist (IDDSI Level 5) textures if patient is tolerating current diet without concerns for aspiration. Would not advance to thin liquids prior to repeat MBS study as the patient demonstrated silent aspiration of thin liquids via cup. Recommended Referrals: GI Consult - Pt has extensive esophageal history, including PEG tube placement and removal. Would consider GI consult to address concern for esophageal retention with retrograde flow of contrast and slow esophageal motility. AERONAUTICAL PRODUCTS SALES ENGINEER spoke with RN, Swathi, regarding recommended consult. Education Completed: 1. Described result of evaluation., 7. Pt requires further education on strategies & risks. - Status Active ST Patient: Active - Contact Information [facility] Speech Therapy:: Franci Reyes M.A. [facility]-AERONAUTICAL PRODUCTS SALES ENGINEER Speech-Language Pathologist [facility] [address] [place] [address] [email or web address] [phone] 01/20/22 14:26
[2022-01-20 14:25] VITALS: BP 118/72; PULSE 98; RESP 12; TEMP 36.7; O2SAT 97
--- NOTE | 2022-01-20 17:16 | NURSING ---
This Nurse was at nursing station when pt yelled out help. Upon entering room pt was seeing laying on floor on back and grasping head. Gibbs cath was wrapped around legs. Pt stated I was trying to get up to stretch legs and got dizzy. Pt Vital Signs BP 134/78 SpO2 97% RA. Hand Assembly Press Operator Normal Pupils PERRLA Pedal push/pull normal. No abrasions or bumps noted at this time. This nurse and 2 ROUGH RICE TENDER's helped pt up into wheel chair. Dr. Faye updated and new order for CT scan and Neuro Checks. Bed Alarm placed on bed. Pt stated this was all my fault and i'm not blaming anyone for my mistake. Pt educated solar project coordination specialist light and to call for us for help.
--- NOTE | 2022-01-20 17:35 | NURSING ---
Pt requested not to have thickened liquids and refusing to drink anything thickened. Pt educated on importance of why ST changed to Thickened Liquids pt stated I don't want anything thickened and I know the risks. Dr. Faye updated and order changed to thin liquids. Will continue to monitor pt and supervise for meals. Call light within reach.
--- NOTE | 2022-01-20 18:02 | NURSING ---
CALLED AND LEFT MESSAGE WITH PT POA THAT THERE WERE PAPERS FOR HIM TO SIGN THE NEXT TIME HE COMES IN.
[2022-01-20 18:30] VITALS: BP 135/71; PULSE 96; RESP 18; O2SAT 96
[2022-01-20 19:45] VITALS: BP 116/82; PULSE 88; RESP 14; TEMP 36.9; O2SAT 95
[2022-01-21 01:17] VITALS: BP 123/79; PULSE 88; RESP 15; TEMP 36.9; O2SAT 97
[2022-01-21 05:23] VITALS: BP 148/85; PULSE 94; RESP 17; TEMP 36.5; O2SAT 95
[2022-01-21] MEDS: APIXABAN 2.5 MG TABLET PO (05:25)
[2022-01-21 08:43] VITALS: BP 143/63; PULSE 100; RESP 20; TEMP 36.7; O2SAT 92
--- NOTE | 2022-01-21 09:36 | PCA ---
Tadeo refused to stay up 60 minutes after breakfast. He said he will get himself out of the bed & fall on the floor. I told him that it's per Therapy that he stays up & not myself telling him. Within 5 minutes of me leaving the room, his alarm was going off. The other MEMBERSHIP DIRECTOR & I just put him to bed.
[2022-01-21 11:50] VITALS: BP 134/76; PULSE 93; RESP 22; TEMP 36.7; O2SAT 92
--- NOTE | 2022-01-21 12:40 | ST ---
Per nursing and SOUP MIXER this am, pt states he refuses thickened liquids and is aware of risks. PRECIPITATE WASHER arrived in pt's room for speech therapy session with patient in bed and most of lunch, untouched, sitting away from pt. Pt states that he does not want to eat any of his lunch and can't swallow. Pt instructed on recent MBS study results 01/20 with recommendation for mildly thickened liquids/puree textures and the following recommended aspiration precautions: 1:1 supervision during meals, small bites/sips, slow rate of intake, positioning at 90 degrees for intake to aid esophageal clearance and 30-60 minutes after, and taking 2 swallows for every bite/sip. Pt states he can't eat and drink and just wants to . Pt asked several times if this PRECIPITATE WASHER knew of anyone who would perform physician assisted suicide. Pt stated he could just stop eating and drinking and that dehydration would kick in first. PRECIPITATE WASHER inquired about family/friends with pt responding no one would miss me. I don't have family. Active listening and verbal support provided. PRECIPITATE WASHER immediately notified nursing, director of unit, and WEDDING CAKE DESIGNER of pt's suicidal thoughts and plan. WEDDING CAKE DESIGNER to perform a suicide assessment.
--- NOTE | 2022-01-21 12:59 | CASEMGMT ---
Addendum entered by Ana Luisa Castro 01/21/22 13:52: Spoke with Cielo at hospice and they can accept pt today. She will contact Abena to notify her of a time the nurse will be out to the house today. Hospice will deliver hospital bed today as well. Scheduled cot transport through [facility] at 2:30 pm. Updated Abena, WENCESLAO and pt. Plan: DC home with [facility] 01/21 at 2:30 pm Original Note: Social Work Alerted by nursing/OLAP DEVELOPER and lead AGATA that patient is vocalizing thoughts and plan to complete suicide. Sitter was instituted. Collaborated with IDT. Met with patient at bedside. Offered for pt to express his thoughts and feelings for this worker to assist. Pt confirmed he wants to complete suicide. Plan per pt: OD on medications, but since they're locked in med box, I would stop drinking, which would cause dehydration. I cannot eat anyway. Inquired about MBS - pt states nothing happened, they can't help me, so I can't eat anyway. Explored if pt has other ways of how he would hurt himself. Pt denied, no I don't know how else I would, but I could just fall again. Inquired if he was falling on purpose. Pt denied and stated he just falls once a day. Explored if pt has wishes on where he would like to , i.e. home or SNF. Pt denied. Discussed the option for pt to return home with the resumption of hospice services. Pt agreed as that does align with his wishes. Pt would be agreeable to DC home today. Pt states he sleeps on a couch. SW offered hospice to order a hospital bed. Pt agreed. Asked whom SW can call to agata, Davian or Abena. He said either, they should be together anyway. SW confirmed pt would continue voicing to staff his thoughts or if his thoughts change. SW concluded pt is not going to harm himself in any other way than what he voiced; a sitter does is not needed; the goal is for pt to DC home with hospice services. Paged Dr. Faye. Spoke with Dr. Faye and he agreed sitter can be discontinued and safety plan is to remain expressive with staff on thoughts of self harm. Dr. Faye agreeable to DC home with hospice as soon as possible. Contacted the referral [facility] at [facility]. Clarified for liaison to contact SW for update prior to contacting family. Will await return phone call. Contacted Davian - left voicemail requesting return phone call. Contacted Abena. Explained above information - Abena agreeable to DC. Inquired about assistance in the home prior. Abena stated hospice came in the AM, she came at 10 am, Davian came at 3 pm and hospice came in the evening. The schedule will remain the same. SW to confirm with hospice as well. Abena stated she will make herself available for when pt discharges home. SW to keep Abena updated once hospice confirms with this worker. Abena appreciative. Updated IDT and pt. SW to continue to follow. Ana Luisa Castro, DIE REPAIR INSIDE PARTS SALES
--- NOTE | 2022-01-21 13:57 | PCM.DC.SUM ---
Providers Date of Admission: 01/18/22 Primary Care Physician: Dr. John Fallon, DO Reason For Visit: HIP FX Diagnosis Discharge Diagnosis (1) Debility: Status: Acute Code(s): R53.81 - Other malaise (2) Fall: Status: Acute Code(s): W19.XXXA - Unspecified fall, initial encounter (3) Closed right hip fracture: Status: Acute Code(s): S72.001A - Fracture of unspecified part of neck of right femur, initial encounter for closed fracture (4) Coronary artery disease: Status: Acute Code(s): I25.10 - Atherosclerotic heart disease of [place] coronary artery without angina pectoris (5) Chronic obstructive pulmonary disease: Status: Chronic Code(s): J44.9 - Chronic obstructive pulmonary disease, unspecified (6) Dysphagia: Status: Acute Code(s): R13.10 - Dysphagia, unspecified (7) Esophageal stricture: Status: Acute Code(s): K22.2 - Esophageal obstruction Medications at Discharge Home Medications haloperidol 1 mg Q4H PRN PRN 01/15/22 lorazepam 0.5 mg PO Q4H PRN 01/15/22 oxycodone 5 - 10 mg PO Q6H PRN 1 Days #8 tab 01/18/22 Hospital Course Operations - (Right hip hemiarthroplasty.) Procedures None Summary of Care Provided Minutes Spent on Discharge: 35 Hospital Course: 81 year old male with below past medical history hospitalized for right hip fracture, underwent right hip hemiarthroplasty 01/16/[address] Hui, admitted to TCU with debility, here for rehabilitation, strengtening, prior to discharge home with hospice. Resident wants to go home to . Discharge home 01/21/2022 with [facility]. Physical Exam Const alert General Appearance: cooperative HEENT normocephalic Eyes PERRL and EOMs intact bilaterally Neck supple, no JVD and no carotid bruits Resp normal respiratory effort, normal air movement and clear to auscultation bilaterally Cardio regular rate and regular rhythm GI normal to inspection, nondistended, normoactive bowel sounds, non-tender and non-distended Extremity normal capillary refill General Extremity: Negative for edema Skin no rashes or lesions noted General Skin Exam: no breakdown Psych affect normal Appearance: appropriate Medical Records Data Medical Nutrition Assessment Dietitian: Malnutrition Criteria Met Start: 01/19/22 14:40 Freq: Status: Active Protocol: Document 01/19/22 14:41 AG (Rec: 01/19/22 14:41 AG [id number]) Nutrition Malnutrition Evidence of Malnutrition Exists Yes Malnutrition (severe): Chronic Evidenced By Suboptimal Energy Intake ( Severe),Physical Changes ( Severe) Clinical Problem Chronic Disease or Condition Related Malnutrition Etiology severe, chronic malnutrition related to inadequate energy intake due to dysphagia, esophageal stricture w/ increased energy needs due to end-stage COPD Signs/Symptoms as evidenced by estimated PO intake meeting <75% of estimated energy needs >3 months; Severe muscle wasting/ fat loss per physical exam in orbital, temporal areas; prominent protrusion of acromion, clavicles, scapula; noted severe muscle wasting in lower extremities; BMI 13.9 Status Active Problem Recommendation Dietitian Recommendations/Changes continue regular diet- pureed (texture/consistency changes per [employer]). Will continue fortified milkshakes TID at meals and mashed potatoes/ gravy w/ lunch and dinner as ordered Weight / BMI Weight Weight: 47.627 kg Body Mass Index (BMI) 13.9 ABG / Lab / Microbiology Data Result Diagrams: 01/19/22 05:10 01/19/22 05:10 D/C Instructions Discharge Diet: No restrictions Discharge Activity: Return to Normal Activity, May Shower and Use Walker Weight Bearing Status: Weight bearing as tolerated Call your doctor if you observe: Fever of 101 or Higher, Inability to urinate, Inability to have a bowel movement, Shortness of breath, Dizziness, Fainting spells, Swelling in the ankles, Chest pain and Uncontrolled pain Additional Instructions: Discharge home 01/21/2022 with [facility]. Meaningful Use Info Meaningful Use Diagnoses (Choose all that apply): None applicable Discharge Plan Admission Admit Date/Time: 01/18/22 15:19 Primary Reason for Your Visit: Debility. Attending Provider: Albert Faye Chi Primary Care Provider: John Fallon Instructions Additional Instructions / Restrictions: Discharge home 01/21/2022 with [facility]. Discharge Orders/Prescriptions Prescriptions: Continued haloperidol 1 mg tablet 1 mg Q4H PRN PRN (Reason: Nausea) RF: 0 lorazepam 0.5 mg Tablet 0.5 mg PO Q4H PRN (Reason: Anxiety) RF: 0 oxycodone 5 mg Tablet 5 - 10 mg PO Q6H PRN (Reason: pain) 1 Days Qty: 8 RF: 0 Discontinued sennosides-docusate sodium [Senna Plus] 8.6-50 mg Tablet 1 - 2 tab PO DAILY PRN (Reason: Constipation) RF: 0 sennosides-docusate sodium [Stool Softener-Stimulant Laxat] 8.6-50 mg tablet 2 tab PO BID RF: 0 Eliquis 2.5 mg tablet 2.5 mg PO BID RF: 0 Referrals / Follow Up: John Fallon DO [Primary Care Provider] - Disposition Disposition (needs filled in before D/C Order can be placed): Hospice in Home
--- NOTE | 2022-01-21 15:06 | CASEMGMT ---
Social Work BIMS and PHQ-9 completed for MDS assessment. Ana Luisa Castro, MINING HELPER BLOCK MAKING MACHINE OPERATOR
--- NOTE | 2022-01-21 15:07 | NURSING ---
Called report to home hospice nurse unable to give report left a message awaiting return call.
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
--- NOTE | 2022-01-27 14:55 | MDS.RN ---
Information for the mds was obtained from review of the clinical record, interview of resident, staff, and direct observation of resident's care.
== END 2022-01-21 15:00 | disposition hospice, home (50) | DRG 560 ==
PROVIDERS: Admitting Provider Family Medicine Geriatric Medicine; PCP Family Medicine; Visit Provider Family Medicine Geriatric Medicine
DX: S72.001D Fracture of unspecified part of neck of right femur, subsequent encounter for closed fracture with routine healing (principal); E46 Unspecified protein-calorie malnutrition; Z68.1 Body mass index [BMI] 19.9 or less, adult; Z99.81 Dependence on supplemental oxygen; J44.9 Chronic obstructive pulmonary disease, unspecified; K22.2 Esophageal obstruction; E78.5 Hyperlipidemia, unspecified; I25.10 Atherosclerotic heart disease of native coronary artery without angina pectoris; W19.XXXD Unspecified fall, subsequent encounter; R13.10 Dysphagia, unspecified; Z87.891 Personal history of nicotine dependence; K21.00 Gastro-esophageal reflux disease with esophagitis, without bleeding; Z79.01 Long term (current) use of anticoagulants; Z79.899 Other long term (current) drug therapy
CPT/HCPCS: 36415; 74230; 80048; 85025; 92507; 92526; 92610; 92611; 97110; 97162; 97166; 97530; 97535; 97802

== ENCOUNTER → 2022-01-20 | Outpatient (CLI) | payer MEDICARE, SELFPAY ==
[2017-01-28 08:52] VITALS: BMI 18.7
--- NOTE | 2022-01-20 16:51 | CT_ITS ---
STUDY: CT BRAIN WITHOUT CONTRAST REASON FOR EXAM: Male, 81 years old. FALL/HEAD INJURY/ELIQUIS PRESCRIBER RADIATION DOSAGE (If Supplied By Facility): CTDIvol = ( 44.99 ) mGy, DLP = ( 779.24 ) mGycm TECHNIQUE: Transaxial CT imaging of the brain was performed without administration of intravenous contrast material. Individualized dose optimization techniques were used for this CT. COMPARISON: No relevant priors. FINDINGS: Normal soft tissue structures. Normal calvarium. Normal size ventricles and extra-axial spaces for the patient''s age. Bilateral white matter microangiopathic ischemic changes of the cerebral hemispheres. Normal basal ganglia and thalami. Normal brainstem. Normal cerebellum. There is no intracranial hemorrhage. There are no findings of an acute ischemic infarction. Normal visualized paranasal sinuses. Bilateral mastoiditis, left more than right. Left otitis media. CT/Brain/Head without Contrast IMPRESSION: Age-related changes of the brain. Bilateral mastoiditis, left more than right. Left otitis media. Electronically Signed: Sony Matthews DO at 18:11 EDT ,
== END | disposition home or self-care (01) ==
LOC: CT 16:50
PROVIDERS: PCP Family Medicine; Referring Provider Family Medicine Geriatric Medicine; Visit Provider Family Medicine Geriatric Medicine
DX: S09.8XXA Other specified injuries of head, initial encounter (principal); W19.XXXA Unspecified fall, initial encounter; Z79.01 Long term (current) use of anticoagulants
CPT/HCPCS: 70450